=== PATIENT | female | born 1945 | race Caucasian/White ===

== ENCOUNTER → 2016-05-05 | Outpatient (CLI) | payer MEDICARE | END | disposition home or self-care (01) | LOC: LABPAT 10:41 | PROVIDERS: ATTEND Orthopaedic Surgery | DX: Z01.812 Encounter for preprocedural laboratory examination (principal) | CPT/HCPCS: 87070 ==

== ENCOUNTER → 2016-05-05 | Outpatient (CLI) | payer MEDICARE ==
--- NOTE | 2016-05-05 10:55 | XR ---
EXAMINATION TYPE: XR chest 2V DATE OF EXAM: 05/05/2016 10:37 AM COMPARISON: 03/16/2010 TECHNIQUE: PA and lateral views submitted. HISTORY: Preop FINDINGS: The lungs are clear and there is no pneumothorax, pleural effusion, or focal pneumonia. Biapical pl eural thickening. Arthropathy of the shoulders. Atherosclerotic change aorta. Degenerative change of the spine. Hyperinflation suggests COPD. IMPRESSION: 1. No acute process.
== END ==
LOC: RADXRMAIN 10:18
PROVIDERS: ATTEND Family Medicine
DX: I10 Essential (primary) hypertension (principal)
CPT/HCPCS: 71020

== ENCOUNTER → 2016-05-16 | Outpatient (CLI) | payer MEDICARE | END | disposition home or self-care (01) | LOC: LABPAT 10:55 | PROVIDERS: ATTEND Orthopaedic Surgery | DX: Z01.812 Encounter for preprocedural laboratory examination (principal) | CPT/HCPCS: 86850; 86900; 86901 ==

== ENCOUNTER → 2016-05-23 | Outpatient (CLI) | payer MEDICARE ==
[2016-05-23 15:19] LABS: Basophils % (A) 1 %; CH 32.9; CHCM 33.8; Eosinophils # (A) 0.1 k/uL (0-0.7); Eosinophils % (A) 1 %; HCT 40.5 % (34.0-46.0); HDW 2.44; HGB 13.4 gm/dL (11.4-16.0); Luc # (Auto) 0.28; Luc % (Auto) 3; Lymphocytes # (A) 3.4 k/uL (1.0-4.8); Lymphocytes % (A) 36 %; MCH 32.4 pg (25.0-35.0); MCHC 33.2 g/dL (31.0-37.0); MCV 97.7 fL (80.0-100.0); Mean Platelet Volume 7.4; Monocytes # (A) 0.4 k/uL (0-1.0); Monocytes % (A) 4 %; Neutrophils # (A) 5.2 k/uL (1.3-7.7); Neutrophils % (A) 55 %; RBC 4.14 m/uL (3.80-5.40); RDW 12.7 % (11.5-15.5); WBC 9.4 k/uL (3.8-10.6); WBC (Perox) 9.76
[2016-05-23 15:21] LABS: Partial Thromboplastin Time 27.5 sec (22.0-30.0); Prothrombin Time 9.8 sec (9.0-12.0)
[2016-05-23 15:23] LABS: ALT 27 U/L (9-52); AST 22 U/L (14-36); Alkaline Phosphatase 101 U/L (38-126); Anion Gap 12 mmol/L; Blood Urea Nitrogen 11 mg/dL (7-17); Calcium 9.8 mg/dL (8.4-10.2); Carbon Dioxide 22 mmol/L (22-30); Chloride 100 mmol/L (98-107); Glucose 88 mg/dL (74-99); Non-African American GFR(MDRD) >60 (>60 ml/min/1.73 sqM); Potassium 4.4 mmol/L (3.5-5.1); Sodium 134 mmol/L (137-145); Total Bilirubin 0.6 mg/dL (0.2-1.3); Total Protein 7.2 g/dL (6.3-8.2)
== END | disposition home or self-care (01) ==
LOC: LABWHC1 14:25
PROVIDERS: ATTEND Family Medicine
DX: Z01.818 Encounter for other preprocedural examination (principal); Z79.01 Long term (current) use of anticoagulants
CPT/HCPCS: 36415; 80053; 85025; 85610; 85730

== ENCOUNTER 2016-05-24 05:52 | Inpatient (IN) | payer MEDICARE ==
[2016-05-13 08:41] VITALS: BMI 21.4
--- NOTE | 2016-05-23 16:03 | HP ---
DATE OF ADMISSION: 05/24/2016 CHIEF COMPLAINT: Left hip pain. HISTORY OF PRESENT ILLNESS: The patient is a 70-year-old retired female who presents with progressive left hip pain secondary to osteoarthrosis despite conservative measures. She is having pain with weight-bearing activities that limits her significantly. She is also having night symptoms. She has tried multiple medications for this. Past medical history is significant for hypertension and arthritis. Past surgical history is significant for: 1. Tubal ligation. 2. Cholecystectomy. 3. Hand surgery. 4. Hysterectomy. CURRENT MEDICATIONS: 1. Amlodipine. 2. Baclofen. 3. Motrin. SHE DENIES DRUG ALLERGIES. FAMILY HISTORY: Significant for stroke. SOCIAL HISTORY: Significant for current tobacco use. Sixteen-point review of systems otherwise reviewed and is noncontributory. On examination, the patient is approximately 5 feet 7 inches, 135 pounds of mesomorphic habitus. HEENT exam is non-focal. Neck is supple. She is non-tender about the lumbar spine. Passive motion of the left hip, flexion 75 degrees, external rotation with the hip flexed 45 degrees. Internal rotation is zero degrees with pain. Clinically she has got 1 cm shortening of the left lower extremity compared to the right. Her distal neurovascular exam appears be intact in the left lower extremity. AP and lateral views of the left hip obtained in the office show severe osteoarthrosis with gieu-dw-zdom changes. IMPRESSION: Left hip severe osteoarthrosis. RECOMMENDATIONS: I talked to the patient at length regarding her treatment options. At this point she opts to proceed with surgery. We will plan to proceed with left total hip arthroplasty. Risks and benefits were discussed at length in layman's terms. We will likely institute DVT prophylaxis postoperatively. The patient underwent preoperative medical evaluation by Dr. Joshua.
[~2016-05-24 05:52] MED LIST: ACETAMINOPHEN TAB 500 MG TAB PO ONE; DEXAMETHASONE SOD PHOSPHATE 10 MG/ML 1 ML VIAL IV ONE; LIDOCAINE 1% 20 ML VIAL (10MG/ML) FOR IV START INTRADERMA PRN; MELOXICAM 7.5 MG TAB PO ONE; ONDANSETRON 4 MG/2 ML VIAL IVP ONE; TRANEXAMIC ACID 1,000 MG in SODIUM CHLORIDE 0.9% 100 ML IVPB ONE; ceFAZolin 2 GM in SODIUM CHLORIDE 0.9% 100 ML IVPB ONE; fentaNYL (PF) 50 MCG/ML 2 ML AMP IV PRN
[2016-05-24] MEDS: LACTATED RINGERS 1,000 ML IV SCH (06:46)
[2016-05-24] MEDS ORDERED: ceFAZolin 3,000 MG in SODIUM CHLORIDE 0.9% IRRIGATIO 3,000 ML IRRIGATION ONE (07:35)
[2016-05-24] MEDS ORDERED: HEPARIN SODIUM,PORCINE 10,000 UNIT/ML 1 ML VIAL ONE (07:35)
[2016-05-24] MEDS ORDERED: SODIUM CHLORIDE 0.9% IRRIG 1,000 ML BTL IRRIGATION ONE (07:35)
[2016-05-24] MEDS ORDERED: TRANEXAMIC ACID 1,000 MG/10 ML VIAL ONE (07:35)
[2016-05-24] MEDS ORDERED: PROPOFOL 10 MG/ML 20 ML VIAL IV ONE (07:35)
[2016-05-24] MEDS ORDERED: MIDAZOLAM 2 MG/2 ML VIAL ONE (07:35)
[2016-05-24] MEDS ORDERED: LIDOCAINE 1% INJ 10MG/ML (20 ML MDV) ONE (07:35)
[2016-05-24] MEDS ORDERED: PHENYLEPHRINE-0.9% NACL SYG 1 MG/10 ML SYRINGE ONE (07:35)
[2016-05-24] MEDS ORDERED: SODIUM CHLORIDE 0.9% 100 ML BAG ONE (07:35)
[2016-05-24] MEDS ORDERED: KETAMINE 10 MG/ML 20 ML VIAL ONE (07:35)
[2016-05-24] MEDS ORDERED: LACTATED RINGERS 1,000 ML IV ONE (09:16)
[2016-05-24] MEDS ORDERED: MAGNESIUM HYDROXIDE 2,400 MG/10 ML CUP PO PRN (09:42)
[2016-05-24] MEDS ORDERED: ONDANSETRON 4 MG/2 ML VIAL IVP PRN ×2 (09:42→17:47)
[2016-05-24] MEDS ORDERED: HYDROcodone/APAP 5-325MG 1 EACH TAB PO PRN (09:42)
[2016-05-24] MEDS ORDERED: traMADol 50 MG TAB PO PRN (09:42)
[2016-05-24] MEDS ORDERED: NALOXONE 0.4 MG/ML 1 ML VIAL IV PRN (09:42)
[2016-05-24] MEDS ORDERED: HYDROmorphone 1 MG/ML 1 ML SYRINGE IVP PRN (09:42)
--- NOTE | 2016-05-24 10:06 | P.OP ---
Date of Procedure: 05/24/16 Preoperative Diagnosis: Left hip severe osteoarthrosis-primary Postoperative Diagnosis: Same Procedure(s) Performed: Left total hip arthroplasty /anterior approach/press-fit Implants: Depuy Corail size 13 press-fit collared femoral stem, 32 mm +1 cobalt chrome femoral head, 52 mm Friendship acetabular shell, neutral polyethylene liner. Anesthesia: spinal Surgeon: Ruben Jefferson Block Captain #1: Zain Price Estimated Blood Loss (ml): 225 Pathology: other (Femoral head) Condition: stable Disposition: PACU Indications for Procedure: The patient's a 70-year-old female who presents with progressive left hip pain secondary to osteoarthrosis despite conservative measures. A discussion of the risks and benefits of operative intervention versus continued conservative measures was made with the patient. She opted to proceed with surgery. Operative risks to include infection, neurovascular injury, development of blood clots, possible component loosening, possible component failure, leg length discrepancy, possible dislocation and need for subsequent procedures was discussed. Informed consent was obtained. Operative Findings: As below Description of Procedure: The patient was brought to the operating room, and after induction of spinal anesthesia was positioned supine on the Kristen table. Fluoroscopy was used to check that the pelvis was level. The left lower extremity was then prepped and draped in a normal fashion. A longitudinal incision extending 12 cm was then made 3 fingerbreadths posterior and 2 from rest distal to the ASIS. The skin was incised sharply. The subcutaneous tissues were divided sharply. Electrocautery was used for hemostasis. The fascia julia was split anterior to the perforators. The interval between the sartorius and tensor fascia julia was then bluntly developed. The underlying fascia was opened. The lateral circumflex vessels were identified and coagulated prior to sectioning them. A retractor was placed over the anterior rim of the acetabulum. The rectus was elevated off the anterior capsule. Retractors were placed along the superior and inferior femoral neck. A wide capsulotomy was then performed. A femoral neck osteotomy was then performed with a sagittal saw at a 45 angle shaft proximally 1-1/2 cm above the level of the lesser trochanter. The head was extracted. Attention was then paid towards preparing the acetabular. Retractors were placed anterior and posteriorly. Residual capsular labral tissue was sharply debrided clearly defining the acetabular margins. I began reaming with a 45 mm reamer initially medializing then at 45 of abduction and 20 of anteversion. Sequential reaming is performed up to 51 mm. A trial 52 mm acetabular shell was inserted in the same orientation and was fully seated. There was good rim fit and stability. This was verified with fluoroscopy. The trial shell was removed and the final shell inserted again at 45 of abduction and 20 of anteversion. It was good overall rim fit and stability. I did place one supplemental 6.5 mm x 25 mm cancellus screw. Purchase was obtained. A neutral polyethylene liner was gently impacted. Care was taken to avoid any soft tissue interposition. Attention was then paid towards preparing the proximal femur. The left leg was externally rotated and then extended. Appropriate retractors were placed. A canal finder was used to find the femoral canal. Sequential broaching was performed up to a size 13 broach parallel to the posterior cortex. There was good rotational stability. A calcar mill was used to fashion the medial calcar. A standard neck along with the 32 mm +1 trial head was placed. The hip was gently relocated. I felt there was good yarsani of soft tissue tension. Fluoroscopy was used to check the adequacy of leg length yarsani. The hip was gently dislocated. The trial components were then removed. The final femoral stem was inserted again parallel to the posterior cortex and was fully seated. There was good rotational stability. A 32 mm +1 cobalt chrome femoral head was gently impacted. The hip was gently reduced. Again it was taken in 0 and 60 of extension with 60 of external rotation to check stability. Again there seemed to be adequate yarsani of soft tissue tension. Again this is verified with fluoroscopy. Pulsatile lavage was utilized. The fascia julia was closed with running 0 Vicryl suture. The subcutaneous tissues reapproximated interrupted 2- 0 Vicryl sutures per the skin was reapproximated with 3-0 subcuticular strata fix suture. Skin tape and adhesive was applied. The patient was awoken from sedation and transferred to the recovery room in good condition. Blood loss was estimated at 225 mL. The patient received 125 mL of Cell Saver. She also received 2 doses of IV TXA. Sponge and needle counts were correct at the end the case. No complications were incurred.
[2016-05-24 10:08] VITALS: RESP 16
--- NOTE | 2016-05-24 10:08 | FL ---
FLUOROSCOPY 44 seconds of fluoroscopy time were utilized during left anterior hip placement. 1 images document th e procedure.
[2016-05-24] MEDS ORDERED: diphenhydrAMINE 50 MG/ML 1 ML VIAL IVP ONE (10:16)
--- NOTE | 2016-05-24 10:17 | XR ---
EXAMINATION TYPE: XR Hip Limited LT DATE OF EXAM ORDERED: 05/24/2016 10:13 AM HISTORY: Left hip arthroplasty. COMPARISON: None. FINDINGS: A left arthroplasty has been performed. Prosthetic elements appear in good position. There is some subcutaneous air present. IMPRESSION: STATUS POST LEFT ARTHROPLASTY.
[2016-05-24] MEDS ORDERED: NALBUPHINE 10 MG/ML AMPUL IV PRN (13:53)
[2016-05-24] MEDS: diphenhydrAMINE 50 MG/ML 1 ML VIAL IVP PRN (14:00)
[2016-05-24] MEDS: MORPHINE SULFATE 4 MG/ML SYRINGE IVP PRN ×3 (14:00→21:51)
[2016-05-24] MEDS: ceFAZolin 2 GM in SODIUM CHLORIDE 0.9% 100 ML IVPB SCH (15:49)
--- NOTE | 2016-05-24 17:16 | CONS ---
DATE OF CONSULTATION: REASON FOR CONSULTATION: Management of hypertension. Perioperative hypertension and postoperative complications. Patient is a pleasant 70-year-old female admitted for elective knee arthroplasty. The patient successfully underwent surgery. Patient denied any fever or chills. The patient is having some pain. Patient denied any fever, chills, nausea, vomiting, abdominal pain, dysuria. REVIEW OF SYSTEMS: CONSTITUTIONAL: No fever, no malaise, no fatigue. HEENT: No recent visual problems or hearing problems. Denied any sore throat. CARDIOVASCULAR: No chest pain, orthopnea, PND, no palpitations, no syncope. PULMONARY: No shortness of breath, no cough, no hemoptysis. GASTROINTESTINAL: No diarrhea, no nausea, no vomiting, no abdominal pain. Normoactive bowel sounds. NEUROLOGICAL: No headaches, no weakness, no numbness. HEMATOLOGICAL: Denies any bleeding or petechiae. GENITOURINARY: Denies any burning micturition, frequency, or urgency. MUSCULOSKELETAL/RHEUMATOLOGICAL: Denies any joint pain, swelling, or any muscle pain. ENDOCRINE: Denies any polyuria or polydipsia. The rest of the 14 point review of systems is negative. Home medications include: 1. Amlodipine. 2. Ibuprofen. 3. Benazepril. 4. Baclofen. 5. Xarelto 10 mg oral daily. I believe this was started by orthopedic surgery as a DVT prophylaxis. PAST MEDICAL HISTORY: Significant for hypertension, osteoarthritis, cholecystectomy, tubal ligation surgery. SOCIAL HISTORY: Patient continues to smoke, the patient did not quit smoking before surgery. Continues to smoke 1 pack per day. Denied any alcohol abuse or any drug abuse. FAMILY HISTORY: Significant for cancer. PHYSICAL EXAMINATION: VITAL SIGNS: Temperature 96.8, pulse of 93, respiratory rate of 16, blood pressure is 106/66, saturating at 95% on room air. GENERAL: The patient is alert and oriented x3, not in any acute distress. Well developed, well nourished. HEENT: Pupils are round and equally reacting to light. EOMI. No scleral icterus. No conjunctival pallor. Normocephalic, atraumatic. No pharyngeal erythema. No thyromegaly. CARDIOVASCULAR: S1 and S2 present. No murmurs, rubs, or gallops. PULMONARY: Chest is clear to auscultation, no wheezing or crackles. ABDOMEN: Soft, nontender, nondistended, normoactive bowel sounds. No palpable organomegaly. MUSCULOSKELETAL: Defer to orthopedic surgery. EXTREMITIES: No cyanosis, clubbing, or pedal edema. NEUROLOGICAL: Gross neurological examination did not reveal any focal deficits. SKIN: No rashes. ASSESSMENT AND PLAN: 1. Postoperative day 0, left hip arthroplasty management as per pain management as per primary service. 2. Deep venous thrombosis prophylaxis as per primary service. 3. Hypertension. Hold off antihypertensives to prevent perioperative hypertension around the perioperative period. Patient is not on beta marti at this time. 4. Nicotine abuse, counselling was provided. We can use nicotine transdermal patch if needed. Thank you for letting me participate in this patient's care. Patient's primary care physician is Dr. Joshua.
[2016-05-24] MEDS ORDERED: SENNOSIDES-DOCUSATE SODIUM 1 EACH TAB PO SCH (21:00)
[2016-05-25] MEDS: ceFAZolin 2 GM in SODIUM CHLORIDE 0.9% 100 ML IVPB SCH (00:09)
[2016-05-25] MEDS: diphenhydrAMINE 50 MG/ML 1 ML VIAL IVP PRN (00:12)
[2016-05-25] MEDS: LACTATED RINGERS 1,000 ML IV SCH (03:20)
[2016-05-25] MEDS: HYDROcodone/APAP 5-325MG 1 EACH TAB PO PRN ×2 (05:25→10:29)
[2016-05-25 08:25] LABS: Basophils % (A) 0 %; CH 32.4; CHCM 33.5; Eosinophils % (A) 0 %; HCT 31.5 % (34.0-46.0); HDW 2.47; HGB 10.7 gm/dL (11.4-16.0); Luc % (Auto) 2; Lymphocytes % (A) 31 %; MCHC 33.9 g/dL (31.0-37.0); MCV 97.1 fL (80.0-100.0); Mean Platelet Volume 7.3; Monocytes # (A) 0.6 k/uL (0-1.0); Monocytes % (A) 6 %; Neutrophils # (A) 5.9 k/uL (1.3-7.7); Neutrophils % (A) 60 %; RBC 3.24 m/uL (3.80-5.40); RDW 12.8 % (11.5-15.5); WBC 9.8 k/uL (3.8-10.6); WBC (Perox) 10.78
[2016-05-25] MEDS ORDERED: FAMOTIDINE 20 MG TAB PO SCH (09:00)
[2016-05-25] MEDS ORDERED: RIVAROXABAN 10 MG TAB PO SCH (09:00)
[2016-05-25 09:58] VITALS: BP 112/70; PULSE 109; TEMP 98.2
--- NOTE | 2016-05-25 12:25 | P.PN ---
Subjective Principal diagnosis: Status post left total hip arthroplasty Patient seen today resting in her hospital chair, she is family at bedside. She is doing very well, she's done well with therapy. Pain is well-controlled. Denies headaches, lightheadedness, chest pain, shortness of breath. Objective - Vital Signs Vital signs: Vital Signs Temp 98.2 F 05/25/16 07:00 Pulse 109 H 05/25/16 07:00 Resp 16 05/25/16 07:00 BP 112/70 05/25/16 07:00 Pulse Ox 96 05/25/16 07:00 Intake & Output 05/24/16 05/25/16 05/25/16 18:59 06:59 18:59 Intake Total 2251 1000 350 Output Total 450 1025 1000 Balance 1801 -25 -650 Weight 62.142 kg Intake: IV 2251 400 Lactated Ringers 1,000 ml 150 400 @ 50 mls/hr IV .Q20H RENÉ Rx#:[id number] Intake, IV Titration 600 Amount Lactated Ringers 1,000 ml 400 @ 50 mls/hr IV .Q20H RENÉ Rx#:[id number] ceFAZolin 2 gm In Sodium 200 Chloride 0.9% 100 ml @ 100 mls/hr IVPB Q8HR RENÉ Rx#:[id number] Oral 350 Output: Urine 225 1025 1000 Uretheral (Giron) 1025 1000 Estimated Blood Loss 225 Other: Voiding Method Indwelling Catheter Indwelling Catheter - Exam Left lower extremity: Incision is clean, dry, and intact. Minimal soft tissue swelling present. Plantar flexion, dorsiflexion, EHL, FHL are intact. Calf is soft, no tenderness with palpation. Sensory exam to light touch set extremities intact, dorsal pedis pulses 2+. - Labs CBC & Chem 7: 05/25/16 07:39 Labs: Abnormal Lab Results - Last 24 Hours (Table) 05/25/16 Range/Units 07:39 RBC 3.24 L (3.80-5.40) m/uL Hgb 10.7 L (11.4-16.0) gm/dL Hct 31.5 L (34.0-46.0) % Assessment and Plan Plan: Assessment: 1. Postop day #1 status post left total hip arthroplasty Plan: 1. Pain control, continue supportive oral medication 2. Daily dressing changes/ice and elevate 3. Encourage incentive spirometer 4. GI and DVT prophylaxis, continue Xarelto 10 mg 5. Medical recommendations 6. Discharge planning: Patient will be discharged home today Time with Patient: Less than 30
--- NOTE | 2016-05-25 12:26 | P.DS ---
Providers Date of admission: 05/24/16 05:52 Expected date of discharge: 05/25/16 Attending physician: Ruben Jefferson Consults: 05/24/16 09:42 Consult Physician Routine Consulting Provider: Chen Jackson Consult Reason/Comments: Medical management Do you want consulting provider notified?: Yes Primary care physician: Stated None Hospital Course: Date of admission: 05/24/2016 Date of discharge: 05/25/2016 Admission diagnosis: Status post left total hip arthroplasty Discharge diagnosis: Same Attending physician: Dr. Jefferson Surgical procedures: Left total hip arthroplasty Brief history: Patient is a 70-year-old female with a history of progressive primary left hip osteoarthritis. At this point patient has failed conservative treatment measures and has opted to proceed with a elective left total hip arthroplasty. Hospital course: Details of patient's surgery can be found in operative report. Patient tolerated the procedure well and was subsequently transported to orthopedic floor. Patient's orthopeidc and medical care was provided daily. Patient had daily laboratory tests performed for evaluation of overall blood counts. Patient had daily physical therapy to include strengthening range of motion as well as education with walker ambulation. Patient was treated with Xarelto for their postoperative DVT prophylaxis during their inpatient stay. Patient was noted to have a relatively uneventful postoperative course. Patient reported satisfactory pain control with oral pain medications by postoperative day 0. Patient showed satisfactory progress with physical therapy. Patient moved steadily through the program and had no difficulty meeting the goals by postoperative day 1. Given patient's otherwise satisfactory course and having met physical therapy goals, plan is to discharge patient home on postoperative day 1. Discharge condition/disposition: Patient will be discharged home in stable condition. Discharge medications: Instructions are given on resumption of patient's normal daily medications per primary care recommendation, in addition patient will be prescribed [place] 5 mg/325 mg, Colace milligrams, Pepcid 20 mg, Xarelto 10 mg. Discharge instructions: 1. Wound care and infection precautions, keep incision dry and covered while showering, no lotions, creams, moisturizers. No soaking, tubs, pools, hottubs. Do not scrub over the incision. 2. Weight-bear as tolerated with walker / cane until follow-up. 3. Ice and elevate when necessary. Do not exceed 20 minutes per hour with ice pack. 4. Utilize compression sleeve until seen at first follow up appointment. 5. Visiting nursing care. 6. Home physical therapy. 7. Pain meds and anticoagulants per prescription. 8. Pain medication has potential to cause constipation. Increase oral fluid and fiber intake. Contact primary care provider if you have not had a bowel movement within 48 hours after discharge 9. No anti-inflammatory medication until discussed at first post operative visit, this including Motrin, Aleve, Mobic, Diclofenac. 10. Follow up in office at 2 weeks postop with Triston Price PA-C 11. Follow up with your primary care doctor 7-10 days after discharge. 12. Contact [facility] with any questions, . Procedures: Left total hip arthroplasty Patient Condition at Discharge: Good Plan - Discharge Summary New Discharge Prescriptions: Docusate [Colace] 100 mg PO DAILY #20 capsule Famotidine [Pepcid] 20 mg PO DAILY #30 tablet Hydrocodone/Acetaminophen [[place] 5-325] 1 each PO Q6HR PRN #40 tab PRN Reason: Pain Rivaroxaban [Xarelto] 10 mg PO DAILY #28 tab Discharge Medication List Baclofen [Lioresal] 10 mg PO TID 04/04/15 [History] Benazepril HCl 40 mg PO HS 04/04/15 [History] amLODIPine [Norvasc] 10 mg PO DAILY 04/04/15 [History] Acetaminophen [Tylenol Arthritis] 650 mg PO TID PRN 05/13/16 [History] Rivaroxaban [Xarelto] 10 mg PO DAILY #28 tab 05/24/16 [Rx] Docusate [Colace] 100 mg PO DAILY #20 capsule 05/25/16 [Rx] Famotidine [Pepcid] 20 mg PO DAILY #30 tablet 05/25/16 [Rx] Hydrocodone/Acetaminophen [[place] 5-325] 1 each PO Q6HR PRN #40 tab 05/25/16 [Rx] Follow up Appointment(s)/Referral(s): Zain Price PAC [PHYSICIAN ARMATURE BALANCER] - 06/08/16 3:10 pm [facility] Visiting Nurse, [NON-STAFF] - 1 Week Activity/Diet/Wound Care/Special Instructions: Orthopedic Discharge Instructions: 1. Wound care and infection precautions, keep incision dry and covered while showering, no lotions, creams, moisturizers. No soaking, pools, hot tubs. Do not scrub over incision. 2. Weight-bear as tolerated with walker / cane until follow-up. 3. Ice and elevate when necessary. Do not exceed 20 minutes per hour with ice pack. 4. Utilize compression sleeve until seen at first follow up appointment. 5. Visiting nursing care. 6. Home physical therapy. 7. Pain meds and anticoagulants per prescription. 8. Pain medication has potential to cause constipation. Increase oral fluid and fiber intake. Contact primary care provider if you have not had a bowel movement within 48 hours after discharge. 9. No anti-inflammatory medication until discussed at first post operative visit, this including Motrin, Aleve, Mobic, Diclofenac. 10. Follow up in office at 2 weeks postop with Triston Price PA-C 11. Follow up with your primary care doctor 7-10 days after discharge. 12. Contact [facility] with any questions, . Discharge Disposition: HOME WITH HOME HEALTH SERVICES
== END 2016-05-25 15:20 | disposition home health service (06) | DRG 470 ==
LOC: 2ORMAIN 05:52 → 3SUR 09:53
PROVIDERS: ADMIT Orthopaedic Surgery; ATTEND Orthopaedic Surgery
PROC: 0SRB02A Replacement of Left Hip Joint with Metal on Polyethylene Synthetic Substitute, Uncemented, Open Approach (ICD-10-PCS; principal; 2016-05-24 07:30)
DX: M16.12 Unilateral primary osteoarthritis, left hip (principal); I10 Essential (primary) hypertension; F17.210 Nicotine dependence, cigarettes, uncomplicated; Z79.899 Other long term (current) drug therapy
CPT/HCPCS: 36415; 73501; 80053; 85025; 85610; 85730; 86850; 86891; 86900; 86901; 88300

== ENCOUNTER → 2017-12-04 | Outpatient (CLI) | payer MEDICARE | END | disposition home or self-care (01) | LOC: LABWHC1 10:13 | PROVIDERS: ATTEND Orthopaedic Surgery | DX: Z01.812 Encounter for preprocedural laboratory examination (principal); M16.11 Unilateral primary osteoarthritis, right hip | CPT/HCPCS: 87070 ==

== ENCOUNTER 2017-12-12 08:00 | Inpatient (IN) | payer MEDICARE ==
[2017-12-04 15:03] VITALS: BMI 19.7
--- NOTE | 2017-12-11 09:55 | HP ---
HISTORY AND PHYSICAL CHIEF COMPLAINT: Right hip pain. HISTORY OF PRESENT ILLNESS: The patient is a 72-year-old retired female who presents with progressive right hip pain for the past several years. It has worsened recently. She notes it limits her normal function and activities. PAST MEDICAL HISTORY: Significant for hypertension and arthritis. PAST SURGICAL HISTORY: Significant for tubal ligation, cholecystectomy, hand surgery, hysterectomy and left total hip arthroplasty. CURRENT MEDICATIONS: 1. Amlodipine. 2. Benazepril. 3. Ibuprofen. ALLERGIES: She denies drug allergies. FAMILY HISTORY: Significant for stroke. SOCIAL HISTORY: Significant for current tobacco use. REVIEW OF SYSTEMS: Sixteen-point review of systems otherwise reviewed and is noncontributory. PHYSICAL EXAMINATION: On examination, the patient is approximately 5 feet, 7 inches, 130 pounds of mesomorphic habitus. HEENT exam is nonfocal. Neck is supple. Passive motion right hip, flexion 80 degrees, external rotation with the hip flexed 55 degrees, internal rotation 10 degrees with pain. Clinically, she has got mild shortening of the right lower extremity compared to the left. Her distal neurovascular exam appears intact in the right lower extremity. AP of the pelvis obtained in the office show severe right hip osteoarthrosis. IMPRESSION: Symptomatic severe right hip osteoarthrosis. RECOMMENDATIONS: I talked to the patient at length regarding her condition and treatment options. At this point she is quite symptomatic and opts to proceed with surgery. We will plan to proceed with right total hip arthroplasty utilizing an anterior approach. We will institute DVT prophylaxis postoperatively. The patient underwent preoperative medical evaluation by Dr. Joshua. MMJAYDONL / ARIANEN: [id number] /
[~2017-12-12 08:00] MED LIST changes: -DEXAMETHASONE SOD PHOSPHATE 10 MG/ML 1 ML VIAL IV ONE; -LIDOCAINE 1% 20 ML VIAL (10MG/ML) FOR IV START INTRADERMA PRN; -ONDANSETRON 4 MG/2 ML VIAL IVP ONE; -TRANEXAMIC ACID 1,000 MG in SODIUM CHLORIDE 0.9% 100 ML IVPB ONE; +TRANEXAMIC ACID 1,000 MG in SODIUM CHLORIDE 0.9% 50 ML IVPB ONE; -ceFAZolin 2 GM in SODIUM CHLORIDE 0.9% 100 ML IVPB ONE; +ceFAZolin IN SWFI 2 GM/20 ML SYRINGE IVP ONE; -fentaNYL (PF) 50 MCG/ML 2 ML AMP IV PRN
[2017-12-12] MEDS ORDERED: LIDOCAINE 1% 20 ML VIAL (10MG/ML) FOR IV START INTRADERMA ONE (10:05)
[2017-12-12] MEDS ORDERED: LACTATED RINGERS 1,000 ML IV ONE ×2 (10:05→13:44)
[2017-12-12] MEDS: ONDANSETRON 4 MG/2 ML VIAL IVP ONE ×2 (10:19→14:31)
[2017-12-12] MEDS ORDERED: DEXAMETHASONE SOD PHOS (MDV) 100 MG/10 ML VIAL IVP ONE (10:19)
[2017-12-12] MEDS ORDERED: LIDOCAINE 1% INJ 10MG/ML (20 ML MDV) ONE (11:42)
[2017-12-12] MEDS ORDERED: SODIUM CHLORIDE 0.9% 100 ML BAG ONE (11:42)
[2017-12-12] MEDS ORDERED: HEPARIN SODIUM,PORCINE 10,000 UNIT/ML 1 ML VIAL ONE (11:42)
[2017-12-12] MEDS ORDERED: PHENYLEPHRINE-0.9% NACL SYG 1 MG/10 ML SYRINGE ONE (11:42)
[2017-12-12] MEDS ORDERED: MIDAZOLAM 2 MG/2 ML VIAL ONE (11:42)
[2017-12-12] MEDS ORDERED: fentaNYL (PF) 50 MCG/ML 2 ML AMP ONE (11:42)
[2017-12-12] MEDS ORDERED: SODIUM CHLORIDE 0.9% IRRIG 1,000 ML BTL IRRIGATION ONE (11:42)
[2017-12-12] MEDS ORDERED: PROPOFOL 10 MG/ML 20 ML VIAL IV ONE (11:42)
[2017-12-12] MEDS ORDERED: TRANEXAMIC ACID 1,000 MG/10 ML VIAL ONE (11:42)
[2017-12-12] MEDS ORDERED: ROPIVACAINE 246.25 MG, EPINEPHrine 0.5 MG, KETOROLAC 30 MG, cloNIDine HCL/PF 80 MCG, WA... MISCELLANE STA ×5 (12:18)
[2017-12-12] MEDS ORDERED: ceFAZolin 3,000 MG in SODIUM CHLORIDE 0.9% IRRIGATIO 3,000 ML IRRIGATION ONE (12:27)
[2017-12-12] MEDS ORDERED: ONDANSETRON 4 MG/2 ML VIAL IVP PRN (14:12)
[2017-12-12] MEDS ORDERED: NALOXONE 0.4 MG/ML 1 ML VIAL IV PRN (14:12)
[2017-12-12] MEDS ORDERED: HYDROmorphone 0.5 MG/0.5 ML SYRINGE IVP PRN (14:12)
[2017-12-12] MEDS ORDERED: HYDROcodone/APAP 5-325MG 1 EACH TAB PO PRN (14:12)
[2017-12-12] MEDS ORDERED: hydrOXYzine PAMOATE 25 MG CAP PO PRN (14:12)
--- NOTE | 2017-12-12 14:28 | P.OP ---
Date of Procedure: 12/12/17 Preoperative Diagnosis: Right hip severe osteoarthrosis Postoperative Diagnosis: Same Procedure(s) Performed: Right total hip dhzrxdytyraw-hsrzx-bvt-anterior approach Implants: Depuy Corail size 12 standard press-fit collared femoral stem, 32 mm +1 cobalt chrome femoral head, neutral polyethylene liner, 56 mm [place] acetabular shell Anesthesia: local, spinal Surgeon: Ruben Jefferson Estimated Blood Loss (ml): 400 Pathology: other (Femoral head) Condition: stable Disposition: PACU Indications for Procedure: The patient's a 9-year-old female who presents with progressive right hip pain secondary to osteoarthrosis despite conservative measures. A discussion of the risks and benefits of operative intervention versus continued conservative measures was made with the patient. She opted to proceed with surgery. Operative risks to include infection, neurovascular injury, development of blood clots, possible component loosening, possible leg length discrepancy, possible instability and possible need for subsequent procedures was discussed. Informed consent was obtained. Operative Findings: As below Description of Procedure: The patient was brought to the operating room, and after induction of spinal anesthesia was placed supine on the Kristen table. Fluoroscopy was used to check that the pelvis was level. The right lower extremity was prepped and draped in normal fashion. A 12 cm incision was then made starting 3 finger breaths posterior and 2 fingerbreadths distal to the ASIS in line with the femoral shaft. The skin was incised sharply. Subcu tissues tissues were divided sharply. Electrocautery was used for hemostasis. The fascia was split anterior to the perforators. The interval between the tensor fascia julia and sartorius was then bluntly developed. The posterior fascia was opened. The lateral circumflex vessels were identified and cauterized prior to sectioning. A retractor was placed along the superior femoral neck. The rectus was elevated off the anterior capsule. A second retractor was placed along the anterior acetabular rim. A wide capsulotomy was performed. Another retractors placed along the inferior femoral neck. A neck cut was then made approximately 1 1/2 cm above the level of the lesser trochanter with sagittal saw at a 45 angle to the shaft. The head was easily extracted. The leg was externally rotated and anterior and posterior acetabular retractors were placed. The remaining capsular labral tissue sharply removed defining the acetabular margins. I began reaming with a 47 mm reamer taking care to initially medialize then reaming at 45 of abduction and 20 of anteversion. Sequential reaming was performed up to 53 mm. A trial 54 mm acetabular shell was inserted and initially I had good rim fit and purchase. The final 54 mm acetabular shell was inserted in the same orientation however did not obtain good purchase. I then reamed up to 55 mm and a 56 mm acetabular shell was inserted again at 45 of abduction and 20 of anteversion. There was reasonable stability. I did drill a posterior superior drill hole and a 6.5 x 25 mm cancellus screw was inserted with good purchase. I felt there was secure fixation at this point. A neutral polyethylene liner was gently impacted. Attention was then paid towards preparing the proximal femur. The hip was externally rotated to 130 then fully extended and adducted. A canal finder was used to find the femoral canal. Care was taken to lateralize proximally. The central region was cleared of soft tissue. A box chisel was used to open the metaphyseal region. Sequential broaching was performed up to size 12 broach. This was parallel to the posterior cortex and had good rotational stability. A calcar mill was used to fashion the medial calcar. A standard neck along with a 32 mm +1 head was placed. The hip was gently reduced. Fluoroscopy showed adequate placement of the implant, overall fit, and druze of leg length. The hip was gently dislocated. The trial components were then removed. The final size 12 collared standard femoral stem was again inserted parallel to the posterior cortex and was fully seated. There was good rotational stability. A 32 mm +1 cobalt chrome femoral head was gently impacted. Hip was gently reduced. Again it was felt to be stable with good druze of soft tissue tension and leg lengths were checked with fluoroscopy. Stability was checked with approximately 80 of external rotation and 50 of extension. Pulsatile lavage was utilized. The fascia was closed with running 0 Vicryl suture. There was minimal drainage therefore a deep drain was not placed. The subcutaneous tissues were reapproximated with 2-0 Vicryl sutures. The skin was reapproximated with 3-0 subcuticular strata fix suture. Skin tape and adhesive was applied. A sterile dressing was applied. The patient was awoken from sedation and transferred to recovery room in good condition. Blood loss was estimated at 400 mL. She received 2 doses of IV TXA. She also received 190 mL Cell Saver back. No complications were incurred. Sponge and needle counts were correct at the end the case.
[2017-12-12] MEDS ORDERED: HYDROmorphone 0.5 MG/0.5 ML SYRINGE IVP ONE (14:50)
--- NOTE | 2017-12-12 15:00 | XR ---
Limited right hip HISTORY: Status post right hip arthroplasty Single frontal view of the right hip Patient is status post right hip arthroplasty. There is lucency in the soft tissues compatible with p ostop state. There is anatomic alignment. Bone mineralization is reduced. IMPRESSION: Orthopedic follow-up.
--- NOTE | 2017-12-12 15:27 | FL ---
Fluoroscopy HISTORY: Hip replacement 1.2 minutes fluoroscopy time supplied to the referring clinician. 1 intraoperative C-arm images docu ment the procedure. See dictated report from orthopedic surgery.
--- NOTE | 2017-12-12 15:28 | XR ---
Limited right hip HISTORY: Anterior hip replacement Intraoperative C-arm image documents the procedure
[2017-12-12] MEDS: HYDROmorphone 1 MG/ML 1 ML SYRINGE IVP PRN ×2 (16:23→19:35)
[2017-12-12] MEDS: LACTATED RINGERS 1,000 ML IV SCH (16:55)
[2017-12-12] MEDS: HYDROcodone/APAP 5-325MG 1 EACH TAB PO PRN (18:27)
[2017-12-12] MEDS: ceFAZolin IN SWFI 2 GM/20 ML SYRINGE IVP SCH (19:35)
[2017-12-12] MEDS ORDERED: METOCLOPRAMIDE 5 MG/ML 2 ML VIAL IVP PRN (19:53)
[2017-12-12] MEDS ORDERED: LISINOPRIL 20 MG TAB PO SCH (21:00)
--- NOTE | 2017-12-13 00:01 | CONS ---
CONSULTATION DATE OF SERVICE: 12/12/2017. REASON FOR CONSULTATION: Medical management, requested by Dr. Jefferson. CONSULTATION: This is a pleasant 72-year-old patient who follows with Dr. Joshua. Chronic stable medical conditions include hypertension, osteoarthritis. The patient today has undergone right total hip arthroplasty. The patient has been having progressive pain in the joint. The pain is limited to the side. No radiation. It was worse with activity, better with rest. Having failed medical treatment, it was decided to proceed with surgery. Postprocedure no chest pain or short shortness of breath. No nausea or vomiting. Yesterday was a bit tired. Family at the bedside. The patient denies any cardiac history. REVIEW OF SYSTEMS: CONSTITUTIONAL: None. HEENT: None. RESPIRATORY: None. CARDIOVASCULAR: None. GENITOURINARY: None. MUSCULOSKELETAL: Arthritic pain in many joints. DERMATOLOGICAL, HEMATOLOGIC, LYMPHATIC: None. PSYCHIATRY: None. NEUROLOGICAL: None. PAST MEDICAL HISTORY: Hypertension, osteoarthritis, rapid heart rate. PAST SURGICAL HISTORY: Cholecystectomy, tubal ligation, vein stripping, throat surgery. PSYCH HISTORY: Anxiety. SOCIAL HISTORY: Smokes a pack a day for the last 50 years. Alcohol occasionally. FAMILY HISTORY: Cancer, type unknown. HOME MEDICATIONS: 1. Norvasc 10 mg p.o. daily. 2. Benazepril 40 mg at bedtime. 3. Tylenol Arthritis 650 mg p.o. t.i.d. ALLERGIES: CODEINE. PHYSICAL EXAMINATION: Temperature 97.7, pulse 85, respiratory rate 12, blood pressure 130/76, pulse ox 100% on room air. GENERAL APPEARANCE: Average built, sitting up, awake. EYES: Pupils equal. Conjunctivae normal. HEENT: External appearance of nose and ears normal. Oral cavity normal. NECK: JVD not raised. Mass not palpable. Respiratory effort normal. LUNGS: Fair air entry. CARDIOVASCULAR: 1st and 2nd heart sounds normal. No edema. ABDOMEN: Soft, nontender. Liver and spleen not palpable. LYMPHATICS: No lymph nodes palpable in the neck or axillae. PSYCHIATRY: Alert and oriented x3. Mood and affect normal. NEUROLOGICAL: Pupils equal. Cranial nerves grossly intact. Power and sensation grossly intact. MUSCULOSKELETAL: Evidence of osteoarthritis especially in the hands and knees. Dressing over the right hip. INVESTIGATIONS: None. ASSESSMENT: 1. Right total hip arthroplasty. 2. Primary osteoarthritis. 3. Essential hypertension. 4. Chronic nicotine dependence, patient is a cigarette smoker. PLAN: The patient's home medications will be resumed. The patient is getting Xarelto for DVT prophylaxis. Getting IV fluids. Pain is controlled. Will be given a nicotine patch. Patient should follow up with Dr. Joshua after discharge. MMODL / IJN: [id number] /
[2017-12-13] MEDS: HYDROcodone/APAP 5-325MG 1 EACH TAB PO PRN ×3 (03:23→13:53)
[2017-12-13] MEDS: ceFAZolin IN SWFI 2 GM/20 ML SYRINGE IVP SCH (03:24)
[2017-12-13] MEDS: NICOTINE 21MG/24HR PATCH TRANSDERM SCH ×2 (03:27→07:12)
[2017-12-13 07:14] VITALS: RESP 12
[2017-12-13] MEDS: LACTATED RINGERS 1,000 ML IV SCH ×2 (08:31→11:00)
[2017-12-13] MEDS ORDERED: RIVAROXABAN 10 MG TAB PO SCH (09:00)
[2017-12-13] MEDS ORDERED: amLODIPine 10 MG TAB PO SCH (09:00)
[2017-12-13 10:50] LABS: Basophils % (A) 0 %; Eosinophils % (A) 0 %; HCT 33.3 % (34.0-46.0); HGB 11.1 gm/dL (11.4-16.0); Lymphocytes # (A) 2.9 k/uL (1.0-4.8); Lymphocytes % (A) 20 %; MCH 32.9 pg (25.0-35.0); MCHC 33.2 g/dL (31.0-37.0); MCV 98.9 fL (80.0-100.0); Mean Platelet Volume 7.8; Monocytes # (A) 0.8 k/uL (0-1.0); Monocytes % (A) 6 %; Neutrophils # (A) 10.6 k/uL (1.3-7.7); Neutrophils % (A) 73 %; Platelet Count 290 k/uL (150-450); RBC 3.37 m/uL (3.80-5.40); RDW 12.7 % (11.5-15.5); WBC 14.6 k/uL (3.8-10.6)
--- NOTE | 2017-12-13 12:22 | P.PN ---
Subjective Progress Note Date: 12/13/17 Principal diagnosis: Status post right total hip arthroplasty Patient seen today resting in her hospital bed, she appears comfortable. Family is present at bedside. She's ambulated well with therapy. She denies any headaches, lightheadedness, chest pain or shortness of breath. Objective - Vital Signs Vital signs: Vital Signs Temp 98.6 F 12/13/17 07:00 Pulse 105 H 12/13/17 07:00 Resp 12 12/13/17 07:00 BP 121/74 12/13/17 07:00 Pulse Ox 94 L 12/13/17 07:00 Intake & Output 12/12/17 12/13/17 12/13/17 18:59 06:59 18:59 Intake Total 1201 1142 Output Total 400 Balance 801 1142 Weight 57.153 kg 57.153 kg Intake: IV 1201 Intake, IV Titration 800 Amount Lactated Ringers 1,000 ml 800 @ 100 mls/hr IV .Q10H RENÉ Rx#:[id number] Oral 342 Output: Estimated Blood Loss 400 Other: # Voids 2 - Exam Right lower extremity: Incision is clean, dry, and intact. The prineo tape is in good condition. There is minimal soft tissue swelling and ecchymosis surrounding the medial and lateral aspects of the incision. Calf is soft, no tenderness with palpation. Plantar flexion, dorsiflexion, EHL, FHL are intact. Sensory exam to light touch throughout the extremity is intact, dorsal pedis pulses 2+. - Labs CBC & Chem 7: 12/13/17 08:13 Labs: Abnormal Lab Results - Last 24 Hours (Table) 12/13/17 Range/Units 08:13 WBC 14.6 H (3.8-10.6) k/uL RBC 3.37 L (3.80-5.40) m/uL Hgb 11.1 L (11.4-16.0) gm/dL Hct 33.3 L (34.0-46.0) % Neutrophils # 10.6 H (1.3-7.7) k/uL Assessment and Plan Plan: Assessment: Postoperative day #1 status post right total hip arthroplasty Plan: Pain control, we'll discharge home on oral medication GI and DVT prophylaxis, Xarelto 10 mg for a month Wound care instructions discussed Home nursing and physical therapy at discharge Medical recommendations Discharge planning: Plan for discharge home today Time with Patient: Less than 30
--- NOTE | 2017-12-13 12:26 | P.DS ---
Providers Date of admission: 12/12/17 09:35 Expected date of discharge: 12/13/17 Attending physician: Ruben Jefferson Consults: 12/12/17 15:20 Consult Physician Routine Consulting Provider: Naveen Butterfield Consult Reason/Comments: medical management Do you want consulting provider notified?: Yes Primary care physician: Matthias [facility] Hospital Course: Date of admission: 12/12/2017 Date of discharge: 12/13/2017 Admission diagnosis: Status post right total hip arthroplasty Discharge diagnosis: Same Attending physician: Dr. Jefferson Surgical procedures: Right total hip arthroplasty Brief history: Patient is a 72-year-old female with a history of progressive primary right hip osteoarthritis. At this point patient has failed conservative treatment measures and has opted to proceed with a elective right total hip arthroplasty. Hospital course: Details of patient's surgery can be found in operative report. Patient tolerated the procedure well and was subsequently transported to orthopedic floor. Patient's orthopeidc and medical care was provided daily. Patient had daily laboratory tests performed for evaluation of overall blood counts. Patient had daily physical therapy to include strengthening range of motion as well as education with walker ambulation. Patient was treated with Xarelto for their postoperative DVT prophylaxis during their inpatient stay. Patient was noted to have a relatively uneventful postoperative course. Patient reported satisfactory pain control with oral pain medications by postoperative day 0. Patient showed satisfactory progress with physical therapy. Patient moved steadily through the program and had no difficulty meeting the goals by postoperative day 1. Given patient's otherwise satisfactory course and having met physical therapy goals, plan is to discharge patient home on postoperative day 1. Discharge condition/disposition: Patient will be discharged home in stable condition. Discharge medications: Instructions are given on resumption of patient's normal daily medications per primary care recommendation, in addition patient will be prescribed Artemus 5 mg/325 mg, Colace 100 mg, Xarelto 10 mg. Discharge instructions: 1. Wound care and infection precautions, keep incision dry and covered while showering, no lotions, creams, moisturizers. No soaking, tubs, pools, hottubs. Do not scrub over the incision. 2. Weight-bear as tolerated with walker / cane until follow-up. 3. Ice and elevate when necessary. Do not exceed 20 minutes per hour with ice pack. 4. Utilize compression sleeve until seen at first follow up appointment. 5. Visiting nursing care. 6. Home physical therapy. 7. Pain meds and anticoagulants per prescription. 8. Pain medication has potential to cause constipation. Increase oral fluid and fiber intake. Contact primary care provider if you have not had a bowel movement within 48 hours after discharge 9. No anti-inflammatory medication until discussed at first post operative visit, this including Motrin, Aleve, Mobic, Diclofenac. 10. Follow up in office at 2 weeks postop with Triston Price PA-C 11. Follow up with your primary care doctor 7-10 days after discharge. 12. Contact [facility] with any questions, . Procedures: Right total hip arthroplasty Patient Condition at Discharge: Good Plan - Discharge Summary Discharge Rx Participant: No New Discharge Prescriptions: No Action amLODIPine [Norvasc] 10 mg PO QAM Benazepril HCl 40 mg PO HS Acetaminophen [Tylenol Arthritis] 650 mg PO TID PRN PRN Reason: Pain Discharge Medication List Benazepril HCl 40 mg PO HS 04/04/15 [History] amLODIPine [Norvasc] 10 mg PO QAM 04/04/15 [History] Acetaminophen [Tylenol Arthritis] 650 mg PO TID PRN 05/13/16 [History] Follow up Appointment(s)/Referral(s): Matthias Joshua DO [Primary Care Provider] - 12/21/17 11:15 am Zain Price PAC [PHYSICIAN ASSET PROTECTION SPECIALIST] - 12/27/17 4:20 pm [facility] Visiting Nurse, [NON-STAFF] - Activity/Diet/Wound Care/Special Instructions: Walker - has at home Orthopedic Discharge Instructions: 1. Wound care and infection precautions, keep incision dry and covered while showering, no lotions, creams, moisturizers. No soaking, pools, hot tubs. Do not scrub over incision. 2. Weight-bear as tolerated with walker / cane until follow-up. 3. Ice and elevate when necessary. Do not exceed 20 minutes per hour with ice pack. 4. Utilize compression sleeve until seen at first follow up appointment. 5. Pain meds and anticoagulants per prescription. 6. Pain medication has potential to cause constipation. Increase oral fluid and fiber intake. Contact primary care provider if you have not had a bowel movement within 48 hours after discharge. 7. No anti-inflammatory medication until discussed at first post operative visit, this including Motrin, Aleve, Mobic, Diclofenac,. 8. Follow up in office at 2 weeks postop with Triston Price PA-C 9. Follow up with your primary care doctor 7-10 days after discharge. 10. Contact [facility] with any questions, . Discharge Disposition: HOME WITH HOME HEALTH SERVICES
[2017-12-13 14:48] VITALS: BP 94/56; PULSE 97; TEMP 98.7
--- NOTE | 2017-12-14 06:33 | PN ---
PROGRESS NOTE DATE OF SERVICE: 12/13/2017 PRESENTING COMPLAINT: Hip surgery. INTERVAL HISTORY: Patient is doing better. Some pain is present. Has slight nausea yesterday, which is improved. Did tolerate a diet. Did work with therapy. Overall feeling better. No chest pain or shortness of breath. REVIEW OF SYSTEMS: Done for constitutional, cardiovascular, GI, pulmonary; relevant findings as above. CURRENT MEDICATIONS: Current medications are reviewed. PHYSICAL EXAMINATION: On examination, temperature 98.7, pulse 97, respiration 12, blood pressure 94/56, pulse ox 94% on room air. GENERAL APPEARANCE: Sitting up, comfortable. EYES: Pupils equal. Conjunctivae normal. HENT: External appearance of nose and ears normal. Oral cavity normal. NECK: JVD not raised. Mass not palpable. RESPIRATORY: Effort normal. LUNGS: Fair entry. CARDIOVASCULAR: First and second sounds normal. No edema. ABDOMEN: Soft, nontender. Liver and spleen not palpable. PSYCHIATRY: Alert and oriented x3. Mood and affect normal. INVESTIGATIONS: White count 14.6, hemoglobin 11.1. ASSESSMENT: 1. Right total hip arthroplasty. 2. Leukocytosis likely reactive from surgery. No clinical evidence for infection. Incision healing well per Surgery. 3. Primary osteoarthritis. 4. Essential hypertension. 5. Chronic nicotine dependence. Patient is a cigarette smoker. PLAN: Patient is stable. Continue the medication and treatment plan. If discharged, should follow with her family doctor. MMODL / IJN: [id number] /
== END 2017-12-13 15:56 | disposition home health service (06) | DRG 470 ==
LOC: 2ORMAIN 09:35 → 4SSUR 14:44
PROVIDERS: ADMIT Orthopaedic Surgery; ATTEND Orthopaedic Surgery
PROC: 0SR902A Replacement of Right Hip Joint with Metal on Polyethylene Synthetic Substitute, Uncemented, Open Approach (ICD-10-PCS; principal; 2017-12-12 11:30)
DX: M16.11 Unilateral primary osteoarthritis, right hip (principal); D72.829 Elevated white blood cell count, unspecified; F17.210 Nicotine dependence, cigarettes, uncomplicated; I10 Essential (primary) hypertension; Z79.899 Other long term (current) drug therapy; Z82.3 Family history of stroke; Z90.710 Acquired absence of both cervix and uterus; F41.9 Anxiety disorder, unspecified; Z88.5 Allergy status to narcotic agent
CPT/HCPCS: 73501; 85025; 86850; 86891; 86900; 86901; 88300

== ENCOUNTER → 2018-02-14 | Outpatient (CLI) | payer MEDICARE ==
--- NOTE | 2018-02-14 11:54 | XR ---
EXAMINATION TYPE: XR chest 2V DATE OF EXAM: 02/14/2018 COMPARISON: Prior chest x-ray 12/05/2017 HISTORY: Abnormal chest x-ray TECHNIQUE: Frontal and lateral views of the chest are obtained. FINDINGS: Findings are stable. Prominent lung volumes suggest underlying COPD, biapical pleural thic kening is stable. The heart is small. The aorta is dense. No evident airspace disease, pneumothorax, or pleural effusion. Abnormality previously described on the lateral view may be due to eventration o f the hemidiaphragms. IMPRESSION: Findings are similar to prior exam as described. CT chest could be performed for increas ed sensitivity.
== END ==
LOC: RADXRMAIN 10:28
PROVIDERS: ATTEND Family Medicine
DX: R91.8 Other nonspecific abnormal finding of lung field (principal)
CPT/HCPCS: 71046

== ENCOUNTER → 2018-11-05 | Outpatient (CLI) | payer MEDICARE ==
--- NOTE | 2018-11-05 11:53 | US ---
EXAMINATION TYPE: US abdomen complete DATE OF EXAM: 11/05/2018 COMPARISON: NONE CLINICAL HISTORY: 73-year-old female R14.0 Abdominal distension (gaseous). TECHNIQUE: Multiple sonographic images of the abdomen are obtained. FINDINGS: EXAM MEASUREMENTS: Liver Length: 15.7 cm Gallbladder: Surgically absent CBD: 0.6 cm Spleen: 7.4 cm Right Kidney: 10.1 x 3.8 4.5 cm Left Kidney: 9.8 x 4.4 x 4.4 cm Pancreas: not well seen due to overlying bowel gas, prominent nodes surrounding Liver: Markedly heterogeneous secondary to innumerable masses, largest measuring 5.3 cm. Gallbladder: Surgically absent Evidence for sonographic Stanford's sign: no CBD: wnl Spleen: wnl Right Kidney: 1.4 x 0.9 x 1.2 cm exophytic lower pole mass, demonstrates some internal echoes. Left Kidney: wnl Upper IVC: wnl Abd Aorta: mostly obscured by bowel gas, portions visualized wnl IMPRESSION: 1. Multifocal HCC versus diffuse metastatic disease of the liver. Too numerous to count hepatic mass es measure up to 5.3 cm. 2. Status post cholecystectomy. 3. A 1.4 cm exophytic lesion lower pole left kidney suspected to represent a debris-filled cyst. Reas sess with a 3 month follow-up renal ultrasound.
== END | disposition home or self-care (01) ==
LOC: RADUSWWP 10:56
PROVIDERS: ATTEND Family Medicine
DX: R16.0 Hepatomegaly, not elsewhere classified (principal); Z90.49 Acquired absence of other specified parts of digestive tract
CPT/HCPCS: 76700

== ENCOUNTER → 2018-11-07 | Outpatient (CLI) | payer MEDICARE ==
[2018-11-07 13:59] LABS: African American GFR (CKD) >90 (>60 ml/min/1.73 sqM); Blood Urea Nitrogen 14 mg/dL (7-17)
--- NOTE | 2018-11-07 17:33 | CT ---
EXAMINATION TYPE: CT ChestAbdPelvis w con DATE OF EXAM: 11/07/2018 COMPARISON: Complete abdominal ultrasound 2 days ago.. HISTORY: Hepatomegaly and abnormal xray. CT DLP: 937 mGycm. Automated Exposure Control for Dose Reduction was Utilized. CONTRAST: CT scan of the thorax, abdomen and pelvis is performed with IV Contrast, patient injected with 100 mL of Isovue M300. FINDINGS: LUNGS: Background moderate underlying emphysematous change most prominent in the upper lobes with mil d to moderate apical pleural/parenchymal scarring. No suspicious nodules or masses. No pleural effusi on or pneumothorax is noted bilaterally. Tracheobronchial tree is patent. MEDIASTINUM: There are abnormal confluent heterogeneous thoracic lymph nodes. For reference there is 2.1 x 1.6 cm right paratracheal lymph node image 17. Abnormal adenopathy fills the pericarinal and th e AP window. There is abnormal 1.8 x 1.4 cm subcarinal lymph node axial image 24. No cardiomegaly or pericardial effusion is seen. OTHER: There are abnormal right supraclavicular lymph notes axial image 4 and 5 with right-sided 1.0 x 0.9 cm node seen axial image 5 LIVER/GB: Numerous heterogeneous hypodense hepatic lesions in enlarged liver. For reference medial se gment left hepatic lobe lesion measures 5.3 cm long axis axial image 58. For reference posterior righ t hepatic lobe lesion measures 6.5 cm long axis image 66. PANCREAS: No significant abnormality is seen. SPLEEN: No significant abnormality is seen. ADRENALS: Suspicious left adrenal mass measuring 1.6 x 1.0 cm axial image 60. Suspicious right adrena l 1.7 x 0.9 cm mass effect image 61. KIDNEYS: Area of wedge-shaped hypoperfusion lower pole left kidney anteriorly image 79. Symmetrical n odular uptake and excretion from both kidneys with low lying right kidney. No hydronephrosis is seen bilaterally. BOWEL: Oral contrast reaches level of the mid transverse colon. There is low lying cecum into the rig ht pelvis. Terminal ileum is thought within normal limits. There are some diverticula in the distal t ransverse colon. No suspicious small or large bowel dilatation. GENITAL ORGANS: Uterus is suspected surgically absent or atrophic. Limited in evaluation due to hip p rosthesis. LYMPH NODES: No greater than 1cm abdominal or pelvic lymph nodes are appreciated. OSSEOUS STRUCTURES: Metallic hardware from bilateral hip arthroplasties causes streak artifact limiti ng evaluation of pelvic structures. OTHER: No significant additional abnormality is seen. IMPRESSION: Confirmation of hepatomegaly with innumerable hypodense solid masses. There is abnormal thoracic adenopathy noted. Differential includes multifocal HCC versus diffuse metastatic disease. Im aging guided random biopsy of liver can be performed for tissue analysis.
== END | disposition home or self-care (01) ==
LOC: RADCTMAIN 13:16
PROVIDERS: ATTEND Family Medicine
DX: R16.0 Hepatomegaly, not elsewhere classified (principal); R59.0 Localized enlarged lymph nodes
CPT/HCPCS: 82565; 84520; 71260; 74177; 36415; Q9967 ×2

== ENCOUNTER → 2018-11-16 | Day surgery (SDC) | payer MEDICARE ==
[~2018-11-16] MED LIST changes: -ACETAMINOPHEN TAB 500 MG TAB PO ONE; +ALPRAZolam 0.25 MG TAB PO STA; +HYDROmorphone 0.5 MG/0.5 ML SYRINGE IVP STA; +MAG HYDROX/AL HYDROX/SIMETH 30 ML CUP PO ONE; -MELOXICAM 7.5 MG TAB PO ONE; -TRANEXAMIC ACID 1,000 MG in SODIUM CHLORIDE 0.9% 50 ML IVPB ONE; -ceFAZolin IN SWFI 2 GM/20 ML SYRINGE IVP ONE
[2018-11-16 09:36] LABS: Mean Platelet Volume 7.5; Platelet Count 327 k/uL (150-450)
[2018-11-16 09:40] LABS: INR 1.2 (<1.2); Prothrombin Time 12.4 sec (9.0-12.0)
[2018-11-16 09:45] VITALS: RESP 16; TEMP 97.7
--- NOTE | 2018-11-16 11:48 | US ---
EXAMINATION TYPE: US biopsy liver DATE OF EXAM: 11/16/2018 COMPARISON: NONE HISTORY: Abdominal distention The procedure was explained to the patient. The risks, complications, benefits, and alternatives wer e discussed and any questions were answered. Informed consent was obtained. Patient was placed supi ne on the ultrasound table and prepped and draped in the usual sterile fashion. All elements of maximal barrier and sterile technique utilized. Utilizing the seventh guidance, an 20 gauge core biopsy needle access into the left lobe of the live r was achieved and a two gauge samples were obtained. The patient was stable throughout the procedur e and remained stable upon discharge. IMPRESSION: 1. Successful core biopsy of the liver.
[2018-11-16 14:08] VITALS: BP 100/77; PULSE 94
== END ==
LOC: RADPROMAIN 09:01
PROVIDERS: ATTEND Family Medicine
DX: C78.7 Secondary malignant neoplasm of liver and intrahepatic bile duct (principal); R16.0 Hepatomegaly, not elsewhere classified
CPT/HCPCS: 85049; 85610; 88342; 88307; 88341; 36415; 47000; 76942; J1170

== ENCOUNTER 2018-12-09 11:51 | Emergency (ER) | payer MEDICARE ==
[2018-12-09] MEDS ORDERED: FUROSEMIDE 10 MG/ML 4 ML VIAL IV STA (12:27)
--- NOTE | 2018-12-09 12:34 | ED ---
General Adult HPI - General Chief complaint: Extremity Problem,Nontraumatic Stated complaint: BILATERAL LEG SWELLING, LEFT LEG WEEPING Time Seen by Provider: 12/09/18 12:06 Source: patient Mode of arrival: ambulatory Limitations: no limitations - History of Present Illness Initial comments: Dictation was produced using Emergency [employer] dictation software. please excuse any grammatical, word or spelling errors. Chief Complaint: 73-year-old female with recently diagnosed lung cancer with metastases. She presents today with weeping swollen lower extremities. History of Present Illness: 73-year-old female she has recently diagnosed lung cancer with metastases. She has history of hypertension and osteoarthritis. Patient's former smoker. She has been battling leg edema for the last several weeks. Patient has been prescribed 20 mg of Lasix twice a day. Patient has been running out of her Lasix and has been using him one time a day. Patient is aware of sodium diet. She did have multiple meals of high sodium foods recen tly. Patient denies any shortness of breath. Patient noted that this morning her leg started weeping. She's been also managing her lower extremity edema with compression stockings. Patient has any constitutional symptoms. Denies any orthopnea. The ROS documented in this emergency department record has been reviewed and confirmed by me. Those systems with pertinent positive or negative responses have been documented in the HPI. All other systems are other negative and/or noncontributory. PHYSICAL EXAM: General Impression: Alert and oriented x3, not in acute distress HEENT: Normocephalic atraumatic, extra-ocular movements intact, pupils equal and reactive to light bilaterally, mucous membranes moist. Cardiovascular: Heart regular rate and rhythm, S1&S2 audible, no murmurs, rubs or gallops Chest: Lungs clear to auscultation bilaterally, no rhonchi, no wheeze, no rales Abdomen: Bowel sounds present, abdomen soft, non-tender, non-distended, no organomegaly Musculoskeletal: Pulses present and equal in all extremities, 4+ pitting edema with mild weeping to the left lower extremity Motor: no focal deficits noted Neurological: CN II-XII grossly intact, no focal motor or sensory deficits noted Skin: Intact with no visualized rashes Psych: Normal affect and mood ED course: 73-year-old female presents with clinical presentation consistent with worsening the pain. Vital signs upon arrival shows heart rate 114 hours vital signs within acceptable limits. Patient's clinical presentation is consistent with dependent edema to the lower extremities. Patient has no respiratory complaints. Laboratory evaluation obtained. Sodium 130. No electrolyte abnormality. Patient given prescription for Lasix. She is told to follow-up with her primary care physician and cancer doctor for outpatient management of dependent edema. Patient given 40 mg Lasix. She is given makeshift Unna boots that can be removed over the next couple days when her symptoms are improved. Patient told that her sodium is slightly depressed. Patient is told to slightly salt or foods with table salt. She is warned of the harms of Lasix including hypo-kalemia. Told to increase potassium in her diet. Return parameters discussed. Patient clear for discharge. - Related Data Home Medications Medication Instructions Recorded Confirmed Benazepril HCl 40 mg PO HS 04/04/15 12/09/18 Furosemide [Lasix] 20 mg PO DAILY 12/09/18 12/09/18 Omeprazole 20 mg PO DAILY 12/09/18 12/09/18 amLODIPine [Norvasc] 5 mg PO DAILY 12/09/18 12/09/18 Previous Rx's Medication Instructions Recorded Furosemide [Lasix] 20 mg PO BID PRN #12 tablet 12/09/18 Allergies Allergy/AdvReac Type Severity Reaction Status Date / Time codeine AdvReac Rapid Verified 12/09/18 13:02 Heart Rate Review of Systems ROS Statement: Those systems with pertinent positive or pertinent negative responses have been documented in the HPI. ROS Other: All systems not noted in ROS Statement are negative. Past Medical History Past Medical History: Hypertension, Osteoarthritis (OA) Additional Past Medical History / Comment(s): rapid heart rate, lung CA with liver mets History of Any Multi-Drug Resistant Organisms: None Reported Past Surgical History: Appendectomy, Cholecystectomy, Orthopedic Surgery, Tubal Ligation Additional Past Surgical History / Comment(s): vein stripping, throat sx, hip replacement x 2 Past Anesthesia/Blood Transfusion Reactions: No Reported Reaction Past Psychological History: Anxiety Smoking Status: Current every day smoker Past Alcohol Use History: Occasional Past Drug Use History: None Reported - Past Family History Mother Family Medical History: Cancer Additional Family Medical History / Comment(s): Lung Cancer age 84 Father Family Medical History: CVA/TIA General Exam Limitations: no limitations Course Vital Signs 12/09/18 12/09/18 12:15 13:12 Temperature 98 F Pulse Rate 114 H Respiratory 22 16 Rate Blood Pressure 137/90 O2 Sat by Pulse 98 Oximetry Medical Decision Making - Lab Data Result diagrams: 12/09/18 12:40 Lab Results 12/09/18 Range/Units 12:40 Sodium 130 L (137-145) mmol/L Potassium 3.5 (3.5-5.1) mmol/L Chloride 98 (98-107) mmol/L Carbon Dioxide 23 (22-30) mmol/L Anion Gap 9 mmol/L BUN 24 H (7-17) mg/dL Creatinine 1.03 (0.52-1.04) mg/dL Est GFR (CKD-EPI)AfAm 63 (>60 ml/min/1.73 sqM) Est GFR (CKD-EPI)NonAf 55 (>60 ml/min/1.73 sqM) Glucose 94 (74-99) mg/dL Calcium 8.8 (8.4-10.2) mg/dL Magnesium 1.7 (1.6-2.3) mg/dL Disposition Clinical Impression: Leg edema Disposition: HOME SELF-CARE Condition: Good Instructions (If sedation given, give patient instructions): Leg Edema (ED) Prescriptions: Furosemide [Lasix] 20 mg PO BID PRN #12 tablet PRN Reason: leg edema Is patient prescribed a controlled substance at d/c from ED?: No Referrals: Matthias Joshua DO [Primary Care Provider] - 1-2 days Time of Disposition: 13:21
[2018-12-09 13:14] VITALS: RESP 16
[2018-12-09 13:17] LABS: Calcium 8.8 mg/dL (8.4-10.2); Magnesium 1.7 mg/dL (1.6-2.3); Potassium 3.5 mmol/L (3.5-5.1)
[2018-12-09 13:45] VITALS: BP 123/78; PULSE 96; TEMP 97.6
== END 2018-12-09 13:40 | disposition home or self-care (01) ==
LOC: EC 11:51
DX: R60.0 Localized edema (principal); I10 Essential (primary) hypertension; M19.90 Unspecified osteoarthritis, unspecified site; C34.90 Malignant neoplasm of unspecified part of unspecified bronchus or lung; C78.7 Secondary malignant neoplasm of liver and intrahepatic bile duct; F17.200 Nicotine dependence, unspecified, uncomplicated; Z79.899 Other long term (current) drug therapy; Z88.5 Allergy status to narcotic agent
CPT/HCPCS: 36415; 80048; 83735; 96374; 99283; J1940

== ENCOUNTER 2018-12-26 14:36 | Emergency (ER) | payer MEDICARE ==
--- NOTE | 2018-12-26 16:16 | ED ---
General Adult HPI - General Chief complaint: Recheck/Abnormal Lab/Rx Stated complaint: lab recheck Time Seen by Provider: 12/26/18 16:06 Source: patient, RN notes reviewed Mode of arrival: ambulatory Limitations: no limitations - History of Present Illness Initial comments: Patient is a pleasant 73-year-old female presenting to the emergency Department with reported low platelet count. Patient is on chemotherapy for stage IV lung cancer, adenocarcinoma. There is metastasis to the liver and adrenal glands and lymph nodes. Patient states she is somewhat fatigued. Patient did receive chemotherapy a few days ago from [facility]. Patient has chronic dyspnea, no change. Patient denies any bleeding. No black or tarry stools. No skin rash. No history of similar symptoms previously. - Related Data Home Medications Medication Instructions Recorded Confirmed Folic Acid(Unknown Dose) 1 tab PO DAILY 12/26/18 12/26/18 Potassium Chloride [K-Tab ER] 10 meq PO DAILY 12/26/18 12/26/18 Torsemide [Demadex] 20 mg PO DAILY 12/26/18 12/26/18 Allergies Allergy/AdvReac Type Severity Reaction Status Date / Time codeine AdvReac Rapid Verified 12/26/18 16:44 Heart Rate Review of Systems ROS Statement: Those systems with pertinent positive or pertinent negative responses have been documented in the HPI. ROS Other: All systems not noted in ROS Statement are negative. Constitutional: Denies: fever Eyes: Denies: eye pain ENT: Denies: ear pain Respiratory: Reports: as per HPI Cardiovascular: Denies: chest pain Endocrine: Reports: fatigue Gastrointestinal: Denies: abdominal pain, hematemesis, melena, hematochezia Genitourinary: Denies: dysuria Musculoskeletal: Denies: back pain Skin: Denies: rash Neurological: Denies: weakness Past Medical History Past Medical History: Hypertension, Osteoarthritis (OA) Additional Past Medical History / Comment(s): rapid heart rate, lung CA with liver mets History of Any Multi-Drug Resistant Organisms: None Reported Past Surgical History: Appendectomy, Cholecystectomy, Orthopedic Surgery, Tubal Ligation Additional Past Surgical History / Comment(s): vein stripping, throat sx, hip replacement x 2 Past Anesthesia/Blood Transfusion Reactions: No Reported Reaction Past Psychological History: Anxiety Smoking Status: Current every day smoker Past Alcohol Use History: Occasional Past Drug Use History: None Reported - Past Family History Mother Family Medical History: Cancer Additional Family Medical History / Comment(s): Lung Cancer age 84 Father Family Medical History: CVA/TIA General Exam Limitations: no limitations General appearance: alert, in no apparent distress Head exam: Present: normocephalic Eye exam: Present: normal appearance, PERRL ENT exam: Present: normal oropharynx Neck exam: Present: normal inspection Respiratory exam: Present: normal lung sounds bilaterally Cardiovascular Exam: Present: regular rate, normal rhythm GI/Abdominal exam: Present: soft. Absent: tenderness Extremities exam: Present: pedal edema (Plus 1 bilateral). Absent: calf tenderness Neurological exam: Present: alert Psychiatric exam: Present: normal affect, normal mood Skin exam: Present: normal color. Absent: rash, petechiae Course Vital Signs 12/26/18 12/26/18 15:01 19:05 Temperature 97.6 F 98 F Pulse Rate 114 H 112 H Respiratory 24 16 Rate Blood Pressure 147/81 134/72 O2 Sat by Pulse 100 Oximetry EKG Findings - EKG Comments: EKG Findings:: Sinus tachycardia 106. HI 124. QRS 70. QT 326. QTc 433. Normal axis. Normal QRS. No acute ST change. Medical Decision Making - Medical Decision Making Case was discussed in detail with Dr. Vance Fountain who is familiar with this patient and does recommend transfusing 1 unit of platelets secondary to drop of beta count from 140-14 in one week. He states is his chemotherapy induced and therefore patient does not need steroids. Patient will need repeat platelet count on Monday and he will arrange that. He states patient can be discharged following transfusion. - Lab Data Result diagrams: 12/26/18 16:30 12/26/18 16:30 Lab Results 12/26/18 12/26/18 12/26/18 Range/Units 16:30 16:30 16:30 WBC 2.0 L (3.8-10.6) k/uL RBC 3.57 L (3.80-5.40) m/uL Hgb 11.5 (11.4-16.0) gm/dL Hct 34.0 (34.0-46.0) % MCV 95.3 (80.0-100.0) fL MCH 32.1 (25.0-35.0) pg MCHC 33.7 (31.0-37.0) g/dL RDW 14.7 (11.5-15.5) % Plt Count 14 L* (150-450) k/uL Neutrophils % 43 % Lymphocytes % 51 % Monocytes % 1 % Eosinophils % 3 % Basophils % 1 % Neutrophils # 0.9 L (1.3-7.7) k/uL Lymphocytes # 1.0 (1.0-4.8) k/uL Monocytes # 0.0 (0-1.0) k/uL Eosinophils # 0.1 (0-0.7) k/uL Basophils # 0.0 (0-0.2) k/uL PT 11.4 (9.0-12.0) sec INR 1.1 (<1.2) APTT 29.3 (22.0-30.0) sec Sodium 131 L (137-145) mmol/L Potassium 3.7 (3.5-5.1) mmol/L Chloride 97 L (98-107) mmol/L Carbon Dioxide 29 (22-30) mmol/L Anion Gap 5 mmol/L BUN 28 H (7-17) mg/dL Creatinine 0.66 (0.52-1.04) mg/dL Est GFR (CKD-EPI)AfAm >90 (>60 ml/min/1.73 sqM) Est GFR (CKD-EPI)NonAf 89 (>60 ml/min/1.73 sqM) Glucose 122 H (74-99) mg/dL Calcium 8.2 L (8.4-10.2) mg/dL Total Bilirubin 1.2 (0.2-1.3) mg/dL AST 72 H (14-36) U/L ALT 77 H (9-52) U/L Alkaline Phosphatase 339 H (38-126) U/L Total Protein 5.9 L (6.3-8.2) g/dL Albumin 2.4 L (3.5-5.0) g/dL Urine Color Urine Appearance (Clear) Urine pH (5.0-8.0) Ur Specific [place] (1.001-1.035) Urine Protein (Negative) Urine Glucose (UA) (Negative) Urine Ketones (Negative) Urine Blood (Negative) Urine Nitrite (Negative) Urine Bilirubin (Negative) Urine Urobilinogen (<2.0) mg/dL Ur Leukocyte Esterase (Negative) Urine RBC (0-5) /hpf Urine WBC (0-5) /hpf Ur Squamous Epith Cells (0-4) /hpf Hyaline Casts (0-2) /lpf Urine Mucus (None) /hpf Blood Type Blood Type Recheck Bld Type Recheck Status Antibody Screen Transfuse Platelets Spec Expiration Date 12/26/18 12/26/18 Range/Units 17:16 17:45 WBC (3.8-10.6) k/uL RBC (3.80-5.40) m/uL Hgb (11.4-16.0) gm/dL Hct (34.0-46.0) % MCV (80.0-100.0) fL MCH (25.0-35.0) pg MCHC (31.0-37.0) g/dL RDW (11.5-15.5) % Plt Count (150-450) k/uL Neutrophils % % Lymphocytes % % Monocytes % % Eosinophils % % Basophils % % Neutrophils # (1.3-7.7) k/uL Lymphocytes # (1.0-4.8) k/uL Monocytes # (0-1.0) k/uL Eosinophils # (0-0.7) k/uL Basophils # (0-0.2) k/uL PT (9.0-12.0) sec INR (<1.2) APTT (22.0-30.0) sec Sodium (137-145) mmol/L Potassium (3.5-5.1) mmol/L Chloride (98-107) mmol/L Carbon Dioxide (22-30) mmol/L Anion Gap mmol/L BUN (7-17) mg/dL Creatinine (0.52-1.04) mg/dL Est GFR (CKD-EPI)AfAm (>60 ml/min/1.73 sqM) Est GFR (CKD-EPI)NonAf (>60 ml/min/1.73 sqM) Glucose (74-99) mg/dL Calcium (8.4-10.2) mg/dL Total Bilirubin (0.2-1.3) mg/dL AST (14-36) U/L ALT (9-52) U/L Alkaline Phosphatase (38-126) U/L Total Protein (6.3-8.2) g/dL Albumin (3.5-5.0) g/dL Urine Color Yellow Urine Appearance Clear (Clear) Urine pH 5.0 (5.0-8.0) Ur Specific [place] 1.010 (1.001-1.035) Urine Protein Negative (Negative) Urine Glucose (UA) Negative (Negative) Urine Ketones Negative (Negative) Urine Blood Small H (Negative) Urine Nitrite Negative (Negative) Urine Bilirubin Negative (Negative) Urine Urobilinogen <2.0 (<2.0) mg/dL Ur Leukocyte Esterase Moderate H (Negative) Urine RBC 1 (0-5) /hpf Urine WBC 4 (0-5) /hpf Ur Squamous Epith Cells 2 (0-4) /hpf Hyaline Casts 3 H (0-2) /lpf Urine Mucus Rare H (None) /hpf Blood Type O Negative Blood Type Recheck O Neg Bld Type Recheck Status No Antibody Screen NEGATIVE Transfuse Platelets 12/26/18 Spec Expiration Date 12/29/2018 - 2346 Disposition Clinical Impression: Thrombocytopenia Disposition: HOME SELF-CARE Condition: Stable Instructions (If sedation given, give patient instructions): Thrombocytopenia (ED) Additional Instructions: Please follow-up with your oncologist, call tomorrow. You will need repeat platelet count done on Monday. Return for any bleeding, black stools, vomiting blood or blood in bowel movements, urinary blood, worsening symptoms or other concerns. Is patient prescribed a controlled substance at d/c from ED?: No Referrals: Matthias Joshua DO [Primary Care Provider] - 1-2 days Time of Disposition: 19:49
[2018-12-26 16:51] LABS: ALT 77 U/L (9-52); AST 72 U/L (14-36); African American GFR (CKD) >90 (>60 ml/min/1.73 sqM); Albumin 2.4 g/dL (3.5-5.0); Alkaline Phosphatase 339 U/L (38-126); Anion Gap 5 mmol/L; Blood Urea Nitrogen 28 mg/dL (7-17); Calcium 8.2 mg/dL (8.4-10.2); Carbon Dioxide 29 mmol/L (22-30); Chloride 97 mmol/L (98-107); Glucose 122 mg/dL (74-99); Potassium 3.7 mmol/L (3.5-5.1); Sodium 131 mmol/L (137-145); Total Bilirubin 1.2 mg/dL (0.2-1.3); Total Protein 5.9 g/dL (6.3-8.2)
[2018-12-26 16:57] LABS: Basophils % (A) 1 %; Eosinophils # (A) 0.1 k/uL (0-0.7); Eosinophils % (A) 3 %; HGB 11.5 gm/dL (11.4-16.0); Lymphocytes % (A) 51 %; MCH 32.1 pg (25.0-35.0); MCHC 33.7 g/dL (31.0-37.0); MCV 95.3 fL (80.0-100.0); Mean Platelet Volume 8.3; Monocytes % (A) 1 %; Neutrophils # (A) 0.9 k/uL (1.3-7.7); Neutrophils % (A) 43 %; RBC 3.57 m/uL (3.80-5.40); RDW 14.7 % (11.5-15.5)
[2018-12-26 17:03] LABS: INR 1.1 (<1.2); Partial Thromboplastin Time 29.3 sec (22.0-30.0); Prothrombin Time 11.4 sec (9.0-12.0)
[2018-12-26 17:08] LABS: Platelet Count 14 k/uL (150-450)
--- NOTE | 2018-12-26 17:25 | XR ---
EXAMINATION TYPE: XR chest 2V DATE OF EXAM: 12/26/2018 COMPARISON: 02/14/2018 INDICATION: Weakness TECHNIQUE: Frontal and lateral views of the chest are obtained. FINDINGS: The heart size is normal. The pulmonary vasculature is normal. Small posterior pleural effusions appear to be present on the lateral projection. Some hyperinflation flattening the diaphragms is likely present. Lungs otherwise appear clear.. IMPRESSION: 1. Small posterior pleural effusions
[2018-12-26 17:28] LABS: Appearance,Urine Clear (Clear); Bilirubin,Urine Negative (Negative); Blood,Urine Small (Negative); Color,Urine Yellow; Glucose,Urine (UA) Negative (Negative); Hyaline Casts,Urine 3 /lpf (0-2); Ketones,Urine Negative (Negative); Leukocyte Esterase,Urine Moderate (Negative); Mucus,Urine Rare /hpf; Nitrite,Urine Negative (Negative); Protein,Urine Negative (Negative); RBC,Urine 1 /hpf (0-5); Squamous Epithelial Cell,Urine 2 /hpf (0-4); Urobilinogen,Urine <2.0 mg/dL (<2.0); WBC,Urine 4 /hpf (0-5)
[2018-12-26 19:53] VITALS: BP 136/80; PULSE 105; RESP 18; TEMP 98
== END 2018-12-26 20:15 | disposition home or self-care (01) ==
LOC: EC 14:36
DX: D69.6 Thrombocytopenia, unspecified (principal); R06.00 Dyspnea, unspecified; F17.200 Nicotine dependence, unspecified, uncomplicated; Z85.118 Personal history of other malignant neoplasm of bronchus and lung; Z85.05 Personal history of malignant neoplasm of liver; Z85.858 Personal history of malignant neoplasm of other endocrine glands; Z79.899 Other long term (current) drug therapy; Z88.5 Allergy status to narcotic agent
CPT/HCPCS: 36415; 93005; 86900; 86901; 80053; 85025; 85610; 85730; 86850; 81001; 71046; 99283; P9035; 36430

== ENCOUNTER 2018-12-28 13:10 | Emergency (ER) | payer MEDICARE ==
--- NOTE | 2018-12-28 14:21 | ED ---
Recheck HPI - General Chief Complaint: Recheck/Abnormal Lab/Rx Stated Complaint: Abn labs Time Seen by Provider: 12/28/18 13:42 Source: patient Mode of arrival: ambulatory - History of Present Illness Initial Comments: Patient is a 73-year-old female presenting to the emergency Department with reported low platelet count. Patient is currently on chemotherapy for stage IV lung cancer, adenocarcinoma. There is also metastases to the liver, adrenal glands and lymph nodes. She was in this ER 2 days ago for same complaint. Platelets 2 days ago are 14 and she was given 1 unit of platelets. Patient was then discharged. Patient had repeat labs done today and then she received a call from her oncologist office to go to the ER because her platelets are still low. Patient is also complaining of increasing shortness of breath is secondary to her medications. Her oncologist is aware of this symptom and they did discuss possible steroids to improve her symptoms. Patient would like us to ask her oncologist about this as well. Patient is also complaining of a vaginal sm ell that started 2 days ago. Patient denies any burning with urination, hematuria or vaginal itching. Patient has no other complaints at this time. Patient denies fever, nausea, vomiting. Patient denies any pain at this time. Upon arrival to the ER, patient is slightly tachycardia at 114, rest of vitals are within normal limits. - Related Data Home Medications Medication Instructions Recorded Confirmed Folic Acid(Unknown Dose) 1 tab PO DAILY 12/26/18 12/28/18 Potassium Chloride [K-Tab ER] 10 meq PO DAILY 12/26/18 12/28/18 Torsemide [Demadex] 20 mg PO DAILY 12/26/18 12/28/18 Omeprazole 20 mg PO AC-LUNCH 12/28/18 12/28/18 Previous Rx's Medication Instructions Recorded methylPREDNISolone [Medrol Dose 4 mg PO DIRECTED #1 pack 12/28/18 Pack] Allergies Allergy/AdvReac Type Severity Reaction Status Date / Time codeine AdvReac Unknown Rapid Verified 12/28/18 14:52 Heart Rate Review of Systems ROS Statement: Those systems with pertinent positive or pertinent negative responses have been documented in the HPI. ROS Other: All systems not noted in ROS Statement are negative. Past Medical History Past Medical History: Hypertension, Osteoarthritis (OA) Additional Past Medical History / Comment(s): rapid heart rate, lung CA with li antonio mets History of Any Multi-Drug Resistant Organisms: None Reported Past Surgical History: Appendectomy, Cholecystectomy, Orthopedic Surgery, Tubal Ligation Additional Past Surgical History / Comment(s): vein stripping, throat sx, hip replacement x 2 Past Anesthesia/Blood Transfusion Reactions: No Reported Reaction Past Psychological History: Anxiety Smoking Status: Current every day smoker Past Alcohol Use History: Occasional Past Drug Use History: None Reported - Past Family History Mother Family Medical History: Cancer Additional Family Medical History / Comment(s): Lung Cancer age 84 Father Family Medical History: CVA/TIA General Exam - General Exam Comments Initial Comments: GENERAL: Well-appearing, well-nourished and in no acute distress. HEAD: Atraumatic, normocephalic. EYES: Pupils equal round and reactive to light, extraocular movements intact, sclera anicteric, conjunctiva are normal. ENT: TMs normal, nares patent, oropharynx clear without exudates. Moist mucous membranes. NECK: Normal range of motion, supple without lymphadenopathy or JVD. LUNGS: Breath sounds clear to auscultation bilaterally and equal. No wheezes rales or rhonchi. HEART: Regular rate and rhythm without murmurs, rubs or gallops. ABDOMEN: Soft, nontender, normoactive bowel sounds. No guarding, no rebound. No masses appreciated. : External exam reveals a small left-sided vaginal cyst that is ruptured. There is very mild erythema surrounding the wound, no signs of infection at this time. EXTREMITIES: Normal range of motion. Bilateral lower leg pitting edema. No clubbing or cyanosis. NEUROLOGICAL: Cranial nerves II through XII grossly intact. Normal speech, normal gait. PSYCH: Normal mood, normal affect. SKIN: Warm, Dry, normal turgor, no rashes or lesions noted. Course Vital Signs 12/28/18 12/28/18 12/28/18 13:23 13:49 15:35 Temperature 97.7 F 97.6 F Pulse Rate 114 H 110 H Respiratory 20 22 18 Rate Blood Pressure 120/69 123/77 O2 Sat by Pulse 100 Oximetry 12/28/18 12/28/18 15:45 17:15 Temperature Pulse Rate 117 H 104 H Respiratory 18 20 Rate Blood Pressure 123/74 132/86 O2 Sat by Pulse 100 100 Oximetry Medical Decision Making - Medical Decision Making Patient is a 73-year-old female presenting with low platelets. Patient was in 2 days ago for same complaint. Patient is currently receiving chemo for lung cancer with metastases. Patient's platelet level dropped to 6 from 14, 2 days ago. Sodium is 130. White count is down slightly to 1.6 from 2.0. Vital signs are stable. Patient's oncologist, Dr. Vance Fountain was contacted and I spoke at length with him. Patient will be given 1 unit of platelets and will also be started on a Medrol dose pack for her shortness of breath. Patient will have labs repeated on Monday and will follow-up with her oncologist. She'll use topical antibiotics and warm compresses to minimize discomfort of left vaginal cyst. Patient is in agreement with this plan of care. She is stable for discharge at this time. Return parameters were discussed with the patient she verbalized understanding. Case discussed with Dr. Mann. - Lab Data Result diagrams: 12/28/18 14:05 Lab Results 12/28/18 12/28/18 12/28/18 Range/Units 14:05 14:05 14:05 PT 11.6 (9.0-12.0) sec INR 1.1 (<1.2) APTT 29.5 (22.0-30.0) sec Sodium 130 L (137-145) mmol/L Potassium 3.5 (3.5-5.1) mmol/L Chloride 96 L (98-107) mmol/L Carbon Dioxide 28 (22-30) mmol/L Anion Gap 6 mmol/L BUN 23 H (7-17) mg/dL Creatinine 0.68 (0.52-1.04) mg/dL Est GFR (CKD-EPI)AfAm >90 (>60 ml/min/1.73 sqM) Est GFR (CKD-EPI)NonAf 88 (>60 ml/min/1.73 sqM) Glucose 119 H (74-99) mg/dL Calcium 8.1 L (8.4-10.2) mg/dL Total Bilirubin 1.3 (0.2-1.3) mg/dL AST 46 H (14-36) U/L ALT 60 H (9-52) U/L Alkaline Phosphatase 303 H (38-126) U/L Total Protein 6.0 L (6.3-8.2) g/dL Albumin 2.4 L (3.5-5.0) g/dL Urine Color Urine Appearance (Clear) Urine pH (5.0-8.0) Ur Specific [place] (1.001-1.035) Urine Protein (Negative) Urine Glucose (UA) (Negative) Urine Ketones (Negative) Urine Blood (Negative) Urine Nitrite (Negative) Urine Bilirubin (Negative) Urine Urobilinogen (<2.0) mg/dL Ur Leukocyte Esterase (Negative) Urine RBC (0-5) /hpf Urine WBC (0-5) /hpf Ur Squamous Epith Cells (0-4) /hpf Urine Bacteria (None) /hpf Blood Type O Negative Blood Type Recheck O Neg Bld Type Recheck Status No Antibody Screen NEGATIVE Transfuse Platelets Spec Expiration Date 12/31/2018230412/28/18 12/28/18 Range/Units 15:00 16:35 PT (9.0-12.0) sec INR (<1.2) APTT (22.0-30.0) sec Sodium (137-145) mmol/L Potassium (3.5-5.1) mmol/L Chloride (98-107) mmol/L Carbon Dioxide (22-30) mmol/L Anion Gap mmol/L BUN (7-17) mg/dL Creatinine (0.52-1.04) mg/dL Est GFR (CKD-EPI)AfAm (>60 ml/min/1.73 sqM) Est GFR (CKD-EPI)NonAf (>60 ml/min/1.73 sqM) Glucose (74-99) mg/dL Calcium (8.4-10.2) mg/dL Total Bilirubin (0.2-1.3) mg/dL AST (14-36) U/L ALT (9-52) U/L Alkaline Phosphatase (38-126) U/L Total Protein (6.3-8.2) g/dL Albumin (3.5-5.0) g/dL Urine Color Yellow Urine Appearance Cloudy H (Clear) Urine pH 5.5 (5.0-8.0) Ur Specific [place] 1.009 (1.001-1.035) Urine Protein Negative (Negative) Urine Glucose (UA) Negative (Negative) Urine Ketones Negative (Negative) Urine Blood Small H (Negative) Urine Nitrite Negative (Negative) Urine Bilirubin Negative (Negative) Urine Urobilinogen 3.0 (<2.0) mg/dL Ur Leukocyte Esterase Small H (Negative) Urine RBC 3 (0-5) /hpf Urine WBC 2 (0-5) /hpf Ur Squamous Epith Cells 4 (0-4) /hpf Urine Bacteria Rare H (None) /hpf Blood Type Blood Type Recheck Bld Type Recheck Status Antibody Screen Transfuse Platelets 12/28/18 Spec Expiration Date Disposition Clinical Impression: Thrombocytopenia, Shortness of breath, Vaginal cyst Disposition: HOME SELF-CARE Condition: Stable Instructions (If sedation given, give patient instructions): Thrombocytopenia (ED) Additional Instructions: Please return to the Emergency Department if symptoms worsen or any other concerns. Repeat lab work on Monday. Follow-up with Dr. Fountain as discussed. Take steroid pack as prescribed. Use warm compresses on left vaginal cyst. Prescriptions: methylPREDNISolone [Medrol Dose Pack] 4 mg PO DIRECTED #1 pack Is patient prescribed a controlled substance at d/c from ED?: No Referrals: Matthias Joshua DO [Primary Care Provider] - 1-2 days
[2018-12-28 14:40] LABS: INR 1.1 (<1.2); Partial Thromboplastin Time 29.5 sec (22.0-30.0); Prothrombin Time 11.6 sec (9.0-12.0)
[2018-12-28 14:44] LABS: ALT 60 U/L (9-52); AST 46 U/L (14-36); African American GFR (CKD) >90 (>60 ml/min/1.73 sqM); Albumin 2.4 g/dL (3.5-5.0); Alkaline Phosphatase 303 U/L (38-126); Anion Gap 6 mmol/L; Blood Urea Nitrogen 23 mg/dL (7-17); Calcium 8.1 mg/dL (8.4-10.2); Carbon Dioxide 28 mmol/L (22-30); Chloride 96 mmol/L (98-107); Glucose 119 mg/dL (74-99); Potassium 3.5 mmol/L (3.5-5.1); Sodium 130 mmol/L (137-145); Total Bilirubin 1.3 mg/dL (0.2-1.3)
[2018-12-28 15:35] VITALS: TEMP 97.6
[2018-12-28 16:54] LABS: Appearance,Urine Cloudy (Clear); Bacteria,Urine Rare /hpf; Bilirubin,Urine Negative (Negative); Blood,Urine Small (Negative); Color,Urine Yellow; Glucose,Urine (UA) Negative (Negative); Ketones,Urine Negative (Negative); Leukocyte Esterase,Urine Small (Negative); Nitrite,Urine Negative (Negative); PH, Urine 5.5 (5.0-8.0); Protein,Urine Negative (Negative); RBC,Urine 3 /hpf (0-5); Specific Gravity,Urine 1.009 (1.001-1.035); Squamous Epithelial Cell,Urine 4 /hpf (0-4)
[2018-12-28 17:20] VITALS: BP 132/86; PULSE 104; RESP 20
== END 2018-12-28 17:15 | disposition home or self-care (01) ==
LOC: EC 13:10
DX: D69.6 Thrombocytopenia, unspecified (principal); R06.02 Shortness of breath; N90.7 Vulvar cyst; R60.0 Localized edema; C34.90 Malignant neoplasm of unspecified part of unspecified bronchus or lung; C78.7 Secondary malignant neoplasm of liver and intrahepatic bile duct; C77.9 Secondary and unspecified malignant neoplasm of lymph node, unspecified; C79.70 Secondary malignant neoplasm of unspecified adrenal gland; I10 Essential (primary) hypertension; M19.90 Unspecified osteoarthritis, unspecified site; F17.200 Nicotine dependence, unspecified, uncomplicated; Z88.5 Allergy status to narcotic agent; Z79.899 Other long term (current) drug therapy; Z92.21 Personal history of antineoplastic chemotherapy; Z96.649 Presence of unspecified artificial hip joint; Z98.51 Tubal ligation status; Z80.1 Family history of malignant neoplasm of trachea, bronchus and lung
CPT/HCPCS: 36415; 86900; 86901; 80053; 85610; 85730; 86850; 81001; 99283; P9035

== ENCOUNTER 2018-12-31 13:13 | Inpatient (IN) | payer MEDICARE ==
--- NOTE | 2018-12-31 13:53 | ED ---
General Adult HPI - General Chief complaint: Recheck/Abnormal Lab/Rx Stated complaint: low platelets Time Seen by Provider: 12/31/18 13:26 Source: patient Mode of arrival: ambulatory Limitations: no limitations - History of Present Illness Initial comments: Is a 73-year-old female history of metastatic stage IV lung cancer to liver adrenals and lymph nodes is here twice in the past week for platelet transfusion after being found have low platelets. Is soft this is secondary to the chemotherapy. The first visit the patient just had a unit of platelets given the second visit a unit of platelets plus the Medrol Dosepak. She presents today with complaints of weakness and was instructed to come here for evaluation by her oncologist. She denies any fevers chills nausea vomiting sweats chest pain no other new symptomatology. - Related Data Home Medications Medication Instructions Recorded Confirmed Folic Acid(Unknown Dose) 1 tab PO DAILY 12/26/18 12/31/18 Potassium Chloride [K-Tab ER] 10 meq PO DAILY 12/26/18 12/31/18 Torsemide [Demadex] 20 mg PO DAILY 12/26/18 12/31/18 Omeprazole 20 mg PO AC-LUNCH 12/28/18 12/31/18 methylPREDNISolone [Medrol Dose See Taper PO DIRECTED 12/31/18 12/31/18 Pack] Allergies Allergy/AdvReac Type Severity Reaction Status Date / Time codeine AdvReac Unknown Rapid Verified 12/31/18 14:08 Heart Rate Review of Systems ROS Statement: Those systems with pertinent positive or pertinent negative responses have been documented in the HPI. ROS Other: All systems not noted in ROS Statement are negative. Past Medical History Past Medical History: Cancer, Hypertension, Osteoarthritis (OA) Additional Past Medical History / Comment(s): rapid heart rate, lung CA with liver mets History of Any Multi-Drug Resistant Organisms: None Reported Past Surgical History: Appendectomy, Cholecystectomy, Orthopedic Surgery, Tubal Ligation Additional Past Surgical History / Comment(s): vein stripping, throat sx, hip replacement x 2 Past Anesthesia/Blood Transfusion Reactions: No Reported Reaction Past Psychological History: Anxiety Smoking Status: Current every day smoker Past Alcohol Use History: Occasional Past Drug Use History: None Reported - Past Family History Mother Family Medical History: Cancer Additional Family Medical History / Comment(s): Lung Cancer age 84 Father Family Medical History: CVA/TIA General Exam - General Exam Comments Initial Comments: This is a well-developed asthenic appearing female who is awake alert oriented 3 Limitations: no limitations General appearance: alert, in no apparent distress Head exam: Present: atraumatic, normocephalic, normal inspection Eye exam: Present: normal appearance, PERRL, EOMI. Absent: scleral icterus, conjunctival injection, periorbital swelling ENT exam: Present: mucous membranes dry Neck exam: Present: normal inspection. Absent: tenderness, meningismus, lymphadenopathy Respiratory exam: Present: normal lung sounds bilaterally. Absent: respiratory distress, wheezes, rales, rhonchi, stridor Cardiovascular Exam: Present: normal rhythm, tachycardia, normal heart sounds. Absent: systolic murmur, diastolic murmur, rubs, gallop, clicks GI/Abdominal exam: Present: soft, normal bowel sounds. Absent: distended, tenderness, guarding, rebound, rigid Extremities exam: Present: normal inspection, full ROM, normal capillary refill. Absent: tenderness, pedal edema, joint swelling, calf tenderness Back exam: Present: normal inspection Neurological exam: Present: alert, oriented X3, CN II-XII intact Psychiatric exam: Present: normal affect, normal mood Skin exam: Present: warm, dry, intact, normal color. Absent: rash Course Vital Signs 12/31/18 13:14 Temperature 97.9 F Pulse Rate 119 H Respiratory 22 Rate Blood Pressure 159/72 O2 Sat by Pulse 99 Oximetry Medical Decision Making - Medical Decision Making I did discuss the findings with the patient family members. The patient does have improvement in her platelet count 10,000 compared to the previous documentation from last week. Patient has had shortness of breath no chest pain she does demonstrate elevated troponin today. She will be admitted for evaluation by cardiology at did discuss this with Dr. Odonnell. - Lab Data Result diagrams: 12/31/18 13:40 12/31/18 13:40 Lab Results 12/31/18 12/31/18 12/31/18 Range/Units 13:40 13:40 13:40 WBC 3.0 L (3.8-10.6) k/uL RBC 3.27 L (3.80-5.40) m/uL Hgb 10.2 L (11.4-16.0) gm/dL Hct 30.5 L (34.0-46.0) % MCV 93.1 (80.0-100.0) fL MCH 31.2 (25.0-35.0) pg MCHC 33.5 (31.0-37.0) g/dL RDW 14.2 (11.5-15.5) % Plt Count 10 L* D (150-450) k/uL Neutrophils % (Manual) 67 % Lymphocytes % (Manual) 26 % Monocytes % (Manual) 5 % Eosinophils % (Manual) 2 % Neutrophils # (Manual) 2.01 (1.3-7.7) k/uL Lymphocytes # (Manual) 0.78 L (1.0-4.8) k/uL Monocytes # (Manual) 0.15 (0-1.0) k/uL Eosinophils # (Manual) 0.06 (0-0.7) k/uL Nucleated RBCs 0 (0-0) /100 WBC Manual Slide Review Performed Poikilocytosis (manual Present Anisocytosis (manual) Present Sodium 131 L (137-145) mmol/L Potassium 3.8 (3.5-5.1) mmol/L Chloride 96 L (98-107) mmol/L Carbon Dioxide 29 (22-30) mmol/L Anion Gap 6 mmol/L BUN 24 H (7-17) mg/dL Creatinine 0.75 (0.52-1.04) mg/dL Est GFR (CKD-EPI)AfAm >90 (>60 ml/min/1.73 sqM) Est GFR (CKD-EPI)NonAf 81 (>60 ml/min/1.73 sqM) Glucose 94 (74-99) mg/dL Calcium 8.2 L (8.4-10.2) mg/dL Magnesium 1.5 L (1.6-2.3) mg/dL Total Bilirubin 0.9 (0.2-1.3) mg/dL AST 107 H (14-36) U/L ALT 94 H (9-52) U/L Alkaline Phosphatase 333 H (38-126) U/L Creatine Kinase 21 L (30-135) U/L Troponin I 0.104 H* (0.000-0.034) ng/mL Total Protein 6.1 L (6.3-8.2) g/dL Albumin 2.5 L (3.5-5.0) g/dL Urine Color Urine Appearance (Clear) Urine pH (5.0-8.0) Ur Specific [place] (1.001-1.035) Urine Protein (Negative) Urine Glucose (UA) (Negative) Urine Ketones (Negative) Urine Blood (Negative) Urine Nitrite (Negative) Urine Bilirubin (Negative) Urine Urobilinogen (<2.0) mg/dL Ur Leukocyte Esterase (Negative) Urine RBC (0-5) /hpf Urine WBC (0-5) /hpf Ur Squamous Epith Cells (0-4) /hpf Amorphous Sediment (None) /hpf 12/31/18 Range/Units 14:24 WBC (3.8-10.6) k/uL RBC (3.80-5.40) m/uL Hgb (11.4-16.0) gm/dL Hct (34.0-46.0) % MCV (80.0-100.0) fL MCH (25.0-35.0) pg MCHC (31.0-37.0) g/dL RDW (11.5-15.5) % Plt Count (150-450) k/uL Neutrophils % (Manual) % Lymphocytes % (Manual) % Monocytes % (Manual) % Eosinophils % (Manual) % Neutrophils # (Manual) (1.3-7.7) k/uL Lymphocytes # (Manual) (1.0-4.8) k/uL Monocytes # (Manual) (0-1.0) k/uL Eosinophils # (Manual) (0-0.7) k/uL Nucleated RBCs (0-0) /100 WBC Manual Slide Review Poikilocytosis (manual Anisocytosis (manual) Sodium (137-145) mmol/L Potassium (3.5-5.1) mmol/L Chloride (98-107) mmol/L Carbon Dioxide (22-30) mmol/L Anion Gap mmol/L BUN (7-17) mg/dL Creatinine (0.52-1.04) mg/dL Est GFR (CKD-EPI)AfAm (>60 ml/min/1.73 sqM) Est GFR (CKD-EPI)NonAf (>60 ml/min/1.73 sqM) Glucose (74-99) mg/dL Calcium (8.4-10.2) mg/dL Magnesium (1.6-2.3) mg/dL Total Bilirubin (0.2-1.3) mg/dL AST (14-36) U/L ALT (9-52) U/L Alkaline Phosphatase (38-126) U/L Creatine Kinase (30-135) U/L Troponin I (0.000-0.034) ng/mL Total Protein (6.3-8.2) g/dL Albumin (3.5-5.0) g/dL Urine Color Light Yellow Urine Appearance Clear (Clear) Urine pH 6.5 (5.0-8.0) Ur Specific [place] 1.005 (1.001-1.035) Urine Protein Negative (Negative) Urine Glucose (UA) Negative (Negative) Urine Ketones Negative (Negative) Urine Blood Negative (Negative) Urine Nitrite Negative (Negative) Urine Bilirubin Negative (Negative) Urine Urobilinogen <2.0 (<2.0) mg/dL Ur Leukocyte Esterase Small H (Negative) Urine RBC 1 (0-5) /hpf Urine WBC 1 (0-5) /hpf Ur Squamous Epith Cells 1 (0-4) /hpf Amorphous Sediment Rare H (None) /hpf Disposition Clinical Impression: Elevated troponin, Thrombocytopenia, Lung cancer Disposition: ADMITTED IP TO THIS [facility] Condition: Fair Referrals: Matthias Joshua DO [Primary Care Provider] - 1-2 days
[2018-12-31 14:07] LABS: HCT 30.5 % (34.0-46.0); HGB 10.2 gm/dL (11.4-16.0); MCH 31.2 pg (25.0-35.0); MCHC 33.5 g/dL (31.0-37.0); MCV 93.1 fL (80.0-100.0); Mean Platelet Volume 11.2; RBC 3.27 m/uL (3.80-5.40); RDW 14.2 % (11.5-15.5)
[2018-12-31 14:20] LABS: ALT 94 U/L (9-52); AST 107 U/L (14-36); African American GFR (CKD) >90 (>60 ml/min/1.73 sqM); Albumin 2.5 g/dL (3.5-5.0); Alkaline Phosphatase 333 U/L (38-126); Anion Gap 6 mmol/L; Blood Urea Nitrogen 24 mg/dL (7-17); Calcium 8.2 mg/dL (8.4-10.2); Carbon Dioxide 29 mmol/L (22-30); Chloride 96 mmol/L (98-107); Creatine Kinase 21 U/L (30-135); Glucose 94 mg/dL (74-99); Magnesium 1.5 mg/dL (1.6-2.3); Non-African American GFR(CKD) 81 (>60 ml/min/1.73 sqM); Potassium 3.8 mmol/L (3.5-5.1); Sodium 131 mmol/L (137-145); Total Bilirubin 0.9 mg/dL (0.2-1.3); Total Protein 6.1 g/dL (6.3-8.2)
[2018-12-31 14:21] LABS: Platelet Count 10 k/uL (150-450)
[2018-12-31 14:37] LABS: Eosinophils # (M) 0.06 k/uL (0-0.7); Lymphocytes # (M) 0.78 k/uL (1.0-4.8); Monocytes # (M) 0.15 k/uL (0-1.0); Neutrophils # (M) 2.01 k/uL (1.3-7.7); Neutrophils % (M) 67 %; Nucleated Red Blood Cells 0 /100 WBC (0-0); Total Cells Counted 100
[2018-12-31 14:38] LABS: Anisocytosis (M) Present; Poikilocytosis (M) Present
[2018-12-31 14:43] LABS: Amorphous Sediment,Urine Rare /hpf; Appearance,Urine Clear (Clear); Bilirubin,Urine Negative (Negative); Blood,Urine Negative (Negative); Color,Urine Light Yellow; Glucose,Urine (UA) Negative (Negative); Ketones,Urine Negative (Negative); Leukocyte Esterase,Urine Small (Negative); Nitrite,Urine Negative (Negative); PH, Urine 6.5 (5.0-8.0); Protein,Urine Negative (Negative); RBC,Urine 1 /hpf (0-5); Specific Gravity,Urine 1.005 (1.001-1.035); Squamous Epithelial Cell,Urine 1 /hpf (0-4); Urobilinogen,Urine <2.0 mg/dL (<2.0); WBC,Urine 1 /hpf (0-5)
[2018-12-31] MEDS ORDERED: NITROGLYCERIN SL TABS 0.4 MG TAB SUBLINGUAL PRN (15:34)
[2018-12-31] MEDS: SODIUM CHLORIDE 0.9% 1,000 ML IV SCH (15:49)
[2018-12-31] MEDS: POTASSIUM CHLORIDE ER 10 MEQ TAB.ER.PRT PO SCH (17:25)
[2018-12-31] MEDS: TORSEMIDE 20 MG TAB PO SCH (17:25)
[2018-12-31] MEDS: FOLIC ACID 1 MG TAB PO SCH (17:25)
[2018-12-31] MEDS: PANTOPRAZOLE 40 MG TABLET PO SCH (17:26)
[2018-12-31] MEDS: methylPREDNISolone 4 MG TAB TAPER PO SCH (21:53)
[2019-01-01 01:53] LABS: Cholesterol 147 mg/dL (<200); HDL Cholesterol 28 mg/dL (40-60); LDL Cholesterol,Calculated 102 mg/dL (0-99); Triglycerides 85 mg/dL (<150)
[2019-01-01] MEDS: methylPREDNISolone 4 MG TAB TAPER PO SCH ×3 (07:07→18:01)
[2019-01-01] MEDS: TORSEMIDE 20 MG TAB PO SCH (08:06)
[2019-01-01] MEDS: POTASSIUM CHLORIDE ER 10 MEQ TAB.ER.PRT PO SCH (08:06)
[2019-01-01] MEDS: FOLIC ACID 1 MG TAB PO SCH (08:07)
[2019-01-01] MEDS ORDERED: FUROSEMIDE 10 MG/ML 4 ML VIAL IV STA (08:59)
--- NOTE | 2019-01-01 08:59 | P.CRDCN ---
History of Present Illness Consult date: 01/01/19 Requesting physician: Mitchell Odonnell Reason for Consult (text): Abnormal troponin Chief complaint: Shortness of breath and significant bilateral lower extremity swelling History of present illness: This is a pleasant 73-year-old female with history of hypertension, hyperlipidemia, intolerant to statins, history of smoking, she quit smoking approximately 5 weeks ago, patient was diagnosed with lung cancer, stage IV, approximately 3 weeks ago. According to the patient and her daughter, she also has evidence of metastases to the liver and to the chest wall as well as adrenals and lymph nodes. Patient was started on chemotherapy, she's been having significant issues with low platelet count. She was given a unit of platelets, and subsequently returned to [facility] and received a second unit of platelets as well as some steroids. Patient was having significant swelling in her lower extremities since initiating chemotherapy, and she is also been very short of breath. She states that her primary care doctor started her on a very low-dose of diuretics, these were increased at [facility], she has been taking Demadex 20 mg orally daily. Patient presents to the hospital on this occasion with significant worsening in her peripheral edema as well as weeping from the legs, she's been quite short of breath and extremely weak. A cardiology consultation was requested because of abnormal troponins. EKG on presentation here showed a sinus tachycardia with nonspecific ST-T wave changes. Blood pressure on arrival here 158/72 with a heart rate of 120, 99% on room air. She is afebrile. White blood cell count 3.0, hemoglobin 10.2, platelet count 10 sodium 131, potassium 3.8, BUN 24, creatinine 0.7, calcium 8.2, magnesium 1.5. AST 107 and ALT 94 alk phos 333 troponin 0.10, 0.10, 0.10. Cholesterol 147 and LDL 102 HDL 28 triglycerides 85. No chest x- ray was performed. At the time of my examination this morning, patient is sitting up in her recliner at bedside, she is still quite short of breath even sitting up, bilateral lower extremities are wrapped with Cristóbal, she has significant edema in bilateral lower extremities, up into her abdominal and hip region. Past Medical History Past Medical History: Cancer, Hypertension, Osteoarthritis (OA) Additional Past Medical History / Comment(s): rapid heart rate, lung CA with liver mets History of Any Multi-Drug Resistant Organisms: None Reported Past Surgical History: Appendectomy, Cholecystectomy, Orthopedic Surgery, Tubal Ligation Additional Past Surgical History / Comment(s): vein stripping, throat sx, hip replacement x 2 Past Anesthesia/Blood Transfusion Reactions: No Reported Reaction Past Psychological History: Anxiety Smoking Status: Former smoker Past Alcohol Use History: Occasional Additional Past Alcohol Use History / Comment(s): smokes 1 PPD for 50 yrs Past Drug Use History: None Reported - Past Family History Mother Family Medical History: Cancer Additional Family Medical History / Comment(s): Lung Cancer age 84 Father Family Medical History: CVA/TIA Medications and Allergies Home Medications Medication Instructions Recorded Confirmed Type Folic Acid(Unknown Dose) 1 tab PO DAILY 12/26/18 12/31/18 History Potassium Chloride [K-Tab ER] 10 meq PO DAILY 12/26/18 12/31/18 History Torsemide [Demadex] 20 mg PO DAILY 12/26/18 12/31/18 History Omeprazole 20 mg PO AC-LUNCH 12/28/18 12/31/18 History methylPREDNISolone [Medrol Dose See Taper PO DIRECTED 12/31/18 12/31/18 History Pack] Allergies Allergy/AdvReac Type Severity Reaction Status Date / Time codeine AdvReac Unknown Rapid Verified 12/31/18 14:08 Heart Rate Physical Exam Vitals: Vital Signs Temp Pulse Pulse Resp BP BP Pulse Ox 01/01/19 08:00 96.2 F L 113 H 16 102/65 98 01/01/19 04:00 98.3 F 117 H 17 129/68 95 01/01/19 00:00 119 H 18 122/74 99 12/31/18 20:00 98.2 F 114 H 18 125/75 98 12/31/18 17:10 97.7 F 111 H 16 121/77 12/31/18 15:41 112 H 16 137/81 97 12/31/18 13:14 97.9 F 119 H 22 159/72 99 Intake and Output 12/31/18 01/01/19 01/01/19 22:59 06:59 14:59 Intake Total 240 240 Balance 240 240 Intake: Oral 240 240 Other: Voiding Method Toilet # Voids 1 1 Weight 64.7 kg PHYSICAL EXAMINATION: GENERAL: 73-year-old female in no acute distress at the time of my examination HEENT: Head is atraumatic, normocephalic. Pupils equal, round. Sclera anicteric. Conjunctiva are clear. Mucous membranes of the mouth are moist. Neck is supple. There is elevated jugular venous pressure. No carotid bruit is heard. HEART EXAMINATION: Heart S1 and S2 normal, tachycardic CHEST EXAMINATION: Lungs reveal diminished air entry bilaterally to the bases ABDOMEN: Soft, positive hepatomegaly, with mild tenderness . EXTREMITIES: 2+ peripheral pulses with 2-3+ bilateral lower extremity edema, up into the lower abdominal and hip area. NEUROLOGIC patient is awake, alert and oriented X3. . Results 12/31/18 13:40 12/31/18 13:40 Cardiac Enzymes 12/31/18 12/31/18 12/31/18 Range/Units 13:40 13:40 19:53 AST 107 H (14-36) U/L Troponin I 0.104 H* 0.108 H* (0.000-0.034) ng/mL 01/01/19 Range/Units 01:22 AST (14-36) U/L Troponin I 0.109 H* (0.000-0.034) ng/mL Lipids 01/01/19 Range/Units 01:22 Triglycerides 85 (<150) mg/dL Cholesterol 147 (<200) mg/dL HDL Cholesterol 28 L (40-60) mg/dL CBC 12/31/18 Range/Units 13:40 WBC 3.0 L (3.8-10.6) k/uL RBC 3.27 L (3.80-5.40) m/uL Hgb 10.2 L (11.4-16.0) gm/dL Hct 30.5 L (34.0-46.0) % Plt Count 10 L* D (150-450) k/uL Comprehensive Metabolic Panel 12/31/18 Range/Units 13:40 Sodium 131 L (137-145) mmol/L Potassium 3.8 (3.5-5.1) mmol/L Chloride 96 L (98-107) mmol/L Carbon Dioxide 29 (22-30) mmol/L BUN 24 H (7-17) mg/dL Creatinine 0.75 (0.52-1.04) mg/dL Glucose 94 (74-99) mg/dL Calcium 8.2 L (8.4-10.2) mg/dL AST 107 H (14-36) U/L ALT 94 H (9-52) U/L Alkaline Phosphatase 333 H (38-126) U/L Total Protein 6.1 L (6.3-8.2) g/dL Albumin 2.5 L (3.5-5.0) g/dL Current Medications Generic Name Dose Route Start Last Admin Trade Name Diegoq PRN Reason Stop Dose Admin Folic Acid 1 mg 01/01/19 09:00 01/01/19 08:07 Folic Acid PO 1 mg DAILY RENÉ Administration Sodium Chloride 1,000 mls @ 20 mls/hr 12/31/18 15:45 12/31/18 15:49 Saline 0.9% IV Not Given .Q24H RENÉ Methylprednisolone 4 mg 12/31/18 22:00 01/01/19 07:07 Medrol Dose Pack PO 01/04/19 09:59 4 mg DAILY RENÉ Administration Taper Nitroglycerin 0.4 mg 12/31/18 15:34 Nitrostat SUBLINGUAL Q5M PRN Chest Pain Pantoprazole Sodium 40 mg 01/01/19 12:30 12/31/18 17:26 Protonix PO Not Given AC-LUNCH RENÉ Potassium Chloride 10 meq 01/01/19 09:00 01/01/19 08:06 K-Dur 10 PO 10 meq DAILY RENÉ Administration Torsemide 20 mg 01/01/19 09:00 01/01/19 08:06 Demadex PO 20 mg DAILY ERNÉ Administration Intake and Output 12/31/18 01/01/19 01/01/19 22:59 06:59 14:59 Intake Total 240 240 Balance 240 240 Intake: Oral 240 240 Other: Voiding Method Toilet # Voids 1 1 Weight 64.7 kg 12/31/18 13:40 12/31/18 13:40 EKG Interpretations (text) EKG shows a sinus tachycardia with nonspecific ST-T wave changes Assessment and Plan Plan: Assessment and plan #1 symptoms of shortness of breath with significant lower extremity edema, rule out congestive cardiac failure #2 extreme weakness, likely secondary to chemotherapy #3. Thrombocytopenia, platelet count 10 #4 stage IV lung cancer with metastases to the liver, adrenals, lymph nodes, and chest wall, receiving chemo therapy and treatment at [facility] #5 hypertension #6 history of hyperlipidemia, intolerant to statins #7 nicotine dependence #8 abnormal liver enzymes, likely secondary to metastases to the liver, could also be secondary to congestion #9 hypomagnesemia #10 abnormal troponins, not consistent with acute coronary syndrome with no significant rise and fall pattern #11 low white blood cell count and anemia secondary to chemotherapy Plan We will obtain a stat chest x-ray, echocardiogram with Doppler study, BNP level, d-dimer. Replace magnesium. Discontinue aspirin. We will also give the patient a dose of IV Lasix. Further recommendations will be based on these findings and the patient's clinical course. DNP note has been reviewed, I agree with a documented findings and plan of care. Patient was seen and examined.
[2019-01-01] MEDS ORDERED: ASPIRIN 325 MG TAB PO SCH (09:00)
--- NOTE | 2019-01-01 09:23 | XR ---
EXAMINATION TYPE: XR chest 2V DATE OF EXAM: 01/01/2019 COMPARISON: 12/26/2018 TECHNIQUE: PA and lateral views submitted. HISTORY: Shortness of breath FINDINGS: No pneumothorax. Hyperinflation suggests COPD there is biapical pleural thickening. There is small bi lateral pleural effusions and basilar consolidation. Mild central venous congestion in the differenti al diagnosis. IMPRESSION: 1. COPD with bilateral infiltrate and small effusion. Correlate for mild superimposed venous congesti on.
[2019-01-01] MEDS ORDERED: Potassium Replacement Protocol 1 EACH MISC MISCELLANE PRN (09:36)
[2019-01-01] MEDS ORDERED: Magnesium Replacement Protocol 1 EACH MISC MISCELLANE PRN (09:36)
--- NOTE | 2019-01-01 10:04 | P.HPIM ---
History of Present Illness This is a pleasant 73 years old female, she is stage IV lung cancer, adenocarcinoma patient on chemotherapy, with metastasis to the liver and, adrenal gland and lymph nodes. She received chemotherapy at [facility] Other medical problems including hypertension and osteoarthritis, she was in the emergency room twice over the last 7-10 days for low platelets needed platelet transfusion, the second unit of blood transfusion was given with Medrol Dosepak. This time patient presents with generalized weakness and she has been sent by her oncologist at [facility] where they checked her platelets was low So she can come to emergency room and get platelet transfusion. In the emergency room as part of the evaluation her troponin was seen to be elevated so decided to be admitted for further cardiac workup. Patient was complaining of from dyspnea for more than 2 weeks, she had mild dyspnea beginning, she got her first chemotherapy about 2 weeks ago and gradually her dyspnea was getting worse associated with bilateral lower extremity edema up to the thighs. She has some right upper quadrant discomfort but no chest pain or epigastric pain or discomfort. She has some cough with no phlegm. On admission patient was tachycardic with heart rate [id number], temperature 96.2. Labs on presentation showing platelets of 6 and 10 K, P repair this month that was ranging between 6-18, 2 months ago her platelet count was 320 7K. WBC is 3.0K, hemoglobin is 10.2. INR is 1.1, sodium 131 magnesium is 1.5, liver enzymes mildly elevated with AST 107 and ALT 94, bilirubin is within normal limits at 0.9, troponin is elevated at 0.13. Urine analysis is non-concerning for infection. Chest x-ray, showing COPD with bilateral infiltrates. EKG showing sinus tachycardia at 117 in the emergency room patient was started on some minimal Assembly Line Upholsterer evaluated the patient and they suspecting congestive heart failure, BNP is ordered and 1 dose of Lasix is a provided. Family at bedside to the daughter was asking of her oncologist at [facility] to be consulted, I explained to the patient and her family in details that are going to be consult and oncologist in this hospital and then after discharge she can follow-up with her oncologist as an outpatient, or patient can be transferred to her oncologist at [facility] if patient preferred and her oncologist and [facility] increased uptake her today. Patient stated that she is going to stay now and consult in-house [facility] oncologist Dr. Nunez and every changes her mind we will let the staff note Review of Systems CONSTITUTIONAL: No fever, no malaise, no fatigue. HEENT: No recent visual problems or hearing problems. Denied any sore throat. CARDIOVASCULAR: No orthopnea, PND, no palpitations, no syncope. PULMONARY: No shortness of breath, no cough, no hemoptysis. GASTROINTESTINAL: No diarrhea, no nausea, no vomiting, no abdominal pain. Normoactive bowel sounds. NEUROLOGICAL: No headaches, no weakness, no numbness. HEMATOLOGICAL: Denies any bleeding or petechiae. GENITOURINARY: Denies any burning micturition, frequency, or urgency. MUSCULOSKELETAL/RHEUMATOLOGICAL: Denies any joint pain, swelling, or any muscle pain. ENDOCRINE: Denies any polyuria or polydipsia. Past Medical History Past Medical History: Cancer, Hypertension, Osteoarthritis (OA) Additional Past Medical History / Comment(s): rapid heart rate, lung CA with liver mets History of Any Multi-Drug Resistant Organisms: None Reported Past Surgical History: Appendectomy, Cholecystectomy, Orthopedic Surgery, Tubal Ligation Additional Past Surgical History / Comment(s): vein stripping, throat sx, hip replacement x 2 Past Anesthesia/Blood Transfusion Reactions: No Reported Reaction Past Psychological History: Anxiety Smoking Status: Former smoker Past Alcohol Use History: Occasional Additional Past Alcohol Use History / Comment(s): smokes 1 PPD for 50 yrs Past Drug Use History: None Reported - Past Family History Mother Family Medical History: Cancer Additional Family Medical History / Comment(s): Lung Cancer age 84 Father Family Medical History: CVA/TIA Medications and Allergies Home Medications Medication Instructions Recorded Confirmed Type Folic Acid(Unknown Dose) 1 tab PO DAILY 12/26/18 12/31/18 History Potassium Chloride [K-Tab ER] 10 meq PO DAILY 12/26/18 12/31/18 History Torsemide [Demadex] 20 mg PO DAILY 12/26/18 12/31/18 History Omeprazole 20 mg PO AC-LUNCH 12/28/18 12/31/18 History methylPREDNISolone [Medrol Dose See Taper PO DIRECTED 12/31/18 12/31/18 History Pack] Allergies Allergy/AdvReac Type Severity Reaction Status Date / Time codeine AdvReac Unknown Rapid Verified 12/31/18 14:08 Heart Rate Physical Exam Vitals: Vital Signs Temp Pulse Pulse Resp BP BP Pulse Ox 01/01/19 08:00 96.2 F L 113 H 16 102/65 98 01/01/19 04:00 98.3 F 117 H 17 129/68 95 01/01/19 00:00 119 H 18 122/74 99 12/31/18 20:00 98.2 F 114 H 18 125/75 98 12/31/18 17:10 97.7 F 111 H 16 121/77 12/31/18 15:41 112 H 16 137/81 97 12/31/18 13:14 97.9 F 119 H 22 159/72 99 Intake and Output 12/31/18 01/01/19 01/01/19 22:59 06:59 14:59 Intake Total 240 240 Balance 240 240 Intake: Oral 240 240 Other: Voiding Method Toilet # Voids 1 1 Weight 64.7 kg GENERAL: The patient is alert and oriented x3, not in any acute distress. Well developed, well nourished. HEENT: Pupils are round and equally reacting to light. EOMI. No scleral icterus. No conjunctival pallor. Normocephalic, atraumatic. No pharyngeal erythema. No thyromegaly. CARDIOVASCULAR: S1 and S2 present. No murmurs, rubs, or gallops. PULMONARY: Chest is clear to auscultation, no wheezing or crackles. ABDOMEN: Soft, nontender, nondistended, normoactive bowel sounds. No palpable organomegaly. MUSCULOSKELETAL: No joint swelling or deformity. EXTREMITIES: No cyanosis, clubbing, or pedal edema. NEUROLOGICAL: Gross neurological examination did not reveal any focal deficits. SKIN: No rashes. No petechiae Results CBC & Chem 7: 12/31/18 13:40 12/31/18 13:40 Labs: Abnormal Lab Results - Last 24 Hours (Table) 12/31/18 12/31/18 12/31/18 Range/Units 13:40 13:40 13:40 WBC 3.0 L (3.8-10.6) k/uL RBC 3.27 L (3.80-5.40) m/uL Hgb 10.2 L (11.4-16.0) gm/dL Hct 30.5 L (34.0-46.0) % Plt Count 10 L* D (150-450) k/uL Lymphocytes # (Manual) 0.78 L (1.0-4.8) k/uL Sodium 131 L (137-145) mmol/L Chloride 96 L (98-107) mmol/L BUN 24 H (7-17) mg/dL Calcium 8.2 L (8.4-10.2) mg/dL Magnesium 1.5 L (1.6-2.3) mg/dL AST 107 H (14-36) U/L ALT 94 H (9-52) U/L Alkaline Phosphatase 333 H (38-126) U/L Creatine Kinase 21 L (30-135) U/L Troponin I 0.104 H* (0.000-0.034) ng/mL Total Protein 6.1 L (6.3-8.2) g/dL Albumin 2.5 L (3.5-5.0) g/dL LDL Cholesterol, Calc (0-99) mg/dL HDL Cholesterol (40-60) mg/dL Ur Leukocyte Esterase (Negative) Amorphous Sediment (None) /hpf 12/31/18 12/31/18 01/01/19 Range/Units 14:24 19:53 01:22 WBC (3.8-10.6) k/uL RBC (3.80-5.40) m/uL Hgb (11.4-16.0) gm/dL Hct (34.0-46.0) % Plt Count (150-450) k/uL Lymphocytes # (Manual) (1.0-4.8) k/uL Sodium (137-145) mmol/L Chloride (98-107) mmol/L BUN (7-17) mg/dL Calcium (8.4-10.2) mg/dL Magnesium (1.6-2.3) mg/dL AST (14-36) U/L ALT (9-52) U/L Alkaline Phosphatase (38-126) U/L Creatine Kinase (30-135) U/L Troponin I 0.108 H* 0.109 H* (0.000-0.034) ng/mL Total Protein (6.3-8.2) g/dL Albumin (3.5-5.0) g/dL LDL Cholesterol, Calc (0-99) mg/dL HDL Cholesterol (40-60) mg/dL Ur Leukocyte Esterase Small H (Negative) Amorphous Sediment Rare H (None) /hpf 01/01/19 Range/Units 01:22 WBC (3.8-10.6) k/uL RBC (3.80-5.40) m/uL Hgb (11.4-16.0) gm/dL Hct (34.0-46.0) % Plt Count (150-450) k/uL Lymphocytes # (Manual) (1.0-4.8) k/uL Sodium (137-145) mmol/L Chloride (98-107) mmol/L BUN (7-17) mg/dL Calcium (8.4-10.2) mg/dL Magnesium (1.6-2.3) mg/dL AST (14-36) U/L ALT (9-52) U/L Alkaline Phosphatase (38-126) U/L Creatine Kinase (30-135) U/L Troponin I (0.000-0.034) ng/mL Total Protein (6.3-8.2) g/dL Albumin (3.5-5.0) g/dL LDL Cholesterol, Calc 102 H (0-99) mg/dL HDL Cholesterol 28 L (40-60) mg/dL Ur Leukocyte Esterase (Negative) Amorphous Sediment (None) /hpf Assessment and Plan Assessment: acute to subacute dyspnea, possible Acute bilateral basal pneumonia Versus CHF or both Possible acute congestive heart failure Pancytopenia including Acute thrombocytopenia, mostly related to her chemotherapy Stage IV lung cancer on chemotherapy at [facility] Bilateral leg edema Mild hepatitis, mostly related to her liver metastasis Acute COPD exacerbation Plan: This is a pleasant 73 years old female who presents with bilateral basal infiltrates, pancytopenia and elevated troponin. Cardiology evaluated the patient. Follow-up BNP, d-dimer and echocardiogram. Check Doppler of the lower extremity. Agree with discontinuing aspirin in view of low platelets. We'll call pulmonary consult. Consult marine equipment design engineer/oncologist. Replace electrolytes. Labs and medication were reviewed.. Continue same treatment. Continue with symptomatic treatment. Resume home medication. Monitor lytes and vitals. DVT and GI prophylaxis. Further recommendations of the clinical course of the patient DVT prophylaxis: No heparin in view of thrombocytopenia GI Prophylaxis: Pepcid Prognosis is guarded
--- NOTE | 2019-01-01 11:03 | US ---
EXAMINATION TYPE: US venous doppler duplex LE DATE OF EXAM: 01/01/2019 10:41 AM COMPARISON: NONE CLINICAL HISTORY: Rule out DVT. Extensive edema throughout legs extending up into her back, no h/o dv t, liver CA SIDE PERFORMED: TECHNIQUE: The lower extremity deep venous system is examined utilizing real time linear array sonog jessica with graded compression, doppler sonography and color-flow sonography. VESSELS IMAGED: External Iliac Vein (EIV) Common Femoral Vein Deep Femoral Vein Greater Saphenous Vein * Femoral Vein Popliteal Vein Small Saphenous Vein * Proximal Calf Veins (* superficial vessels) *Patient has extensive edema in legs, popiteal space was very tender that I could not perform davis christina images bilaterally, good color flow with doppler was seen. Right Leg: Appears negative for DVT Left Leg: Appears negative for DVT There is normal flow, otherwise normal compressibility, vascular waveforms. Edema channels noted wi thin the soft tissues. IMPRESSION: No evident deep venous thrombosis at or above the knees. Limitations of the exam. Lower e xtremity edema. Follow-up as indicated.
--- NOTE | 2019-01-01 12:00 | P.CNPUL ---
History of Present Illness Consult date: 01/01/19 Requesting physician: Mitchell Odonnell Reason for consult: dyspnea, COPD Chief complaint: Weakness, lower extremity edema History of present illness: This is a very pleasant 73-year-old female patient who follows with Dr. Joshua as her primary care physician. She has a history of hypertension, anxiety, tachycardia, osteoarthritis. She has chronic and ongoing tobacco dependence. In October 2018 she was sized no with metastatic stage IV lung cancer with extensive liver masses and adrenal involvement. She follows with oncology at the [facility]. She has received 1 round of Alimta, carboplatin and Keytruda according to the family. No records are available at this time. She had been seen here in the ER 2 for platelet transfusions. She presented here yesterday with complaints of increasing lower extremity edema and weakness. White count 3.0. Hemoglobin 10.2. Platelet count 10,000. D-dimer 10.23. Dopplers of the lower extremities were negative. Sodium 131. Creatinine 0.75. AST 107. ALT 94. Alk phos 333. ProBNP 4810. Troponin 0.104, 0.108, 0.109. Echocardiogram is pending. Chest x-ray shows evidence of COPD with bilateral infiltrate and small effusion. Mild superimposed venous congestion. We were consulted for the same. He is seen today in consultation on the selective care unit. She is awake and alert in no acute distress. She is maintaining good O2 saturations in the mid 90s on room air. She's afebrile. Slightly tachycardic in the 1 teens. No tachypnea. Her main complaint is that of ongoing lower extremity edema. She had been on Lasix in the outpatient setting. She was then changed to torsemide at the [facility] and states her edema has been an issue for weeks now. She was given a dose of IV Lasix 40 mg times one this morning. She was continued on her torsemide 20 mg daily. Review of Systems REVIEW OF SYSTEMS: CONSTITUTIONAL: Positive for significant weight gain. EYES: Denies change in vision. EARS, NOSE, MOUTH, THROAT: Denies headaches, denies sore throat. CARDIOVASCULAR: Denies chest pain, palpitations or syncopal episodes. RESPIRATORY: Positive for shortness of breath on exertion, no cough, congestion or hemoptysis. GASTROINTESTINAL: Denies change in appetite, denies abdominal pain GENITOURINARY: Denies hematuria, denies infections. MUSKULOSKELETAL: Denies pain, positive for swelling. INTEGUMENTARY: Denies rash, denies eczema. NEUROLOGICAL: Denies recent memory loss, no recent seizure activity. PSYCHIATRIC: Denies anxiety, denies depression. HEMATOLOGIC/LYMPHATIC: Denies anemia, denies enlarged lymph nodes. Past Medical History Past Medical History: Cancer, Hypertension, Osteoarthritis (OA) Additional Past Medical History / Comment(s): rapid heart rate, lung CA with liver mets History of Any Multi-Drug Resistant Organisms: None Reported Past Surgical History: Appendectomy, Cholecystectomy, Orthopedic Surgery, Tubal Ligation Additional Past Surgical History / Comment(s): vein stripping, throat sx, hip replacement x 2 Past Anesthesia/Blood Transfusion Reactions: No Reported Reaction Past Psychological History: Anxiety Smoking Status: Former smoker Past Alcohol Use History: Occasional Additional Past Alcohol Use History / Comment(s): smokes 1 PPD for 50 yrs Past Drug Use History: None Reported - Past Family History Mother Family Medical History: Cancer Additional Family Medical History / Comment(s): Lung Cancer age 84 Father Family Medical History: CVA/TIA Medications and Allergies Home Medications Medication Instructions Recorded Confirmed Type Folic Acid(Unknown Dose) 1 tab PO DAILY 12/26/18 12/31/18 History Potassium Chloride [K-Tab ER] 10 meq PO DAILY 12/26/18 12/31/18 History Torsemide [Demadex] 20 mg PO DAILY 12/26/18 12/31/18 History Omeprazole 20 mg PO AC-LUNCH 12/28/18 12/31/18 History methylPREDNISolone [Medrol Dose See Taper PO DIRECTED 12/31/18 12/31/18 History Pack] Allergies Allergy/AdvReac Type Severity Reaction Status Date / Time codeine AdvReac Unknown Rapid Verified 12/31/18 14:08 Heart Rate Physical Exam Vitals: Vital Signs Temp Pulse Pulse Resp BP BP Pulse Ox 01/01/19 08:00 96.2 F L 113 H 16 102/65 98 01/01/19 04:00 98.3 F 117 H 17 129/68 95 01/01/19 00:00 119 H 18 122/74 99 12/31/18 20:00 98.2 F 114 H 18 125/75 98 12/31/18 17:10 97.7 F 111 H 16 121/77 12/31/18 15:41 112 H 16 137/81 97 12/31/18 13:14 97.9 F 119 H 22 159/72 99 Intake and Output 12/31/18 01/01/19 01/01/19 22:59 06:59 14:59 Intake Total 240 240 Balance 240 240 Intake: Oral 240 240 Other: Voiding Method Toilet Toilet # Voids 1 1 Weight 64.7 kg GENERAL EXAM: Alert, 73-year-old female patient, comfortable in no apparent distress. On room air. HEAD: Normocephalic. EYES: Normal reaction of pupils, equal size. NOSE: Clear with pink turbinates. THROAT: No erythema or exudates. NECK: No masses, no JVD. CHEST: No chest wall deformity. LUNGS: Equal air entry with crackles in the posterior bases, diminished. CVS: S1 and S2 normal with no audible murmur, regular rhythm. ABDOMEN: No hepatosplenomegaly, normal bowel sounds, no guarding or rigidity. SPINE: No scoliosis or deformity SKIN: No rashes CENTRAL NERVOUS SYSTEM: No focal deficits, tone is normal in all 4 extremities. EXTREMITIES: There is 1-2+ peripheral edema. No clubbing, no cyanosis. Peripheral pulses are intact. Results - Laboratory Findings CBC and BMP: 12/31/18 13:40 12/31/18 13:40 PT/INR, D-dimer D-Dimer 10.23 mg/L FEU (<0.60) H 01/01/19 09:15 Abnormal lab findings: Abnormal Labs 12/31/18 12/31/18 12/31/18 13:40 13:40 13:40 WBC 3.0 L RBC 3.27 L Hgb 10.2 L Hct 30.5 L Plt Count 10 L* D Lymphocytes # (Manual) 0.78 L D-Dimer Sodium 131 L Chloride 96 L BUN 24 H Calcium 8.2 L Magnesium 1.5 L AST 107 H ALT 94 H Alkaline Phosphatase 333 H Creatine Kinase 21 L Troponin I 0.104 H* Total Protein 6.1 L Albumin 2.5 L LDL Cholesterol, Calc HDL Cholesterol Ur Leukocyte Esterase Amorphous Sediment 12/31/18 12/31/18 01/01/19 14:24 19:53 01:22 WBC RBC Hgb Hct Plt Count Lymphocytes # (Manual) D-Dimer Sodium Chloride BUN Calcium Magnesium AST ALT Alkaline Phosphatase Creatine Kinase Troponin I 0.108 H* 0.109 H* Total Protein Albumin LDL Cholesterol, Calc HDL Cholesterol Ur Leukocyte Esterase Small H Amorphous Sediment Rare H 01/01/19 01/01/19 01:22 09:15 WBC RBC Hgb Hct Plt Count Lymphocytes # (Manual) D-Dimer 10.23 H Sodium Chloride BUN Calcium Magnesium AST ALT Alkaline Phosphatase Creatine Kinase Troponin I Total Protein Albumin LDL Cholesterol, Calc 102 H HDL Cholesterol 28 L Ur Leukocyte Esterase Amorphous Sediment - Diagnostic Findings Chest x-ray: image reviewed Assessment and Plan Assessment: Impression: #1 Dyspnea, multifactorial in a patient found to have pancytopenia secondary to chemotherapy for stage IV lung cancer, chronic tobacco dependence and suspected chronic obstructive pulmonary disease, fluid volume overload and possible congestive heart failure, echocardiogram pending, CT angiogram pending. #2 Lower extremity peripheral edema with weeping initially on Lasix 20 mg twice a day and more recently treated with torsemide 20 mg daily and Medrol Dosepak. #3 Stage IV lung cancer diagnosed here on 11/16/2018 via core needle biopsy of the liver revealing metastatic poorly differentiated pulmonary adenocarcinoma. Being treated at the [facility] and has received 1 round of chemotherapy. #4 Chronic and ongoing tobacco dependence. #5 Troponin leak. #6 Hypertension. #7 Hyperlipidemia. #8 Anxiety. #9 Osteoarthritis with previous hip replacement. Plan: The patient was seen and evaluated by Dr. Linares. Chest x-ray and labs reviewed. No significant pleural effusions. Continue with diuretics. CT angiogram pending. Echocardiogram pending. Oncology consulted regarding the pancytopenia. Obtain records from the [facility]. Patient would benefit from an outpatient workup including full pulmonary function testing to evaluate for any significant COPD and make recommendations regarding maintenance medications. We'll add bronchodilators as needed. We will continue to follow and make further recommendations based on her clinical status. I, the cosigning physician, performed a history & physical examination of the patient. Lungs sounds faint crackles in the posterior bases, diminished. Maintaining good O2 saturations in the 90s on room air. I discussed the assessment and plan of care with my nurse practitioner, Briana Larkin. I attest to the above consultation as dictated by her. Time with Patient: Greater than 30
--- NOTE | 2019-01-01 12:04 | CT ---
EXAMINATION TYPE: CT angio chest DATE OF EXAM: 01/01/2019 COMPARISON: 11/07/2018 HISTORY: Concern for PE. Shortness of breath. CT DLP: 262 mGycm. Automated Exposure Control for Dose Reduction was Utilized. CONTRAST: CTA scan of the thorax is performed with IV Contrast, patient injected with 100 mL of Isovue 370, pul monary embolism protocol. MIP Images are created on CT scanner and reviewed. FINDINGS: LUNGS: New volume overload within the lungs with scattered areas of groundglass opacities throughout, most likely from pulmonary edema, and new pleural effusions. Pleural effusions are moderate on the r ight and small to moderate on the left with associated compressive atelectasis. Interstitial edema is also seen as interlobular septal thickening. Background moderate centrilobular emphysematous change. The trachea contains curvilinear secretions or debris most conspicuous on series 401 image 51. MEDIASTINUM: There is satisfactory enhancement of the pulmonary artery and its branches, there is no CT evidence for pulmonary embolism. Given the phase of contrast on the prior CT of 11/07/2017 the nec rotic mediastinal adenopathy was better measured on the prior exam but appears overall similar such a s a subcarinal lymph node on image 66 previously measuring 1.3 x 1.9 cm and currently having the same measurements. Coronary artery calcifications are difficult to visualize given the phase of contrast. There are at least mild coronary artery calcifications There are no greater than 1 cm hilar or media stinal lymph nodes. No cardiomegaly or pericardial effusion is seen. Moderate atheromatous change o f the thoracic aorta. OTHER: There is redemonstration of the known, recently biopsied, innumerable hepatic metastases. Inte rval development of anasarca. Left adrenal gland nodule is again noted. Superhilar adenopathy is also better defined on the prior exam given the phase of contrast (current angiographic phase images poor definition). Mild multilevel degenerative changes of the thoracic spine and possible sclerotic metas tasis of T6 as well as T8. IMPRESSION: 1. No evidence of pulmonary embolus. 2. Interval development of pulmonary fluid overload with moderate right and [id number] left pl eural effusions as well as interstitial edema. Interval development of anasarca is also seen. 3. Moderate centrilobular emphysematous change. 4. Redemonstration of innumerable hepatic metastases and pathologic necrotic mediastinal/suprahilar a denopathy. 5. Possible sclerotic metastasis at T6 and T8. 4. Curvilinear debris within the trachea. This could represent aspirated debris or secretions.
[2019-01-01] MEDS: MAGNESIUM SULFATE-D5W PMX 1 GM in DEXTROSE/WATER 1 100ML.BAG IVPB SCH ×2 (12:15→16:48)
--- NOTE | 2019-01-01 15:40 | ECHOF ---
Referral Reason:abn trop MEASUREMENTS -------- HEIGHT: 170.2 cm WEIGHT: 64.4 kg BP: IVSd: 1.1 cm (0.6 - 1.1) LVIDd: 2.8 cm (3.9 - 5.3) LVPWd: 1.2 cm (0.6 - 1.1) IVSs: 1.2 cm LVIDs: 1.9 cm LVPWs: 1.7 cm RVIDd: 1.5 cm (< 3.3) LAESV Index (A-L): 15.65 ml/m Ao Diam: 3.4 cm (2.0 - 3.7) LA Diam: 2.7 cm (2.7 - 3.8) AV Cusp: 2.0 cm (1.5 - 2.6) MV E Spencer: 1.12 m/s MV DecT: 157 ms MV A Spencer: 1.45 m/s MV E/A Ratio: 0.77 RAP: 5.00 mmHg RVSP: 38.33 mmHg FINDINGS -------- Resting tachycardia (HR>100bpm). This was a technically good study. The left ventricular size is normal. There is mild concentric left ventricular hypertrophy. Overa ll left ventricular systolic function is normal with, an EF between 60 - 65 %. The right ventricle is normal in size. The left atrial size is normal. Normal LA size by volume 22+/-6 ml/m2. The right atrial size is normal. Interatrial and interventricular septum intact. Aortic valve is trileaflet and is mildly thickened. The mitral valve is normal. The mitral valve leaflets are mildly thickened. Mild mitral regurgita tion is present. Cannot exclude mitral valve prolapse. No regurgitation noted There is mild pulmonary hypertension. The right ventricular systolic press ure, as measured by Doppler, is 38.33mmHg. There is no pulmonic regurgitation present. The aortic root size is normal. IVC Not well visulized. There is no pericardial effusion. CONCLUSIONS -------- 1. Resting tachycardia (HR>100bpm). 2. This was a technically good study. 3. The left ventricular size is normal. 4. There is mild concentric left ventricular hypertrophy. 5. Overall left ventricular systolic function is normal with, an EF between 60 - 65 %. 6. The right ventricle is normal in size. 7. The left atrial size is normal. 8. Normal LA size by volume 22+/-6 ml/m2. 9. The right atrial size is normal. 10. Interatrial and interventricular septum intact. 11. Aortic valve is trileaflet and is mildly thickened. 12. The mitral valve is normal. 13. The mitral valve leaflets are mildly thickened. 14. Mild mitral regurgitation is present. 15. Cannot exclude mitral valve prolapse. 16. No regurgitation noted 17. There is mild pulmonary hypertension. 18. The right ventricular systolic pressure, as measured by Doppler, is 38.33mmHg. 19. There is no pulmonic regurgitation present. 20. The aortic root size is normal. 21. IVC Not well visulized. 22. There is no pericardial effusion. SPINNING LATHE OPERATOR: Elsa Lindsey RDCS
[2019-01-01] MEDS: FUROSEMIDE 10 MG/ML 10 ML VIAL IV SCH ×2 (16:54→22:09)
--- NOTE | 2019-01-01 17:30 | P.CONS ---
History of Present Illness - Reason for Consult Consult date: 01/01/19 pancytopenia, on chemo Requesting physician: Haja E Sheet - Chief Complaint anasarca - History of Present Illness Mrs. Valero is a very pleasant 73-year-old female patient recently diagnosed with stage IV lung cancer. Patient had her first cycle of carboplati n, Alimta and keytruda last week. Patient has a standing order here at [facility] for CBC twice a week with labs to be faxed to the [facility] for them to make recommendations regarding transfusions. Patient had been doing well, coming in for her labs, receiving platelet transfusions as needed when yesterday patient's lower extremity swelling became significantly progressive, there was weeping involved, the swelling went up into her waist and low back, she was seen and evaluated for symptoms suggestive of congestive heart failure, BMP was 4810, troponins were slightly elevated, she has had a Cardiology consult, echo showing a 60-65% LVEF, since her admission the swelling has impr jenna, patient denies any other complaints on 14 point review of systems in regards to her lung cancer or treatment. Review of Systems 14 point ROS is negative except as stated in HPI Past Medical History Past Medical History: Cancer, Hypertension, Osteoarthritis (OA) Additional Past Medical History / Comment(s): rapid heart rate, lung CA with liver mets History of Any Multi-Drug Resistant Organisms: None Reported Past Surgical History: Appendectomy, Cholecystectomy, Orthopedic Surgery, Tubal Ligation Additional Past Surgical History / Comment(s): vein stripping, throat sx, hip replacement x 2 Past Anesthesia/Blood Transfusion Reactions: No Reported Reaction Past Psychological History: Anxiety Smoking Status: Former smoker Past Alcohol Use History: Occasional Additional Past Alcohol Use History / Comment(s): smokes 1 PPD for 50 yrs Past Drug Use History: None Reported - Past Family History Mother Family Medical History: Cancer Additional Family Medical History / Comment(s): Lung Cancer age 84 Father Family Medical History: CVA/TIA Medications and Allergies Home Medications Medication Instructions Recorded Confirmed Type Folic Acid(Unknown Dose) 1 tab PO DAILY 12/26/18 12/31/18 History Potassium Chloride [K-Tab ER] 10 meq PO DAILY 12/26/18 12/31/18 History Torsemide [Demadex] 20 mg PO DAILY 12/26/18 12/31/18 History Omeprazole 20 mg PO AC-LUNCH 12/28/18 12/31/18 History methylPREDNISolone [Medrol Dose See Taper PO DIRECTED 12/31/18 12/31/18 History Pack] Allergies Allergy/AdvReac Type Severity Reaction Status Date / Time codeine AdvReac Unknown Rapid Verified 12/31/18 14:08 Heart Rate Physical Exam Vitals: Vital Signs Temp Pulse Resp BP Pulse Ox 01/01/19 15:38 16 01/01/19 12:00 116 H 16 136/64 98 01/01/19 11:47 16 01/01/19 08:00 96.2 F L 113 H 16 102/65 98 01/01/19 04:00 98.3 F 117 H 17 129/68 95 01/01/19 00:00 119 H 18 122/74 99 12/31/18 20:00 98.2 F 114 H 18 125/75 98 12/31/18 17:10 97.7 F 111 H 16 121/77 Intake and Output 01/01/19 01/01/19 01/01/19 06:59 14:59 22:59 Intake Total 480 Balance 480 Intake: Oral 480 Other: Voiding Method Toilet Toilet # Voids 1 4 Weight 64.7 kg - Constitutional General appearance: average body habitus, cooperative, no acute distress - EENT right buccal redness, 1-2 small dots of thrush Eyes: anicteric sclerae, EOMI ENT: hearing grossly normal - Neck Neck: no lymphadenopathy - Respiratory Respiratory: bilateral: CTA, diminished - Cardiovascular anasarca, pitting edema from the waist distal Rhythm: regular Heart sounds: normal: S1, S2 Abnormal Heart Sounds: no systolic murmur, no diastolic murmur, no rub, no S3 Gallop, no S4 Gallop, no click, no other leg Peripheral Edema: bilateral: 3+, Pitting - Gastrointestinal General gastrointestinal: no absent bowel sounds, no decreased bowel sounds, no distended, no hepatomegaly, no hyperactive bowel sounds, normal bowel sounds, no organomegaly, no rigid, no scaphoid, soft, no splenomegaly, no tenderness, no umbilical hernia, no ventral hernia - Integumentary Integumentary: normal - Neurologic Neurologic: CNII-XII intact - Musculoskeletal Musculoskeletal: strength equal bilaterally - Psychiatric Psychiatric: A&O x's 3, appropriate affect, intact judgment & insight Results CBC & Chem 7: 12/31/18 13:40 12/31/18 13:40 Labs: Abnormal Lab Results - Last 24 Hours (Table) 12/31/18 01/01/19 01/01/19 Range/Units 19:53 01:22 01:22 D-Dimer (<0.60) mg/L FEU Troponin I 0.108 H* 0.109 H* (0.000-0.034) ng/mL LDL Cholesterol, Calc 102 H (0-99) mg/dL HDL Cholesterol 28 L (40-60) mg/dL 01/01/19 Range/Units 09:15 D-Dimer 10.23 H (<0.60) mg/L FEU Troponin I (0.000-0.034) ng/mL LDL Cholesterol, Calc (0-99) mg/dL HDL Cholesterol (40-60) mg/dL Comments: ECHO report reviewed Chest x-ray: report reviewed CT scan - chest: report reviewed Venous US: report reviewed Assessment and Plan (1) Antineoplastic chemotherapy induced pancytopenia Narrative/Plan: Patient is standing order for lab draw to be communicated to [facility]. Labs have been ordered for the a.m. I do have the fax number and we will make sure that those get fax. No intervention for patient's WBC of 3, ANC normal at 2.01. Hemoglobin is 10.2, no need for transfusion at this time. Plan to count is 10,000 as of yesterday's lab draw. Patient states [facility] was contacted with this result and told no transfusion. CBC in the a.m. Labs and to be sent to the [facility] for further instructions. Current Visit: Yes Status: Acute Priority: High Code(s): D61.810 - ANTINEOPLASTIC CHEMOTHERAPY INDUCED PANCYTOPENIA; T45.1X5A - ADVERSE EFFECT OF ANTINEOPLASTIC AND IMMUNOSUP DRUGS, INIT SNOMED Code(s): 821099554638983 (2) Lung cancer Narrative/Plan: Did speak with patient's daughter on the phone. Did confirm that the patient received carboplatin, Alimta and every treated, first cycle last week. Patient's blood counts are reflective of the chemotherapy portion of the regimen. See above for recommendations regarding pancytopenia. Patient will return to [facility] for further treatment and follow-up. Current Visit: Yes Status: Acute Priority: High Code(s): C34.90 - MALIGNANT NEOPLASM OF UNSP PART OF UNSP BRONCHUS OR LUNG SNOMED Code(s): 521517262 (3) Anasarca Narrative/Plan: Only mildly altered renal function, cardiac workup continues, patient is on diuretic. After speaking with the patient as well as her daughter this lower extremity swelling was present prior to beginning any treatment, it just progressed over the last day or so. Current Visit: Yes Status: Acute Priority: High Code(s): R60.1 - GENERALIZED EDEMA SNOMED Code(s): 542181382 Plan: Due to cardiac symptoms and being on immunotherapy thyroid studies have been ordered. I did speak with the patient's daughter or the phone. Will report to [facility] patient's labs in the morning and discuss with them the patient's current condition.
[2019-01-01] MEDS: FAMOTIDINE 20 MG/2 ML VIAL IV SCH (22:08)
[2019-01-01] MEDS: SODIUM CHLORIDE 0.9% 1,000 ML IV SCH (22:09)
[2019-01-02] MEDS: methylPREDNISolone 4 MG TAB TAPER PO SCH ×2 (06:24→15:02)
[2019-01-02 07:29] LABS: Basophils % (A) 0 %; Eosinophils # (A) 0.1 k/uL (0-0.7); Eosinophils % (A) 1 %; HCT 28.3 % (34.0-46.0); HGB 9.7 gm/dL (11.4-16.0); Lymphocytes # (A) 1.6 k/uL (1.0-4.8); Lymphocytes % (A) 48 %; MCH 31.6 pg (25.0-35.0); MCHC 34.3 g/dL (31.0-37.0); MCV 92.1 fL (80.0-100.0); Mean Platelet Volume 11.9; Monocytes # (A) 0.3 k/uL (0-1.0); Monocytes % (A) 8 %; Neutrophils # (A) 1.3 k/uL (1.3-7.7); Neutrophils % (A) 38 %; RBC 3.07 m/uL (3.80-5.40); RDW 14.4 % (11.5-15.5); WBC 3.3 k/uL (3.8-10.6)
[2019-01-02 07:33] LABS: Platelet Count 29 k/uL (150-450)
[2019-01-02 07:36] LABS: Albumin 2.3 g/dL (3.5-5.0); Calcium 8.1 mg/dL (8.4-10.2); Magnesium 1.8 mg/dL (1.6-2.3); Potassium 3.6 mmol/L (3.5-5.1); Total Bilirubin 0.9 mg/dL (0.2-1.3); Total Protein 5.7 g/dL (6.3-8.2)
[2019-01-02] MEDS: SODIUM CHLORIDE 0.9% 1,000 ML IV SCH (08:23)
[2019-01-02] MEDS: FUROSEMIDE 10 MG/ML 10 ML VIAL IV SCH ×2 (08:41→15:01)
[2019-01-02] MEDS: FAMOTIDINE 20 MG/2 ML VIAL IV SCH (08:41)
[2019-01-02] MEDS: PANTOPRAZOLE 40 MG TABLET PO SCH (08:42)
--- NOTE | 2019-01-02 11:27 | P.PN ---
Subjective Progress Note Date: 01/02/19 Principal diagnosis: chemo induced thrombocytopenia, SOB, lower body swelling In f/u today pt states lower body swelling is better, SOB is stable, chest pain, mild weakness, no bleeding Objective - Vital Signs Vital signs: Vital Signs Temp 98.2 F 01/02/19 00:00 Pulse 111 H 01/02/19 08:53 Resp 16 01/02/19 08:53 BP 122/58 01/02/19 08:53 Pulse Ox 99 01/02/19 08:53 Intake & Output 01/01/19 01/02/19 01/02/19 18:59 06:59 18:59 Intake Total 480 120 340 Output Total 1000 1200 550 Balance -520 -1080 -210 Weight 62.1 kg Intake: Oral 480 120 340 Output: Urine 1000 1200 550 Other: Voiding Method Toilet Toilet Toilet # Voids 4 1 - Constitutional General appearance: Present: average body habitus, cooperative, no acute distress - EENT Eyes: Present: anicteric sclerae, EOMI - Respiratory Details: respirations even and unlabored - Cardiovascular Details: skin warm and dry - Peripheral edema leg Peripheral Edema Comment(s): edema in thighs and waist distal, less pitting Peripheral Edema: bilateral: 1+ - Gastrointestinal General gastrointestinal: Present: soft - Neurologic Neurologic: Present: CNII-XII intact - Musculoskeletal Musculoskeletal: Present: generalized weakness, strength equal bilaterally - Psychiatric Psychiatric: Present: A&O x's 3, appropriate affect, intact judgment & insight - Labs CBC & Chem 7: 01/02/19 06:08 01/02/19 06:08 Labs: Abnormal Lab Results - Last 24 Hours (Table) 01/01/19 01/02/19 01/02/19 Range/Units 09:15 06:08 06:08 WBC 3.3 L (3.8-10.6) k/uL RBC 3.07 L (3.80-5.40) m/uL Hgb 9.7 L (11.4-16.0) gm/dL Hct 28.3 L (34.0-46.0) % Plt Count 29 L D (150-450) k/uL D-Dimer 10.23 H (<0.60) mg/L FEU Sodium 131 L (137-145) mmol/L Chloride 96 L (98-107) mmol/L BUN 24 H (7-17) mg/dL Calcium 8.1 L (8.4-10.2) mg/dL AST 85 H (14-36) U/L ALT 106 H (9-52) U/L Alkaline Phosphatase 325 H (38-126) U/L Total Protein 5.7 L (6.3-8.2) g/dL Albumin 2.3 L (3.5-5.0) g/dL Assessment and Plan (1) Antineoplastic chemotherapy induced pancytopenia Narrative/Plan: Stable today considering she is at the end of misha for her treatment-it was 2 weeks ago on Monday No transfusions Labs faxed to [facility] Dr. Nunez reviewed possibility of pt extreme thrombocytopenia being immune therapy related, ITP has been reported with immuotherapy. Her plt are now recovering spontaneously so, her Current Visit: Yes Status: Acute Priority: High Code(s): D61.810 - ANTINEOPLASTIC CHEMOTHERAPY INDUCED PANCYTOPENIA; T45.1X5A - ADVERSE EFFECT OF ANTINEOPLASTIC AND IMMUNOSUP DRUGS, INIT SNOMED Code(s): 113156533695994 (2) Lung cancer Narrative/Plan: Call out to [facility] to report her hospitalization to them. Reports faxed to them. Further treatment plans per [facility] Current Visit: Yes Status: Acute Priority: High Code(s): C34.90 - MALIGNANT NEOPLASM OF UNSP PART OF UNSP BRONCHUS OR LUNG SNOMED Code(s): 494198883 (3) Anasarca Narrative/Plan: Dr. Nunez reviewed case. Based on overall stable LFTs, good renal function and unremarkable cardiac work up it is felt that the progressive fluid accumulation is r/t metastatic disease in the liver which was exacerbated by treatment causing treatment related inflammation and hepatic congestion with fluid leakage into 3rd space. Swelling is decreasing with notable wt decrease. Cont treatment as prescribed by Cardiology Current Visit: Yes Status: Acute Priority: High Code(s): R60.1 - G ENERALIZED EDEMA SNOMED Code(s): 540330749 Plan: Doctor attests: I performed a history and physical examination of this patient, developed impression and plan of care, discussed with dictator. I agree with dictators note, documented as a scribe.
--- NOTE | 2019-01-02 12:21 | P.PN ---
Subjective Progress Note Date: 01/02/19 This is a pleasant 73-year-old female with history of hypertension, hyperlipidemia, intolerant to statins, history of smoking, she quit smoking approximately 5 weeks ago, patient was diagnosed with lung cancer, stage IV, approximately 3 weeks ago. According to the patient and her daughter, she also has evidence of metastases to the liver and to the chest wall as well as adrenals and lymph nodes. Patient was started on chemotherapy, she's been having significant issues with low platelet count. She was given a unit of platelets, and subsequently returned to [facility] and received a second unit of platelets as well as some steroids. Patient was having significant swelling in her lower extremities since initiating chemotherapy, and she is also been very short of breath. She states that her primary care doctor started her on a very low-dose of diuretics, these were increased at [facility], she has been taking Demadex 20 mg orally daily. Patient presents to the hospital on this occasion with significant worsening in her peripheral edema as well as weeping from the legs, she's been quite short of breath and extremely weak. A cardiology consultation was requested because of abnormal troponins. EKG on presentation here showed a sinus tachycardia with nonspecific ST-T wave changes. Blood pressure on arrival here 158/72 with a heart rate of 120, 99% on room air. She is afebrile. White blood cell count 3.0, hemoglobin 10.2, platelet count 10 sodium 131, potassium 3.8, BUN 24, creatinine 0.7, calcium 8.2, magnesium 1.5. AST 107 and ALT 94 alk phos 333 troponin 0.10, 0.10, 0.10. Cholesterol 147 and LDL 102 HDL 28 triglycerides 85. No chest x-r ay was performed. At the time of my examination this morning, patient is sitting up in her recliner at bedside, she is still quite short of breath even sitting up, bilateral lower extremities are wrapped with Cristóbal, she has significant edema in bilateral lower extremities, up into her abdominal and hip region. 01/02/2019 Patient seen and examined this morning, diuresed well through the night last night, edema is improving significantly although she still has edema present. She also states that overall she feels considerably better. Echocardiogram with Doppler study revealed an ejection fraction of 60-65%. Blood pressure 114/60 with a heart rate in the low 100s, white blood cell count 3.3, hemoglobin 9.7, platelet count 29. Sodium 131, potassium 3.6, BUN 24, creatinine 0.8. AST 85 ALT 106 alk phos 325. Objective - Vital Signs Vital signs: Vital Signs Temp 97.8 F 01/02/19 11:00 Pulse 103 H 01/02/19 11:00 Resp 18 01/02/19 11:00 BP 113/63 01/02/19 11:00 Pulse Ox 97 01/02/19 11:00 Intake & Output 01/01/19 01/02/19 01/02/19 18:59 06:59 18:59 Intake Total 480 120 340 Output Total 1000 1200 550 Balance -520 -1080 -210 Weight 62.1 kg Intake: Oral 480 120 340 Output: Urine 1000 1200 550 Other: Voiding Method Toilet Toilet Toilet # Voids 4 1 - Exam PHYSICAL EXAMINATION: GENERAL: 73-year-old female in no acute distress at the time of my examination HEENT: Head is atraumatic, normocephalic. Pupils equal, round. Sclera anicteric. Conjunctiva are clear. Mucous membranes of the mouth are moist. Neck is supple. There is elevated jugular venous pressure. No carotid bruit is heard. HEART EXAMINATION: Heart S1 and S2 normal, tachycardic CHEST EXAMINATION: Lungs reveal improvement in air entry bilaterally to the bases ABDOMEN: Soft, positive hepatomegaly, with mild tenderness . EXTREMITIES: 2+ peripheral pulses with 1+ bilateral lower extremity edema, up into the lower abdominal and hip area. NEUROLOGIC patient is awake, alert and oriented X3. . - Labs CBC & Chem 7: 01/02/19 06:08 01/02/19 06:08 Labs: Abnormal Lab Results - Last 24 Hours (Table) 01/02/19 01/02/19 Range/Units 06:08 06:08 WBC 3.3 L (3.8-10.6) k/uL RBC 3.07 L (3.80-5.40) m/uL Hgb 9.7 L (11.4-16.0) gm/dL Hct 28.3 L (34.0-46.0) % Plt Count 29 L D (150-450) k/uL Sodium 131 L (137-145) mmol/L Chloride 96 L (98-107) mmol/L BUN 24 H (7-17) mg/dL Calcium 8.1 L (8.4-10.2) mg/dL AST 85 H (14-36) U/L ALT 106 H (9-52) U/L Alkaline Phosphatase 325 H (38-126) U/L Total Protein 5.7 L (6.3-8.2) g/dL Albumin 2.3 L (3.5-5.0) g/dL Assessment and Plan Plan: Assessment and plan #1 symptoms of shortness of breath with significant lower extremity edema, rule out congestive cardiac failure #2 extreme weakness, likely secondary to chemotherapy #3. Thrombocytopenia, platelet count 10 #4 stage IV lung cancer with metastases to the liver, adrenals, lymph nodes, and chest wall, receiving chemo therapy and treatment at [facility] #5 hypertension #6 history of hyperlipidemia, intolerant to statins #7 nicotine dependence #8 abnormal liver enzymes, likely secondary to metastases to the liver, could al so be secondary to congestion #9 hypomagnesemia #10 abnormal troponins, not consistent with acute coronary syndrome with no significant rise and fall pattern #11 low white blood cell count and anemia secondary to chemotherapy Plan Echocardiogram with Doppler study was performed which revealed a normal left ventricular systolic function, we'll recommend to continue current dose of IV Lasix for 24 hours, repeat the chest x-ray in the morning. DNP note has been reviewed, I agree with a documented findings and plan of care. Patient was seen and examined.
--- NOTE | 2019-01-02 13:42 | P.PN ---
Subjective Progress Note Date: 01/02/19 Principal diagnosis: Weakness, lower extremity edema This is a very pleasant 73-year-old female patient who follows with Dr. Joshua as her primary care physician. She has a history of hypertension, anxiety, tachycardia, osteoarthritis. She has chronic and ongoing tobacco dependence. In October 2018 she was sized no with metastatic stage IV lung cancer with extensive liver masses and adrenal involvement. She follows with oncology at the [facility]. She has received 1 round of Alimta, carboplatin and Keytruda according to the family. No records are available at this time. She had been seen here in the ER 2 for platelet transfusions. She presented here yesterday with complaints of increasing lower extremity edema and weakness. White count 3.0. Hemoglobin 10.2. Platelet count 10,000. D-dimer 10.23. Dopplers of the lower extremities were negative. Sodium 131. Creatinine 0.75. AST 107. ALT 94. Alk phos 333. ProBNP 4810. Troponin 0.104, 0.108, 0.109. Echocardiogram is pending. Chest x-ray shows evidence of COPD with bilateral infiltrate and small effusion. Mild superimposed venous congestion. We were consulted for the same. He is seen today in consultation on the selective care unit. She is awake and alert in no acute distress. She is maintaining good O2 saturations in the mid 90s on room air. She's afebrile. Slightly tachycardic in the 1 teens. No tachypnea. Her main complaint is that of ongoing lower extremity edema. She had been on Lasix in the outpatient setting. She was then changed to torsemide at the [facility] and states her edema has been an issue for weeks now. She was given a dose of IV Lasix 40 mg times one this morning. She was continued on her torsemide 20 mg daily. On 01/02/2019 patient seen in follow-up on selective care unit, she has diuresed significantly over the last 24 hours, lower extremity edema is much improved, her weight is down by 2.6 kg in the last 24 hours, no complaints of shortness of breath, no cough or congestion, has been up ambulating around in the hallway, elevated activity quite well, room air pulse ox is 97%, no fever or chills. Echocardiogram results have been noted going preserved LV function with EF of 60-65%, mild mitral regurgitation, cannot exclude mitral valve prolapse, mild pulmonary hypertension. The patient isFeeling much better, on today's exam, today's labs have been reviewed, showing white blood cell count of 3.3, hemoglobin 9.7, platelet count has improved to 29, sodium is 131, potassium is 3.6, chloride is 96, CO2 is 29, B1 is 24, creatinine 0.82 Objective - Vital Signs Vital signs: Vital Signs Temp 97.8 F 01/02/19 11:00 Pulse 103 H 01/02/19 11:00 Resp 18 01/02/19 11:00 BP 113/63 01/02/19 11:00 Pulse Ox 97 01/02/19 11:00 Intake & Output 01/01/19 01/02/19 01/02/19 18:59 06:59 18:59 Intake Total 480 120 340 Output Total 1000 1200 550 Balance -520 -1080 -210 Weight 62.1 kg Intake: Oral 480 120 340 Output: Urine 1000 1200 550 Other: Voiding Method Toilet Toilet Toilet # Voids 4 1 - Exam GENERAL EXAM: Alert, pleasant, 73-year-old white female on room air, comfortable in no apparent distress. HEAD: Normocephalic/atraumatic. EYES: Normal reaction of pupils, equal size. Conjunctiva pink, sclera white. NOSE: Clear with pink turbinates. THROAT: No erythema or exudates. NECK: No masses, no JVD, no thyroid enlargement, no adenopathy. CHEST: No chest wall deformity. Symmetrical expansion. LUNGS: Equal air entry with no crackles, wheeze, rhonchi or dullness. CVS: Regular rate and rhythm, normal S1 and S2, no gallops, no murmurs, no rubs ABDOMEN: Soft, nontender. No hepatosplenomegaly, normal bowel sounds, no guarding or rigidity. EXTREMITIES: No clubbing, 1+ lower extremity edema up to the waist, no cyanosis, 2+ pulses and upper and lower extremities. MUSCULOSKELETAL: Muscle strength and tone normal. SPINE: No scoliosis or deformity SKIN: No rashes CENTRAL NERVOUS SYSTEM: Alert and oriented -3. No focal deficits, tone is normal in all 4 extremities. PSYCHIATRIC: Alert and oriented -3. Appropriate affect. Intact judgment and insight. - Labs CBC & Chem 7: 01/02/19 06:08 01/02/19 06:08 Labs: Abnormal Lab Results - Last 24 Hours (Table) 01/02/19 01/02/19 Range/Units 06:08 06:08 WBC 3.3 L (3.8-10.6) k/uL RBC 3.07 L (3.80-5.40) m/uL Hgb 9.7 L (11.4-16.0) gm/dL Hct 28.3 L (34.0-46.0) % Plt Count 29 L D (150-450) k/uL Sodium 131 L (137-145) mmol/L Chloride 96 L (98-107) mmol/L BUN 24 H (7-17) mg/dL Calcium 8.1 L (8.4-10.2) mg/dL AST 85 H (14-36) U/L ALT 106 H (9-52) U/L Alkaline Phosphatase 325 H (38-126) U/L Total Protein 5.7 L (6.3-8.2) g/dL Albumin 2.3 L (3.5-5.0) g/dL Assessment and Plan Plan: #1 Dyspnea, multifactorial in a patient found to have pancytopenia secondary to chemotherapy for stage IV lung cancer, chronic tobacco dependence and suspected chronic obstructive pulmonary disease, fluid volume overload and possible congestive heart failure, echocardiogram pending, CT angiogram pending. #2 Lower extremity peripheral edema with weeping initially on Lasix 20 mg twice a day and more recently treated with torsemide 20 mg daily and Medrol Dosepak. #3 Stage IV lung cancer diagnosed here on 11/16/2018 via core needle biopsy of the liver revealing metastatic poorly differentiated pulmonary adenocarcinoma. Being treated at the [facility] and has received 1 round of chemotherapy. #4 Chronic and ongoing tobacco dependence. #5 Troponin leak. #6 Hypertension. #7 Hyperlipidemia. #8 Anxiety. #9 Osteoarthritis with previous hip replacement. Plan: Continue diuretics, patient has significantly diuresed, feeling better on today's exam, breathing has improved, she is tolerating ambulation, she is on room air, no fever or chills, lower extremity edema is improving. Echocardi ogram results have been noted, possibility of mitral valve prolapse however the patient does not want any further invasive testing or let alone surgery. She wants medical treatment only. Continue with IV diuretics, increase activity, and patient is hoping to be discharged home today or tomorrow I performed a history & physical examination of the patient and discussed their management with my nurse practitioner, Greer Rodriguez. I reviewed the nurse practitioner's note and agree with the documented findings and plan of care. Lung sounds are positive for diminished breath sounds. The findings and the impression was discussed with the patient. I attest to the documentation by the nurse practitioner. Time with Patient: Less than 30
--- NOTE | 2019-01-02 18:21 | P.PN ---
Progress Note - Text Progress Note Date: 01/02/19 Interval history: Pleasant 73-year-old patient of Dr. Cleopatra Joshua. In October 2018 she was diagnosed with metastatic stage IV lung cancer with liver masses and and return for [facility]. She follows a continuous to [place]. She has received 1 dose of chemotherapy. Presented with lower extremity edema and weakness. She had elevated proBNP. 2-D echo showed preserved LV function. She was put on IV Lasix. She said edema for some time. Today-sitting upon a chair. Cristóbal wrap on the lower extremity. Did tolerate some diet. Has been up in the hallway. Did have a bowel movement. Breathing slightly better. Review of systems: Was done for constitutional, cardiovascular, GI, pulmonary. relevant finding as above Active Medications Folic Acid (Folic Acid) 1 mg PO DAILY [facility] Last Admin: 01/01/19 08:07 Dose: 1 mg Documented by: Furosemide (Lasix) 60 mg IV 0800,1500 [facility] Last Admin: 01/02/19 15:01 Dose: 60 mg Documented by: Sodium Chloride (Saline 0.9%) 1,000 mls @ 20 mls/hr IV .Q24H [facility] Last Admin: 01/02/19 08:23 Dose: Not Given Documented by: Methylprednisolone (Medrol Dose Pack) 4 mg PO BID [facility]; Taper Stop: 01/04/19 09:59 Last Admin: 01/02/19 15:02 Dose: 4 mg Documented by: Miscellaneous Information (Magnesium Per Protocol) 1 each MISCELLANE DAILY PRN; Protocol PRN Reason: Per Protocol Miscellaneous Information (Potassium Per Protocol) 1 each MISCELLANE DAILY PRN; Protocol PRN Reason: Per Protocol Nitroglycerin (Nitrostat) 0.4 mg SUBLINGUAL Q5M PRN PRN Reason: Chest Pain Pantoprazole Sodium (Protonix) 40 mg PO AC-LUNCH [facility] Last Admin: 01/02/19 08:42 Dose: Not Given Documented by: Potassium Chloride (K-Dur 10) 10 meq PO DAILY [facility] Last Admin: 01/01/19 08:06 Dose: 10 meq Documented by: On examination: VITAL SIGNS: 97.8, 103, 18, 11 3/63, 97% room air GENERAL APPEARANCE: Average build. Sitting up in a chair, slightly short of breath. HEENT: Normal external appearance of nose and ear. Oral cavity normal EYES: Pupils equal. Conjunctiva normal. NECK: JVD unable to assess. Mass not palpable. RESPIRATORY: Respiratory effort increased. Lungs decreased breath sounds some crackles. CARDIOVASCULAR: First and second sounds normal. Edema present. ABDOMEN: Soft. Liver and spleen not palpable. No tenderness. No mass palpable. PSYCHIATRY: Alert and oriented x3. Mood and affect normal. INVESTIGATIONS, reviewed in the clinical context: White count 3.3 hemoglobin 9.7 platelets 29 Potassium 3.6 bun 24 creatinine 0.82 AST 85 ALT 106 Troponin I 0.018, 0.109, proBNP 4810 Albumin 2.3, influenza A and B- Chest CTA-no PE. Pulmonary fluid overload with moderate right and small moderate left pleural effusion. Emphysema changes many hepatic metastasis and mediastinal also prior adenopathy. Sclerotic metastasis T 6-8 Venous Doppler negative for DVT in both the legs 2-D echo-EF 60-65% Assessment: -Acute on chronic fluid overload, likely from hepatic disease causing portal hypertension and from associated hypoalbuminemia, causing generalized anasarca, slow to respond -Stage IV lung cancer with metastatic disease to the liver and to T6-T8, on chemotherapy -Hypoalbuminemia, secondary to liver disease and mild protein calorie malnutrition -Essential hypertension -Primary osteoarthritis -COPD in a X smoker -Pancytopenia from chemotherapy -Hyponatremia likely hypoosmolar -Troponin leak from hemodynamic mismatch, no clinical evidence of acute coronary syndrome Plan: Patient remains on IV Lasix. We'll also bronchodilators. Patient has been up in the hallway. We will also had Aldactone. Patient also benefit from fluid restriction. Cristóbal wrap to continue. Care was discussed at length with the patient and the .
[2019-01-02] MEDS: SPIRONOLACTONE 25 MG TAB PO SCH (18:45)
[2019-01-03] MEDS: FUROSEMIDE 10 MG/ML 10 ML VIAL IV SCH ×2 (06:32→16:09)
[2019-01-03] MEDS: methylPREDNISolone 4 MG TAB TAPER PO SCH (06:32)
[2019-01-03 06:39] LABS: HCT 26.4 % (34.0-46.0); HGB 8.7 gm/dL (11.4-16.0); MCH 30.6 pg (25.0-35.0); MCHC 33.2 g/dL (31.0-37.0); MCV 92.3 fL (80.0-100.0); Mean Platelet Volume 10.9; RBC 2.86 m/uL (3.80-5.40); RDW 14.5 % (11.5-15.5); WBC 3.5 k/uL (3.8-10.6)
[2019-01-03 06:42] LABS: Platelet Count 67 k/uL (150-450)
[2019-01-03 06:48] LABS: African American GFR (CKD) >90 (>60 ml/min/1.73 sqM); Anion Gap 5 mmol/L; Blood Urea Nitrogen 20 mg/dL (7-17); Calcium 7.8 mg/dL (8.4-10.2); Carbon Dioxide 30 mmol/L (22-30); Chloride 94 mmol/L (98-107); Glucose 89 mg/dL (74-99); Non-African American GFR(CKD) 85 (>60 ml/min/1.73 sqM); Potassium 3.2 mmol/L (3.5-5.1); Sodium 129 mmol/L (137-145)
[2019-01-03] MEDS ORDERED: Potassium Replacement Protocol 1 EACH MISC MISCELLANE PRN (07:34)
--- NOTE | 2019-01-03 08:17 | XR ---
EXAMINATION TYPE: XR chest 2V DATE OF EXAM: 01/03/2019 COMPARISON: 01/01/2019 TECHNIQUE: PA and lateral views submitted. HISTORY: Shortness of breath FINDINGS: No pneumothorax. Hyperinflation suggests COPD. There is biapical pleural thickening. There is small b ilateral pleural effusions and basilar consolidation. Mild central venous congestion in the different ial diagnosis. Degenerative changes spine. Findings suspicious for metastasis seen by recent CT scan are not as well identified within the vertebral column by standard x-ray. Mediastinal mild prominence noted. Arthropathy of the shoulders. IMPRESSION: 1. COPD with bilateral infiltrate and small effusion. Correlate for mild superimposed venous congesti on. 2. Mild mediastinal soft tissue fullness consistent with the CT described mediastinal adenopathy.
[2019-01-03] MEDS: POTASSIUM CHLORIDE ER 20 MEQ TAB.ER PO SCH ×2 (08:39→09:44)
[2019-01-03] MEDS: POTASSIUM CHLORIDE ER 10 MEQ TAB.ER.PRT PO SCH (08:39)
[2019-01-03] MEDS: FOLIC ACID 1 MG TAB PO SCH (08:40)
[2019-01-03] MEDS: SPIRONOLACTONE 25 MG TAB PO SCH (08:40)
--- NOTE | 2019-01-03 11:03 | P.PN ---
Subjective Progress Note Date: 01/03/19 Principal diagnosis: chemo induced thrombocytopenia, SOB, lower body swelling In f/u today pt states lower body swelling continues to improve, she is using O2 PRN, she does have orthopnea, no other c/o. Objective - Vital Signs Vital signs: Vital Signs Temp 97.7 F 01/03/19 08:00 Pulse 113 H 01/03/19 08:25 Resp 20 01/03/19 08:25 BP 108/58 01/03/19 08:00 Pulse Ox 96 01/03/19 08:00 Intake & Output 01/02/19 01/03/19 01/03/19 18:59 06:59 18:59 Intake Total 696 120 240 Output Total 550 1250 Balance 146 -1130 240 Weight 61.3 kg Intake: Oral 696 120 240 Output: Urine 550 1250 Other: Voiding Method Toilet Toilet Toilet # Voids 0 - Constitutional General appearance: Present: average body habitus, cooperative, no acute distress - EENT Eyes: Present: anicteric sclerae, EOMI ENT: Present: hearing grossly normal - Respiratory Details: weak inspiratory effort Respiratory: bilateral: CTA, diminished - Cardiovascular Rhythm: regular Heart sounds: normal: S1, S2 Abnormal Heart Sounds: Absent: systolic murmur, diastolic murmur, rub, S3 Gallop, S4 Gallop, click, other - Peripheral edema leg Peripheral Edema: bilateral: 2+ (scant weeping, pitting in the thighs) - Gastrointestinal General gastrointestinal: Present: normal bowel sounds, soft - Neurologic Neurologic: Present: CNII-XII intact - Musculoskeletal Musculoskeletal: Present: strength equal bilaterally - Psychiatric Psychiatric: Present: A&O x's 3, appropriate affect, intact judgment & insight - Labs CBC & Chem 7: 01/03/19 06:12 01/03/19 06:12 Labs: Abnormal Lab Results - Last 24 Hours (Table) 01/03/19 01/03/19 Range/Units 06:12 06:12 WBC 3.5 L (3.8-10.6) k/uL RBC 2.86 L (3.80-5.40) m/uL Hgb 8.7 L (11.4-16.0) gm/dL Hct 26.4 L (34.0-46.0) % Plt Count 67 L D (150-450) k/uL Sodium 129 L (137-145) mmol/L Potassium 3.2 L (3.5-5.1) mmol/L Chloride 94 L (98-107) mmol/L BUN 20 H (7-17) mg/dL Calcium 7.8 L (8.4-10.2) mg/dL - Imaging and Cardiology Chest x-ray: report reviewed Assessment and Plan (1) Antineoplastic chemotherapy induced pancytopenia Narrative/Plan: Stable today considering she is at the end of misha for her treatment-it was 2 weeks ago on Monday No transfusions Plt recovery spontaneous now Current Visit: Yes Status: Acute Priority: High Code(s): D61.810 - ANTINEOPLASTIC CHEMOTHERAPY INDUCED PANCYTOPENIA; T45.1X5A - ADVERSE EFFECT OF A NTINEOPLASTIC AND IMMUNOSUP DRUGS, INIT SNOMED Code(s): 704974116544511 (2) Lung cancer Narrative/Plan: Discussed case with Dr. Fountain at [facility] and reported pt hospital course to him. All requested lans and reports faxed. He had nothing to add, no requests. Pt will follow up with treatment plans per [facility] Current Visit: Yes Status: Acute Priority: High Code(s): C34.90 - MALIGNANT NEOPLASM OF UNSP PART OF UNSP BRONCHUS OR LUNG SNOMED Code(s): 269344840 (3) Anasarca Narrative/Plan: Swelling cont decreasing. Cont treatment as prescribed by Cardiology Current Visit: Yes Status: Acute Priority: High Code(s): R60.1 - GENERALIZED EDEMA SNOMED Code(s): 208182954
[2019-01-03] MEDS: PANTOPRAZOLE 40 MG TABLET PO SCH (12:18)
--- NOTE | 2019-01-03 14:40 | P.PN ---
Subjective Progress Note Date: 01/03/19 This is a pleasant 73-year-old female with history of hypertension, hyperlipidemia, intolerant to statins, history of smoking, she quit smoking approximately 5 weeks ago, patient was diagnosed with lung cancer, stage IV, approximately 3 weeks ago. According to the patient and her daughter, she also has evidence of metastases to the liver and to the chest wall as well as adrenals and lymph nodes. Patient was started on chemotherapy, she's been having significant issues with low platelet count. She was given a unit of platelets, and subsequently returned to [facility] and received a second unit of platelets as well as some steroids. Patient was having significant swelling in her lower extremities since initiating chemotherapy, and she is also been very short of breath. She states that her primary care doctor started her on a very low-dose of diuretics, these were increased at [facility], she has been taking Demadex 20 mg orally daily. Patient presents to the hospital on this occasion with significant worsening in her peripheral edema as well as weeping from the legs, she's been quite short of breath and extremely weak. A cardiology consultation was requested because of abnormal troponins. EKG on presentation here showed a sinus tachycardia with nonspecific ST-T wave changes. Blood pressure on arrival here 158/72 with a heart rate of 120, 99% on room air. She is afebrile. White blood cell count 3.0, hemoglobin 10.2, platelet count 10 sodium 131, potassium 3.8, BUN 24, creatinine 0.7, calcium 8.2, magnesium 1.5. AST 107 and ALT 94 alk phos 333 troponin 0.10, 0.10, 0.10. Cholesterol 147 and LDL 102 HDL 28 triglycerides 85. No chest x-r ay was performed. At the time of my examination this morning, patient is sitting up in her recliner at bedside, she is still quite short of breath even sitting up, bilateral lower extremities are wrapped with Cristóbal, she has significant edema in bilateral lower extremities, up into her abdominal and hip region. 01/02/2019 Patient seen and examined this morning, diuresed well through the night last night, edema is improving significantly although she still has edema present. She also states that overall she feels considerably better. Echocardiogram with Doppler study revealed an ejection fraction of 60-65%. Blood pressure 114/60 with a heart rate in the low 100s, white blood cell count 3.3, hemoglobin 9.7, platelet count 29. Sodium 131, potassium 3.6, BUN 24, creatinine 0.8. AST 85 ALT 106 alk phos 325. 01/03/2019 Patient continued to diurese well through the night last night, she does continue to feel short of breath today, she has been ambulating in the hallway for greater part of the day today. Blood pressure 100/70, heart rate in the 90s, 97% on room air. White blood cell count 3.5, hemoglobin 8.7, platelet count 67. Sodium 129, potassium 3.2, BUN 20 and creatinine 0.7. Objective - Vital Signs Vital signs: Vital Signs Temp 97.8 F 01/03/19 11:37 Pulse 106 H 01/03/19 11:37 Resp 20 01/03/19 11:37 BP 99/71 01/03/19 11:37 Pulse Ox 97 01/03/19 11:37 Intake & Output 01/02/19 01/03/19 01/03/19 18:59 06:59 18:59 Intake Total 696 120 240 Output Total 550 1250 1200 Balance 146 -1130 -960 Weight 61.3 kg Intake: Oral 696 120 240 Output: Urine 550 1250 1200 Other: Voiding Method Toilet Toilet Toilet # Voids 0 3 - Exam PHYSICAL EXAMINATION: GENERAL: 73-year-old female in no acute distress at the time of my examination HEENT: Head is atraumatic, normocephalic. Pupils equal, round. Sclera anicteric. Conjunctiva are clear. Mucous membranes of the mouth are moist. Neck is supple. There is elevated jugular venous pressure. No carotid bruit is heard. HEART EXAMINATION: Heart S1 and S2 normal, tachycardic CHEST EXAMINATION: Lungs reveal improvement in air entry bilaterally to the bases ABDOMEN: Soft, positive hepatomegaly, with mild tenderness . EXTREMITIES: 2+ peripheral pulses with 1+ bilateral lower extremity edema, up into the lower abdominal and hip area. NEUROLOGIC patient is awake, alert and oriented X3. . - Labs CBC & Chem 7: 01/03/19 06:12 01/03/19 06:12 Labs: Abnormal Lab Results - Last 24 Hours (Table) 01/03/19 01/03/19 Range/Units 06:12 06:12 WBC 3.5 L (3.8-10.6) k/uL RBC 2.86 L (3.80-5.40) m/uL Hgb 8.7 L (11.4-16.0) gm/dL Hct 26.4 L (34.0-46.0) % Plt Count 67 L D (150-450) k/uL Sodium 129 L (137-145) mmol/L Potassium 3.2 L (3.5-5.1) mmol/L Chloride 94 L (98-107) mmol/L BUN 20 H (7-17) mg/dL Calcium 7.8 L (8.4-10.2) mg/dL Assessment and Plan Plan: Assessment and plan #1 symptoms of shortness of breath with significant lower extremity edema, rule out congestive cardiac failure #2 extreme weakness, likely secondary to chemotherapy #3. Thrombocytopenia, platelet count 10 #4 stage IV lung cancer with metastases to the liver, adrenals, lymph nodes, and chest wall, receiving chemo therapy and treatment at [facility] #5 hypertension #6 history of hyperlipidemia, intolerant to statins #7 nicotine dependence #8 abnormal liver enzymes, likely secondary to metastases to the liver, could also be secondary to congestion #9 hypomagnesemia #10 abnormal troponins, not consistent with acute coronary syndrome with no significant rise and fall pattern #11 low white blood cell count and anemia secondary to chemotherapy Plan Echocardiogram with Doppler study was performed which revealed a normal left ventricular systolic function, we'll recommend to continue current dose of IV Lasix for 24 hours, repeat chest x-ray continued to show pleural effusion, mild improvement noted. Check labs in the morning. DNP note has been reviewed, I agree with a documented findings and plan of care. Patient was seen and examined.
[2019-01-03] MEDS: SODIUM CHLORIDE 0.9% 1,000 ML IV SCH (16:30)
--- NOTE | 2019-01-03 16:51 | P.PN ---
Progress Note - Text Progress Note Date: 01/03/19 Interval history: Pleasant 73-year-old patient of Dr. Cleopatra Joshua. In October 2018 she was diagnosed with metastatic stage IV lung cancer with liver masses and and return for [facility]. She follows a continuous to [place]. She has received 1 dose of chemotherapy. Presented with lower extremity edema and weakness. She had elevated proBNP. 2-D echo showed preserved LV function. She was put on IV Lasix. She has had edema for some time. She is felt to have fluid overload from hepatic congestion from metastatic disease, contribution from hypoalbuminemia and portal hypertension. Element of diastolic dysfunction Today-. Remains on IV Lasix. Was started on fluid restriction. Getting Aldactone. Did walk in the hallway. Does get short winded. Appetite is okay.. Review of systems: Was done for constitutional, cardiovascular, GI, pulmonary. relevant finding as above Active Medications Folic Acid (Folic Acid) 1 mg PO DAILY [facility] Last Admin: 01/03/19 08:40 Dose: 1 mg Documented by: Furosemide (Lasix) 60 mg IV 0800,1500 [facility] Last Admin: 01/03/19 16:09 Dose: 60 mg Documented by: Sodium Chloride (Saline 0.9%) 1,000 mls @ 20 mls/hr IV .Q24H [facility] Last Admin: 01/03/19 16:30 Dose: Not Given Documented by: Methylprednisolone (Medrol Dose Pack) 4 mg PO DAILY [facility]; Taper Stop: 01/04/19 09:59 Last Admin: 01/03/19 06:32 Dose: 4 mg Documented by: Miscellaneous Information (Magnesium Per Protocol) 1 each MISCELLANE DAILY PRN; Protocol PRN Reason: Per Protocol Miscellaneous Information (Potassium Per Protocol) 1 each MISCELLANE DAILY PRN; Protocol PRN Reason: Per Protocol Miscellaneous Information (Potassium Per Protocol) 1 each MISCELLANE DAILY PRN; Protocol PRN Reason: Per Protocol Nitroglycerin (Nitrostat) 0.4 mg SUBLINGUAL Q5M PRN PRN Reason: Chest Pain Pantoprazole Sodium (Protonix) 40 mg PO AC-LUNCH [facility] Last Admin: 01/03/19 12:18 Dose: Not Given Documented by: Potassium Chloride (K-Dur 10) 10 meq PO DAILY [facility] Last Admin: 01/03/19 08:39 Dose: 10 meq Documented by: Spironolactone (Aldactone) 100 mg PO DAILY [facility] Last Admin: 01/03/19 08:40 Dose: 100 mg Documented by: On examination: VITAL SIGNS: 97.8, 106, 16, but he does anyone, 97% room air GENERAL APPEARANCE: Sitting upon a chair, a bit tired HEENT: Normal external appearance of nose and ear. Oral cavity normal EYES: Pupils equal. Conjunctiva normal. NECK: JVD unable to assess. Mass not palpable. RESPIRATORY: Respiratory effort increased. Lungs decreased breath sounds CARDIOVASCULAR: First and second sounds normal. Edema present. ABDOMEN: Soft. Liver and spleen not palpable. No tenderness. No mass palpable. PSYCHIATRY: Alert and oriented x3. Mood and affect normal. INVESTIGATIONS, reviewed in the clinical context: White count 3.5 hemoglobin 8.7 platelets 67 progression 3.2 creatinine 0.7 to Previous testing White count 3.3 hemoglobin 9.7 platelets 29 Potassium 3.6 bun 24 creatinine 0.82 AST 85 ALT 106 Troponin I 0.018, 0.109, proBNP 4810 Albumin 2.3, influenza A and B- Chest CTA-no PE. Pulmonary fluid overload with moderate right and small moderate left pleural effusion. Emphysema changes many hepatic metastasis and mediastinal also prior adenopathy. Sclerotic metastasis T 6-8 Venous Doppler negative for DVT in both the legs 2-D echo-EF 60-65% Assessment: -Acute on chronic fluid overload, likely from hepatic disease causing portal hypertension and from associated hypoalbuminemia, causing generalized anasarca, slow to respond, remains on IV Lasix -Stage IV lung cancer with metastatic disease to the liver and to T6-T8, on chemotherapy -Hypoalbuminemia, secondary to liver disease and mild protein calorie malnutrition -Essential hypertension -Primary osteoarthritis -COPD in a X smoker -Pancytopenia from chemotherapy -Hyponatremia likely hypoosmolar -Troponin leak from hemodynamic mismatch, no clinical evidence of acute coronary syndrome -Acute congestive heart failure exacerbation from diastolic dysfunction EF 55- 60% Plan: Continue current medication treatment plan including fluid restriction, IV Lasix, Aldactone. Encouraged to ambulate as tolerated. Prognosis guarded.
[2019-01-04 06:49] LABS: African American GFR (CKD) >90 (>60 ml/min/1.73 sqM); Anion Gap 5 mmol/L; Blood Urea Nitrogen 16 mg/dL (7-17); Calcium 7.8 mg/dL (8.4-10.2); Carbon Dioxide 29 mmol/L (22-30); Chloride 95 mmol/L (98-107); Glucose 79 mg/dL (74-99); Non-African American GFR(CKD) 81 (>60 ml/min/1.73 sqM); Sodium 129 mmol/L (137-145)
[2019-01-04 06:55] LABS: MCH 30.9 pg (25.0-35.0); MCHC 33.2 g/dL (31.0-37.0); MCV 92.8 fL (80.0-100.0); Mean Platelet Volume 10.2; RBC 2.91 m/uL (3.80-5.40); WBC 6.1 k/uL (3.8-10.6)
[2019-01-04 07:05] LABS: Platelet Count 145 k/uL (150-450)
[2019-01-04] MEDS: FUROSEMIDE 10 MG/ML 10 ML VIAL IV SCH ×2 (07:58→12:32)
[2019-01-04] MEDS: POTASSIUM CHLORIDE ER 10 MEQ TAB.ER.PRT PO SCH (08:00)
[2019-01-04] MEDS: FOLIC ACID 1 MG TAB PO SCH (08:00)
[2019-01-04] MEDS: SPIRONOLACTONE 25 MG TAB PO SCH (08:00)
[2019-01-04 09:08] VITALS: RESP 20
[2019-01-04 11:51] VITALS: BP 106/57; PULSE 109; TEMP 98
--- NOTE | 2019-01-04 12:12 | P.PN ---
Subjective Progress Note Date: 01/04/19 This is a pleasant 73-year-old female with history of hypertension, hyperlipidemia, intolerant to statins, history of smoking, she quit smoking approximately 5 weeks ago, patient was diagnosed with lung cancer, stage IV, approximately 3 weeks ago. According to the patient and her daughter, she also has evidence of metastases to the liver and to the chest wall as well as adrenals and lymph nodes. Patient was started on chemotherapy, she's been having significant issues with low platelet count. She was given a unit of platelets, and subsequently returned to [facility] and received a second unit of platelets as well as some steroids. Patient was having significant swelling in her lower extremities since initiating chemotherapy, and she is also been very short of breath. She states that her primary care doctor started her on a very low-dose of diuretics, these were increased at [facility], she has been taking Demadex 20 mg orally daily. Patient presents to the hospital on this occasion with significant worsening in her peripheral edema as well as weeping from the legs, she's been quite short of breath and extremely weak. A cardiology consultation was requested because of abnormal troponins. EKG on presentation here showed a sinus tachycardia with nonspecific ST-T wave changes. Blood pressure on arrival here 158/72 with a heart rate of 120, 99% on room air. She is afebrile. White blood cell count 3.0, hemoglobin 10.2, platelet count 10 sodium 131, potassium 3.8, BUN 24, creatinine 0.7, calcium 8.2, magnesium 1.5. AST 107 and ALT 94 alk phos 333 troponin 0.10, 0.10, 0.10. Cholesterol 147 and LDL 102 HDL 28 triglycerides 85. No chest x-r ay was performed. At the time of my examination this morning, patient is sitting up in her recliner at bedside, she is still quite short of breath even sitting up, bilateral lower extremities are wrapped with Cristóbal, she has significant edema in bilateral lower extremities, up into her abdominal and hip region. 01/02/2019 Patient seen and examined this morning, diuresed well through the night last night, edema is improving significantly although she still has edema present. She also states that overall she feels considerably better. Echocardiogram with Doppler study revealed an ejection fraction of 60-65%. Blood pressure 114/60 with a heart rate in the low 100s, white blood cell count 3.3, hemoglobin 9.7, platelet count 29. Sodium 131, potassium 3.6, BUN 24, creatinine 0.8. AST 85 ALT 106 alk phos 325. 01/03/2019 Patient continued to diurese well through the night last night, she does continue to feel short of breath today, she has been ambulating in the hallway for greater part of the day today. Blood pressure 100/70, heart rate in the 90s, 97% on room air. White blood cell count 3.5, hemoglobin 8.7, platelet count 67. Sodium 129, potassium 3.2, BUN 20 and creatinine 0.7. 01/04/2019 Patient diuresed well again through the night last night. Her weight is down another 1 kg today. White blood cell count is normal, hemoglobin 9.0, platelet count 145. Sodium 129, potassium 4.0, BUN 16 and creatinine 0.7. Objective - Vital Signs Vital signs: Vital Signs Temp 98 F 01/04/19 11:50 Pulse 109 H 01/04/19 11:50 Resp 20 01/04/19 11:50 BP 106/57 01/04/19 11:50 Pulse Ox 98 01/04/19 11:50 Intake & Output 01/03/19 01/04/19 01/04/19 18:59 06:59 18:59 Intake Total 480 240 Output Total 2288 408 7646 Balance -720 900 -1360 Weight 60 kg Intake: Oral 480 240 Output: Urine 1200 900 900 Urine/Stool Mix 700 Other: Voiding Method Toilet Toilet # Voids 3 - Exam PHYSICAL EXAMINATION: GENERAL: 73-year-old female in no acute distress at the time of my examination HEENT: Head is atraumatic, normocephalic. Pupils equal, round. Sclera anicteric. Conjunctiva are clear. Mucous membranes of the mouth are moist. Neck is supple. There is elevated jugular venous pressure. No carotid bruit is heard. HEART EXAMINATION: Heart S1 and S2 normal, tachycardic CHEST EXAMINATION: Lungs reveal improvement in air entry bilaterally to the bases ABDOMEN: Soft, positive hepatomegaly, with mild tenderness . EXTREMITIES: 2+ peripheral pulses with trace bilateral lower extremity edema, up into the lower abdominal and hip area. NEUROLOGIC patient is awake, alert and oriented X3. . - Labs CBC & Chem 7: 01/04/19 05:59 11/15/19 05:59 Labs: Abnormal Lab Results - Last 24 Hours (Table) 01/04/19 01/04/19 Range/Units 05:59 05:59 RBC 2.91 L (3.80-5.40) m/uL Hgb 9.0 L (11.4-16.0) gm/dL Hct 27.0 L (34.0-46.0) % Plt Count 145 L D (150-450) k/uL Sodium 129 L (137-145) mmol/L Chloride 95 L (98-107) mmol/L Calcium 7.8 L (8.4-10.2) mg/dL Assessment and Plan Plan: Assessment and plan #1 symptoms of shortness of breath with significant lower extremity edema, rule out congestive cardiac failure #2 extreme weakness, likely secondary to chemotherapy #3. Thrombocytopenia, platelet count 10 #4 stage IV lung cancer with metastases to the liver, adrenals, lymph nodes, and chest wall, receiving chemo therapy and treatment at [facility] #5 hypertension #6 history of hyperlipidemia, intolerant to statins #7 nicotine dependence #8 abnormal liver enzymes, likely secondary to metastases to the liver, could also be secondary to congestion #9 hypomagnesemia #10 abnormal troponins, not consistent with acute coronary syndrome with no significant rise and fall pattern #11 low white blood cell count and anemia secondary to chemotherapy Plan From cardiology's perspective, we'll discontinue the IV Lasix today and start the patient on Lasix 60 mg one tablet by mouth twice a day. She may be able to be discharged home today from our perspective to follow-up in the office post discharge. DNP note has been reviewed, I agree with a documented findings and plan of care. Patient was seen and examined.
[2019-01-04] MEDS: PANTOPRAZOLE 40 MG TABLET PO SCH (12:32)
[2019-01-04] MEDS: methylPREDNISolone 4 MG TAB TAPER PO SCH (12:32)
--- NOTE | 2019-01-04 13:30 | P.PN ---
Subjective Progress Note Date: 01/04/19 Principal diagnosis: chemo induced thrombocytopenia, SOB, lower body swelling In f/u today pt states lower body swelling continues to improve, she is using O2 PRN, persistent orthopnea and SOB on exertion, no other c/o. Objective - Vital Signs Vital signs: Vital Signs Temp 98 F 01/04/19 11:50 Pulse 109 H 01/04/19 11:50 Resp 20 01/04/19 11:50 BP 106/57 01/04/19 11:50 Pulse Ox 98 01/04/19 11:50 Intake & Output 01/03/19 01/04/19 01/04/19 18:59 06:59 18:59 Intake Total 480 240 Output Total 8859 172 0830 Balance -720 900 -1360 Weight 60 kg Intake: Oral 480 240 Output: Urine 1200 900 900 Urine/Stool Mix 700 Other: Voiding Method Toilet Toilet # Voids 3 - Constitutional General appearance: Present: average body habitus, cooperative, no acute distress - EENT Eyes: Present: anicteric sclerae, EOMI - Respiratory Details: Respirations even and unlabored at rest - Cardiovascular Heart sounds: normal: S1, S2 - Peripheral edema leg Peripheral Edema: bilateral: 1+ - Gastrointestinal General gastrointestinal: Present: soft - Neurologic Neurologic: Present: CNII-XII intact - Musculoskeletal Musculoskeletal: Present: generalized weakness, strength equal bilaterally - Psychiatric Psychiatric: Present: A&O x's 3, appropriate affect, intact judgment & insight - Labs CBC & Chem 7: 01/04/19 05:59 01/04/19 05:59 Labs: Abnormal Lab Results - Last 24 Hours (Table) 01/04/19 01/04/19 Range/Units 05:59 05:59 RBC 2.91 L (3.80-5.40) m/uL Hgb 9.0 L (11.4-16.0) gm/dL Hct 27.0 L (34.0-46.0) % Plt Count 145 L D (150-450) k/uL Sodium 129 L (137-145) mmol/L Chloride 95 L (98-107) mmol/L Calcium 7.8 L (8.4-10.2) mg/dL Assessment and Plan (1) Antineoplastic chemotherapy induced pancytopenia Narrative/Plan: Stable today considering she is at the end of misha for her treatment-it was 2 weeks ago on Monday No transfusions Plt recovery spontaneous now. Significantly low platelet count could be a combination of chemotherapy or it could be an ITP related to immunotherapy. Her counts will be monitored in a similar fashion after next cycle. Current Visit: Yes Status: Acute Priority: High Code(s): D61.810 - ANTINEOPLASTIC CHEMOTHERAPY INDUCED PANCYTOPENIA; T45.1X5A - ADVERSE EFFECT OF ANTINEOPLASTIC AND IMMUNOSUP DRUGS, INIT SNOMED Code(s): 000735119741865 (2) Lung cancer Narrative/Plan: Patient and family have requested transfer her care to [place]. I have explained to the family that being that she is due for chemotherapy next week my recommendation would be for them to to see the primary oncologist and received that treatment at his direction and we will plan to transfer care during the period of time between cycles. They verbalized understanding. We should be able to assume the CBC monitoring for them after treatment next week. All of their questions were answered to the best of my ability. Contact information for our office was placed in the chart with instructions for CBC in 2 weeks, Our office will schedule this and get that information to the patient Current Visit: Yes Status: Acute Priority: High Code(s): C34.90 - MALIGNANT NEOPLASM OF UNSP PART OF UNSP BRONCHUS OR LUNG SNOMED Code(s): 474646287 (3) Anasarca Narrative/Plan: Swelling cont decreasing. Cont treatment as prescribed by Cardiology This was felt to be a combination of disease in the liver, treatment of disease in the liver as well as congestive heart failure. Patient is doing very well diuresing on the treatment as prescribed by Cardiology. Reinforced with the patient and family cannot be absolutely clear if this similar situation could occur with the next cycle. They verbalized understanding. Current Visit: Yes Status: Acute Priority: High Code(s): R60.1 - GENERALIZED EDEMA SNOMED Code(s): 309027975 Plan: Patient's persistent shortness of breath could very much be and immunotherapy pneumonitis versus congestive heart failure. There hasn't been a significant change since discontinuation or while on steroids. Patient will discuss this with her primary oncologist for his recommendations. Could be a possibility of a steroid taper over the next month. We will await those recommendations and follow-up with the patient.
--- NOTE | 2019-01-04 19:21 | P.DS ---
Providers Date of admission: 12/31/18 15:34 Expected date of discharge: 01/04/19 Attending physician: Naveen Butterfield Consults: 12/31/18 15:34 Consult Physician Urgent Consulting Provider: Carlos Breaux Consult Reason/Comments: Elevated troponin with dyspnea, lung cancer Do you want consulting provider notified?: Yes 01/01/19 10:02 Consult Physician Urgent Consulting Provider: Freddie Nunez Consult Reason/Comments: lung cancer with pancytopenia Do you want consulting provider notified?: Yes 01/01/19 10:03 Consult Physician Urgent Consulting Provider: Danyell Linares Consult Reason/Comments: dyspnea with abn cxr Do you want consulting provider notified?: Yes Primary care physician: Matthias Joshua [facility] Course: Interval history: Pleasant 73-year-old patient of Dr. Cleopatra Joshua. In October 2018 she was diagnosed with metastatic stage IV lung cancer with liver masses and and return for mood. She follows a continuous to [place]. She has received 1 dose of brittany motherapy. Presented with lower extremity edema and weakness. She had elevated proBNP. 2-D echo showed preserved LV function. She was put on IV Lasix. She has had edema for some time. She is felt to have fluid overload from hepatic congestion from metastatic disease, contribution from hypoalbuminemia and portal hypertension. Element of diastolic dysfunction. Doing better with diuresis. Tolerating some diet. Up and about in the hallway. Prognosis guarded. Consultation: Dr. Nunez from oncology Cardiology associates Dr. Linares from pulmonary On examination: VITAL SIGNS: 98, 109, 20, 106/57, 98% room air GENERAL APPEARANCE: Sitting upon a chair, looking better HEENT: Normal external appearance of nose and ear. Oral cavity normal EYES: Pupils equal. Conjunctiva normal. NECK: JVD unable to assess. Mass not palpable. RESPIRATORY: Respiratory effort increased. Lungs decreased breath sounds CARDIOVASCULAR: First and second sounds normal. Decreased edema. ABDOMEN: Soft. Liver and spleen not palpable. No tenderness. No mass palpable. PSYCHIATRY: Alert and oriented x3. Mood and affect normal. INVESTIGATIONS, reviewed in the clinical context: White count 6.1 hemoglobin 9 platelets 145 potassium 4 creatinine 0.75 Previous testing White count 3.3 hemoglobin 9.7 platelets 29 Potassium 3.6 bun 24 creatinine 0.82 AST 85 ALT 106 Troponin I 0.018, 0.109, proBNP 4810 Albumin 2.3, influenza A and B- Chest CTA-no PE. Pulmonary fluid overload with moderate right and small moderate left pleural effusion. Emphysema changes many hepatic metastasis and mediastinal also prior adenopathy. Sclerotic metastasis T 6-8 Venous Doppler negative for DVT in both the legs 2-D echo-EF 60-65% Assessment: -Acute on chronic fluid overload, likely from hepatic disease causing portal hyp ertension and from associated hypoalbuminemia, causing generalized anasarca, slow to respond, remains on IV Lasix -Stage IV lung cancer with metastatic disease to the liver and to T6-T8, on chemotherapy -Hypoalbuminemia, secondary to liver disease and mild protein calorie malnutrition -Essential hypertension -Primary osteoarthritis -COPD in a X smoker -Pancytopenia from chemotherapy -Hyponatremia likely hypoosmolar -Troponin leak from hemodynamic mismatch, no clinical evidence of acute coronary syndrome -Acute congestive heart failure exacerbation from diastolic dysfunction EF 55- 60% Disposition: Home Patient Condition at Discharge: Fair Plan - Discharge Summary New Discharge Prescriptions: New Spironolactone [Aldactone] 100 mg PO DAILY #30 tab Continue Potassium Chloride [K-Tab ER] 10 meq PO DAILY Folic Acid(Unknown Dose) 1 tab PO DAILY Omeprazole 20 mg PO AC-LUNCH Changed Torsemide [Demadex] 20 mg PO BID #60 tab Discontinued methylPREDNISolone [Medrol Dose Pack] See Taper PO DIRECTED Discharge Medication List Folic Acid(Unknown Dose) 1 tab PO DAILY 12/26/18 [History] Potassium Chloride [K-Tab ER] 10 meq PO DAILY 12/26/18 [History] Omeprazole 20 mg PO AC-LUNCH 12/28/18 [History] Spironolactone [Aldactone] 100 mg PO DAILY #30 tab 01/04/19 [Rx] Torsemide [Demadex] 20 mg PO BID #60 tab 01/04/19 [Rx] Follow up Appointment(s)/Referral(s): Freddie Nunez MD [STAFF PHYSICIAN] - 2 Weeks (Please call office on Monday morning and see about needing a blood draw appointment for a CBC. ) Matthias Joshua DO [Primary Care Provider] - 3 Days (Patient wishes to make her own follow up appointment when she gets home. ) Patient Instructions/Handouts: Leg Edema (ED) Activity/Diet/Wound Care/Special Instructions: Dr. Fountain stated pt DOES NOT have to continue labs drawn outpatient at this time (01/03/19, 11:14) Discharge Disposition: HOME SELF-CARE
[2019-01-05] MEDS ORDERED: FUROSEMIDE 20 MG TAB PO SCH (08:00)
== END 2019-01-04 17:12 | disposition home or self-care (01) | DRG 291 ==
LOC: EC 13:13 → 3SCARD 15:34
PROVIDERS: ADMIT Hospitalist; ATTEND Hospitalist
DX: I11.0 Hypertensive heart disease with heart failure (principal); D61.810 Antineoplastic chemotherapy induced pancytopenia; C78.7 Secondary malignant neoplasm of liver and intrahepatic bile duct; C34.90 Malignant neoplasm of unspecified part of unspecified bronchus or lung; C79.70 Secondary malignant neoplasm of unspecified adrenal gland; D69.3 Immune thrombocytopenic purpura; E44.1 Mild protein-calorie malnutrition; E87.1 Hypo-osmolality and hyponatremia; J44.1 Chronic obstructive pulmonary disease with (acute) exacerbation; K76.6 Portal hypertension; I50.33 Acute on chronic diastolic (congestive) heart failure; D69.59 Other secondary thrombocytopenia; E78.5 Hyperlipidemia, unspecified; E83.42 Hypomagnesemia; F17.200 Nicotine dependence, unspecified, uncomplicated; F41.9 Anxiety disorder, unspecified; K75.9 Inflammatory liver disease, unspecified; K76.1 Chronic passive congestion of liver; M19.91 Primary osteoarthritis, unspecified site; T45.1X5A Adverse effect of antineoplastic and immunosuppressive drugs, initial encounter; Z79.899 Other long term (current) drug therapy; Z80.1 Family history of malignant neoplasm of trachea, bronchus and lung; Z85.118 Personal history of other malignant neoplasm of bronchus and lung; Z96.649 Presence of unspecified artificial hip joint; Z90.49 Acquired absence of other specified parts of digestive tract; Z88.5 Allergy status to narcotic agent
CPT/HCPCS: 36415; 71046; 71275; 80048; 80053; 80061; 81001; 82550; 83735; 83880; 84436; 84443; 84481; 84484; 85025; 85027; 85379; 87502; 93005; 93306; 93970; 99285

== ENCOUNTER → 2019-01-21 | Outpatient (CLI) | payer MEDICARE ==
--- NOTE | 2019-01-22 08:56 | MM ---
Reason for exam: screening (asymptomatic). Last mammogram was performed 7 years ago. History: Patient is postmenopausal and history of other cancer. Took estrogen for 7 years. Physical Findings: A clinical breast exam by your physician is recommended on an annual basis and results should be correlated with mammographic findings. MG Screening Mammo w CAD Bilateral CC and MLO view(s) were taken. Prior study comparison: February 06, 2012, bilateral digital screening mammo w/CAD. August 02, 2002, bilateral screening mammogram. The breast tissue is extremely dense which could obscure a lesion on mammography. Finding: There are typically benign vascular calcifications in both breasts. There is no discrete abnormality. ASSESSMENT: Benign, BI-RAD 2 RECOMMENDATION: Routine screening mammogram of both breasts in 1 year.
== END ==
LOC: RADMAMWWP 10:45
PROVIDERS: ATTEND Family Medicine
DX: Z12.31 Encounter for screening mammogram for malignant neoplasm of breast (principal)
CPT/HCPCS: 77067

== ENCOUNTER → 2019-01-25 | Outpatient (CLI) | payer MEDICARE ==
--- NOTE | 2019-01-25 14:39 | XR ---
EXAMINATION TYPE: XR chest 2V DATE OF EXAM: 01/25/2019 COMPARISON: 01/03/2019 TECHNIQUE: PA and lateral views submitted. HISTORY: Cough FINDINGS: The lungs are clear and there is no pneumothorax, pleural effusion, or focal pneumonia. Biapical pl eural thickening. Hyperinflation suggests COPD. Atherosclerotic change aorta. Arthropathy of the shou lders. Diffuse osteopenia. No overt failure. Degenerative change of the spine. IMPRESSION: 1. No acute process. Correlate for COPD.
== END | disposition home or self-care (01) ==
LOC: RADXRMAIN 14:10
PROVIDERS: ATTEND Internal Medicine Hematology & Oncology
DX: J44.9 Chronic obstructive pulmonary disease, unspecified (principal); C34.90 Malignant neoplasm of unspecified part of unspecified bronchus or lung; I10 Essential (primary) hypertension
CPT/HCPCS: 71046

== ENCOUNTER 2019-02-18 14:43 | Emergency (ER) | payer MEDICARE ==
[2019-02-18 15:50] VITALS: TEMP 97.8
[2019-02-18] MEDS ORDERED: SODIUM CHLORIDE 0.9% 1,000 ML IV STA (16:13)
[2019-02-18] MEDS ORDERED: IPRATROPIUM-ALBUTEROL 3 ML NEB INHALATION STA (16:13)
--- NOTE | 2019-02-18 17:21 | XR ---
EXAMINATION TYPE: XR chest 2V DATE OF EXAM: 02/18/2019 COMPARISON: 01/25/2019 HISTORY: Short of breath. TECHNIQUE: 2 views FINDINGS: Heart is normal. Lungs are clear of consolidation. There is pulmonary hyperinflation. There is mild pleural scarring at the lung apices. There are no hilar masses. IMPRESSION: No active cardiopulmonary disease. COPD. No change.
[2019-02-18 17:37] LABS: Anisocytosis Slight; HCT 38.5 % (34.0-46.0); MCH 35.6 pg (25.0-35.0); MCHC 33.7 g/dL (31.0-37.0); Macrocytosis Marked; Mean Platelet Volume 10.4; RBC 3.65 m/uL (3.80-5.40); RDW 18.3 % (11.5-15.5); WBC 7.6 k/uL (3.8-10.6)
[2019-02-18 17:40] LABS: MCV 105.5 fL (80.0-100.0)
[2019-02-18 17:41] LABS: INR 1.6 (<1.2); Prothrombin Time 15.9 sec (9.0-12.0)
[2019-02-18 17:49] LABS: Platelet Count 58 k/uL (150-450)
[2019-02-18 17:51] LABS: Band Neutrophils % 6 %; Basophils # (M) 0.15 k/uL (0-0.2); Eosinophils # (M) 0.38 k/uL (0-0.7); Lymphocytes # (M) 2.66 k/uL (1.0-4.8); Monocytes # (M) 0.38 k/uL (0-1.0); Neutrophils % (M) 47 %; Nucleated Red Blood Cells 0 /100 WBC (0-0); Total Cells Counted 100
[2019-02-18 17:55] LABS: Albumin 2.4 g/dL (3.5-5.0); Calcium 8.9 mg/dL (8.4-10.2); Potassium 4.4 mmol/L (3.5-5.1); Total Bilirubin 2.4 mg/dL (0.2-1.3); Total Protein 7.1 g/dL (6.3-8.2)
[2019-02-18 18:26] VITALS: BP 94/66; PULSE 108; RESP 16
--- NOTE | 2019-02-18 19:20 | ED ---
SOB HPI - General Chief Complaint: Shortness of Breath Stated Complaint: poss pneumonia, lung ca Time Seen by Provider: 02/18/19 16:02 Source: patient Mode of arrival: wheelchair Limitations: no limitations - History of Present Illness Initial Comments: This 73-year-old white female presents with a cough and shortness of breath. She also had a hoarse voice. She has had some mild production with her cough. There is been no fever or chest pain. Family members have had similar recently as well. She has been suffering from stage IV lung cancer with multiple metastases including the liver and chest wall. She was receiving chemotherapy the last chemotherapy was approximately 3 weeks ago. She currently is on immunotherapy. She's had some mild nasal congestion as well. No other complaints or modifying factors. - Related Data Home Medications Medication Instructions Recorded Confirmed Folic Acid(Unknown Dose) 1 tab PO DAILY 12/26/18 02/18/19 Potassium Chloride [K-Tab ER] 10 meq PO DAILY 12/26/18 02/18/19 Omeprazole 20 mg PO AC-LUNCH 12/28/18 02/18/19 Torsemide [Demadex] 20 mg PO DAILY 02/18/19 02/18/19 Previous Rx's Medication Instructions Recorded Spironolactone [Aldactone] 100 mg PO DAILY #30 tab 01/04/19 Albuterol Nebulized (Conc) 2.5 mg INHALATION Q4HR PRN #50 neb 02/18/19 [Ventolin Nebulized (Conc)] Albuterol Sulfate [Proair Hfa] 1 - 2 puff INHALATION Q6HR PRN #1 02/18/19 inhaler Amoxic-Pot Clav 875-125Mg 1 each PO Q12HR #20 tablet 02/18/19 [Augmentin Xr 875-125] Allergies Allergy/AdvReac Type Severity Reaction Status Date / Time codeine AdvReac Unknown Rapid Verified 02/18/19 19:08 Heart Rate Review of Systems ROS Statement: Those systems with pertinent positive or pertinent negative responses have been documented in the HPI. ROS Other: All systems not noted in ROS Statement are negative. Past Medical History Past Medical History: Cancer, Hypertension, Osteoarthritis (OA) Additional Past Medical History / Comment(s): rapid heart rate, lung CA with liver mets History of Any Multi-Drug Resistant Organisms: None Reported Past Surgical History: Appendectomy, Cholecystectomy, Orthopedic Surgery, Tubal Ligation Additional Past Surgical History / Comment(s): vein stripping, throat sx, hip replacement x 2 Past Anesthesia/Blood Transfusion Reactions: No Reported Reaction Past Psychological History: Anxiety Smoking Status: Former smoker Past Alcohol Use History: Occasional Past Drug Use History: None Reported - Past Family History Mother Family Medical History: Cancer Additional Family Medical History / Comment(s): Lung Cancer age 84 Father Family Medical History: CVA/TIA General Exam - General Exam Comments Initial Comments: GENERAL: The patient is well nourished and well hydrated. VITAL SIGNS: Heart rate, blood pressure, respiratory rate reviewed as recorded in nurse's notes. EYES: Pupils are round and reactive. Extraocular movements are intact. No conjun ctival / lid redness or swelling. ENT: No external evidence of injury, swelling, or ecchymosis. Airway is patent. Throat is clear. Slight hoarse voice noted. NECK: Nontender. No swelling or evidence of injury. No subcutaneous emphysema. Trachea is midline. No thyroid mass. HEART: Regular rate and rhythm. Good peripheral pulses. LUNGS/CHEST: Breath sounds clear and equal bilaterally. No rales, rhonchi, or wheezes. No ecchymosis, subcutaneous emphysema, or tenderness. ABDOMEN: Abdomen soft without tenderness. No palpable masses or organomegaly. No peritoneal signs. No abdominal wall swelling or ecchymosis. EXTREMITIES: No extremity tenderness. Normal muscle tone and function. No thoracolumbar tenderness. NEUROLOGIC: Sensation is grossly intact. Cranial nerve exam reveals face is symmetrical, tongue is midline, speech is clear. SKIN: No abrasions or ecchymosis is noted. No induration or masses noted. PSYCHIATRIC: Alert and oriented. Appropriate behavior and judgment. Limitations: no limitations Course Vital Signs 02/18/19 02/18/19 02/18/19 15:44 16:36 16:47 Temperature 97.8 F Pulse Rate 82 98 101 H Respiratory 24 Rate Blood Pressure 103/64 O2 Sat by Pulse 99 Oximetry 02/18/19 02/18/19 16:49 18:25 Temperature Pulse Rate 108 H Respiratory 18 16 Rate Blood Pressure 94/66 O2 Sat by Pulse 98 Oximetry Medical Decision Making - Medical Decision Making The patient was seen and examined. All diagnostics were reviewed. The chest x- ray does not show any acute abnormalities. The laboratory does have multiple abnormalities including elevation of alkaline phosphatase which is likely due to her liver metastases. She also has some mild renal insufficiency as well as some thrombocytopenia. The influenza test is negative. Overall, it is felt as though she likely does have a degree of bronchitis, laryngitis, and sinusitis. It is felt as though she benefit from some antibiotics and breathing treatments. She took a breathing treatment here and did note some relief. A discussion was held with her and her family regarding admission versus discharge. She Really Does Not Want to Stay in the Hospital so Outpatient Treatment Will Be Attempted. Return parameters are discussed. - Lab Data Result diagrams: 02/18/19 16:59 02/18/19 16:59 Lab Results 02/18/19 02/18/19 02/18/19 Range/Units 16:59 16:59 16:59 WBC 7.6 (3.8-10.6) k/uL RBC 3.65 L (3.80-5.40) m/uL Hgb 13.0 D (11.4-16.0) gm/dL Hct 38.5 (34.0-46.0) % MCV 105.5 H D (80.0-100.0) fL MCH 35.6 H (25.0-35.0) pg MCHC 33.7 (31.0-37.0) g/dL RDW 18.3 H (11.5-15.5) % Plt Count 58 L D (150-450) k/uL Neutrophils % (Manual) 47 % Band Neutrophils % 6 % Lymphocytes % (Manual) 35 % Monocytes % (Manual) 5 % Eosinophils % (Manual) 5 % Basophils % (Manual) 2 % Neutrophils # (Manual) 4.00 (1.3-7.7) k/uL Lymphocytes # (Manual) 2.66 (1.0-4.8) k/uL Monocytes # (Manual) 0.38 (0-1.0) k/uL Eosinophils # (Manual) 0.38 (0-0.7) k/uL Basophils # (Manual) 0.15 (0-0.2) k/uL Nucleated RBCs 0 (0-0) /100 WBC Manual Slide Review Performed Anisocytosis Slight Macrocytosis Marked A PT (9.0-12.0) sec INR (<1.2) APTT (22.0-30.0) sec Sodium 126 L (137-145) mmol/L Potassium 4.4 (3.5-5.1) mmol/L Chloride 94 L (98-107) mmol/L Carbon Dioxide 23 (22-30) mmol/L Anion Gap 9 mmol/L BUN 50 H (7-17) mg/dL Creatinine 1.69 H (0.52-1.04) mg/dL Est GFR (CKD-EPI)AfAm 35 (>60 ml/min/1.73 sqM) Est GFR (CKD-EPI)NonAf 30 (>60 ml/min/1.73 sqM) Glucose 97 (74-99) mg/dL Calcium 8.9 (8.4-10.2) mg/dL Total Bilirubin 2.4 H (0.2-1.3) mg/dL AST 142 H (14-36) U/L ALT 73 H (4-34) U/L Alkaline Phosphatase 1097 H (38-126) U/L Troponin I (0.000-0.034) ng/mL NT-Pro-B Natriuret Pep 4170 pg/mL Total Protein 7.1 (6.3-8.2) g/dL Albumin 2.4 L (3.5-5.0) g/dL Influenza Type A RNA (Not Detectd) Influenza Type B (PCR) (Not Detectd) 02/18/19 02/18/19 02/18/19 Range/Units 16:59 16:59 16:59 WBC (3.8-10.6) k/uL RBC (3.80-5.40) m/uL Hgb (11.4-16.0) gm/dL Hct (34.0-46.0) % MCV (80.0-100.0) fL MCH (25.0-35.0) pg MCHC (31.0-37.0) g/dL RDW (11.5-15.5) % Plt Count (150-450) k/uL Neutrophils % (Manual) % Band Neutrophils % % Lymphocytes % (Manual) % Monocytes % (Manual) % Eosinophils % (Manual) % Basophils % (Manual) % Neutrophils # (Manual) (1.3-7.7) k/uL Lymphocytes # (Manual) (1.0-4.8) k/uL Monocytes # (Manual) (0-1.0) k/uL Eosinophils # (Manual) (0-0.7) k/uL Basophils # (Manual) (0-0.2) k/uL Nucleated RBCs (0-0) /100 WBC Manual Slide Review Anisocytosis Macrocytosis PT 15.9 H (9.0-12.0) sec INR 1.6 H (<1.2) APTT 39.0 H (22.0-30.0) sec Sodium (137-145) mmol/L Potassium (3.5-5.1) mmol/L Chloride (98-107) mmol/L Carbon Dioxide (22-30) mmol/L Anion Gap mmol/L BUN (7-17) mg/dL Creatinine (0.52-1.04) mg/dL Est GFR (CKD-EPI)AfAm (>60 ml/min/1.73 sqM) Est GFR (CKD-EPI)NonAf (>60 ml/min/1.73 sqM) Glucose (74-99) mg/dL Calcium (8.4-10.2) mg/dL Total Bilirubin (0.2-1.3) mg/dL AST (14-36) U/L ALT (4-34) U/L Alkaline Phosphatase (38-126) U/L Troponin I 0.023 (0.000-0.034) ng/mL NT-Pro-B Natriuret Pep pg/mL Total Protein (6.3-8.2) g/dL Albumin (3.5-5.0) g/dL Influenza Type A RNA Not Detected (Not Detectd) Influenza Type B (PCR) Not Detected (Not Detectd) Disposition Clinical Impression: Bronchitis, Sinusitis, Laryngitis Disposition: HOME SELF-CARE Condition: Good Prescriptions: Amoxic-Pot Clav 875-125Mg [Augmentin Xr 875-125] 1 each PO Q12HR #20 tablet Albuterol Sulfate [Proair Hfa] 1 - 2 puff INHALATION Q6HR PRN #1 inhaler PRN Reason: Shortness Of Breath Or Wheezing Albuterol Nebulized (Conc) [Ventolin Nebulized (Conc)] 2.5 mg INHALATION Q4HR PRN #50 neb PRN Reason: shortness of breath or cough Is patient prescribed a controlled substance at d/c from ED?: No Referrals: Matthias Joshua DO [Primary Care Provider] - 1-2 days Time of Disposition: 19:20
== END 2019-02-18 19:33 | disposition home or self-care (01) ==
LOC: EC 14:43
DX: J40 Bronchitis, not specified as acute or chronic (principal); J32.9 Chronic sinusitis, unspecified; J04.0 Acute laryngitis; D69.6 Thrombocytopenia, unspecified; N28.9 Disorder of kidney and ureter, unspecified; R74.8 Abnormal levels of other serum enzymes; I10 Essential (primary) hypertension; M19.90 Unspecified osteoarthritis, unspecified site; Z85.118 Personal history of other malignant neoplasm of bronchus and lung; Z85.05 Personal history of malignant neoplasm of liver; Z80.1 Family history of malignant neoplasm of trachea, bronchus and lung; Z92.21 Personal history of antineoplastic chemotherapy; Z96.649 Presence of unspecified artificial hip joint; Z87.891 Personal history of nicotine dependence; Z79.899 Other long term (current) drug therapy; Z88.5 Allergy status to narcotic agent; Z53.8 Procedure and treatment not carried out for other reasons
CPT/HCPCS: 36415; 71046; 80053; 83880; 84484; 85025; 85610; 85730; 87040; 87502; 94640; 99285

== ENCOUNTER 2019-02-24 11:47 | Inpatient (IN) | payer MEDICARE ==
--- NOTE | 2019-02-24 12:21 | ED ---
General Adult HPI - General Chief complaint: Weakness Stated complaint: Weakness Time Seen by Provider: 02/24/19 12:12 Source: patient, family Mode of arrival: wheelchair Limitations: physical limitation - History of Present Illness Initial comments: Patient presents to the ED with her and daughter for evaluation. Per daughter, the patient has been very weak today. Per Drchrystal, the patient is currently undergoing immunotherapy treatment for metastatic stage IV lung cancer with liver metastases. Patient states that she feels generally weak. Patient also admits to having epigastric abdominal pain since this morning, and she admits to feeling dyspneic as well, although she states that she is chronically dyspneic. Patient denies any other site of pain, fever, headache, focal numbness/weakness/neuro deficit, chest pain, hemoptysis, palpitations, syncope, back pain, nausea or vomiting, diarrhea or constipation, bloody or melanotic stool, dysuria or urinary symptoms, lower extremity pain, or any other symptoms or complaints. - Related Data Home Medications Medication Instructions Recorded Confirmed Potassium Chloride [K-Tab ER] 10 meq PO DAILY 12/26/18 02/24/19 Omeprazole 20 mg PO AC-LUNCH 12/28/18 02/24/19 Torsemide [Demadex] 20 mg PO DAILY 02/18/19 02/24/19 ALPRAZolam [Xanax] 0.25 mg PO BID PRN 02/24/19 02/24/19 Previous Rx's Medication Instructions Recorded Spironolactone [Aldactone] 100 mg PO DAILY #30 tab 01/04/19 Albuterol Nebulized (Conc) 2.5 mg INHALATION Q4HR PRN #50 neb 02/18/19 [Ventolin Nebulized (Conc)] Albuterol Sulfate [Proair Hfa] 1 - 2 puff INHALATION Q6HR PRN #1 02/18/19 inhaler Amoxic-Pot Clav 875-125Mg 1 each PO Q12HR #20 tablet 02/18/19 [Augmentin Xr 875-125] Allergies Allergy/AdvReac Type Severity Reaction Status Date / Time codeine AdvReac Unknown Rapid Verified 02/24/19 11:54 Heart Rate Review of Systems ROS Statement: Those systems with pertinent positive or pertinent negative responses have been documented in the HPI. ROS Other: All systems not noted in ROS Statement are negative. Past Medical History Past Medical History: Cancer, Hypertension, Osteoarthritis (OA) Additional Past Medical History / Comment(s): rapid heart rate, lung CA with liver mets History of Any Multi-Drug Resistant Organisms: None Reported Past Surgical History: Appendectomy, Cholecystectomy, Orthopedic Surgery, Tubal Ligation Additional Past Surgical History / Comment(s): vein stripping, throat sx, hip replacement x 2 Past Anesthesia/Blood Transfusion Reactions: No Reported Reaction Past Psychological History: Anxiety Smoking Status: Former smoker Past Alcohol Use History: Occasional Past Drug Use History: None Reported - Past Family History Mother Family Medical History: Cancer Additional Family Medical History / Comment(s): Lung Cancer age 84 Father Family Medical History: CVA/TIA General Exam Limitations: physical limitation General appearance: alert Head exam: Present: atraumatic, normocephalic Eye exam: Present: normal appearance, PERRL, EOMI ENT exam: Present: normal oropharynx, mucous membranes moist Neck exam: Present: other (Trachea is in midline). Absent: tenderness, meningismus Respiratory exam: Present: normal lung sounds bilaterally. Absent: respiratory distress, wheezes, rales, rhonchi Cardiovascular Exam: Present: regular rate, normal rhythm, normal heart sounds, other (Normal radial pulses bilaterally) GI/Abdominal exam: Present: soft, other (Moderate epigastric tenderness). Absent: guarding, rebound Extremities exam: Present: pedal edema, other (Negative Nikolas's sign bilaterally). Absent: tenderness, calf tenderness Neurological exam: Present: alert, oriented X3. Absent: motor sensory deficit Psychiatric exam: Present: normal affect, normal mood Skin exam: Present: warm, dry, intact, normal color Course Vital Signs 02/24/19 02/24/19 02/24/19 11:50 12:12 13:00 Temperature Pulse Rate 53 L 92 96 Respiratory 20 16 16 Rate Blood Pressure 123/70 98/69 88/66 O2 Sat by Pulse 99 98 Oximetry 02/24/19 02/24/19 02/24/19 14:02 14:54 15:00 Temperature 96.9 F L Pulse Rate 95 101 H 101 H Respiratory 16 18 Rate Blood Pressure 101/74 112/72 O2 Sat by Pulse 98 96 Oximetry 02/24/19 16:00 Temperature Pulse Rate 101 H Respiratory 18 Rate Blood Pressure 106/67 O2 Sat by Pulse 96 Oximetry - Reevaluation(s) Reevaluation #1: 02/24/19 15:34 Case, H&P, test results thus far and ED management thus far were discussed with Dr. Jackson (hospitalist). He accepts hospital admission. He recommends antibiotic treatment for possible pneumonia given the patient's reported cough and weakness. He has no further recommendations at this time. 02/24/19 17:29 The patient denies development of any new symptoms while in the ED. Patient remains alert and breathing comfortably. Patient's CBC is still pending at this time, and her blood was just redrawn by lab. Patient and family are aware of the patient's test results, and they all agree with hospital admission at this time. EKG Findings - EKG Comments: EKG Findings:: Sinus tachycardia, no ectopy, normal ID and QRS intervals, normal QT interval, left axis deviation, no ST or T-wave abnormality Medical Decision Making - Medical Decision Making I suspect that the patient's symptoms/weakness are likely secondary to her acute renal insufficiency, hyperkalemia, hyponatremia, and hypoglycemia. The etiology of these abnormalities is uncertain at this time. Patient was treated with IV fluid hydration, IV dextrose, food and hyperkalemia treatment medications. She was also given IV antibiotic treatment in the ED per Dr. Jackson's request. Patient has known stage IV metastatic lung cancer with liver metastases, which I feel is also contributing to her condition. Dr. Jackson has accepted hospital admission. Patient and family agree with hospital admission at this time. - Lab Data Result diagrams: 02/24/19 17:23 02/24/19 13:19 Lab Results 02/24/19 02/24/19 02/24/19 Range/Units 12:50 13:19 13:19 PT 20.4 H (9.0-12.0) sec INR 2.1 H (<1.2) APTT 47.0 H (22.0-30.0) sec Sodium 121 L (137-145) mmol/L Potassium 6.6 H* (3.5-5.1) mmol/L Chloride 91 L (98-107) mmol/L Carbon Dioxide 14 L (22-30) mmol/L Anion Gap 16 mmol/L BUN 69 H (7-17) mg/dL Creatinine 2.71 H (0.52-1.04) mg/dL Est GFR (CKD-EPI)AfAm 20 (>60 ml/min/1.73 sqM) Est GFR (CKD-EPI)NonAf 17 (>60 ml/min/1.73 sqM) Glucose 44 L* (74-99) mg/dL Lactic Ac Sepsis Rflx Plasma Lactic Acid Clint (0.7-2.0) mmol/L Calcium 8.7 (8.4-10.2) mg/dL Magnesium 2.2 (1.6-2.3) mg/dL Total Bilirubin 3.9 H (0.2-1.3) mg/dL AST 357 H (14-36) U/L ALT 111 H (4-34) U/L Alkaline Phosphatase 1158 H (38-126) U/L Creatine Kinase 108 (30-135) U/L Troponin I (0.000-0.034) ng/mL Total Protein 7.2 (6.3-8.2) g/dL Albumin 2.4 L (3.5-5.0) g/dL Urine Color Urine Appearance (Clear) Urine pH (5.0-8.0) Ur Specific [place] (1.001-1.035) Urine Protein (Negative) Urine Glucose (UA) (Negative) Urine Ketones (Negative) Urine Blood (Negative) Urine Nitrite (Negative) Urine Bilirubin (Negative) Urine Urobilinogen (<2.0) mg/dL Ur Leukocyte Esterase (Negative) Urine RBC (0-5) /hpf Urine WBC (0-5) /hpf Ur Squamous Epith Cells (0-4) /hpf Amorphous Sediment (None) /hpf Urine Bacteria (None) /hpf Hyaline Casts (0-2) /lpf Urine Mucus (None) /hpf Influenza Type A RNA Not Detected (Not Detectd) Influenza Type B (PCR) Not Detected (Not Detectd) 02/24/19 02/24/19 02/24/19 Range/Units 13:19 13:19 14:13 PT (9.0-12.0) sec INR (<1.2) APTT (22.0-30.0) sec Sodium (137-145) mmol/L Potassium (3.5-5.1) mmol/L Chloride (98-107) mmol/L Carbon Dioxide (22-30) mmol/L Anion Gap mmol/L BUN (7-17) mg/dL Creatinine (0.52-1.04) mg/dL Est GFR (CKD-EPI)AfAm (>60 ml/min/1.73 sqM) Est GFR (CKD-EPI)NonAf (>60 ml/min/1.73 sqM) Glucose (74-99) mg/dL Lactic Ac Sepsis Rflx Y Plasma Lactic Acid Clint 3.7 H* (0.7-2.0) mmol/L Calcium (8.4-10.2) mg/dL Magnesium (1.6-2.3) mg/dL Total Bilirubin (0.2-1.3) mg/dL AST (14-36) U/L ALT (4-34) U/L Alkaline Phosphatase (38-126) U/L Creatine Kinase (30-135) U/L Troponin I 0.029 (0.000-0.034) ng/mL Total Protein (6.3-8.2) g/dL Albumin (3.5-5.0) g/dL Urine Color Urine Appearance (Clear) Urine pH (5.0-8.0) Ur Specific [place] (1.001-1.035) Urine Protein (Negative) Urine Glucose (UA) (Negative) Urine Ketones (Negative) Urine Blood (Negative) Urine Nitrite (Negative) Urine Bilirubin (Negative) Urine Urobilinogen (<2.0) mg/dL Ur Leukocyte Esterase (Negative) Urine RBC (0-5) /hpf Urine WBC (0-5) /hpf Ur Squamous Epith Cells (0-4) /hpf Amorphous Sediment (None) /hpf Urine Bacteria (None) /hpf Hyaline Casts (0-2) /lpf Urine Mucus (None) /hpf Influenza Type A RNA (Not Detectd) Influenza Type B (PCR) (Not Detectd) 02/24/19 Range/Units 16:39 PT (9.0-12.0) sec INR (<1.2) APTT (22.0-30.0) sec Sodium (137-145) mmol/L Potassium (3.5-5.1) mmol/L Chloride (98-107) mmol/L Carbon Dioxide (22-30) mmol/L Anion Gap mmol/L BUN (7-17) mg/dL Creatinine (0.52-1.04) mg/dL Est GFR (CKD-EPI)AfAm (>60 ml/min/1.73 sqM) Est GFR (CKD-EPI)NonAf (>60 ml/min/1.73 sqM) Glucose (74-99) mg/dL Lactic Ac Sepsis Rflx Plasma Lactic Acid Clint (0.7-2.0) mmol/L Calcium (8.4-10.2) mg/dL Magnesium (1.6-2.3) mg/dL Total Bilirubin (0.2-1.3) mg/dL AST (14-36) U/L ALT (4-34) U/L Alkaline Phosphatase (38-126) U/L Creatine Kinase (30-135) U/L Troponin I (0.000-0.034) ng/mL Total Protein (6.3-8.2) g/dL Albumin (3.5-5.0) g/dL Urine Color Yellow Urine Appearance Cloudy H (Clear) Urine pH 5.0 (5.0-8.0) Ur Specific [place] 1.015 (1.001-1.035) Urine Protein Trace H (Negative) Urine Glucose (UA) Negative (Negative) Urine Ketones Trace H (Negative) Urine Blood Small H (Negative) Urine Nitrite Negative (Negative) Urine Bilirubin Negative (Negative) Urine Urobilinogen 3.0 (<2.0) mg/dL Ur Leukocyte Esterase Large H (Negative) Urine RBC 6 H (0-5) /hpf Urine WBC 9 H (0-5) /hpf Ur Squamous Epith Cells 11 H (0-4) /hpf Amorphous Sediment Rare H (None) /hpf Urine Bacteria Moderate H (None) /hpf Hyaline Casts 61 H (0-2) /lpf Urine Mucus Rare H (None) /hpf Influenza Type A RNA (Not Detectd) Influenza Type B (PCR) (Not Detectd) - Radiology Data Radiology results: report reviewed (Chest x-ray shows COPD and small pleural effusions; CT abdomen/pelvis shows multiple metastatic lesions scattered throughout the liver, which appear larger when compared to October 2018 comparison) Disposition Clinical Impression: Weakness, Respiratory infection, Acute renal insufficiency, Hyperkalemia, Metastatic lung cancer (metastasis from lung to other site), Liver metastases, Hypoglycemia, Hyponatremia Narrative: Possible UTI Disposition: ADMITTED IP TO THIS HOSP Condition: Stable Is patient prescribed a controlled substance at d/c from ED?: No Time of Disposition: 17:19
--- NOTE | 2019-02-24 13:10 | XR ---
EXAMINATION TYPE: XR chest 2V DATE OF EXAM: 02/24/2019 COMPARISON: 02/18/2019 HISTORY: 73-year-old female with weakness TECHNIQUE: AP and lateral views FINDINGS: Heart normal size. Scattered cartilage calcifications. Small effusions. Mild hyperinflation. No conso lidation or pleural effusion seen. IMPRESSION: COPD and small pleural effusions.
[2019-02-24] MEDS ORDERED: SODIUM CHLORIDE 0.9% 500 ML 500 ML IV ONE (13:52)
[2019-02-24 14:04] LABS: Albumin 2.4 g/dL (3.5-5.0); Calcium 8.7 mg/dL (8.4-10.2); Magnesium 2.2 mg/dL (1.6-2.3); Total Bilirubin 3.9 mg/dL (0.2-1.3); Total Protein 7.2 g/dL (6.3-8.2)
[2019-02-24 14:06] LABS: INR 2.1 (<1.2); Prothrombin Time 20.4 sec (9.0-12.0)
[2019-02-24 14:13] LABS: Potassium 6.6 mmol/L (3.5-5.1)
[2019-02-24] MEDS ORDERED: DEXTROSE 50% SYRINGE 50 ML IVP STA ×2 (14:15→14:31)
[2019-02-24] MEDS ORDERED: SODIUM BICARB 8.4% 50 ML SYR (1 MEQ/ML) IV STA (14:30)
[2019-02-24] MEDS ORDERED: INSULIN REGULAR 100 UNIT/ML VIAL IV ONE (14:31)
[2019-02-24] MEDS ORDERED: ALBUTEROL NEBULIZED 2.5 MG/3 ML INHALATION STA (14:32)
[2019-02-24] MEDS ORDERED: SODIUM POLYSTYRENE SULFONATE 15 GM/60 ML BOTTLE PO STA (14:32)
[2019-02-24] MEDS ORDERED: AZITHROMYCIN 500 MG in SODIUM CHLORIDE 0.9% 250 ML IVPB STA (15:40)
--- NOTE | 2019-02-24 17:09 | CT ---
EXAMINATION TYPE: CT abdomen pelvis wo con DATE OF EXAM: 02/24/2019 COMPARISON: 11/07/2018 INDICATION: abdominal pain, weakness. hx of liver ca. DLP: 525.8 mGycm, Automated exposure control for dose reduction was used. CONTRAST: 0 mL of Isovue 300. Study performed without Oral Contrast TECHNIQUE: Axial images were obtained from above the diaphragm to the pubic rami in the axial plane a t 5 mm thick sections. Reconstructed images are reviewed on the computer in the coronal plane. FINDINGS: Limited CT sections are obtained the lung bases. There is a small right pleural effusion present.. CT ABDOMEN: Liver: There are multiple large hypodensities scattered throughout the liver which can be compatible with metastatic lesions. Studies without contrast limiting direct comparison. However, these appear s uggestive for enlargement over the interval. Spleen: Normal Pancreas: This may be somewhat atrophic. Adrenal glands: Left adrenal gland is slightly prominent at 1.2 cm. Gallbladder: Gallstones are likely present. Kidneys: There is some malrotation and malpositioning of the right kidney. There is a calcification w ithin the right kidney without obstruction measuring 0.2 cm.. No hydronephrosis is present. No cyst s are present. Aorta: Vascular calcification is within the aorta. Inferior vena cava: Normal. CT PELVIS: The study is performed without oral contrast limiting bowel evaluation. Some nonspecific small bowel loops containing fluid appear to be within the pelvis. These are at the upper limits of normal for si ze. Air is within the colon. Lower pelvis is limited due to beam hardening artifact from bilateral hip prostheses. Note is made of some free fluid within the pelvis. Appendix: The appendix is not identified. Suspicious dilated tubular structure is not evident. Urinary bladder: Nondiagnostic Genitourinary structures: Uterus and ovaries are not identified. Osseous structures: No suspicious lytic or sclerotic lesions. IMPRESSIONS: 1. Multiple metastatic lesions scattered throughout the liver likely appear larger from November 09 comparison. 2. Small right pleural effusion.
[2019-02-24] MEDS ORDERED: NALOXONE 0.4 MG/ML 1 ML VIAL IV PRN (17:16)
[2019-02-24 17:20] LABS: Amorphous Sediment,Urine Rare /hpf; Appearance,Urine Cloudy (Clear); Bacteria,Urine Moderate /hpf; Bilirubin,Urine Negative (Negative); Blood,Urine Small (Negative); Color,Urine Yellow; Glucose,Urine (UA) Negative (Negative); Hyaline Casts,Urine 61 /lpf (0-2); Ketones,Urine Trace (Negative); Leukocyte Esterase,Urine Large (Negative); Mucus,Urine Rare /hpf; Nitrite,Urine Negative (Negative); Protein,Urine Trace (Negative); RBC,Urine 6 /hpf (0-5); Specific Gravity,Urine 1.015 (1.001-1.035); Squamous Epithelial Cell,Urine 11 /hpf (0-4); WBC,Urine 9 /hpf (0-5)
[2019-02-24 17:37] LABS: Anisocytosis Slight; Basophils # (A) 0.1 k/uL (0-0.2); Basophils % (A) 0 %; Eosinophils # (A) 0.2 k/uL (0-0.7); Eosinophils % (A) 1 %; HCT 37.8 % (34.0-46.0); HGB 11.7 gm/dL (11.4-16.0); Hypochromasia Slight; Lymphocytes # (A) 1.5 k/uL (1.0-4.8); Lymphocytes % (A) 7 %; MCH 34.3 pg (25.0-35.0); Macrocytosis Marked; Monocytes % (A) 5 %; Neutrophils # (A) 17.7 k/uL (1.3-7.7); Neutrophils % (A) 84 %; RBC 3.42 m/uL (3.80-5.40); RDW 17.7 % (11.5-15.5); WBC 20.9 k/uL (3.8-10.6)
[2019-02-24 17:51] LABS: Glucose,Whole Blood 67 mg/dL (75-99)
[2019-02-24 17:57] LABS: MCV 110.8 fL (80.0-100.0)
[2019-02-24 17:59] LABS: Platelet Count 30 k/uL (150-450)
[2019-02-24 18:20] LABS: Polychromasia Present; Toxic Vacuolation Present
[2019-02-24] MEDS ORDERED: DEXTROSE 10 % IN WATER 250 ML IV ONE ×2 (18:34→19:02)
[2019-02-24 18:43] LABS: Glucose,Whole Blood 56 mg/dL (75-99)
[2019-02-24 19:14] LABS: Glucose,Whole Blood 56 mg/dL (75-99)
[2019-02-24 19:16] LABS: Glucose,Whole Blood 191 mg/dL (75-99)
[2019-02-24] MEDS: SODIUM CHLORIDE 0.9% 1,000 ML IV SCH (20:00)
[2019-02-24 20:02] LABS: Glucose,Whole Blood 160 mg/dL (75-99)
[2019-02-24] MEDS ORDERED: CEFEPIME 2 GM in SODIUM CHLORIDE 0.9% 100 ML IVPB ONE (21:05)
[2019-02-24 21:36] LABS: Calcium 7.8 mg/dL (8.4-10.2); Potassium 5.6 mmol/L (3.5-5.1)
[2019-02-24] MEDS: PANTOPRAZOLE 40 MG/10 ML VIAL IVP SCH (22:29)
[2019-02-24] MEDS: HYDROmorphone 0.5 MG/0.5 ML SYRINGE IVP PRN (22:31)
[2019-02-24 22:43] LABS: Glucose,Whole Blood 84 mg/dL (75-99)
[2019-02-25 00:10] LABS: Glucose,Whole Blood 80 mg/dL (75-99)
[2019-02-25 00:51] LABS: Glucose,Whole Blood 69 mg/dL (75-99)
[2019-02-25] MEDS ORDERED: DEXTROSE 5% IN WATER 1,000 ML IV ONE (00:58)
[2019-02-25 01:06] LABS: Glucose,Whole Blood 81 mg/dL (75-99)
[2019-02-25 02:02] LABS: Glucose,Whole Blood 90 mg/dL (75-99)
[2019-02-25 03:02] LABS: Glucose,Whole Blood 88 mg/dL (75-99)
[2019-02-25 04:02] LABS: Glucose,Whole Blood 89 mg/dL (75-99)
[2019-02-25 05:12] LABS: Glucose,Whole Blood 110 mg/dL (75-99)
[2019-02-25 06:13] LABS: Glucose,Whole Blood 94 mg/dL (75-99)
[2019-02-25 06:46] LABS: Anisocytosis Slight; Basophils # (A) 0.1 k/uL (0-0.2); Basophils % (A) 1 %; Eosinophils # (A) 0.2 k/uL (0-0.7); Eosinophils % (A) 1 %; HCT 43.1 % (34.0-46.0); HGB 13.6 gm/dL (11.4-16.0); Hypochromasia Slight; Lymphocytes # (A) 1.7 k/uL (1.0-4.8); Lymphocytes % (A) 8 %; MCH 35.3 pg (25.0-35.0); MCHC 31.6 g/dL (31.0-37.0); MCV 111.6 fL (80.0-100.0); Monocytes # (A) 0.7 k/uL (0-1.0); Monocytes % (A) 3 %; Neutrophils # (A) 18.7 k/uL (1.3-7.7); Neutrophils % (A) 86 %; RBC 3.86 m/uL (3.80-5.40); RDW 17.6 % (11.5-15.5); WBC 21.8 k/uL (3.8-10.6)
[2019-02-25 06:50] LABS: Macrocytosis Marked; Platelet Count 24 k/uL (150-450)
[2019-02-25 06:53] LABS: INR 2.2 (<1.2); Prothrombin Time 21.7 sec (9.0-12.0)
--- NOTE | 2019-02-25 06:54 | HP ---
HISTORY AND PHYSICAL CHIEF COMPLAINT: Weakness and hyperkalemia. HISTORY OF PRESENT ILLNESS: This 73-year-old woman with a past medical history of multiple medical problems including history of hypertension, history of DJD, appendectomy, cholecystomy, anxiety was recently diagnosed to have lung cancer with liver mets, stage IV adenocarcinoma. The patient is receiving Keytruda immunotherapy. The patient was recently sick along with family members with cough and sputum. Today, the patient was having extreme weakness and tiredness and patient was taken to [facility] and admitted for further evaluation and treatment. The patient also had some epigastric abdominal discomfort also. The patient also had bilateral leg edema, which is thought to be multifactorial. On admission, the patient was found to have renal failure and potassium was found to be 5.6, creatinine is 2.54. Lactic acid 5.4 indicating sepsis with elevated LFTs, alkaline phosphatase 1158. The UA was also abnormal. Influenza was negative. WBC is 20.9. There is no history of fever, rigors. No history of headache, loss of consciousness, seizures at this time. PAST MEDICAL HISTORY: Recently diagnosed stage IV lung cancer with liver mets, hypertension, DJD, history of appendectomy, cholecystectomy, history of anxiety, history of nicotine dependence. MEDICATIONS: Medications are prior to admission include: 1. Xanax 0.25 b.i.d. p.r.n. 2. Demadex 20 mg p.o. daily. 3. Aldactone 100 mg p.o. daily. 4. K-Tab ER 10 mEq p.o. daily. 5. Omeprazole 20 mg p.o. a.c. lunch. 6. Augmentin 1 p.o. b.i.d. 7. ProAir HFA 1 to 2 puffs q.6 p.r.n. 8. Ventolin 2.5 q.4 p.r.n. ALLERGIES: HAY. FAMILY HISTORY: History of lung cancer in the family. SOCIAL HISTORY: Previous history of smoking. No history of current smoking or alcohol. REVIEW OF SYSTEMS: ENT: Diminished hearing and diminished vision. CARDIOVASCULAR SYSTEM: As mentioned earlier. RESPIRATORY SYSTEM: As mentioned earlier. GI: No nausea. : No dysuria. NERVOUS SYSTEM: No numbness or weakness. ALLERGY/IMMUNOLOGY: No history of asthma. MUSCULOSKELETAL: As mentioned earlier. HEMATOLOGY/ONCOLOGY: No history of anemia and mentioned earlier. ENDOCRINE: No history of diabetes or hypothyroidism. CONSTITUTIONAL: Conscious mentioned earlier. DERMATOLOGY: Negative. RHEUMATOLOGY: Negative. PSYCHIATRY: As mentioned earlier. PHYSICAL EXAMINATION: The patient is alert, oriented x3. Pulse 86, blood pressure 111/66, respiration 18, temperature normal, pulse ox 95% on 3 L. HEENT: Conjunctivae normal. NECK: No jugular venous distention. CARDIOVASCULAR: S1, S2 muffled. RESPIRATORY: Breath sounds diminished at the bases. Bilateral scattered rhonchi and crackles. ABDOMEN: Soft, nontender. Otherwise mild diffuse distention present. Otherwise, liver is palpable. LEGS: Bilateral leg edema, some weeping also present. NERVOUS SYSTEM: Higher functions as mentioned earlier. Moves all 4 limbs. No focal motor or sensory deficits. LYMPHATICS: No lymphadenopathy of the neck, axillae or groin. SKIN: No ulcer, rash or bleeding. JOINTS: No active deforming arthropathy. LABS: WBC is 20.9, hemoglobin 11.7. INR is 2.1. Sodium is 122, potassium 5.6, creatinine is 2.54. Lactic acid 5.4. ASSESSMENT: 1. Weakness, possible sepsis. 2. Increased WBC. 3. Elevated lactic acid. 4. Coagulopathy secondary to liver metastasis. 5. Hyponatremia. 6. Hyperkalemia. 7. Renal failure possible acute with acute tubular necrosis with prerenal renal failure. 8. Hypocalcemia. 9. Elevated bilirubin and elevated AST, ALT, alkaline phosphatase secondary to liver metastasis. 10.Possible urinary tract infection. 11.History of hypertension. 12.History of degenerative joint disease. 13.History of appendectomy. 14.History of cholecystectomy. 15.History of anxiety. 16.Remote history of nicotine dependence. 17.Severe protein calorie malnutrition with body mass index 18.8. 18.Bilateral leg edema, multifactorial. 19.History of fluid overload. 20.Congestive heart failure with chronic diastolic dysfunction, ejection fraction 50% to 60%. RECOMMENDATIONS AND DISCUSSION: In this 73-year-old woman who presented with multiple complex medical issues, will monitor the patient closely. Continue the current medications. Continue symptomatic treatment. Otherwise, I will consult Hematology/Oncology, antibiotics, repeat labs, repeat potassium and creatinine. Cautious IV fluids. I would also recommend to provide symptomatic treatment. Overall prognosis extremely guarded because of multiple complex medical issues. Further recommendations to follow. See orders for further details. A copy of dictation forwarded to Dr. Matthias Joshua who is the primary physician. MMODL / IJN: [id number] /
[2019-02-25 06:55] LABS: Albumin 2.1 g/dL (3.5-5.0); Calcium 8.1 mg/dL (8.4-10.2); Total Bilirubin 3.6 mg/dL (0.2-1.3); Total Protein 6.3 g/dL (6.3-8.2)
[2019-02-25 07:08] LABS: Glucose,Whole Blood 56 mg/dL (75-99)
[2019-02-25 07:21] LABS: Potassium 6.1 mmol/L (3.5-5.1)
[2019-02-25 07:31] LABS: Glucose,Whole Blood 67 mg/dL (75-99)
[2019-02-25 07:53] LABS: Glucose,Whole Blood 79 mg/dL (75-99)
[2019-02-25] MEDS: PANTOPRAZOLE 40 MG/10 ML VIAL IVP SCH (10:45)
[2019-02-25] MEDS ORDERED: SODIUM BICARB 8.4% 50 ML SYR (1 MEQ/ML) IV STA (10:55)
[2019-02-25] MEDS ORDERED: INSULIN REGULAR 100 UNIT/ML VIAL IV ONE (10:57)
[2019-02-25] MEDS ORDERED: DEXTROSE 10 % IN WATER 250 ML IV STA (10:57)
--- NOTE | 2019-02-25 11:00 | P.NPCON ---
History of Present Illness - Reason for Consult acute renal failure - History of Present Illness Reason for consultation: Acute kidney injury History of present illness: Patient is a 73-year-old female seen in renal consultation for acute kidney injury and electrolyte imbalance. Patient presented to the hospital with generalized weakness. According to the family her oral intake has been quite poor the last few days. No significant vomiting or diarrhea. According to daughter she has put on about 10 pounds in the last 1 week. Patient has history of lung cancer with liver metastasis. She has not had paracentesis in the past. Patient's sodium level is 122 this morning. Potassium level was 6.6 on admission which was medically treated. Potassium level did improve to 5.6 but is back up to 6.1 this morning. She remains severely acidotic with a bicarb level of 13 this morning. Patient is quite lethargic. She sitting up in a chair. Denies regular use of nonsteroidals. No personal or family history of kidney disease. Creatinine was 2.7 on admission and is 2.65 today. Renal function in December 2018 was normal. No history of diabetes. Patient's blood pressure has been on the lower side this admission. This morning was 93/62. Urine output has been poor. CAT scan of the abdomen and pelvis reveals no evidence of hydronephrosis. Metastatic liver lesions were noted. Small right pleural effusion was present. Vital signs are stable. General: The patient appeared well nourished and normally developed. HEENT: Head exam is unremarkable. Neck is without jugular venous distension. LUNGS: Breath sounds decreased. HEART: Rate and Rhythm are regular. First and second heart sounds normal. No murmurs, rubs or gallops. ABDOMEN: Soft. Nontender. Mild distention noted. EXTREMITITES: 1+ edema. Past Medical History Past Medical History: Cancer, Hypertension, Osteoarthritis (OA) Additional Past Medical History / Comment(s): rapid heart rate, lung CA with liver mets History of Any Multi-Drug Resistant Organisms: None Reported Past Surgical History: Appendectomy, Cholecystectomy, Orthopedic Surgery, Tubal Ligation Additional Past Surgical History / Comment(s): vein stripping, throat sx, hip replacement x 2 Past Anesthesia/Blood Transfusion Reactions: No Reported Reaction Past Psychological History: Anxiety Smoking Status: Former smoker Past Alcohol Use History: Occasional Past Drug Use History: None Reported - Past Family History Mother Family Medical History: Cancer Additional Family Medical History / Comment(s): Lung Cancer age 84 Father Family Medical History: CVA/TIA Medications and Allergies Home Medications Medication Instructions Recorded Confirmed Type Potassium Chloride [K-Tab ER] 10 meq PO DAILY 12/26/18 02/24/19 History Omeprazole 20 mg PO AC-LUNCH 12/28/18 02/24/19 History Spironolactone [Aldactone] 100 mg PO DAILY #30 tab 01/04/19 02/24/19 Rx Albuterol Nebulized (Conc) 2.5 mg INHALATION Q4HR PRN #50 neb 02/18/19 02/24/19 Rx [Ventolin Nebulized (Conc)] Albuterol Sulfate [Proair Hfa] 1 - 2 puff INHALATION Q6HR PRN #1 02/18/19 02/24/19 Rx inhaler Amoxic-Pot Clav 875-125Mg 1 each PO Q12HR #20 tablet 02/18/19 02/24/19 Rx [Augmentin Xr 875-125] Torsemide [Demadex] 20 mg PO DAILY 02/18/19 02/24/19 History ALPRAZolam [Xanax] 0.25 mg PO BID PRN 02/24/19 02/24/19 History Allergies Allergy/AdvReac Type Severity Reaction Status Date / Time hay Allergy Unknown Uncoded 02/24/19 19:17 Physical Exam Vitals: Vital Signs Temp Pulse Pulse Resp BP BP Pulse Ox 02/25/19 08:00 86 16 93/62 96 02/25/19 04:00 92 15 99/61 95 02/25/19 00:00 80 16 112/55 100 02/24/19 20:00 97.4 F L 93 16 96/56 02/24/19 18:30 86 18 111/66 95 02/24/19 16:00 101 H 18 106/67 96 02/24/19 15:00 101 H 18 112/72 96 02/24/19 14:54 101 H 02/24/19 14:02 96.9 F L 95 16 101/74 98 02/24/19 13:00 96 16 88/66 98 02/24/19 12:12 92 16 98/69 02/24/19 11:50 53 L 20 123/70 99 Intake and Output 02/24/19 02/25/19 02/25/19 22:59 06:59 14:59 Intake Total 150 Balance 150 Intake: Oral 150 Other: Voiding Method Toilet Toilet # Voids 2 # Bowel Movements 1 1 Weight 54.431 kg 57.9 kg Results - Lab Results Most recent lab results Calcium 8.1 mg/dL (8.4-10.2) L 02/25/19 06:26 Magnesium 2.2 mg/dL (1.6-2.3) 02/24/19 13:19 02/25/19 06:26 02/25/19 06:26 Assessment and Plan Plan: Assessment: 1. Acute kidney injury secondary to ATN secondary to hypotension. Creatinine 2.7 on admission and is fairly stable at 2.65 today. No hydronephrosis noted on CAT scan. 2. Hyponatremia. Patient is edematous but intravascularly depleted due to third spacing from hypo-albuminemia. 3. Hyperkalemia secondary to acute kidney injury, metabolic acidosis, use of Aldactone and potassium supplementation. 4. Metabolic acidosis secondary to acute kidney injury and lactic acidosis. 5. Lactic acidosis secondary to hypotension and metastatic liver disease. Plan: Start isotonic sodium bicarbonate drip to be run at 75 mL an hour. 25 g IV albumin 2 doses today. 10 units of IV insulin, 2 A of sodium bicarbonate IV push now. Repeat potassium level this evening. 1200 mL fluid restriction. Encouraged oral intake, particularly solute. Avoid nephrotoxins. Hold diuretics today. Follow-up cultures. Thank you for the consultation. I will continue to follow the patient with you during her hospital stay.
[2019-02-25 11:45] LABS: Glucose,Whole Blood 61 mg/dL (75-99)
[2019-02-25 12:05] LABS: Glucose,Whole Blood 42 mg/dL (75-99)
[2019-02-25] MEDS ORDERED: ALBUTEROL NEBULIZED 2.5 MG/3 ML INHALATION STA (12:19)
[2019-02-25 12:20] LABS: Glucose,Whole Blood 72 mg/dL (75-99)
[2019-02-25] MEDS ORDERED: DEXTROSE 10% IN WATER 1,000 ML with SODIUM CHLORIDE 2.5MEQ/ML VIAL 153.8 MEQ IV SCH (13:30)
--- NOTE | 2019-02-25 13:33 | P.CNPUL ---
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 The patient also was found to be in acute kidney injury and was having electrodes imbalance. Specifically, the patient was noted to have sodium level of 122 with a potassium level of 6.1. The patient's BUN was up to 70 with a creatinine of 2.6 from a normal based on January 2019. The patient was also having episodes of hypoglycemia. Her blood sugar was 72 and dropped down to the 40s and the patient was given an amp of D50 and following that she was transferred to the intensive care unit. LFTs are abnormal as the patient has hepatic metastases. Alkaline phosphatase is elevated at 894 with AST of 338 and ALT of 110. Her total serum protein was 6.3 with an albumin of 2.1. The proBNP level was 7730. Echo was elevated at 21. Hemoglobin is at 13.6 and the CAT scan of the abdomen and pelvis was done yesterday showed multiple metastatic lesions scattered throughout the liver that appeared to be larger compared to the previous CAT sca n from October 2018 for comparison. There was some free fluid within the pelvis. There was some nonspecific small bowel loops within the pelvis. In terms of lung cancer, the patient was diagnosed having metastatic stage IV lung cancer, adenocarcinoma with extensive liver metastases and adrenal involvement. The patient was seen at the oncology Department [facility]. The patient was given a combination of carboplatinum and Alimta and a dose of Keytruda . Since then, the patient got extremely sick. She has required transfusions with platelets in the emergency department. She became progressively more weak and the chain was supple and she has not received any treatment since. Says that she was also switched her care to Dr Nunez Review of Systems CONSTITUTIONAL: Positive for significant weight loss, generalized cachexia, diminished appetite and inability to meet caloric requirements EYES: Denies change in vision. EARS, NOSE, MOUTH, THROAT: Denies headaches, denies sore throat. CARDIOVASCULAR: Denies chest pain, palpitations or syncopal episodes. RESPIRATORY: Positive for shortness of breath on exertion, no cough, congestion or hemoptysis. The patient has been complaining of shortness of breath and generalized weakness and difficulty with mobility and gait GASTROINTESTINAL: change in appetite, denies abdominal pain, diminished appet ite and weight loss GENITOURINARY: Denies hematuria, denies infections. MUSKULOSKELETAL: Denies pain, positive for swelling. INTEGUMENTARY: Denies rash, denies eczema. NEUROLOGICAL: Denies recent memory loss, no recent seizure activity. PSYCHIATRIC: Denies anxiety, denies depression. HEMATOLOGIC/LYMPHATIC: Denies anemia, denies enlarged lymph nodes. Past Medical History Past Medical History: Cancer, Hypertension, Osteoarthritis (OA) Additional Past Medical History / Comment(s): Stage IV adenocarcinoma of the lungs with liver and adrenal metastases details discussed above lung CA , peripheral edema, hypertension, hyperlipidemia, chronic anxiety, osteoarthritis, COPD History of Any Multi-Drug Resistant Organisms: None Reported Past Surgical History: Appendectomy, Cholecystectomy, Orthopedic Surgery, Tubal Ligation Additional Past Surgical History / Comment(s): vein stripping, throat sx, hip replacement x 2 Past Anesthesia/Blood Transfusion Reactions: No Reported Reaction Past Psychological History: Anxiety Smoking Status: Former smoker Past Alcohol Use History: Occasional Past Drug Use History: None Reported - Past Family History Mother Family Medical History: Cancer Additional Family Medical History / Comment(s): Lung Cancer age 84 Father Family Medical History: CVA/TIA Medications and Allergies Home Medications Medication Instructions Recorded Confirmed Type Potassium Chloride [K-Tab ER] 10 meq PO DAILY 12/26/18 02/24/19 History Omeprazole 20 mg PO AC-LUNCH 12/28/18 02/24/19 History Spironolactone [Aldactone] 100 mg PO DAILY #30 tab 01/04/19 02/24/19 Rx Albuterol Nebulized (Conc) 2.5 mg INHALATION Q4HR PRN #50 neb 02/18/19 02/24/19 Rx [Ventolin Nebulized (Conc)] Albuterol Sulfate [Proair Hfa] 1 - 2 puff INHALATION Q6HR PRN #1 02/18/19 02/24/19 Rx inhaler Amoxic-Pot Clav 875-125Mg 1 each PO Q12HR #20 tablet 02/18/19 02/24/19 Rx [Augmentin Xr 875-125] Torsemide [Demadex] 20 mg PO DAILY 02/18/19 02/24/19 History ALPRAZolam [Xanax] 0.25 mg PO BID PRN 02/24/19 02/24/19 History Allergies Allergy/AdvReac Type Severity Reaction Status Date / Time hay Allergy Unknown Uncoded 02/24/19 19:17 Physical Exam Vitals: Vital Signs Temp Pulse Pulse Resp BP BP Pulse Ox 02/25/19 08:00 86 16 93/62 96 02/25/19 04:00 92 15 99/61 95 02/25/19 00:00 80 16 112/55 100 02/24/19 20:00 97.4 F L 93 16 96/56 02/24/19 18:30 86 18 111/66 95 02/24/19 16:00 101 H 18 106/67 96 02/24/19 15:00 101 H 18 112/72 96 02/24/19 14:54 101 H 02/24/19 14:02 96.9 F L 95 16 101/74 98 Intake and Output 02/24/19 02/25/19 02/25/19 22:59 06:59 14:59 Intake Total 150 Balance 150 Intake: Oral 150 Other: Voiding Method Toilet Toilet # Voids 2 # Bowel Movements 1 1 Weight 54.431 kg 57.9 kg GENERAL EXAM: Alert, 73-year-old female patient, the patient is doing poorly and she is quite uncomfortable even at rest. She is not in acute respiratory distress however she looks quite cachectic and emaciated and she has lost considerable amount of weight. HEAD: Normocephalic. EYES: Normal reaction of pupils, equal size. NOSE: Clear with pink turbinates. THROAT: No erythema or exudates. NECK: No masses, no JVD. CHEST: No chest wall deformity. LUNGS: Equal air entry with crackles in the posterior bases, diminished. CVS: S1 and S2 normal with no audible murmur, regular rhythm. ABDOMEN: No hepatosplenomegaly, normal bowel sounds, no guarding or rigidity. SPINE: No scoliosis or deformity SKIN: No rashes CENTRAL NERVOUS SYSTEM: No focal deficits, tone is normal in all 4 extremities. EXTREMITIES: There is 1-2+ peripheral edema. No clubbing, no cyanosis. Peripheral p Results - Laboratory Findings CBC and BMP: 02/25/19 06:26 02/25/19 06:26 PT/INR, D-dimer PT 21.7 sec (9.0-12.0) H 02/25/19 06:26 INR 2.2 (<1.2) H 02/25/19 06:26 Abnormal lab findings: Abnormal Labs 02/24/19 02/24/19 02/24/19 13:19 13:19 13:19 WBC RBC MCV MCH RDW Plt Count Neutrophils # Macrocytosis PT 20.4 H INR 2.1 H APTT 47.0 H Sodium 121 L Potassium 6.6 H* Chloride 91 L Carbon Dioxide 14 L BUN 69 H Creatinine 2.71 H Glucose 44 L* POC Glucose (mg/dL) Plasma Lactic Acid Clint 3.7 H* Calcium Total Bilirubin 3.9 H AST 357 H ALT 111 H Alkaline Phosphatase 1158 H Albumin 2.4 L Urine Appearance Urine Protein Urine Ketones Urine Blood Ur Leukocyte Esterase Urine RBC Urine WBC Ur Squamous Epith Cells Amorphous Sediment Urine Bacteria Hyaline Casts Urine Mucus 02/24/19 02/24/19 02/24/19 16:39 17:23 17:23 WBC 20.9 H RBC 3.42 L MCV 110.8 H D MCH RDW 17.7 H Plt Count 30 L Neutrophils # 17.7 H Macrocytosis Marked A PT INR APTT Sodium Potassium Chloride Carbon Dioxide BUN Creatinine Glucose POC Glucose (mg/dL) Plasma Lactic Acid Clint 5.4 H* Calcium Total Bilirubin AST ALT Alkaline Phosphatase Albumin Urine Appearance Cloudy H Urine Protein Trace H Urine Ketones Trace H Urine Blood Small H Ur Leukocyte Esterase Large H Urine RBC 6 H Urine WBC 9 H Ur Squamous Epith Cells 11 H Amorphous Sediment Rare H Urine Bacteria Moderate H Hyaline Casts 61 H Urine Mucus Rare H 02/24/19 02/24/19 02/24/19 17:49 18:30 18:54 WBC RBC MCV MCH RDW Plt Count Neutrophils # Macrocytosis PT INR APTT Sodium Potassium Chloride Carbon Dioxide BUN Creatinine Glucose POC Glucose (mg/dL) 67 L 56 L 56 L Plasma Lactic Acid Clint Calcium Total Bilirubin AST ALT Alkaline Phosphatase Albumin Urine Appearance Urine Protein Urine Ketones Urine Blood Ur Leukocyte Esterase Urine RBC Urine WBC Ur Squamous Epith Cells Amorphous Sediment Urine Bacteria Hyaline Casts Urine Mucus 02/24/19 02/24/19 02/24/19 19:11 20:00 21:11 WBC RBC MCV MCH RDW Plt Count Neutrophils # Macrocytosis PT INR APTT Sodium 122 L Potassium 5.6 H Chloride 94 L Carbon Dioxide 13 L BUN 67 H Creatinine 2.54 H Glucose POC Glucose (mg/dL) 191 H 160 H Plasma Lactic Acid Clint Calcium 7.8 L Total Bilirubin AST ALT Alkaline Phosphatase Albumin Urine Appearance Urine Protein Urine Ketones Urine Blood Ur Leukocyte Esterase Urine RBC Urine WBC Ur Squamous Epith Cells Amorphous Sediment Urine Bacteria Hyaline Casts Urine Mucus 02/25/19 02/25/19 02/25/19 00:50 05:00 06:26 WBC 21.8 H RBC MCV 111.6 H MCH 35.3 H RDW 17.6 H Plt Count 24 L Neutrophils # 18.7 H Macrocytosis Marked A PT INR APTT Sodium Potassium Chloride Carbon Dioxide BUN Creatinine Glucose POC Glucose (mg/dL) 69 L 110 H Plasma Lactic Acid Clint Calcium Total Bilirubin AST ALT Alkaline Phosphatase Albumin Urine Appearance Urine Protein Urine Ketones Urine Blood Ur Leukocyte Esterase Urine RBC Urine WBC Ur Squamous Epith Cells Amorphous Sediment Urine Bacteria Hyaline Casts Urine Mucus 02/25/19 02/25/19 02/25/19 06:26 06:26 06:26 WBC RBC MCV MCH RDW Plt Count Neutrophils # Macrocytosis PT 21.7 H INR 2.2 H APTT Sodium 122 L Potassium 6.1 H* Chloride 92 L Carbon Dioxide 13 L BUN 70 H Creatinine 2.65 H Glucose 117 H POC Glucose (mg/dL) Plasma Lactic Acid Clint 3.6 H* Calcium 8.1 L Total Bilirubin 3.6 H AST 330 H ALT 110 H Alkaline Phosphatase 894 H Albumin 2.1 L Urine Appearance Urine Protein Urine Ketones Urine Blood Ur Leukocyte Esterase Urine RBC Urine WBC Ur Squamous Epith Cells Amorphous Sediment Urine Bacteria Hyaline Casts Urine Mucus 02/25/19 02/25/19 02/25/19 07:07 07:29 10:34 WBC RBC MCV MCH RDW Plt Count Neutrophils # Macrocytosis PT INR APTT Sodium Potassium Chloride Carbon Dioxide BUN Creatinine Glucose POC Glucose (mg/dL) 56 L 67 L Plasma Lactic Acid Clint 4.0 H* Calcium Total Bilirubin AST ALT Alkaline Phosphatase Albumin Urine Appearance Urine Protein Urine Ketones Urine Blood Ur Leukocyte Esterase Urine RBC Urine WBC Ur Squamous Epith Cells Amorphous Sediment Urine Bacteria Hyaline Casts Urine Mucus 02/25/19 02/25/19 02/25/19 11:42 12:02 12:19 WBC RBC MCV MCH RDW Plt Count Neutrophils # Macrocytosis PT INR APTT Sodium Potassium Chloride Carbon Dioxide BUN Creatinine Glucose POC Glucose (mg/dL) 61 L 42 L 72 L Plasma Lactic Acid Clint Calcium Total Bilirubin AST ALT Alkaline Phosphatase Albumin Urine Appearance Urine Protein Urine Ketones Urine Blood Ur Leukocyte Esterase Urine RBC Urine WBC Ur Squamous Epith Cells Amorphous Sediment Urine Bacteria Hyaline Casts Urine Mucus Assessment and Plan Plan: 1 stage IV metastatic adenocarcinoma of the lung with extensive liver involvement, treated with this cycle of systemic chemotherapy and immunotherapy with subsequent failure of treatment due to side effects and worsening of the performance and functional status 2 acute hypoglycemia secondary to hepatitic failure/insufficiency due to metastatic disease 3 acute leukocytosis 4 acute kidney injury likely secondary to intravascular volume depletion/dehydration 5 acute hyperkalemia 6 chronic lower extremity edema with worsening in lower extremity swelling 7 COPD 8 hypertension 9 hyperlipidemia 10 chronic anxiety 11 osteoarthritis 12 lactic acidosis secondary to hepatitic insufficiency/liver failure Plan This is a very poor prognosis situation. The patient has extensive metastatic d isease from a lung primary adenocarcinoma and she has extensive hepatic metastases and she has signs of hepatic insufficiency/failure including lactic acidosis, hypoglycemia, abnormal LFTs in addition to anasarca and increasing edema throughout the body. The patient hasn't been able to tolerate any form of systemic treatment. For now, treat the hypoglycemia with D10 infusion. Monitor the renal function. Monitor the lactic acid level. Treat the hyperkalemia with Effusion and repeat electrolytes. Nephrology is on the case. Oncology is on the case. IV access was established. We'll continue to follow poor prognosis.
[2019-02-25 13:46] LABS: Glucose,Whole Blood 33 mg/dL (75-99)
[2019-02-25] MEDS: SODIUM CHLORIDE 0.9% 1,000 ML IV SCH (14:03)
[2019-02-25] MEDS: ALBUMIN HUMAN 25% 50 ML in EMPTY BAG 1 BAG IVPB SCH ×2 (14:04→20:49)
[2019-02-25 14:12] LABS: Glucose,Whole Blood 218 mg/dL (75-99)
[2019-02-25] MEDS: DEXTROSE 10% IN WATER 500 ML in EMPTY BAG 1 BAG IV SCH (14:28)
[2019-02-25] MEDS: DEXTROSE 5% IN WATER 1,000 ML with SODIUM BICARB (1 MEQ/ML) 150 ML IV SCH (14:30)
[2019-02-25] MEDS: ALBUTEROL NEB (CONC) 2.5 MG/0.5 ML INHALATION PRN (16:41)
[2019-02-25 18:09] LABS: Glucose,Whole Blood 63 mg/dL (75-99)
--- NOTE | 2019-02-25 18:50 | P.CONS ---
History of Present Illness - Reason for Consult Consult date: 02/25/19 metastatic NSCLC Requesting physician: Naveen Butterfield - Chief Complaint weakness - History of Present Illness Mrs. 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 Patient's initial presentation was in October, with complaints of early satiety, constipation and abdominal discomfort. 11/07/18 CT CAP showed hepatomegaly with hypodense masses, abnormal thoracic adenopathy, no clear lung nodules. 11/16/18 patient had a liver biopsy, path ology positive for adenocarcinoma, immunophenotype most consistent with lung adenocarcinoma, PDL 1 was 5%, no targetable mutations on NGS. 12/02/18 staging with an MRI of the head, curvilinear enhancement of the right frontal/parietal cortex. Carboplatinum, Alimta and keytruda ordered, renal function did not allow her to get the carboplatin, had 1st Tx December 19. She was having labs drawn 3 times a week in [place], she required mult platelet transfusions. Patient then ended up admitted to [facility] with severe anasarca/lower extremity swelling, difficulty in breathing, severe pancytopenia. She was diuresed, received transfusion PRN, cardiac workup did not show any h eart failure, she was placed on additional diuretic and, after recovery, was sent home. Patient had single agent keytruda on January 09 at [facility]. She has since had 2 keytruda infusions here as she transferred her care here. She had Tx 1/2, since then she has had progressive weakness, denied fever, chills, N,V, oral irritation, appetite is fair to poor, swelling in the legs was getting worse, she is having lower extremity cramping, weeping around her waist, she is breathing comfortably at rest, no purulent sputum or hemoptysis, chest pain, palpitations, abd pain, cramping. Review of Systems 14 point ROS is neg except as stated in HPI Past Medical History Past Medical History: Cancer, Hypertension, Osteoarthritis (OA) Additional Past Medical History / Comment(s): Stage IV adenocarcinoma of the lungs with liver and adrenal metastases details discussed above lung CA , peripheral edema, hypertension, hyperlipidemia, chronic anxiety, osteoarthritis, COPD History of Any Multi-Drug Resistant Organisms: None Reported Past Surgical History: Appendectomy, Cholecystectomy, Orthopedic Surgery, Tubal Ligation Additional Past Surgical History / Comment(s): vein stripping, throat sx, hip replacement x 2 Past Anesthesia/Blood Transfusion Reactions: No Reported Reaction Past Psychological History: Anxiety Smoking Status: Former smoker Past Alcohol Use History: Occasional Past Drug Use History: None Reported - Past Family History Mother Family Medical History: Cancer Additional Family Medical History / Comment(s): Lung Cancer age 84 Father Family Medical History: CVA/TIA Medications and Allergies Home Medications Medication Instructions Recorded Confirmed Type Potassium Chloride [K-Tab ER] 10 meq PO DAILY 12/26/18 02/24/19 History Omeprazole 20 mg PO AC-LUNCH 12/28/18 02/24/19 History Spironolactone [Aldactone] 100 mg PO DAILY #30 tab 01/04/19 02/24/19 Rx Albuterol Nebulized (Conc) 2.5 mg INHALATION Q4HR PRN #50 neb 02/18/19 02/24/19 Rx [Ventolin Nebulized (Conc)] Albuterol Sulfate [Proair Hfa] 1 - 2 puff INHALATION Q6HR PRN #1 02/18/19 02/24/19 Rx inhaler Amoxic-Pot Clav 875-125Mg 1 each PO Q12HR #20 tablet 02/18/19 02/24/19 Rx [Augmentin Xr 875-125] Torsemide [Demadex] 20 mg PO DAILY 02/18/19 02/24/19 History ALPRAZolam [Xanax] 0.25 mg PO BID PRN 02/24/19 02/24/19 History Allergies Allergy/AdvReac Type Severity Reaction Status Date / Time hay Allergy Unknown Uncoded 02/24/19 19:17 Physical Exam Vitals: Vital Signs Temp Pulse Pulse Resp BP BP Pulse Ox 02/25/19 16:52 89 02/25/19 16:41 89 02/25/19 16:20 85 18 83 L 02/25/19 16:10 15 99/66 84 L 02/25/19 16:00 83 14 86/65 92 L 02/25/19 15:50 88 18 86/65 94 L 02/25/19 15:40 84 18 86/65 82 L 02/25/19 15:30 14 86/65 72 L 02/25/19 15:20 87 10 L 86/65 95 02/25/19 15:10 21 86/65 100 02/25/19 15:00 89 10 L 102/63 93 L 02/25/19 14:50 87 11 L 102/63 98 02/25/19 14:40 90 18 102/63 66 L 02/25/19 14:30 86 11 L 102/63 88 L 02/25/19 14:20 87 13 102/63 100 02/25/19 14:10 18 86/60 96 02/25/19 14:00 19 86/60 100 02/25/19 13:50 85 15 86/60 91 L 02/25/19 13:40 11 L 86/60 90 L 02/25/19 13:30 87 22 86/60 83 L 02/25/19 13:20 14 02/25/19 13:10 85 15 86/60 02/25/19 13:00 81 9 L 86/60 91 L 02/25/19 12:50 84 15 91/54 98 02/25/19 12:42 24 02/25/19 08:00 86 16 93/62 96 02/25/19 04:00 92 15 99/61 95 02/25/19 00:00 80 16 112/55 100 02/24/19 20:00 97.4 F L 93 16 96/56 02/24/19 18:30 86 18 111/66 95 02/24/19 18:20 80/60 02/24/19 18:10 82 80/60 93 L 02/24/19 18:00 86 98/74 90 L Intake and Output 02/25/19 02/25/19 02/25/19 06:59 14:59 22:59 Intake Total 150 1234 Balance 150 1234 Intake: Intake, IV Titration 1234 Amount Albumin Human 25% 50 ml 50 In Empty Bag 1 bag @ 50 mls/hr IVPB BID RENÉ Rx#: [id number] Dextrose 10 % in Water 999 250 ml @ 999 mls/hr IV ONCE STA Rx#:[id number] Dextrose 10% in Water 500 50 ml In Empty Bag 1 bag @ 50 mls/hr IV .Q10H RENÉ Rx #:[id number] Dextrose 5% in Water 1, 60 000 ml @ 60 mls/hr IV . [id number] Rx#:[id number] Dextrose 5% in Water 1, 75 000 ml @ 75 mls/hr IV . [id number] RENÉ with Sodium Bicarb (1 Meq/ml) 150 ml Rx#:[id number] Oral 150 Other: Voiding Method Toilet # Voids 2 # Bowel Movements 1 Weight 57.9 kg 57.9 kg - Constitutional General appearance: cooperative, no acute distress, thin - EENT dry mucus membranes Eyes: anicteric sclerae, EOMI ENT: hearing grossly normal - Neck Neck: no lymphadenopathy - Respiratory Respiratory: bilateral: diminished, wheezing - Cardiovascular Heart sounds: normal: S1, S2 Abnormal Heart Sounds: no systolic murmur, no diastolic murmur, no rub, no S3 Ga llop, no S4 Gallop, no click, no other leg Peripheral Edema: bilateral: 2+ (weeping) - Gastrointestinal General gastrointestinal: no absent bowel sounds, no decreased bowel sounds, no distended, no hepatomegaly, no hyperactive bowel sounds, normal bowel sounds, no organomegaly, no rigid, no scaphoid, soft, no splenomegaly, no tenderness, no umbilical hernia, no ventral hernia - Integumentary weeping at the waist - Neurologic Neurologic: CNII-XII intact - Musculoskeletal Musculoskeletal: generalized weakness - Psychiatric Psychiatric: A&O x's 3, appropriate affect, intact judgment & insight Results CBC & Chem 7: 02/25/19 06:26 02/25/19 06:26 Labs: Abnormal Lab Results - Last 24 Hours (Table) 02/24/19 02/24/19 02/24/19 Range/Units 17:23 17:23 18:30 WBC 20.9 H (3.8-10.6) k/uL RBC 3.42 L (3.80-5.40) m/uL MCV 110.8 H D (80.0-100.0) fL MCH (25.0-35.0) pg RDW 17.7 H (11.5-15.5) % Plt Count 30 L (150-450) k/uL Neutrophils # 17.7 H (1.3-7.7) k/uL Macrocytosis Marked A PT (9.0-12.0) sec INR (<1.2) Sodium (137-145) mmol/L Potassium (3.5-5.1) mmol/L Chloride (98-107) mmol/L Carbon Dioxide (22-30) mmol/L BUN (7-17) mg/dL Creatinine (0.52-1.04) mg/dL Glucose (74-99) mg/dL POC Glucose (mg/dL) 56 L (75-99) mg/dL Plasma Lactic Acid Clint 5.4 H* (0.7-2.0) mmol/L Calcium (8.4-10.2) mg/dL Total Bilirubin (0.2-1.3) mg/dL AST (14-36) U/L ALT (4-34) U/L Alkaline Phosphatase (38-126) U/L Albumin (3.5-5.0) g/dL 02/24/19 02/24/19 02/24/19 Range/Units 18:54 19:11 20:00 WBC (3.8-10.6) k/uL RBC (3.80-5.40) m/uL MCV (80.0-100.0) fL MCH (25.0-35.0) pg RDW (11.5-15.5) % Plt Count (150-450) k/uL Neutrophils # (1.3-7.7) k/uL Macrocytosis PT (9.0-12.0) sec INR (<1.2) Sodium (137-145) mmol/L Potassium (3.5-5.1) mmol/L Chloride (98-107) mmol/L Carbon Dioxide (22-30) mmol/L BUN (7-17) mg/dL Creatinine (0.52-1.04) mg/dL Glucose (74-99) mg/dL POC Glucose (mg/dL) 56 L 191 H 160 H (75-99) mg/dL Plasma Lactic Acid Clint (0.7-2.0) mmol/L Calcium (8.4-10.2) mg/dL Total Bilirubin (0.2-1.3) mg/dL AST (14-36) U/L ALT (4-34) U/L Alkaline Phosphatase (38-126) U/L Albumin (3.5-5.0) g/dL 02/24/19 02/25/19 02/25/19 Range/Units 21:11 00:50 05:00 WBC (3.8-10.6) k/uL RBC (3.80-5.40) m/uL MCV (80.0-100.0) fL MCH (25.0-35.0) pg RDW (11.5-15.5) % Plt Count (150-450) k/uL Neutrophils # (1.3-7.7) k/uL Macrocytosis PT (9.0-12.0) sec INR (<1.2) Sodium 122 L (137-145) mmol/L Potassium 5.6 H (3.5-5.1) mmol/L Chloride 94 L (98-107) mmol/L Carbon Dioxide 13 L (22-30) mmol/L BUN 67 H (7-17) mg/dL Creatinine 2.54 H (0.52-1.04) mg/dL Glucose (74-99) mg/dL POC Glucose (mg/dL) 69 L 110 H (75-99) mg/dL Plasma Lactic Acid Clint (0.7-2.0) mmol/L Calcium 7.8 L (8.4-10.2) mg/dL Total Bilirubin (0.2-1.3) mg/dL AST (14-36) U/L ALT (4-34) U/L Alkaline Phosphatase (38-126) U/L Albumin (3.5-5.0) g/dL 02/25/19 02/25/19 02/25/19 Range/Units 06:26 06:26 06:26 WBC 21.8 H (3.8-10.6) k/uL RBC (3.80-5.40) m/uL MCV 111.6 H (80.0-100.0) fL MCH 35.3 H (25.0-35.0) pg RDW 17.6 H (11.5-15.5) % Plt Count 24 L (150-450) k/uL Neutrophils # 18.7 H (1.3-7.7) k/uL Macrocytosis Marked A PT 21.7 H (9.0-12.0) sec INR 2.2 H (<1.2) Sodium 122 L (137-145) mmol/L Potassium 6.1 H* (3.5-5.1) mmol/L Chloride 92 L (98-107) mmol/L Carbon Dioxide 13 L (22-30) mmol/L BUN 70 H (7-17) mg/dL Creatinine 2.65 H (0.52-1.04) mg/dL Glucose 117 H (74-99) mg/dL POC Glucose (mg/dL) (75-99) mg/dL Plasma Lactic Acid Clint (0.7-2.0) mmol/L Calcium 8.1 L (8.4-10.2) mg/dL Total Bilirubin 3.6 H (0.2-1.3) mg/dL AST 330 H (14-36) U/L ALT 110 H (4-34) U/L Alkaline Phosphatase 894 H (38-126) U/L Albumin 2.1 L (3.5-5.0) g/dL 02/25/19 02/25/19 02/25/19 Range/Units 06:26 07:07 07:29 WBC (3.8-10.6) k/uL RBC (3.80-5.40) m/uL MCV (80.0-100.0) fL MCH (25.0-35.0) pg RDW (11.5-15.5) % Plt Count (150-450) k/uL Neutrophils # (1.3-7.7) k/uL Macrocytosis PT (9.0-12.0) sec INR (<1.2) Sodium (137-145) mmol/L Potassium (3.5-5.1) mmol/L Chloride (98-107) mmol/L Carbon Dioxide (22-30) mmol/L BUN (7-17) mg/dL Creatinine (0.52-1.04) mg/dL Glucose (74-99) mg/dL POC Glucose (mg/dL) 56 L 67 L (75-99) mg/dL Plasma Lactic Acid Clint 3.6 H* (0.7-2.0) mmol/L Calcium (8.4-10.2) mg/dL Total Bilirubin (0.2-1.3) mg/dL AST (14-36) U/L ALT (4-34) U/L Alkaline Phosphatase (38-126) U/L Albumin (3.5-5.0) g/dL 02/25/19 02/25/19 02/25/19 Range/Units 10:34 11:42 12:02 WBC (3.8-10.6) k/uL RBC (3.80-5.40) m/uL MCV (80.0-100.0) fL MCH (25.0-35.0) pg RDW (11.5-15.5) % Plt Count (150-450) k/uL Neutrophils # (1.3-7.7) k/uL Macrocytosis PT (9.0-12.0) sec INR (<1.2) Sodium (137-145) mmol/L Potassium (3.5-5.1) mmol/L Chloride (98-107) mmol/L Carbon Dioxide (22-30) mmol/L BUN (7-17) mg/dL Creatinine (0.52-1.04) mg/dL Glucose (74-99) mg/dL POC Glucose (mg/dL) 61 L 42 L (75-99) mg/dL Plasma Lactic Acid Clint 4.0 H* (0.7-2.0) mmol/L Calcium (8.4-10.2) mg/dL Total Bilirubin (0.2-1.3) mg/dL AST (14-36) U/L ALT (4-34) U/L Alkaline Phosphatase (38-126) U/L Albumin (3.5-5.0) g/dL 02/25/19 02/25/19 02/25/19 Range/Units 12:19 13:40 14:10 WBC (3.8-10.6) k/uL RBC (3.80-5.40) m/uL MCV (80.0-100.0) fL MCH (25.0-35.0) pg RDW (11.5-15.5) % Plt Count (150-450) k/uL Neutrophils # (1.3-7.7) k/uL Macrocytosis PT (9.0-12.0) sec INR (<1.2) Sodium (137-145) mmol/L Potassium (3.5-5.1) mmol/L Chloride (98-107) mmol/L Carbon Dioxide (22-30) mmol/L BUN (7-17) mg/dL Creatinine (0.52-1.04) mg/dL Glucose (74-99) mg/dL POC Glucose (mg/dL) 72 L 33 L 218 H (75-99) mg/dL Plasma Lactic Acid Clint (0.7-2.0) mmol/L Calcium (8.4-10.2) mg/dL Total Bilirubin (0.2-1.3) mg/dL AST (14-36) U/L ALT (4-34) U/L Alkaline Phosphatase (38-126) U/L Albumin (3.5-5.0) g/dL 02/25/19 Range/Units 14:40 WBC (3.8-10.6) k/uL RBC (3.80-5.40) m/uL MCV (80.0-100.0) fL MCH (25.0-35.0) pg RDW (11.5-15.5) % Plt Count (150-450) k/uL Neutrophils # (1.3-7.7) k/uL Macrocytosis PT (9.0-12.0) sec INR (<1.2) Sodium (137-145) mmol/L Potassium (3.5-5.1) mmol/L Chloride (98-107) mmol/L Carbon Dioxide (22-30) mmol/L BUN (7-17) mg/dL Creatinine (0.52-1.04) mg/dL Glucose (74-99) mg/dL POC Glucose (mg/dL) (75-99) mg/dL Plasma Lactic Acid Clint 4.2 H* (0.7-2.0) mmol/L Calcium (8.4-10.2) mg/dL Total Bilirubin (0.2-1.3) mg/dL AST (14-36) U/L ALT (4-34) U/L Alkaline Phosphatase (38-126) U/L Albumin (3.5-5.0) g/dL Microbiology - Last 24 Hours (Table) 02/24/19 13:19 Blood Culture - Preliminary Blood No Growth after [address] scan - abdomen: report reviewed CT scan - pelvis: report reviewed Assessment and Plan (1) Weakness Narrative/Plan: Admitting diagnosis. Laboratory studies were certainly altered on admit likely contributing to condition. Corrective measures being taken. Begin PT/OT DEQUAN once pt feeling a little better Current Visit: Yes Status: Acute Priority: High Code(s): R53.1 - WEAKNESS SNOMED Code(s): 70829593 (2) Liver metastases Current Visit: Yes Status: Acute Priority: High Code(s): C78.7 - SECONDARY MALIG NEOPLASM OF LIVER AND INTRAHEPATIC BILE DUCT SNOMED Code(s): 92782746 (3) Metastatic lung cancer (metastasis from lung to other site) Current Visit: Yes Status: Acute Priority: High Code(s): C34.90 - MALIGNANT NEOPLASM OF UNSP PART OF UNSP BRONCHUS OR LUNG SNOMED Code(s): 75871585 Plan: Patient has had 3 cycles of keytruda alone, one at the [facility] and 2 here, most recent treatment was on February 21. She had one cycle of Alimta and keytruda at the [facility] but, her hematological toxicities were so severe it was decided to treat with single agent immunotherapy. 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 Aldosterone, renin and cortisol levels have been requested. Consult for Music Teacher. Prednisone initiated. CMP daily. CT of the abdomen and pelvis is being compared to one back in October. Scan was done almost 2 months before the patient began any therapy so, cannot be certain if there was progression prior to starting treatment, if she is experiencing immunotherapy related hepatitis or if this is disease progression. Steroids initiated, lab monitoring and continue supportive care as directed by Critical Care team. We will see how pt improves over the next several days. Further discussion at that time
[2019-02-25 19:09] LABS: Glucose,Whole Blood 474 mg/dL (75-99)
[2019-02-25 19:30] LABS: Calcium 7.2 mg/dL (8.4-10.2); Potassium 4.9 mmol/L (3.5-5.1)
--- NOTE | 2019-02-25 20:05 | PN ---
PROGRESS NOTE DATE OF SERVICE: 02/25/2019. REASON FOR CONSULTATION: Sepsis. HISTORY OF PRESENT ILLNESS: The patient is a 73-year-old female with a past medical history significant for metastatic lung cancer. The patient is on immunotherapy. The patient presented to the [facility] ER on 02/24/2019 for evaluation of generalized weakness. The patient also complained of some epigastric discomfort more of a dull aching pain. No significant radiation. Some nausea but no vomiting. The patient denies having any chest pain. Breathing is baseline. He did have some minimal cough but not bringing up any sputum. No nausea, vomiting or diarrhea. With these symptoms, the patient was evaluated by the ER physician. On arrival to the ER, the patient was afebrile, temperature of 96.9. The patient did have elevated white count 52090, repeat is 21.8 today. Her creatinine was elevated 2.71 and lactic acid at 3.7, highest of 5.4. Liver enzymes are elevated as well. The patient did have a positive UA and influenza serology was negative. The patient did have a CT of the abdomen and pelvis completed which shows multiple metastatic lesions scattered throughout the liver likely appeared larger from October study and small right pleural effusion. The patient was started on cefepime. Infectious disease was consulted for further recommendations regarding antibiotic therapy and concern for sepsis. The patient will be transferred to the ICU because of low blood sugar and need for D10 infusion. REVIEW OF SYSTEMS: Positive points have been mentioned in HPI. Rest of the systems are negative. PAST MEDICAL HISTORY: Her past medical history is significant for metastatic lung cancer, hypertension, osteoarthritis, anxiety. PAST SURGICAL HISTORY: Appendectomy, cholecystectomy, tubal ligation, hip replacement x2. SOCIAL HISTORY: Remote history of smoking. Occasionally drinks. No drug use. FAMILY HISTORY: Mother with history of lung cancer. Father history of CVA and TIA. ALLERGIES: No known drug allergies. MEDICATIONS: Include the patient is currently covered with albumin, Ventolin, Xanax, cefepime 1 g daily, dose has been adjusted to the kidney function, Dilaudid, Narcan, Protonix, and IV fluid. PHYSICAL EXAMINATION: Blood pressure 99/66, pulse of 85, temperature of 97.4. She is 92% on 4 L nasal cannula. General description is an elderly female, lying in bed in no distress. No tachypnea or accessory muscles of respiration use. HEENT: Examination shows no pallor or scleral icterus. Oral mucosal membranes are dry. No pharyngeal erythema or thrush. NECK: Trachea central. No thyromegaly. LUNGS unlabored breathing, decreased breath sounds at the bases. No wheeze. HEART S1, S2. Regular rate and rhythm. ABDOMEN: Soft, mildly distended. Minimally tender. No guarding. No rigidity. EXTREMITIES: Legs were opened up which were wrapped but there was no open wound or any swelling or redness or any drainage. NEUROLOGICAL: Patient is awake, alert, oriented times two. Mood and affect normal. LABS: Hemoglobin 13.1, white count 21.8 BUN of 7, creatinine 0.65. Elevated liver enzymes. Urinalysis has been positive. DIAGNOSTIC IMPRESSION AND PLAN: Patient admitted to the hospital with generalized weakness, which is likely multifactorial in this patient who did have a history of metastatic lung cancer with METS to the liver, possible component of dehydration with elevated BUN and creatinine, did have a positive underlying urinary tract infection not entirely excluded. PLAN: 1. Rocephin 1 g daily to continue. 2. Gentle IV fluid. 3. Cristóbal wrap to keep the swelling down. 4. We will follow up on clinical condition and culture to further adjust medication if needed. Thank you for this consultation, we will follow this patient along with you. MMODL / IJN: [id number] /
--- NOTE | 2019-02-25 20:36 | P.PN ---
Progress Note - Text Progress Note Date: 02/25/19 Interval history Pleasant 73-year-old patient of Dr. Cleopatra Joshua. In October 2018 she was diagnosed with metastatic stage IV lung cancer with liver masses . Patient has had 3 cycles of keytruda alone, one at the [facility] and 2 here, most recent treatment was on February 21. She had one cycle of Alimta and keytruda at the [facility] but, her hematological toxicities were so severe it was decided to treat with single agent immunotherapy. . Patient at home for last 10 days. Having a viral illness. Appetite has been going down. Has been losing weight. Getting more and more weak and tired. Today-saw the patient this morning. On the medical floor. feeling weak and tired. Remains hypoglycemic. Sugars remaining low. Hyperkalemic. Kayexalate was ordered. IV fluids ordered. Review of systems: Was done for constitutional, cardiovascular, GI, pulmonary. relevant finding as above Active Medications Albuterol Sulfate (Ventolin Nebulized (Conc)) 2.5 mg INHALATION Q4HR PRN PRN Reason: shortness of breath or cough Last Admin: 02/25/19 16:41 Dose: 2.5 mg Documented by: Alprazolam (Xanax) 0.25 mg PO BID PRN PRN Reason: Anxiety Hydromorphone HCl (Dilaudid) 0.5 mg IVP Q6HR PRN PRN Reason: Pain Last Admin: 02/24/19 22:31 Dose: 0.5 mg Documented by: Sodium Chloride (Saline 0.9%) 1,000 mls @ 60 mls/hr IV .[id number] [facility] Last Admin: 02/25/19 14:03 Dose: 60 mls/hr Documented by: Cefepime HCl 1 gm/ Sodium (Chloride) 50 mls @ 100 mls/hr IVPB Q24H RENÉ Sodium Bicarbonate 150 ml/ (Dextrose/Water) 1,150 mls @ 75 mls/hr IV .[id number] [facility] Last Admin: 02/25/19 14:30 Dose: 75 mls/hr Documented by: Albumin Human 50 ml/ IV (Solution) 50 mls @ 50 mls/hr IVPB BID [facility] Stop: 02/26/19 11:01 Last Admin: 02/25/19 14:04 Dose: 50 mls/hr Documented by: Dextrose/Water 500 ml/ IV (Solution) 500 mls @ 50 mls/hr IV .Q10H [facility] Last Admin: 02/25/19 14:28 Dose: 50 mls/hr Documented by: Naloxone HCl (Narcan) 0.2 mg IV Q2M PRN PRN Reason: Opioid Reversal Pantoprazole Sodium (Protonix) 40 mg IVP DAILY [facility] Last Admin: 02/25/19 10:45 Dose: Not Given Documented by: Prednisone () 60 mg PO DAILY [facility] On examination: VITAL SIGNS: Afebrile, 86, 16, 93/62, 96% room air GENERAL APPEARANCE: Frail weak tired sitting upon a chair HEENT: Normal external appearance of nose and ear. Oral cavity dry EYES: Pupils equal. Conjunctiva pale NECK: JVD unable to assess. Mass not palpable. RESPIRATORY: Respiratory effort increased. Lungs decreased breath sounds CARDIOVASCULAR: First and second sounds normal. edema present. ABDOMEN: Soft. Liver and spleen not palpable. No tenderness. No mass palpable. PSYCHIATRY: Alert and oriented x3. Mood and affect tired MUSCULOSKELETAL: Loss of subcutaneous fat INVESTIGATIONS, reviewed in the clinical context: White count 21.8 hemoglobin 13.6 platelets 24 potassium 6.1 bun 70 creatinine 2.65 lactic acid 3.6 sodium 117 AST 3:30 ALT 110 albumin 2.1 UA-positive Influenza a and B both negative Previous labs: Bun 16 creatinine 0.75 on 01/04/2019 Assessment: -Persistent hypoglycemia, from poor oral intake and liver disease, not improving -Stage IV lung cancer with metastatic disease to the liver and to T6-T8, on immunotherapy -Hypoalbuminemia, secondary to liver disease and protein calorie malnutrition -Severe protein calorie malnutrition from poor oral intake -Essential hypertension, history of -Primary osteoarthritis -COPD in a X smoker -Pancytopenia from chemotherapy -Severe Hyponatremia likely hypoosmolar -Medical debility -Chronic congestive heart failure exacerbation from diastolic dysfunction EF 55- 60% -Lactic acidosis type II -Acute renal failure combination of prerenal and possibly ATN -CODE STATUS DO NOT RESUSCITATE. Plan: Patient was initially getting a D5 W. Hospital pharmacy does not have a D10. IV access is been difficult. Kayexalate was ordered. Nephrology is already on the case. Oncology were consulted. Patient be moved to the ICU. On closer monitoring. Patient feeling rather tired. Getting IV fluids. Patient now doing too well. Had a very lengthy discussion with the patient's bedside with both the patient's and daughter. Prognosis is guarded. Case Loader Operator Dr. Gallo was consulted. Patient will probably need a central line. We'll keep a very close eye on patient's close electrolytes. Also discussed with the patient's nurse in the ICU nurse. Depending upon clinical input from oncology outpatient responded to treatment in the ICU will decide further care. Labs to be followed closely. Telemetry. Total time spent for critical care management was 40 minutes, this morning
[2019-02-25] MEDS: CEFEPIME 1 GM in SODIUM CHLORIDE 0.9% 50 ML IVPB SCH (20:49)
[2019-02-25] MEDS: predniSONE 20 MG TAB PO SCH (21:12)
[2019-02-25 21:23] LABS: Calcium 7.6 mg/dL (8.4-10.2); Potassium 5.3 mmol/L (3.5-5.1)
[2019-02-25] MEDS ORDERED: SODIUM CHLORIDE 3%(HYPERTONIC) 500 ML IV SCH (23:15)
[2019-02-26 00:25] LABS: Glucose,Whole Blood 107 mg/dL (75-99)
[2019-02-26] MEDS: HYDROmorphone 0.5 MG/0.5 ML SYRINGE IVP PRN ×2 (02:16→14:47)
[2019-02-26] MEDS: DEXTROSE 10% IN WATER 500 ML in EMPTY BAG 1 BAG IV SCH ×3 (02:19→23:44)
[2019-02-26] MEDS: DEXTROSE 5% IN WATER 1,000 ML with SODIUM BICARB (1 MEQ/ML) 150 ML IV SCH ×2 (05:03→15:23)
[2019-02-26 05:43] LABS: Glucose,Whole Blood 102 mg/dL (75-99)
[2019-02-26 05:58] LABS: Anisocytosis Slight; HCT 33.9 % (34.0-46.0); HGB 11.1 gm/dL (11.4-16.0); MCH 35.1 pg (25.0-35.0); MCHC 32.6 g/dL (31.0-37.0); MCV 107.7 fL (80.0-100.0); Macrocytosis Marked; Mean Platelet Volume 13.8; RBC 3.15 m/uL (3.80-5.40); RDW 17.7 % (11.5-15.5); WBC 14.3 k/uL (3.8-10.6)
[2019-02-26 06:06] LABS: Platelet Count 19 k/uL (150-450)
[2019-02-26 06:09] LABS: Calcium 7.3 mg/dL (8.4-10.2); Potassium 5.1 mmol/L (3.5-5.1); Total Bilirubin 3.6 mg/dL (0.2-1.3); Total Protein 5.4 g/dL (6.3-8.2)
[2019-02-26 06:12] LABS: INR 2.4 (<1.2); Prothrombin Time 23.2 sec (9.0-12.0)
[2019-02-26 06:36] LABS: Band Neutrophils % 2 %; Eosinophils # (M) 0.29 k/uL (0-0.7); Lymphocytes # (M) 0.72 k/uL (1.0-4.8); Monocytes # (M) 0.72 k/uL (0-1.0); Neutrophils % (M) 86 %; Nucleated Red Blood Cells 0 /100 WBC (0-0); Total Cells Counted 100
[2019-02-26] MEDS ORDERED: SODIUM CHLORIDE 3%(HYPERTONIC) 500 ML IV SCH (07:30)
--- NOTE | 2019-02-26 08:40 | XR ---
EXAMINATION TYPE: XR chest 1V portable DATE OF EXAM: 02/26/2019 COMPARISON: 02/24/2019 HISTORY: Shortness of breath TECHNIQUE: Single frontal view of the chest is obtained. FINDINGS: Heart normal size. Scattered cartilage calcifications. Small effusions. Mild hyperinflatio n. Subsegmental consolidation noted bilaterally. Atherosclerotic change aorta. Biapical pleural thick ening. IMPRESSION: 1. COPD with basilar consolidation and small effusions. Correlate for mild venous congestion. Otherwi se consider pneumonia. Findings appear to progressed from prior exam.
--- NOTE | 2019-02-26 08:42 | P.PN ---
Subjective Patient is seen in follow-up for acute kidney injury and electrolyte imbalance. Patient remains quite lethargic. Blood sugars have been low and she is maintained on D10 at 30 mL an hour. Sodium level dropped down to 117 and she did receive 3% saline for about 5 hours last night. Sodium level is 118 this morning. She is also maintained on bicarb drip at this time. Additionally she also received IV albumin yesterday. Renal function is fairly stable. Vital signs are stable. Blood pressures on the lower side. General: The patient appeared well nourished and normally developed. HEENT: Head exam is unremarkable. Neck is without jugular venous distension. LUNGS: Breath sounds decreased. HEART: Rate and Rhythm are regular. First and second heart sounds normal. No murmurs, rubs or gallops. ABDOMEN: Bowel sounds present. Soft. EXTREMITITES: 2+ edema. Objective - Vital Signs Vital signs: Vital Signs Temp 97.5 F L 02/26/19 04:00 Pulse 92 02/26/19 07:00 Resp 16 02/26/19 07:00 BP 91/55 02/26/19 07:00 Pulse Ox 90 L 02/26/19 07:00 Intake & Output 02/25/19 02/26/19 02/26/19 18:59 06:59 18:59 Intake Total 1754 2005 130 Output Total 250 220 35 Balance 1504 1785 95 Weight 57.9 kg 60.2 kg Intake: IV 1770 130 Albumin Human 25% 50 ml 50 In Empty Bag 1 bag @ 50 mls/hr IVPB BID RENÉ Rx#: [id number] Cefepime 1 gm In Sodium 50 Chloride 0.9% 50 ml @ 100 mls/hr IVPB Q24H RENÉ Rx# :[id number] Dextrose 10% in Water 500 280 30 ml In Empty Bag 1 bag @ 50 mls/hr IV .Q10H RENÉ Rx #:[id number] Dextrose 5% in Water 1, 1000 100 000 ml @ 100 mls/hr IV . [id number] RENÉ with Sodium Bicarb (1 Meq/ml) 150 ml Rx#:[id number] Sodium Chloride 0.9% 1, 240 000 ml @ 60 mls/hr IV . [id number] RENÉ Rx#:[id number] Sodium Chloride 3%( 150 Hypertonic) 500 ml @ 30 mls/hr IV .[id number] RENÉ Rx #:[id number] Intake, IV Titration 1604 235 Amount Albumin Human 25% 50 ml 50 In Empty Bag 1 bag @ 50 mls/hr IVPB BID RENÉ Rx#: [id number] Cefepime 1 gm In Sodium 50 Chloride 0.9% 50 ml @ 100 mls/hr IVPB Q24H RENÉ Rx# :[id number] Dextrose 10 % in Water 999 250 ml @ 999 mls/hr IV ONCE STA Rx#:[id number] Dextrose 10% in Water 500 150 50 ml In Empty Bag 1 bag @ 50 mls/hr IV .Q10H RENÉ Rx #:[id number] Dextrose 5% in Water 1, 225 75 000 ml @ 100 mls/hr IV . [id number] RENÉ with Sodium Bicarb (1 Meq/ml) 150 ml Rx#:[id number] Dextrose 5% in Water 1, 180 60 000 ml @ 60 mls/hr IV . [id number] ONE Rx#:[id number] Oral 150 Output: Urine 250 220 35 Other: Voiding Method Indwelling Catheter - Labs CBC & Chem 7: 02/26/19 05:35 02/26/19 05:35 Labs: Abnormal Lab Results - Last 24 Hours (Table) 02/25/19 02/25/19 02/25/19 Range/Units 10:34 11:42 12:02 WBC (3.8-10.6) k/uL RBC (3.80-5.40) m/uL Hgb (11.4-16.0) gm/dL Hct (34.0-46.0) % MCV (80.0-100.0) fL MCH (25.0-35.0) pg RDW (11.5-15.5) % Plt Count (150-450) k/uL Neutrophils # (Manual) (1.3-7.7) k/uL Lymphocytes # (Manual) (1.0-4.8) k/uL Macrocytosis PT (9.0-12.0) sec INR (<1.2) Sodium (137-145) mmol/L Potassium (3.5-5.1) mmol/L Chloride (98-107) mmol/L Carbon Dioxide (22-30) mmol/L BUN (7-17) mg/dL Creatinine (0.52-1.04) mg/dL Glucose (74-99) mg/dL POC Glucose (mg/dL) 61 L 42 L (75-99) mg/dL Plasma Lactic Acid Clint 4.0 H* (0.7-2.0) mmol/L Calcium (8.4-10.2) mg/dL Total Bilirubin (0.2-1.3) mg/dL AST (14-36) U/L ALT (4-34) U/L Alkaline Phosphatase (38-126) U/L Total Protein (6.3-8.2) g/dL Albumin (3.5-5.0) g/dL 02/25/19 02/25/19 02/25/19 Range/Units 12:19 13:40 14:10 WBC (3.8-10.6) k/uL RBC (3.80-5.40) m/uL Hgb (11.4-16.0) gm/dL Hct (34.0-46.0) % MCV (80.0-100.0) fL MCH (25.0-35.0) pg RDW (11.5-15.5) % Plt Count (150-450) k/uL Neutrophils # (Manual) (1.3-7.7) k/uL Lymphocytes # (Manual) (1.0-4.8) k/uL Macrocytosis PT (9.0-12.0) sec INR (<1.2) Sodium (137-145) mmol/L Potassium (3.5-5.1) mmol/L Chloride (98-107) mmol/L Carbon Dioxide (22-30) mmol/L BUN (7-17) mg/dL Creatinine (0.52-1.04) mg/dL Glucose (74-99) mg/dL POC Glucose (mg/dL) 72 L 33 L 218 H (75-99) mg/dL Plasma Lactic Acid Clnit (0.7-2.0) mmol/L Calcium (8.4-10.2) mg/dL Total Bilirubin (0.2-1.3) mg/dL AST (14-36) U/L ALT (4-34) U/L Alkaline Phosphatase (38-126) U/L Total Protein (6.3-8.2) g/dL Albumin (3.5-5.0) g/dL 02/25/19 02/25/19 02/25/19 Range/Units 14:40 18:07 18:50 WBC (3.8-10.6) k/uL RBC (3.80-5.40) m/uL Hgb (11.4-16.0) gm/dL Hct (34.0-46.0) % MCV (80.0-100.0) fL MCH (25.0-35.0) pg RDW (11.5-15.5) % Plt Count (150-450) k/uL Neutrophils # (Manual) (1.3-7.7) k/uL Lymphocytes # (Manual) (1.0-4.8) k/uL Macrocytosis PT (9.0-12.0) sec INR (<1.2) Sodium 117 L* (137-145) mmol/L Potassium (3.5-5.1) mmol/L Chloride 86 L (98-107) mmol/L Carbon Dioxide 18 L (22-30) mmol/L BUN 66 H (7-17) mg/dL Creatinine 2.49 H (0.52-1.04) mg/dL Glucose 193 H (74-99) mg/dL POC Glucose (mg/dL) 63 L (75-99) mg/dL Plasma Lactic Acid Clint 4.2 H* (0.7-2.0) mmol/L Calcium 7.2 L (8.4-10.2) mg/dL Total Bilirubin (0.2-1.3) mg/dL AST (14-36) U/L ALT (4-34) U/L Alkaline Phosphatase (38-126) U/L Total Protein (6.3-8.2) g/dL Albumin (3.5-5.0) g/dL 02/25/19 02/25/19 02/25/19 Range/Units 19:07 20:55 20:55 WBC (3.8-10.6) k/uL RBC (3.80-5.40) m/uL Hgb (11.4-16.0) gm/dL Hct (34.0-46.0) % MCV (80.0-100.0) fL MCH (25.0-35.0) pg RDW (11.5-15.5) % Plt Count (150-450) k/uL Neutrophils # (Manual) (1.3-7.7) k/uL Lymphocytes # (Manual) (1.0-4.8) k/uL Macrocytosis PT (9.0-12.0) sec INR (<1.2) Sodium 117 L* (137-145) mmol/L Potassium 5.3 H (3.5-5.1) mmol/L Chloride 88 L (98-107) mmol/L Carbon Dioxide 16 L (22-30) mmol/L BUN 68 H (7-17) mg/dL Creatinine 2.47 H (0.52-1.04) mg/dL Glucose 67 L (74-99) mg/dL POC Glucose (mg/dL) 474 H (75-99) mg/dL Plasma Lactic Acid Clint 5.1 H* (0.7-2.0) mmol/L Calcium 7.6 L (8.4-10.2) mg/dL Total Bilirubin (0.2-1.3) mg/dL AST (14-36) U/L ALT (4-34) U/L Alkaline Phosphatase (38-126) U/L Total Protein (6.3-8.2) g/dL Albumin (3.5-5.0) g/dL 02/26/19 02/26/19 02/26/19 Range/Units 00:23 02:05 05:35 WBC 14.3 H (3.8-10.6) k/uL RBC 3.15 L (3.80-5.40) m/uL Hgb 11.1 L (11.4-16.0) gm/dL Hct 33.9 L (34.0-46.0) % MCV 107.7 H (80.0-100.0) fL MCH 35.1 H (25.0-35.0) pg RDW 17.7 H (11.5-15.5) % Plt Count 19 L* (150-450) k/uL Neutrophils # (Manual) 12.50 H (1.3-7.7) k/uL Lymphocytes # (Manual) 0.72 L (1.0-4.8) k/uL Macrocytosis Marked A PT (9.0-12.0) sec INR (<1.2) Sodium (137-145) mmol/L Potassium (3.5-5.1) mmol/L Chloride (98-107) mmol/L Carbon Dioxide (22-30) mmol/L BUN (7-17) mg/dL Creatinine (0.52-1.04) mg/dL Glucose (74-99) mg/dL POC Glucose (mg/dL) 107 H (75-99) mg/dL Plasma Lactic Acid Clint 4.4 H* (0.7-2.0) mmol/L Calcium (8.4-10.2) mg/dL Total Bilirubin (0.2-1.3) mg/dL AST (14-36) U/L ALT (4-34) U/L Alkaline Phosphatase (38-126) U/L Total Protein (6.3-8.2) g/dL Albumin (3.5-5.0) g/dL 02/26/19 02/26/19 02/26/19 Range/Units 05:35 05:35 05:42 WBC (3.8-10.6) k/uL RBC (3.80-5.40) m/uL Hgb (11.4-16.0) gm/dL Hct (34.0-46.0) % MCV (80.0-100.0) fL MCH (25.0-35.0) pg RDW (11.5-15.5) % Plt Count (150-450) k/uL Neutrophils # (Manual) (1.3-7.7) k/uL Lymphocytes # (Manual) (1.0-4.8) k/uL Macrocytosis PT 23.2 H (9.0-12.0) sec INR 2.4 H (<1.2) Sodium 118 L* (137-145) mmol/L Potassium (3.5-5.1) mmol/L Chloride 87 L (98-107) mmol/L Carbon Dioxide 20 L (22-30) mmol/L BUN 66 H (7-17) mg/dL Creatinine 2.33 H (0.52-1.04) mg/dL Glucose (74-99) mg/dL POC Glucose (mg/dL) 102 H (75-99) mg/dL Plasma Lactic Acid Clint (0.7-2.0) mmol/L Calcium 7.3 L (8.4-10.2) mg/dL Total Bilirubin 3.6 H (0.2-1.3) mg/dL AST 229 H (14-36) U/L ALT 88 H (4-34) U/L Alkaline Phosphatase 685 H (38-126) U/L Total Protein 5.4 L (6.3-8.2) g/dL Albumin 2.0 L (3.5-5.0) g/dL Microbiology - Last 24 Hours (Table) 02/25/19 17:50 Urine Culture - Preliminary Urine,Catheterized 02/24/19 13:19 Blood Culture - Preliminary Blood No Growth after 24 hours Assessment and Plan Plan: Assessment: 1. Acute kidney injury secondary to ATN secondary to hypotension. Creatinine 2.7 on admission and is a little improved at 2.33 today. No hydronephrosis noted on CAT scan. 2. Hyponatremia. Patient is hypervolemic which is due to third spacing from hypoalbuminemia. 3. Hyperkalemia secondary to acute kidney injury, metabolic acidosis, use of Aldactone and potassium supplementation. Better. 4. Metabolic acidosis secondary to acute kidney injury and lactic acidosis. Better. 5. Lactic acidosis secondary to hypotension and metastatic liver disease. Plan: Maintain bicarb drip for now - will Hep-Lock later today. Resume 3% saline. Repeat 25 g IV albumin 2 doses today. 1200 mL fluid restriction. Encouraged oral intake, particularly solute. Avoid nephrotoxins. Continue to monitor renal function and urine output. Repeat BMP at noon. Discussed with the fiber optic assembler.
[2019-02-26] MEDS: PANTOPRAZOLE 40 MG/10 ML VIAL IVP SCH (08:52)
[2019-02-26] MEDS: predniSONE 20 MG TAB PO SCH ×2 (08:52→10:15)
--- NOTE | 2019-02-26 09:23 | P.PN ---
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 The patient also was found to be in acute kidney injury and was having electrodes imbalance. Specifically, the patient was noted to have sodium level of 122 with a potassium level of 6.1. The patient's BUN was up to 70 with a creatinine of 2.6 from a normal based on January 2019. The patient was also having episodes of hypoglycemia. Her blood sugar was 72 and dropped down to the 40s and the pa sergio was given an amp of D50 and following that she was transferred to the intensive care unit. LFTs are abnormal as the patient has hepatic metastases. Alkaline phosphatase is elevated at 894 with AST of 338 and ALT of 110. Her total serum protein was 6.3 with an albumin of 2.1. The proBNP level was 7730. Echo was elevated at 21. Hemoglobin is at 13.6 and the CAT scan of the abdomen and pelvis was done yesterday showed multiple metastatic lesions scattered throughout the liver that appeared to be larger compared to the previous CAT scan from October 2018 for comparison. There was some free fluid within the pelvis. There was some nonspecific small bowel loops within the pelvis. In terms of lung cancer, the patient was diagnosed having metastatic stage IV lung cancer, adenocarcinoma with extensive liver metastases and adrenal involvement. The patient was seen at the oncology Department [facility]. The patient was given a combination of carboplatinum and Alimta and a dose of Keytruda . Since then, the patient got extremely sick. She has required transfusions with platelets in the emergency department. She became progressively more weak and the chain was supple and she has not received any treatment since. Says that she was also switched her care to Dr Nunez On 02/26/2019 seeing the patient for a follow-up. In terms of her overall condition, the patient is down slightly better compared to yesterday. She seems to be a bit more alert. She is on a D10 infusion running at the rate of 30 mL an hour and her sugars have stabilized and her most recent blood sugar is at 98. Sodium level is at 118 and the patient is receiving hypertonic solution 3% matthew ine at the rate of 30 mL an hour. She is also on a bicarb infusion. Serum bicarb is up to 20 and the creatinine is down to 2.3. No major edema lower extremities. Nevertheless, LFTs remain abnormal, lactic acid remains elevated, she is still coagulopathic and this is upsetting related to liver in sufficiency/failure due to extensive metastatic disease involving the liver. Her serum cortisol is a 28. Family is at the bedside. Oral intake is minimal and it's mainly limited to Jell-O and liquids. Objective - Vital Signs Vital signs: Vital Signs Temp 96 F L 02/26/19 08:00 Pulse 98 02/26/19 09:00 Resp 14 02/26/19 09:00 BP 103/67 02/26/19 09:00 Pulse Ox 94 L 02/26/19 09:00 Intake & Output 02/25/19 02/26/19 02/26/19 18:59 06:59 18:59 Intake Total 1754 2005 610 Output Total 250 220 80 Balance 1504 1785 530 Weight 57.9 kg 60.2 kg Intake: IV 1770 490 Albumin Human 25% 50 ml 50 In Empty Bag 1 bag @ 50 mls/hr IVPB BID RENÉ Rx#: [id number] Cefepime 1 gm In Sodium 50 Chloride 0.9% 50 ml @ 100 mls/hr IVPB Q24H RENÉ Rx# :[id number] Dextrose 10% in Water 500 280 130 ml In Empty Bag 1 bag @ 50 mls/hr IV .Q10H RENÉ Rx #:[id number] Dextrose 5% in Water 1, 1000 300 000 ml @ 100 mls/hr IV . [id number] RENÉ with Sodium Bicarb (1 Meq/ml) 150 ml Rx#:[id number] Sodium Chloride 0.9% 1, 240 000 ml @ 60 mls/hr IV . [id number] RENÉ Rx#:[id number] Sodium Chloride 3%( 150 60 Hypertonic) 500 ml @ 30 mls/hr IV .[id number] RENÉ Rx #:[id number] Intake, IV Titration 1604 235 Amount Albumin Human 25% 50 ml 50 In Empty Bag 1 bag @ 50 mls/hr IVPB BID RENÉ Rx#: [id number] Cefepime 1 gm In Sodium 50 Chloride 0.9% 50 ml @ 100 mls/hr IVPB Q24H RENÉ Rx# :[id number] Dextrose 10 % in Water 999 250 ml @ 999 mls/hr IV ONCE STA Rx#:[id number] Dextrose 10% in Water 500 150 50 ml In Empty Bag 1 bag @ 50 mls/hr IV .Q10H RENÉ Rx #:[id number] Dextrose 5% in Water 1, 225 75 000 ml @ 100 mls/hr IV . [id number] RENÉ with Sodium Bicarb (1 Meq/ml) 150 ml Rx#:[id number] Dextrose 5% in Water 1, 180 60 000 ml @ 60 mls/hr IV . [id number] ONE Rx#:[id number] Oral 150 Tube Feeding 120 Output: Urine 250 220 80 Other: Voiding Method Indwelling Catheter - Exam GENERAL EXAM: Alert, 73-year-old female patient, the patient is doing poorly and she is quite uncomfortable even at rest. She is not in acute respiratory distress however she looks quite cachectic and emaciated and she has lost considerable amount of weight. HEAD: Normocephalic. EYES: Normal reaction of pupils, equal size. NOSE: Clear with pink turbinates. THROAT: No erythema or exudates. NECK: No masses, no JVD. CHEST: No chest wall deformity. LUNGS: Equal air entry with crackles in the posterior bases, diminished. CVS: S1 and S2 normal with no audible murmur, regular rhythm. ABDOMEN: No hepatosplenomegaly, normal bowel sounds, no guarding or rigidity. SPINE: No scoliosis or deformity SKIN: No rashes CENTRAL NERVOUS SYSTEM: No focal deficits, tone is normal in all 4 extremities. EXTREMITIES: There is 1-2+ peripheral edema. No clubbing, no cyanosis. Peripheral p - Labs CBC & Chem 7: 02/26/19 05:35 02/26/19 05:35 Labs: Abnormal Lab Results - Last 24 Hours (Table) 02/25/19 02/25/19 02/25/19 Range/Units 10:34 11:42 12:02 WBC (3.8-10.6) k/uL RBC (3.80-5.40) m/uL Hgb (11.4-16.0) gm/dL Hct (34.0-46.0) % MCV (80.0-100.0) fL MCH (25.0-35.0) pg RDW (11.5-15.5) % Plt Count (150-450) k/uL Neutrophils # (Manual) (1.3-7.7) k/uL Lymphocytes # (Manual) (1.0-4.8) k/uL Macrocytosis PT (9.0-12.0) sec INR (<1.2) Sodium (137-145) mmol/L Potassium (3.5-5.1) mmol/L Chloride (98-107) mmol/L Carbon Dioxide (22-30) mmol/L BUN (7-17) mg/dL Creatinine (0.52-1.04) mg/dL Glucose (74-99) mg/dL POC Glucose (mg/dL) 61 L 42 L (75-99) mg/dL Plasma Lactic Acid Clint 4.0 H* (0.7-2.0) mmol/L Calcium (8.4-10.2) mg/dL Total Bilirubin (0.2-1.3) mg/dL AST (14-36) U/L ALT (4-34) U/L Alkaline Phosphatase (38-126) U/L Total Protein (6.3-8.2) g/dL Albumin (3.5-5.0) g/dL 02/25/19 02/25/19 02/25/19 Range/Units 12:19 13:40 14:10 WBC (3.8-10.6) k/uL RBC (3.80-5.40) m/uL Hgb (11.4-16.0) gm/dL Hct (34.0-46.0) % MCV (80.0-100.0) fL MCH (25.0-35.0) pg RDW (11.5-15.5) % Plt Count (150-450) k/uL Neutrophils # (Manual) (1.3-7.7) k/uL Lymphocytes # (Manual) (1.0-4.8) k/uL Macrocytosis PT (9.0-12.0) sec INR (<1.2) Sodium (137-145) mmol/L Potassium (3.5-5.1) mmol/L Chloride (98-107) mmol/L Carbon Dioxide (22-30) mmol/L BUN (7-17) mg/dL Creatinine (0.52-1.04) mg/dL Glucose (74-99) mg/dL POC Glucose (mg/dL) 72 L 33 L 218 H (75-99) mg/dL Plasma Lactic Acid Clint (0.7-2.0) mmol/L Calcium (8.4-10.2) mg/dL Total Bilirubin (0.2-1.3) mg/dL AST (14-36) U/L ALT (4-34) U/L Alkaline Phosphatase (38-126) U/L Total Protein (6.3-8.2) g/dL Albumin (3.5-5.0) g/dL 02/25/19 02/25/19 02/25/19 Range/Units 14:40 18:07 18:50 WBC (3.8-10.6) k/uL RBC (3.80-5.40) m/uL Hgb (11.4-16.0) gm/dL Hct (34.0-46.0) % MCV (80.0-100.0) fL MCH (25.0-35.0) pg RDW (11.5-15.5) % Plt Count (150-450) k/uL Neutrophils # (Manual) (1.3-7.7) k/uL Lymphocytes # (Manual) (1.0-4.8) k/uL Macrocytosis PT (9.0-12.0) sec INR (<1.2) Sodium 117 L* (137-145) mmol/L Potassium (3.5-5.1) mmol/L Chloride 86 L (98-107) mmol/L Carbon Dioxide 18 L (22-30) mmol/L BUN 66 H (7-17) mg/dL Creatinine 2.49 H (0.52-1.04) mg/dL Glucose 193 H (74-99) mg/dL POC Glucose (mg/dL) 63 L (75-99) mg/dL Plasma Lactic Acid Clint 4.2 H* (0.7-2.0) mmol/L Calcium 7.2 L (8.4-10.2) mg/dL Total Bilirubin (0.2-1.3) mg/dL AST (14-36) U/L ALT (4-34) U/L Alkaline Phosphatase (38-126) U/L Total Protein (6.3-8.2) g/dL Albumin (3.5-5.0) g/dL 02/25/19 02/25/19 02/25/19 Range/Units 19:07 20:55 20:55 WBC (3.8-10.6) k/uL RBC (3.80-5.40) m/uL Hgb (11.4-16.0) gm/dL Hct (34.0-46.0) % MCV (80.0-100.0) fL MCH (25.0-35.0) pg RDW (11.5-15.5) % Plt Count (150-450) k/uL Neutrophils # (Manual) (1.3-7.7) k/uL Lymphocytes # (Manual) (1.0-4.8) k/uL Macrocytosis PT (9.0-12.0) sec INR (<1.2) Sodium 117 L* (137-145) mmol/L Potassium 5.3 H (3.5-5.1) mmol/L Chloride 88 L (98-107) mmol/L Carbon Dioxide 16 L (22-30) mmol/L BUN 68 H (7-17) mg/dL Creatinine 2.47 H (0.52-1.04) mg/dL Glucose 67 L (74-99) mg/dL POC Glucose (mg/dL) 474 H (75-99) mg/dL Plasma Lactic Acid Clint 5.1 H* (0.7-2.0) mmol/L Calcium 7.6 L (8.4-10.2) mg/dL Total Bilirubin (0.2-1.3) mg/dL AST (14-36) U/L ALT (4-34) U/L Alkaline Phosphatase (38-126) U/L Total Protein (6.3-8.2) g/dL Albumin (3.5-5.0) g/dL 02/26/19 02/26/19 02/26/19 Range/Units 00:23 02:05 05:35 WBC 14.3 H (3.8-10.6) k/uL RBC 3.15 L (3.80-5.40) m/uL Hgb 11.1 L (11.4-16.0) gm/dL Hct 33.9 L (34.0-46.0) % MCV 107.7 H (80.0-100.0) fL MCH 35.1 H (25.0-35.0) pg RDW 17.7 H (11.5-15.5) % Plt Count 19 L* (150-450) k/uL Neutrophils # (Manual) 12.50 H (1.3-7.7) k/uL Lymphocytes # (Manual) 0.72 L (1.0-4.8) k/uL Macrocytosis Marked A PT (9.0-12.0) sec INR (<1.2) Sodium (137-145) mmol/L Potassium (3.5-5.1) mmol/L Chloride (98-107) mmol/L Carbon Dioxide (22-30) mmol/L BUN (7-17) mg/dL Creatinine (0.52-1.04) mg/dL Glucose (74-99) mg/dL POC Glucose (mg/dL) 107 H (75-99) mg/dL Plasma Lactic Acid Clint 4.4 H* (0.7-2.0) mmol/L Calcium (8.4-10.2) mg/dL Total Bilirubin (0.2-1.3) mg/dL AST (14-36) U/L ALT (4-34) U/L Alkaline Phosphatase (38-126) U/L Total Protein (6.3-8.2) g/dL Albumin (3.5-5.0) g/dL 02/26/19 02/26/19 02/26/19 Range/Units 05:35 05:35 05:42 WBC (3.8-10.6) k/uL RBC (3.80-5.40) m/uL Hgb (11.4-16.0) gm/dL Hct (34.0-46.0) % MCV (80.0-100.0) fL MCH (25.0-35.0) pg RDW (11.5-15.5) % Plt Count (150-450) k/uL Neutrophils # (Manual) (1.3-7.7) k/uL Lymphocytes # (Manual) (1.0-4.8) k/uL Macrocytosis PT 23.2 H (9.0-12.0) sec INR 2.4 H (<1.2) Sodium 118 L* (137-145) mmol/L Potassium (3.5-5.1) mmol/L Chloride 87 L (98-107) mmol/L Carbon Dioxide 20 L (22-30) mmol/L BUN 66 H (7-17) mg/dL Creatinine 2.33 H (0.52-1.04) mg/dL Glucose (74-99) mg/dL POC Glucose (mg/dL) 102 H (75-99) mg/dL Plasma Lactic Acid Clint (0.7-2.0) mmol/L Calcium 7.3 L (8.4-10.2) mg/dL Total Bilirubin 3.6 H (0.2-1.3) mg/dL AST 229 H (14-36) U/L ALT 88 H (4-34) U/L Alkaline Phosphatase 685 H (38-126) U/L Total Protein 5.4 L (6.3-8.2) g/dL Albumin 2.0 L (3.5-5.0) g/dL Microbiology - Last 24 Hours (Table) 02/25/19 17:50 Urine Culture - Preliminary Urine,Catheterized 02/24/19 13:19 Blood Culture - Preliminary Blood No Growth after 24 hours Assessment and Plan Plan: 1 stage IV metastatic adenocarcinoma of the lung with extensive liver involvement, treated with this cycle of systemic chemotherapy and immunotherapy with subsequent failure of treatment due to side effects and worsening of the performance and functional status 2 acute hypoglycemia secondary to hepatitic failure/insufficiency due to metastatic disease 3 acute leukocytosis 4 acute kidney injury likely secondary to intravascular volume depletion/dehydration 5 acute hyperkalemia 6 chronic lower extremity edema with worsening in lower extremity swelling 7 COPD 8 hypertension 9 hyperlipidemia 10 chronic anxiety 11 osteoarthritis 12 lactic acidosis secondary to hepatitic insufficiency/liver failure Plan This is an extremely poor situation. The patient is an obvious liver failure. Adjustments are being made to continue her course with 3% hypertonic saline and in the 10 infusion and a bicarb infusion. Unfortunately, this will be a limited intervention. I personally do not think there is any component of immunotherapy induced hepatitis. Her liver is from April the with solid tumor/malignancy. She is awake. She is coagulopathic. She does have a mild degree of encephalopathy. Check an ammonia level on her. Check a coagulation profile on her. Given 10 of vitamin K. Prognosis poor.
[2019-02-26] MEDS ORDERED: PHYTONADIONE 10 MG in SODIUM CHLORIDE 0.9% 50 ML IVPB STA (09:24)
[2019-02-26] MEDS: ALBUMIN HUMAN 25% 50 ML in EMPTY BAG 1 BAG IVPB SCH ×3 (11:04→15:22)
[2019-02-26] MEDS ORDERED: ALBUMIN HUMAN 25% 50 ML in EMPTY BAG 1 BAG IVPB ONE (11:15)
[2019-02-26 13:11] LABS: Calcium 7.1 mg/dL (8.4-10.2); Potassium 4.8 mmol/L (3.5-5.1)
[2019-02-26 13:16] LABS: Lactic Acid, Venous 3.7 mmol/L (0.7-2.0)
--- NOTE | 2019-02-26 16:33 | P.PN ---
Subjective Progress Note Date: 02/26/19 Principal diagnosis: weakness, NSCLC, metastatic In f/u today pt denies pain, nose bleeding, LUCILA, nausea, diarrhea, her swelling is improving, she is under warming blanket, her leg cramping is less. Her family does not report any confusion Objective - Vital Signs Vital signs: Vital Signs Temp 97.5 F L 02/26/19 12:00 Pulse 101 H 02/26/19 15:00 Resp 20 02/26/19 15:00 BP 91/53 02/26/19 15:00 Pulse Ox 98 02/26/19 15:00 Intake & Output 02/25/19 02/26/19 02/26/19 18:59 06:59 18:59 Intake Total 1754 2005 1840 Output Total 250 220 235 Balance 1504 1785 1605 Weight 57.9 kg 60.2 kg Intake: IV 1770 1640 Albumin Human 25% 50 ml 50 200 In Empty Bag 1 bag @ 50 mls/hr IVPB BID RENÉ Rx#: [id number] Cefepime 1 gm In Sodium 50 Chloride 0.9% 50 ml @ 100 mls/hr IVPB Q24H RENÉ Rx# :[id number] Dextrose 10% in Water 500 280 270 ml In Empty Bag 1 bag @ 50 mls/hr IV .Q10H RENÉ Rx #:[id number] Dextrose 5% in Water 1, 1000 900 000 ml @ 100 mls/hr IV . [id number] RENÉ with Sodium Bicarb (1 Meq/ml) 150 ml Rx#:[id number] Sodium Chloride 0.9% 1, 240 000 ml @ 60 mls/hr IV . [id number] RENÉ Rx#:[id number] Sodium Chloride 3%( 150 270 Hypertonic) 500 ml @ 30 mls/hr IV .[id number] RENÉ Rx #:[id number] Intake, IV Titration 1604 235 80 Amount Albumin Human 25% 50 ml 50 In Empty Bag 1 bag @ 50 mls/hr IVPB BID RENÉ Rx#: [id number] Cefepime 1 gm In Sodium 50 Chloride 0.9% 50 ml @ 100 mls/hr IVPB Q24H RENÉ Rx# :[id number] Dextrose 10 % in Water 999 250 ml @ 999 mls/hr IV ONCE STA Rx#:[id number] Dextrose 10% in Water 500 30 ml In Empty Bag 1 bag @ 30 mls/hr IV .[id number] RENÉ Rx#:[id number] Dextrose 10% in Water 500 150 50 ml In Empty Bag 1 bag @ 50 mls/hr IV .Q10H RENÉ Rx #:[id number] Dextrose 5% in Water 1, 225 75 000 ml @ 100 mls/hr IV . [id number] RENÉ with Sodium Bicarb (1 Meq/ml) 150 ml Rx#:[id number] Dextrose 5% in Water 1, 180 60 000 ml @ 60 mls/hr IV . [id number] ONE Rx#:[id number] Phytonadione 10 mg In 50 Sodium Chloride 0.9% 50 ml @ 100 mls/hr IVPB ONCE STA Rx#:[id number] Oral 150 Tube Feeding 120 Output: Urine 250 220 235 Other: Voiding Method Indwelling Catheter Indwelling Catheter - Constitutional General appearance: Present: cooperative, no acute distress, thin - EENT Eyes: Present: anicteric sclerae, EOMI ENT: Present: hearing grossly normal - Respiratory Respiratory: bilateral: CTA, diminished - Cardiovascular Heart sounds: normal: S1, S2 Abnormal Heart Sounds: Absent: systolic murmur, diastolic murmur, rub, S3 Gallop, S4 Gallop, click, other - Peripheral edema leg Peripheral Edema: bilateral: 1+ - Gastrointestinal General gastrointestinal: Present: normal bowel sounds, soft - Neurologic Neurologic: Present: CNII-XII intact - Musculoskeletal Musculoskeletal: Present: generalized weakness - Psychiatric Psychiatric: Present: A&O x's 3, appropriate affect, intact judgment & insight - Labs CBC & Chem 7: 02/26/19 05:35 02/26/19 12:45 Labs: Abnormal Lab Results - Last 24 Hours (Table) 02/25/19 02/25/19 02/25/19 Range/Units 18:07 18:50 19:07 WBC (3.8-10.6) k/uL RBC (3.80-5.40) m/uL Hgb (11.4-16.0) gm/dL Hct (34.0-46.0) % MCV (80.0-100.0) fL MCH (25.0-35.0) pg RDW (11.5-15.5) % Plt Count (150-450) k/uL Neutrophils # (Manual) (1.3-7.7) k/uL Lymphocytes # (Manual) (1.0-4.8) k/uL Macrocytosis PT (9.0-12.0) sec INR (<1.2) Sodium 117 L* (137-145) mmol/L Potassium (3.5-5.1) mmol/L Chloride 86 L (98-107) mmol/L Carbon Dioxide 18 L (22-30) mmol/L BUN 66 H (7-17) mg/dL Creatinine 2.49 H (0.52-1.04) mg/dL Glucose 193 H (74-99) mg/dL POC Glucose (mg/dL) 63 L 474 H (75-99) mg/dL Plasma Lactic Acid Clint (0.7-2.0) mmol/L Calcium 7.2 L (8.4-10.2) mg/dL Total Bilirubin (0.2-1.3) mg/dL AST (14-36) U/L ALT (4-34) U/L Alkaline Phosphatase (38-126) U/L Total Protein (6.3-8.2) g/dL Albumin (3.5-5.0) g/dL 02/25/19 02/25/19 02/26/19 Range/Units 20:55 20:55 00:23 WBC (3.8-10.6) k/uL RBC (3.80-5.40) m/uL Hgb (11.4-16.0) gm/dL Hct (34.0-46.0) % MCV (80.0-100.0) fL MCH (25.0-35.0) pg RDW (11.5-15.5) % Plt Count (150-450) k/uL Neutrophils # (Manual) (1.3-7.7) k/uL Lymphocytes # (Manual) (1.0-4.8) k/uL Macrocytosis PT (9.0-12.0) sec INR (<1.2) Sodium 117 L* (137-145) mmol/L Potassium 5.3 H (3.5-5.1) mmol/L Chloride 88 L (98-107) mmol/L Carbon Dioxide 16 L (22-30) mmol/L BUN 68 H (7-17) mg/dL Creatinine 2.47 H (0.52-1.04) mg/dL Glucose 67 L (74-99) mg/dL POC Glucose (mg/dL) 107 H (75-99) mg/dL Plasma Lactic Acid Clint 5.1 H* (0.7-2.0) mmol/L Calcium 7.6 L (8.4-10.2) mg/dL Total Bilirubin (0.2-1.3) mg/dL AST (14-36) U/L ALT (4-34) U/L Alkaline Phosphatase (38-126) U/L Total Protein (6.3-8.2) g/dL Albumin (3.5-5.0) g/dL 02/26/19 02/26/19 02/26/19 Range/Units 02:05 05:35 05:35 WBC 14.3 H (3.8-10.6) k/uL RBC 3.15 L (3.80-5.40) m/uL Hgb 11.1 L (11.4-16.0) gm/dL Hct 33.9 L (34.0-46.0) % MCV 107.7 H (80.0-100.0) fL MCH 35.1 H (25.0-35.0) pg RDW 17.7 H (11.5-15.5) % Plt Count 19 L* (150-450) k/uL Neutrophils # (Manual) 12.50 H (1.3-7.7) k/uL Lymphocytes # (Manual) 0.72 L (1.0-4.8) k/uL Macrocytosis Marked A PT 23.2 H (9.0-12.0) sec INR 2.4 H (<1.2) Sodium (137-145) mmol/L Potassium (3.5-5.1) mmol/L Chloride (98-107) mmol/L Carbon Dioxide (22-30) mmol/L BUN (7-17) mg/dL Creatinine (0.52-1.04) mg/dL Glucose (74-99) mg/dL POC Glucose (mg/dL) (75-99) mg/dL Plasma Lactic Acid Clint 4.4 H* (0.7-2.0) mmol/L Calcium (8.4-10.2) mg/dL Total Bilirubin (0.2-1.3) mg/dL AST (14-36) U/L ALT (4-34) U/L Alkaline Phosphatase (38-126) U/L Total Protein (6.3-8.2) g/dL Albumin (3.5-5.0) g/dL 02/26/19 02/26/19 02/26/19 Range/Units 05:35 05:42 12:45 WBC (3.8-10.6) k/uL RBC (3.80-5.40) m/uL Hgb (11.4-16.0) gm/dL Hct (34.0-46.0) % MCV (80.0-100.0) fL MCH (25.0-35.0) pg RDW (11.5-15.5) % Plt Count (150-450) k/uL Neutrophils # (Manual) (1.3-7.7) k/uL Lymphocytes # (Manual) (1.0-4.8) k/uL Macrocytosis PT (9.0-12.0) sec INR (<1.2) Sodium 118 L* (137-145) mmol/L Potassium (3.5-5.1) mmol/L Chloride 87 L (98-107) mmol/L Carbon Dioxide 20 L (22-30) mmol/L BUN 66 H (7-17) mg/dL Creatinine 2.33 H (0.52-1.04) mg/dL Glucose (74-99) mg/dL POC Glucose (mg/dL) 102 H (75-99) mg/dL Plasma Lactic Acid Clint 3.7 H* (0.7-2.0) mmol/L Calcium 7.3 L (8.4-10.2) mg/dL Total Bilirubin 3.6 H (0.2-1.3) mg/dL AST 229 H (14-36) U/L ALT 88 H (4-34) U/L Alkaline Phosphatase 685 H (38-126) U/L Total Protein 5.4 L (6.3-8.2) g/dL Albumin 2.0 L (3.5-5.0) g/dL 02/26/19 Range/Units 12:45 WBC (3.8-10.6) k/uL RBC (3.80-5.40) m/uL Hgb (11.4-16.0) gm/dL Hct (34.0-46.0) % MCV (80.0-100.0) fL MCH (25.0-35.0) pg RDW (11.5-15.5) % Plt Count (150-450) k/uL Neutrophils # (Manual) (1.3-7.7) k/uL Lymphocytes # (Manual) (1.0-4.8) k/uL Macrocytosis PT (9.0-12.0) sec INR (<1.2) Sodium 120 L (137-145) mmol/L Potassium (3.5-5.1) mmol/L Chloride 87 L (98-107) mmol/L Carbon Dioxide (22-30) mmol/L BUN 65 H (7-17) mg/dL Creatinine 2.08 H (0.52-1.04) mg/dL Glucose 164 H (74-99) mg/dL POC Glucose (mg/dL) (75-99) mg/dL Plasma Lactic Acid Clint (0.7-2.0) mmol/L Calcium 7.1 L (8.4-10.2) mg/dL Total Bilirubin (0.2-1.3) mg/dL AST (14-36) U/L ALT (4-34) U/L Alkaline Phosphatase (38-126) U/L Total Protein (6.3-8.2) g/dL Albumin (3.5-5.0) g/dL Microbiology - Last 24 Hours (Table) 02/24/19 13:19 Blood Culture - Preliminary Blood No Growth after 48 hours 02/25/19 17:50 Urine Culture - Preliminary Urine,Catheterized - Imaging and Cardiology Chest x-ray: report reviewed Assessment and Plan (1) Weakness Narrative/Plan: Admitting diagnosis. Less distress today. Corrective actions continue. Begin PT/OT DEQUAN once pt feeling a little better Current Visit: Yes Status: Acute Priority: High Code(s): R53.1 - WEAKNESS SNOMED Code(s): 04180578 (2) Liver metastases Current Visit: Yes Status: Acute Priority: High Code(s): C78.7 - SECONDARY MALIG NEOPLASM OF LIVER AND INTRAHEPATIC BILE DUCT SNOMED Code(s): 47391301 (3) Metastatic lung cancer (metastasis from lung to other site) Current Visit: Yes Status: Acute Priority: High Code(s): C34.90 - MALIGNANT NEOPLASM OF UNSP PART OF UNSP BRONCHUS OR LUNG SNOMED Code(s): 88483662 (4) Coagulopathy Narrative/Plan: Secondary to liver dysfunction, lack of oral intake. Vit K was administered, there are orders for INR monitoring Current Visit: Yes Status: Acute Priority: High Code(s): D68.9 - COAGULATION DEFECT, UNSPECIFIED SNOMED Code(s): 99231768 (5) Acute renal insufficiency Narrative/Plan: Nephrology following and managing Current Visit: Yes Status: Acute Priority: High Code(s): N28.9 - DISORDER OF KIDNEY AND URETER, UNSPECIFIED SNOMED Code(s): 253649981 Plan: Patient has had 3 cycles of keytruda alone, one at the [facility] and 2 here, most recent treatment was on February 21. She had one cycle of Alimta and keytruda at the [facility] but, her hematological toxicities were so severe it was decided to treat with single agent immunotherapy. 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 Aldosterone, renin and cortisol levels have been requested. Consult for [facility] pending. Prednisone initiated (pt family refused dose last night, pt will get 1st dose today). CMP daily. CT of the abdomen and pelvis is being compared to one back in October. Scan was done almost 2 months before the patient began any therapy so, cannot be certain if there was progression prior to starting treatment, pseudoprogression, if she is experiencing immunotherapy related hepatitis or if this is disease progression. Steroids initiated, lab monitoring and continue supportive care as directed by Critical Care team. We will see how pt improves over the next several days. Pt and family verbalized understanding situation as well as what can be expected based on underlying cause of her condition. We are all in agreement that we will have further discussions based on pt progress over the next few days
[2019-02-26] MEDS: HYDROCORTISONE SUCCINATE 100 MG/2 ML VIAL IV SCH ×2 (16:39→21:14)
[2019-02-26] MEDS ORDERED: HYDROCORTISONE SUCCINATE 100 MG/2 ML VIAL IV SCH (17:00)
[2019-02-26 18:36] LABS: Calcium 7.3 mg/dL (8.4-10.2); Potassium 4.9 mmol/L (3.5-5.1)
--- NOTE | 2019-02-26 19:34 | P.PN ---
Progress Note - Text Progress Note Date: 02/26/19 Interval history Pleasant 73-year-old patient of Dr. Cleopatra Joshua. In October 2018 she was diagnosed with metastatic stage IV lung cancer with liver masses . Patient has had 3 cycles of keytruda alone, one at the [facility] and 2 here, most recent treatment was on February 21. She had one cycle of Alimta and keytruda at the [facility] but, her hematological toxicities were so severe it was decided to treat with single agent immunotherapy. . Patient at home for last 10 days. Having a viral illness. Appetite has been going down. Has been losing weight. Getting more and more weak and tired. Patient was transferred to the ICU on February 25. Today-in the ICU. Getting D10 drip, bicarbonate drip, and hypertonic saline. Patient did tolerate some liquid diet. Patient's 2 daughters and at the bedside. Tired Review of systems: Was done for constitutional, cardiovascular, GI, pulmonary. relevant finding as above Active Medications Active Medications Albuterol Sulfate (Ventolin Nebulized (Conc)) 2.5 mg INHALATION Q4HR PRN PRN Reason: shortness of breath or cough Last Admin: 02/25/19 16:41 Dose: 2.5 mg Documented by: Alprazolam (Xanax) 0.25 mg PO BID PRN PRN Reason: Anxiety Hydrocortisone Sodium Succinate (Solu-Cortef) 100 mg IV Q12HR [facility] Last Admin: 02/26/19 16:39 Dose: Not Given Documented by: Hydromorphone HCl (Dilaudid) 0.5 mg IVP Q6HR PRN PRN Reason: Pain Last Admin: 02/26/19 14:47 Dose: 0.5 mg Documented by: Cefepime HCl 1 gm/ Sodium (Chloride) 50 mls @ 100 mls/hr IVPB Q24H [facility] Last Admin: 02/25/19 20:49 Dose: 100 mls/hr Documented by: Sodium Bicarbonate 150 ml/ (Dextrose/Water) 1,150 mls @ 100 mls/hr IV .[id number] [facility] Last Admin: 02/26/19 15:23 Dose: 100 mls/hr Documented by: Dextrose/Water 500 ml/ IV (Solution) 500 mls @ 30 mls/hr IV .[id number] [facility] Last Admin: 02/26/19 07:02 Dose: 30 mls/hr Documented by: Sodium Chloride (Hypertonic) (Saline 3% (Hypertonic)) 500 mls @ 30 mls/hr IV .[id number] [facility]; Protocol Stop: 02/27/19 07:31 Last Admin: 02/26/19 08:52 Dose: 30 mls/hr Documented by: Naloxone HCl (Narcan) 0.2 mg IV Q2M PRN PRN Reason: Opioid Reversal Pantoprazole Sodium (Protonix) 40 mg IVP DAILY [facility] Last Admin: 02/26/19 08:52 Dose: 40 mg Documented by: On examination: VITAL SIGNS: 97.5, 100, 16, 72/47, 100% room air GENERAL APPEARANCE: Frail weak tired, laying bed HEENT: Normal external appearance of nose and ear. Oral cavity dry EYES: Pupils equal. Conjunctiva pale NECK: JVD unable to assess. Mass not palpable. RESPIRATORY: Respiratory effort increased. Lungs decreased breath sounds CARDIOVASCULAR: First and second sounds normal. edema present. ABDOMEN: Soft. Liver and spleen not palpable. No tenderness. No mass palpable. PSYCHIATRY: Alert and oriented x3. Mood and affect tired MUSCULOSKELETAL: Loss of subcutaneous fat DERMATOLOGICAL: Some bruising INVESTIGATIONS, reviewed in the clinical context: White count 14.3 hemoglobin 11.1 platelets 19 sodium 118 potassium 5.1 bun 66 creatinine 2.33 Previous testing White count 21.8 hemoglobin 13.6 platelets 24 potassium 6.1 bun 70 creatinine 2.65 lactic acid 3.6 sodium 117 AST 3:30 ALT 110 albumin 2.1 UA-positive Influenza a and B both negative Previous labs: Bun 16 creatinine 0.75 on 01/04/2019 Assessment: -Persistent hypoglycemia, from poor oral intake and liver disease, responding to D10 drip -Stage IV lung cancer with metastatic disease to the liver and to T6-T8, on immunotherapy -Hypoalbuminemia, secondary to liver disease and protein calorie malnutrition -Severe protein calorie malnutrition from poor oral intake -Essential hypertension, history of -Primary osteoarthritis -COPD in a X smoker -Pancytopenia from chemotherapy -Severe Hyponatremia likely hypoosmolar, slow to respond, getting hypertonic saline -Medical debility -Chronic congestive heart failure exacerbation from diastolic dysfunction EF 55- 60% -Lactic acidosis type II -Acute renal failure combination of prerenal and possibly ATN -Metabolic acidosis multifactorial -CODE STATUS DO NOT RESUSCITATE. Plan: Remains in the ICU. Drips include hypertonic saline, bicarbonate drip, D10. Talked to the patient's family the bedside. Prognosis guarded. Other medications are noted. Endocrinology Dr. Child was consulted. She is put the patient on hydrocortisone. Try to improve oral intake
[2019-02-26] MEDS: CEFEPIME 1 GM in SODIUM CHLORIDE 0.9% 50 ML IVPB SCH (21:14)
--- NOTE | 2019-02-26 23:00 | PN ---
PROGRESS NOTE DATE OF SERVICE: 02/26/2019 REASON FOR FOLLOWUP: Urinary tract infection. INTERVAL HISTORY: The patient is currently afebrile. The patient is a hemodynamically stable, not on any pressor support. FiO2 is currently stable. She is breathing comfortably. Denies having any chest pain. No shortness of breath or cough. Some nausea but no vomiting. Denies any abdominal pain. No diarrhea. PHYSICAL EXAMINATION: Blood pressure is 99/61 with a pulse of 109, temperature 97.3. She is 94% on room air. General description: Elderly female, lying in bed in no distress. Respiratory system: Unlabored breathing. Clear to auscultation anteriorly. Heart S1, S2. Regular rate and rhythm. Abdomen soft, mildly distention. No guarding. No rigidity. LABS: Hemoglobin 11.1, white count 14.3 with a BUN of 64, creatinine is 2.10. Urine culture currently pending. Blood culture so far negative. DIAGNOSTIC IMPRESSION AND PLAN: Patient with metastatic lung cancer admitted to the hospital with mental status changes in this patient who did have a positive UA and elevated white count urinary tract infection. The patient is currently covered with Cefepime to continue while waiting for the culture to finalize. Family at the bedside, questions were answered. MMODL / IJN: [id number] /
[2019-02-27 00:31] LABS: Glucose,Whole Blood 128 mg/dL (75-99)
--- NOTE | 2019-02-27 00:35 | PCN ---
PROCEDURE NOTE TRIPLE LUMEN CATHETER PLACEMENT: Indication: Hemodynamic monitoring/Intravenous access. A time-out was completed verifying correct patient, procedure, site, positioning, and implant(s) or special equipment if applicable. The patient was placed in a dependent position appropriate for triple lumen catheter placement based on the vein to be cannulated. The patient's right groin was prepped and draped in sterile fashion. 1% Lidocaine was used to anesthetize the surrounding skin area. A triple lumen 9F Cordis catheter was introduced into the right common femoral vein using Seldinger technique. The catheter was threaded smoothly over the guide wire and appropriate blood return was obtained. Each lumen of the catheter was evacuated of air and flushed with sterile saline. The catheter was then sutured in place to the skin and a sterile dressing applied. Perfusion to the extremity distal to the point of catheter insertion was checked and found to be adequate. PREOP DIAGNOSIS: Hypotension. POSTOP DIAGNOSIS: Hypotension. PROCEDURE PERFORMED: Insertion of triple-lumen catheter. SITE OF INSERTION: Right femoral vein. No complications. MMODL / IJN: [id number] /
[2019-02-27] MEDS: HYDROmorphone 0.5 MG/0.5 ML SYRINGE IVP PRN ×3 (00:45→21:00)
[2019-02-27 04:53] LABS: Anisocytosis Slight; Basophils % (A) 0 %; Eosinophils % (A) 0 %; HCT 33.1 % (34.0-46.0); HGB 10.9 gm/dL (11.4-16.0); Lymphocytes % (A) 12 %; MCH 35.3 pg (25.0-35.0); MCHC 32.9 g/dL (31.0-37.0); MCV 107.1 fL (80.0-100.0); Macrocytosis Marked; Mean Platelet Volume 12.8; Monocytes # (A) 0.7 k/uL (0-1.0); Monocytes % (A) 8 %; Neutrophils # (A) 6.5 k/uL (1.3-7.7); Neutrophils % (A) 75 %; RBC 3.09 m/uL (3.80-5.40); RDW 17.8 % (11.5-15.5); WBC 8.6 k/uL (3.8-10.6)
[2019-02-27 04:54] LABS: INR 2.1 (<1.2); Prothrombin Time 20.6 sec (9.0-12.0)
[2019-02-27 05:06] LABS: Albumin 2.6 g/dL (3.5-5.0); Calcium 7.6 mg/dL (8.4-10.2); Potassium 4.8 mmol/L (3.5-5.1); Total Bilirubin 4.5 mg/dL (0.2-1.3); Total Protein 5.8 g/dL (6.3-8.2)
[2019-02-27 05:29] LABS: Platelet Count 19 k/uL (150-450)
[2019-02-27 06:14] LABS: Glucose,Whole Blood 136 mg/dL (75-99)
[2019-02-27] MEDS: DEXTROSE 5% IN WATER 1,000 ML with SODIUM BICARB (1 MEQ/ML) 150 ML IV SCH (07:08)
[2019-02-27] MEDS ORDERED: FUROSEMIDE 10 MG/ML 10 ML VIAL IV PRN (08:07)
[2019-02-27] MEDS: PANTOPRAZOLE 40 MG/10 ML VIAL IVP SCH (08:16)
[2019-02-27] MEDS: HYDROCORTISONE SUCCINATE 100 MG/2 ML VIAL IV SCH ×2 (08:16→20:06)
[2019-02-27] MEDS ORDERED: PHYTONADIONE 5 MG in SODIUM CHLORIDE 0.9% 50 ML IVPB STA (09:03)
--- NOTE | 2019-02-27 09:11 | XR ---
EXAMINATION TYPE: XR chest 1V portable DATE OF EXAM: 02/27/2019 COMPARISON: 02/26/2019 HISTORY: Shortness of breath TECHNIQUE: Single frontal view of the chest is obtained. FINDINGS: Heart normal size. Scattered cartilage calcifications. Small effusions. Mild hyperinflatio n. Subsegmental consolidation noted bilaterally. Atherosclerotic change aorta. Biapical pleural thick ening. IMPRESSION: Stable x-ray correlate for COPD with superimposed CHF. Otherwise consider pneumonia.
--- NOTE | 2019-02-27 09:21 | P.PN ---
Subjective Patient is seen in follow-up for acute kidney injury and electrolyte imbalance. Patient remains quite lethargic. Sodium level is stable at 122. 3% saline has been discontinued. Renal function is fairly stable. Vital signs are stable. Blood pressures on the lower side. General: The patient appeared well nourished and normally developed. HEENT: Head exam is unremarkable. Neck is without jugular venous distension. LUNGS: Breath sounds decreased. HEART: Rate and Rhythm are regular. First and second heart sounds normal. No murmurs, rubs or gallops. ABDOMEN: Bowel sounds present. Soft. EXTREMITITES: 2+ edema. Objective - Vital Signs Vital signs: Vital Signs Temp 96.4 F L 02/27/19 08:00 Pulse 117 H 02/27/19 08:00 Resp 25 H 02/27/19 08:00 BP 114/68 02/27/19 08:00 Pulse Ox 94 L 02/27/19 08:00 Intake & Output 02/26/19 02/27/19 02/27/19 18:59 06:59 18:59 Intake Total 2320 1160 100 Output Total 355 420 30 Balance 1965 740 70 Weight 67 kg Intake: IV 2029 830 70 Albumin Human 25% 50 ml 200 In Empty Bag 1 bag @ 50 mls/hr IVPB BID RENÉ Rx#: [id number] Dextrose 10% in Water 500 270 ml In Empty Bag 1 bag @ 50 mls/hr IV .Q10H RENÉ Rx #:[id number] Dextrose 5% in Water 1, 1200 800 70 000 ml @ 70 mls/hr IV . [id number] RENÉ with Sodium Bicarb (1 Meq/ml) 150 ml Rx#:[id number] Sodium Chloride 3%( 360 30 Hypertonic) 500 ml @ 30 mls/hr IV .[id number] RENÉ Rx #:[id number] Intake, IV Titration 170 330 30 Amount Dextrose 10% in Water 500 120 330 30 ml In Empty Bag 1 bag @ 30 mls/hr IV .[id number] RENÉ Rx#:[id number] Phytonadione 10 mg In 50 Sodium Chloride 0.9% 50 ml @ 100 mls/hr IVPB ONCE STA Rx#:[id number] Tube Feeding 120 Output: Urine 355 420 30 Other: Voiding Method Indwelling Catheter Indwelling Catheter - Labs CBC & Chem 7: 02/27/19 04:21 02/27/19 04:21 Labs: Abnormal Lab Results - Last 24 Hours (Table) 02/26/19 02/26/19 02/26/19 Range/Units 12:45 12:45 17:00 RBC (3.80-5.40) m/uL Hgb (11.4-16.0) gm/dL Hct (34.0-46.0) % MCV (80.0-100.0) fL MCH (25.0-35.0) pg RDW (11.5-15.5) % Plt Count (150-450) k/uL Macrocytosis PT (9.0-12.0) sec INR (<1.2) Sodium 120 L (137-145) mmol/L Chloride 87 L (98-107) mmol/L BUN 65 H (7-17) mg/dL Creatinine 2.08 H (0.52-1.04) mg/dL Glucose 164 H (74-99) mg/dL POC Glucose (mg/dL) (75-99) mg/dL Plasma Lactic Acid Clint 3.7 H* 3.5 H* (0.7-2.0) mmol/L Calcium 7.1 L (8.4-10.2) mg/dL Total Bilirubin (0.2-1.3) mg/dL AST (14-36) U/L ALT (4-34) U/L Alkaline Phosphatase (38-126) U/L Total Protein (6.3-8.2) g/dL Albumin (3.5-5.0) g/dL 02/26/19 02/27/19 02/27/19 Range/Units 17:00 00:27 00:29 RBC (3.80-5.40) m/uL Hgb (11.4-16.0) gm/dL Hct (34.0-46.0) % MCV (80.0-100.0) fL MCH (25.0-35.0) pg RDW (11.5-15.5) % Plt Count (150-450) k/uL Macrocytosis PT (9.0-12.0) sec INR (<1.2) Sodium 122 L (137-145) mmol/L Chloride 86 L (98-107) mmol/L BUN 64 H (7-17) mg/dL Creatinine 2.10 H (0.52-1.04) mg/dL Glucose 141 H (74-99) mg/dL POC Glucose (mg/dL) 128 H (75-99) mg/dL Plasma Lactic Acid Clint 4.2 H* (0.7-2.0) mmol/L Calcium 7.3 L (8.4-10.2) mg/dL Total Bilirubin (0.2-1.3) mg/dL AST (14-36) U/L ALT (4-34) U/L Alkaline Phosphatase (38-126) U/L Total Protein (6.3-8.2) g/dL Albumin (3.5-5.0) g/dL 02/27/19 02/27/19 02/27/19 Range/Units 04:21 04:21 04:21 RBC 3.09 L (3.80-5.40) m/uL Hgb 10.9 L (11.4-16.0) gm/dL Hct 33.1 L (34.0-46.0) % MCV 107.1 H (80.0-100.0) fL MCH 35.3 H (25.0-35.0) pg RDW 17.8 H (11.5-15.5) % Plt Count 19 L* (150-450) k/uL Macrocytosis Marked A PT 20.6 H (9.0-12.0) sec INR 2.1 H (<1.2) Sodium 122 L (137-145) mmol/L Chloride 85 L (98-107) mmol/L BUN 61 H (7-17) mg/dL Creatinine 1.99 H (0.52-1.04) mg/dL Glucose 116 H (74-99) mg/dL POC Glucose (mg/dL) (75-99) mg/dL Plasma Lactic Acid Clint (0.7-2.0) mmol/L Calcium 7.6 L (8.4-10.2) mg/dL Total Bilirubin 4.5 H (0.2-1.3) mg/dL AST 142 H (14-36) U/L ALT 59 H (4-34) U/L Alkaline Phosphatase 524 H (38-126) U/L Total Protein 5.8 L (6.3-8.2) g/dL Albumin 2.6 L (3.5-5.0) g/dL 02/27/19 02/27/19 Range/Units 04:21 06:12 RBC (3.80-5.40) m/uL Hgb (11.4-16.0) gm/dL Hct (34.0-46.0) % MCV (80.0-100.0) fL MCH (25.0-35.0) pg RDW (11.5-15.5) % Plt Count (150-450) k/uL Macrocytosis PT (9.0-12.0) sec INR (<1.2) Sodium (137-145) mmol/L Chloride (98-107) mmol/L BUN (7-17) mg/dL Creatinine (0.52-1.04) mg/dL Glucose (74-99) mg/dL POC Glucose (mg/dL) 136 H (75-99) mg/dL Plasma Lactic Acid Clint 3.9 H* (0.7-2.0) mmol/L Calcium (8.4-10.2) mg/dL Total Bilirubin (0.2-1.3) mg/dL AST (14-36) U/L ALT (4-34) U/L Alkaline Phosphatase (38-126) U/L Total Protein (6.3-8.2) g/dL Albumin (3.5-5.0) g/dL Microbiology - Last 24 Hours (Table) 02/25/19 17:50 Urine Culture - Final Urine,Catheterized 02/24/19 13:19 Blood Culture - Preliminary Blood No Growth after 48 hours Assessment and Plan Plan: Assessment: 1. Acute kidney injury secondary to ATN secondary to hypotension. Creatinine 2.7 on admission and is 1.99 today. No hydronephrosis noted on CAT scan. 2. Hyponatremia. Patient is hypervolemic which is due to third spacing from hypoalbuminemia. Stable. 3. Hyperkalemia secondary to acute kidney injury, metabolic acidosis, use of Aldactone and potassium supplementation. Better. 4. Metabolic acidosis secondary to acute kidney injury and lactic acidosis. Better. 5. Lactic acidosis secondary to hypotension and metastatic liver disease. 6. Volume overload. Plan: Discontinue bicarb drip. 25 g IV albumin now. Lasix 60 mg IV once 1 hour after albumin infusion. Repeat BMP this evening. Avoid nephrotoxins. Continue to monitor renal function and urine output.
[2019-02-27] MEDS: ALBUMIN HUMAN 25% 50 ML in EMPTY BAG 1 BAG IVPB SCH ×2 (09:22→10:37)
--- NOTE | 2019-02-27 09:55 | P.PN ---
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 The patient also was found to be in acute kidney injury and was having electrodes imbalance. Specifically, the patient was noted to have sodium level of 122 with a potassium level of 6.1. The patient's BUN was up to 70 with a creatinine of 2.6 from a normal based on January 2019. The patient was also having episodes of hypoglycemia. Her blood sugar was 72 and dropped down to the 40s and the pa sergio was given an amp of D50 and following that she was transferred to the intensive care unit. LFTs are abnormal as the patient has hepatic metastases. Alkaline phosphatase is elevated at 894 with AST of 338 and ALT of 110. Her total serum protein was 6.3 with an albumin of 2.1. The proBNP level was 7730. Echo was elevated at 21. Hemoglobin is at 13.6 and the CAT scan of the abdomen and pelvis was done yesterday showed multiple metastatic lesions scattered throughout the liver that appeared to be larger compared to the previous CAT scan from October 2018 for comparison. There was some free fluid within the pelvis. There was some nonspecific small bowel loops within the pelvis. In terms of lung cancer, the patient was diagnosed having metastatic stage IV lung cancer, adenocarcinoma with extensive liver metastases and adrenal involvement. The patient was seen at the oncology Department [facility]. The patient was given a combination of carboplatinum and Alimta and a dose of Keytruda . Since then, the patient got extremely sick. She has required transfusions with platelets in the emergency department. She became progressively more weak and the chain was supple and she has not received any treatment since. Says that she was also switched her care to Dr Nunez On 02/26/2019 seeing the patient for a follow-up. In terms of her overall condition, the patient is down slightly better compared to yesterday. She seems to be a bit more alert. She is on a D10 infusion running at the rate of 30 mL an hour and her sugars have stabilized and her most recent blood sugar is at 98. Sodium level is at 118 and the patient is receiving hypertonic solution 3% matthew ine at the rate of 30 mL an hour. She is also on a bicarb infusion. Serum bicarb is up to 20 and the creatinine is down to 2.3. No major edema lower extremities. Nevertheless, LFTs remain abnormal, lactic acid remains elevated, she is still coagulopathic and this is upsetting related to liver in sufficiency/failure due to extensive metastatic disease involving the liver. Her serum cortisol is a 28. Family is at the bedside. Oral intake is minimal and it's mainly limited to Jell-O and liquids. On today's evaluation of 02/27/2019 patient's condition essentially the same. The patient is still lethargic and sleepy. She is on oxygen at 2 L. Her chest x-ray showed development of lateral pleural effusions. Meanwhile, she developed increased edema in lower extremities and diffuse anasarca. The patient is on the 10 infusion running at 30 mL an hour. No hypoglycemic events. Hypertonic saline was felt that the patient's sodium level came up to 122. The serum bicarb infusion was also stop and the serum bicarb is also improved. She was given a dose of IV albumin 5% followed by Lasix 60 mg IV push. Her ammonia level is low at this point in time. An ocular phosphatase lower compared to yesterday. The platelet count is at 19,000. No bleeding complications at this point in time. Her white cell count is at 8.6. Creatinine is also improving and is down to 1.9 and her potassium level is at 4.8 with a sodium level of 122. Oral intake is still minimally the patient is very much debilitated from her metastatic lung cancer with extensive hepatic involvement. No signs of any adrenal insufficiency. Objective - Vital Signs Vital signs: Vital Signs Temp 96.4 F L 02/27/19 08:00 Pulse 104 H 02/27/19 09:00 Resp 14 02/27/19 09:00 BP 112/68 02/27/19 09:00 Pulse Ox 98 02/27/19 09:00 Intake & Output 02/26/19 02/27/19 02/27/19 18:59 06:59 18:59 Intake Total 2320 1160 330 Output Total 355 420 85 Balance 1965 740 245 Weight 67 kg Intake: IV 2029 830 190 .9 50 50 Albumin Human 25% 50 ml 200 In Empty Bag 1 bag @ 50 mls/hr IVPB BID [facility] Rx#: [id number] Dextrose 10% in Water 500 270 ml In Empty Bag 1 bag @ 50 mls/hr IV .Q10H RENÉ Rx #:[id number] Dextrose 5% in Water 1, 1200 800 140 000 ml @ 70 mls/hr IV . [id number] RENÉ with Sodium Bicarb (1 Meq/ml) 150 ml Rx#:[id number] Sodium Chloride 3%( 360 30 Hypertonic) 500 ml @ 30 mls/hr IV .[id number] RENÉ Rx #:[id number] Intake, IV Titration 170 330 140 Amount Albumin Human 25% 50 ml 50 In Empty Bag 1 bag @ 50 mls/hr IVPB Q1H RENÉ Rx#: [id number] Dextrose 10% in Water 500 120 330 90 ml In Empty Bag 1 bag @ 30 mls/hr IV .[id number] RENÉ Rx#:[id number] Phytonadione 10 mg In 50 Sodium Chloride 0.9% 50 ml @ 100 mls/hr IVPB ONCE STA Rx#:[id number] Tube Feeding 120 Output: Urine 355 420 85 Other: Voiding Method Indwelling Catheter Indwelling Catheter - Exam GENERAL EXAM: Alert, 73-year-old female patient, the patient is doing poorly and she is quite uncomfortable even at rest. She is not in acute respiratory distress however she looks quite cachectic and emaciated and she has lost considerable amount of weight. HEAD: Normocephalic. EYES: Normal reaction of pupils, equal size. NOSE: Clear with pink turbinates. THROAT: No erythema or exudates. NECK: No masses, no JVD. CHEST: No chest wall deformity. LUNGS: Equal air entry with crackles in the posterior bases, diminished. CVS: S1 and S2 normal with no audible murmur, regular rhythm. ABDOMEN: No hepatosplenomegaly, normal bowel sounds, no guarding or rigidity. SPINE: No scoliosis or deformity SKIN: No rashes CENTRAL NERVOUS SYSTEM: No focal deficits, tone is normal in all 4 extremities. EXTREMITIES: There is 1-2+ peripheral edema. No clubbing, no cyanosis. Peripheral p - Labs CBC & Chem 7: 02/27/19 04:21 02/27/19 04:21 Labs: Abnormal Lab Results - Last 24 Hours (Table) 02/26/19 02/26/19 02/26/19 Range/Units 12:45 12:45 17:00 RBC (3.80-5.40) m/uL Hgb (11.4-16.0) gm/dL Hct (34.0-46.0) % MCV (80.0-100.0) fL MCH (25.0-35.0) pg RDW (11.5-15.5) % Plt Count (150-450) k/uL Macrocytosis PT (9.0-12.0) sec INR (<1.2) Sodium 120 L (137-145) mmol/L Chloride 87 L (98-107) mmol/L BUN 65 H (7-17) mg/dL Creatinine 2.08 H (0.52-1.04) mg/dL Glucose 164 H (74-99) mg/dL POC Glucose (mg/dL) (75-99) mg/dL Plasma Lactic Acid Clint 3.7 H* 3.5 H* (0.7-2.0) mmol/L Calcium 7.1 L (8.4-10.2) mg/dL Total Bilirubin (0.2-1.3) mg/dL AST (14-36) U/L ALT (4-34) U/L Alkaline Phosphatase (38-126) U/L Total Protein (6.3-8.2) g/dL Albumin (3.5-5.0) g/dL 02/26/19 02/27/19 02/27/19 Range/Units 17:00 00:27 00:29 RBC (3.80-5.40) m/uL Hgb (11.4-16.0) gm/dL Hct (34.0-46.0) % MCV (80.0-100.0) fL MCH (25.0-35.0) pg RDW (11.5-15.5) % Plt Count (150-450) k/uL Macrocytosis PT (9.0-12.0) sec INR (<1.2) Sodium 122 L (137-145) mmol/L Chloride 86 L (98-107) mmol/L BUN 64 H (7-17) mg/dL Creatinine 2.10 H (0.52-1.04) mg/dL Glucose 141 H (74-99) mg/dL POC Glucose (mg/dL) 128 H (75-99) mg/dL Plasma Lactic Acid Clint 4.2 H* (0.7-2.0) mmol/L Calcium 7.3 L (8.4-10.2) mg/dL Total Bilirubin (0.2-1.3) mg/dL AST (14-36) U/L ALT (4-34) U/L Alkaline Phosphatase (38-126) U/L Total Protein (6.3-8.2) g/dL Albumin (3.5-5.0) g/dL 02/27/19 02/27/19 02/27/19 Range/Units 04:21 04:21 04:21 RBC 3.09 L (3.80-5.40) m/uL Hgb 10.9 L (11.4-16.0) gm/dL Hct 33.1 L (34.0-46.0) % MCV 107.1 H (80.0-100.0) fL MCH 35.3 H (25.0-35.0) pg RDW 17.8 H (11.5-15.5) % Plt Count 19 L* (150-450) k/uL Macrocytosis Marked A PT 20.6 H (9.0-12.0) sec INR 2.1 H (<1.2) Sodium 122 L (137-145) mmol/L Chloride 85 L (98-107) mmol/L BUN 61 H (7-17) mg/dL Creatinine 1.99 H (0.52-1.04) mg/dL Glucose 116 H (74-99) mg/dL POC Glucose (mg/dL) (75-99) mg/dL Plasma Lactic Acid Clint (0.7-2.0) mmol/L Calcium 7.6 L (8.4-10.2) mg/dL Total Bilirubin 4.5 H (0.2-1.3) mg/dL AST 142 H (14-36) U/L ALT 59 H (4-34) U/L Alkaline Phosphatase 524 H (38-126) U/L Total Protein 5.8 L (6.3-8.2) g/dL Albumin 2.6 L (3.5-5.0) g/dL 02/27/19 02/27/19 Range/Units 04:21 06:12 RBC (3.80-5.40) m/uL Hgb (11.4-16.0) gm/dL Hct (34.0-46.0) % MCV (80.0-100.0) fL MCH (25.0-35.0) pg RDW (11.5-15.5) % Plt Count (150-450) k/uL Macrocytosis PT (9.0-12.0) sec INR (<1.2) Sodium (137-145) mmol/L Chloride (98-107) mmol/L BUN (7-17) mg/dL Creatinine (0.52-1.04) mg/dL Glucose (74-99) mg/dL POC Glucose (mg/dL) 136 H (75-99) mg/dL Plasma Lactic Acid Clint 3.9 H* (0.7-2.0) mmol/L Calcium (8.4-10.2) mg/dL Total Bilirubin (0.2-1.3) mg/dL AST (14-36) U/L ALT (4-34) U/L Alkaline Phosphatase (38-126) U/L Total Protein (6.3-8.2) g/dL Albumin (3.5-5.0) g/dL Microbiology - Last 24 Hours (Table) 02/25/19 17:50 Urine Culture - Final Urine,Catheterized 02/24/19 13:19 Blood Culture - Preliminary Blood No Growth after 48 hours Assessment and Plan Plan: 1 stage IV metastatic adenocarcinoma of the lung with extensive liver involvement, treated with this cycle of systemic chemotherapy and immunotherapy with subsequent failure of treatment due to side effects and worsening of the performance and functional status 2 acute hypoglycemia secondary to hepatitic failure/insufficiency due to metastatic disease, currently she is on D10 infusion at the rate of 30 mL an hour without any further episodes of hypoglycemia. 3 acute leukocytosis, improving 4 acute kidney injury likely secondary to intravascular volume depletion/dehydration, improving the creatinine is down to 1.9 5 acute hyperkalemia, recovered 6 chronic lower extremity edema with worsening in lower extremity swelling 7 COPD 8 hypertension 9 hyperlipidemia 10 chronic anxiety 11 osteoarthritis 12 lactic acidosis secondary to hepatitic insufficiency/liver failure, still abnormal lactic acid level of 3.9 although improved 13 diffuse anasarca 14 hyponatremia improving and the sodium level is up to 03/11/2019 patient is off hypertonic solution for now. Plan This is an extremely poor situation. The patient is an obvious liver failure. Continue the D10 infusion. Discontinue the hypertonic saline. Discontinue the bicarb drip. Give IV albumin. Lasix per nephrology. Renal function is improving. Sodium level is up to 122. Ammonia level is low. Vitamin K was given. Prognosis remains extremely poor. Oral intake is marked diminished in the baseline performance and functional status is extremely poor.
[2019-02-27 10:22] LABS: Large Platelets Present
[2019-02-27 10:23] LABS: Poikilocytosis (M) Present; Target Cells Present
[2019-02-27 11:35] LABS: Glucose,Whole Blood 112 mg/dL (75-99)
[2019-02-27] MEDS: DEXTROSE 10% IN WATER 500 ML in EMPTY BAG 1 BAG IV SCH (15:50)
--- NOTE | 2019-02-27 16:16 | PN ---
PROGRESS NOTE DATE OF SERVICE: 02/27/2019 REASON FOR FOLLOWUP: UTI and a question of pneumonia. INTERVAL HISTORY: The patient is currently afebrile. The patient is breathing comfortably. The patient denies having any chest pain. She did have some shortness of breath and cough but was not bringing up any sputum. No nausea, vomiting, abdominal pain or diarrhea reported. PHYSICAL EXAMINATION: Blood pressure 116/64 with a pulse of 109, temperature 97.7. She is 94% on room air. General description is an elderly female lying in bed in no distress. RESPIRATORY SYSTEM: Unlabored breathing with decreased breath sounds at the base. No wheeze. HEART: S1, S2. Regular rate and rhythm. ABDOMEN: Soft. mass felt in the right upper quadrant. EXTREMITIES: No edema of the feet. LABS: Hemoglobin is 10.9, white count 8.6, BUN of 61, creatinine 1.99. DIAGNOSTIC IMPRESSION AND PLAN: Patient admitted to hospital with mental status changes, likely multifactorial in this patient with concern for possible urinary tract infection. Urine culture has been negative. X-ray with a question of CHF versus pneumonia. The patient is currently covered with cefepime; to continue and monitor clinical course closely. Continue with supportive care. MMODL / IJN: [id number] /
[2019-02-27 17:37] LABS: Calcium 7.8 mg/dL (8.4-10.2); Potassium 4.1 mmol/L (3.5-5.1)
[2019-02-27 17:37] LABS: Glucose,Whole Blood 140 mg/dL (75-99)
[2019-02-27] MEDS: CEFEPIME 1 GM in SODIUM CHLORIDE 0.9% 50 ML IVPB SCH (20:05)
[2019-02-27] MEDS: ALPRAZolam 0.25 MG TAB PO PRN (22:13)
--- NOTE | 2019-02-27 23:57 | P.PN ---
Progress Note - Text Progress Note Date: 02/27/19 Interval history Pleasant 73-year-old patient of Dr. Cleopatra Joshua. In October 2018 she was diagnosed with metastatic stage IV lung cancer with liver masses . Patient has had 3 cycles of keytruda alone, one at the [facility] and 2 here, most recent treatment was on February 21. She had one cycle of Alimta and keytruda at the [facility] but, her hematological toxicities were so severe it was decided to treat with single agent immunotherapy. . Patient at home for last 10 days. Having a viral illness. Appetite has been going down. Has been losing weight. Getting more and more weak and tired. Patient was transferred to the ICU on February 25. Patient received D10 drip, bicarbonate drip, hypertonic saline. Today-in the ICU. Patient was taken off the bicarbonate drip. Did eat some Jell-O. And small bites of food. Awake. 2 tired. Received albumin 25 g orally with Lasix 60 mg. Did put out about 200 mL of urine. and daughter the bedside. Weak tired rundown. Review of systems: Was done for constitutional, cardiovascular, GI, pulmonary. relevant finding as above Active Medications Albuterol Sulfate (Ventolin Nebulized (Conc)) 2.5 mg INHALATION Q4HR PRN PRN Reason: shortness of breath or cough Last Admin: 02/25/19 16:41 Dose: 2.5 mg Documented by: Alprazolam (Xanax) 0.25 mg PO BID PRN PRN Reason: Anxiety Last Admin: 02/27/19 22:13 Dose: 0.25 mg Documented by: Furosemide (Lasix) 60 mg IV ONCE PRN PRN Reason: Edema Last Admin: 02/27/19 11:52 Dose: 60 mg Documented by: Hydrocortisone Sodium Succinate (Solu-Cortef) 100 mg IV Q12HR RENÉ Last Admin: 02/27/19 20:06 Dose: 100 mg Documented by: Hydromorphone HCl (Dilaudid) 0.5 mg IVP Q6HR PRN PRN Reason: Pain Last Admin: 02/27/19 21:00 Dose: 0.5 mg Documented by: Cefepime HCl 1 gm/ Sodium (Chloride) 50 mls @ 100 mls/hr IVPB Q24H RENÉ Last Admin: 02/27/19 20:05 Dose: 100 mls/hr Documented by: Dextrose/Water 500 ml/ IV (Solution) 500 mls @ 30 mls/hr IV .[id number] [facility] Last Admin: 02/27/19 15:50 Dose: 30 mls/hr Documented by: Naloxone HCl (Narcan) 0.2 mg IV Q2M PRN PRN Reason: Opioid Reversal Pantoprazole Sodium (Protonix) 40 mg IVP DAILY [facility] Last Admin: 02/27/19 08:16 Dose: 40 mg Documented by: On examination: VITAL SIGNS: 96.4, 117, 25, 11 4/68, 94% on 3 L GENERAL APPEARANCE: Frail weak tired, laying bed, tired EYES: Pupils equal. Conjunctiva pale NECK: JVD unable to assess. Mass not palpable. RESPIRATORY: Respiratory effort increased. Lungs decreased breath sounds CARDIOVASCULAR: First and second sounds normal. edema present. ABDOMEN: Soft. Liver and spleen not palpable. No tenderness. No mass palpable. PSYCHIATRY: Alert and oriented x3. Mood and affect tired MUSCULOSKELETAL: Loss of subcutaneous fat DERMATOLOGICAL: Some bruising INVESTIGATIONS, reviewed in the clinical context: White count 8.6 hemoglobin 10.9 platelets 19 sodium 122 bun 61 creatinine 1.99 Previous testing White count 21.8 hemoglobin 13.6 platelets 24 potassium 6.1 bun 70 creatinine 2.65 lactic acid 3.6 sodium 117 AST 3:30 ALT 110 albumin 2.1 UA-positive Influenza a and B both negative Previous labs: Bun 16 creatinine 0.75 on 01/04/2019 Assessment: -Persistent hypoglycemia, from poor oral intake and liver disease, responding to D10 drip -Stage IV lung cancer with metastatic disease to the liver and to T6-T8, on immunotherapy -Hypoalbuminemia, secondary to liver disease and protein calorie malnutrition -Severe protein calorie malnutrition from poor oral intake -Essential hypertension, history of -Primary osteoarthritis -COPD in a X smoker -Pancytopenia from chemotherapy -Severe Hyponatremia likely hypoosmolar, slow to respond, getting hypertonic saline -Medical debility -Chronic congestive heart failure exacerbation from diastolic dysfunction EF 55- 60% -Lactic acidosis type II -Acute renal failure combination of prerenal and possibly ATN, slow improvement -Metabolic acidosis multifactorial -Bicytopenia likely from immunotherapy -CODE STATUS DO NOT RESUSCITATE. Plan: Prognosis: Not good. Functional status is poor. Continue with supportive care. Discussed with Dr. Gallo. Discussed with the daughter and at the bedside. Continue with current treatment plan. Encourage oral intake. Patient can be moved out of the ICU.
[2019-02-28 00:19] LABS: Glucose,Whole Blood 157 mg/dL (75-99)
[2019-02-28 05:43] LABS: Anisocytosis Slight; HCT 34.2 % (34.0-46.0); HGB 11.4 gm/dL (11.4-16.0); MCH 35.7 pg (25.0-35.0); MCHC 33.5 g/dL (31.0-37.0); MCV 106.6 fL (80.0-100.0); Macrocytosis Marked; Mean Platelet Volume 13.6; RBC 3.21 m/uL (3.80-5.40); RDW 17.4 % (11.5-15.5); WBC 6.2 k/uL (3.8-10.6)
[2019-02-28 05:45] LABS: Platelet Count 18 k/uL (150-450)
[2019-02-28 05:53] LABS: Calcium 7.8 mg/dL (8.4-10.2)
[2019-02-28 05:55] LABS: Potassium 4.5 mmol/L (3.5-5.1)
[2019-02-28 06:24] LABS: Glucose,Whole Blood 121 mg/dL (75-99)
[2019-02-28] MEDS: PANTOPRAZOLE 40 MG/10 ML VIAL IVP SCH (08:12)
[2019-02-28] MEDS: DEXTROSE 10% IN WATER 500 ML in EMPTY BAG 1 BAG IV SCH (08:12)
[2019-02-28] MEDS: HYDROCORTISONE SUCCINATE 100 MG/2 ML VIAL IV SCH ×2 (08:12→22:15)
--- NOTE | 2019-02-28 08:15 | XR ---
EXAMINATION TYPE: XR chest 1V portable DATE OF EXAM: 02/28/2019 COMPARISON: 02/27/2019 HISTORY: Shortness of breath TECHNIQUE: Single frontal view of the chest is obtained. FINDINGS: Heart normal size. Scattered cartilage calcifications. Small effusions. Mild hyperinflatio n. Subsegmental consolidation noted bilaterally. Atherosclerotic change aorta. Biapical pleural thick ening. Air along the lateral margin below the left hemidiaphragm. Related air within colon on recent CT scan. If there are abdominal symptoms correlate with abdominal x-ray IMPRESSION: 1. Pleural-parenchymal changes most typical of CHF superimposed on a background of COPD. Underlying p neumonia not excluded.
[2019-02-28] MEDS ORDERED: FUROSEMIDE 10 MG/ML 10 ML VIAL IV STA (08:48)
--- NOTE | 2019-02-28 08:49 | P.PN ---
Subjective Patient is seen in follow-up for acute kidney injury and electrolyte imbalance. Patient is more awake and alert today. Oral intake is also improved. Sodium level dropped to 120. Renal function continues to improve. Vital signs are stable. Blood pressures on the lower side. General: The patient appeared well nourished and normally developed. HEENT: Head exam is unremarkable. Neck is without jugular venous distension. LUNGS: Breath sounds decreased. HEART: Rate and Rhythm are regular. First and second heart sounds normal. No murmurs, rubs or gallops. ABDOMEN: Bowel sounds present. Soft. EXTREMITITES: 2+ edema. Objective - Vital Signs Vital signs: Vital Signs Temp 97.5 F L 02/28/19 08:00 Pulse 102 H 02/28/19 08:00 Resp 13 02/28/19 08:00 BP 116/71 02/28/19 08:00 Pulse Ox 97 02/28/19 08:00 Intake & Output 02/27/19 02/28/19 02/28/19 18:59 06:59 18:59 Intake Total 1050 1140 Output Total 750 655 Balance 300 485 Weight 65.4 kg Intake: IV 640 1110 .9 50 500 50 Cefepime 1 gm In Sodium 100 Chloride 0.9% 50 ml @ 100 mls/hr IVPB Q24H RENÉ Rx# :[id number] Dextrose 10% in Water 500 360 ml In Empty Bag 1 bag @ 30 mls/hr IV .[id number] RENÉ Rx#:[id number] Dextrose 5% in Water 1, 140 000 ml @ 70 mls/hr IV . [id number] RENÉ with Sodium Bicarb (1 Meq/ml) 150 ml Rx#:[id number] normal saline 600 Intake, IV Titration 410 30 Amount Albumin Human 25% 50 ml 50 In Empty Bag 1 bag @ 50 mls/hr IVPB Q1H RENÉ Rx#: [id number] Dextrose 10% in Water 500 360 30 ml In Empty Bag 1 bag @ 30 mls/hr IV .[id number] RENÉ Rx#:[id number] Output: Urine 750 655 Other: Voiding Method Indwelling Catheter Indwelling Catheter - Labs CBC & Chem 7: 02/28/19 05:30 02/28/19 05:30 Labs: Abnormal Lab Results - Last 24 Hours (Table) 02/25/19 02/27/19 02/27/19 Range/Units 17:50 04:21 11:34 RBC 3.09 L (3.80-5.40) m/uL Hgb 10.9 L (11.4-16.0) gm/dL Hct 33.1 L (34.0-46.0) % MCV 107.1 H (80.0-100.0) fL MCH 35.3 H (25.0-35.0) pg RDW 17.8 H (11.5-15.5) % Plt Count 19 L* (150-450) k/uL Macrocytosis Marked A Sodium (137-145) mmol/L Chloride (98-107) mmol/L Carbon Dioxide (22-30) mmol/L BUN (7-17) mg/dL Creatinine (0.52-1.04) mg/dL Glucose (74-99) mg/dL POC Glucose (mg/dL) 112 H (75-99) mg/dL Calcium (8.4-10.2) mg/dL Renin Direct 417.0 H (3.1 - 57.1) pg/mL 02/27/19 02/27/19 02/28/19 Range/Units 17:07 17:36 00:18 RBC (3.80-5.40) m/uL Hgb (11.4-16.0) gm/dL Hct (34.0-46.0) % MCV (80.0-100.0) fL MCH (25.0-35.0) pg RDW (11.5-15.5) % Plt Count (150-450) k/uL Macrocytosis Sodium 122 L (137-145) mmol/L Chloride 85 L (98-107) mmol/L Carbon Dioxide (22-30) mmol/L BUN 59 H (7-17) mg/dL Creatinine 2.02 H (0.52-1.04) mg/dL Glucose 125 H (74-99) mg/dL POC Glucose (mg/dL) 140 H 157 H (75-99) mg/dL Calcium 7.8 L (8.4-10.2) mg/dL Renin Direct (3.1 - 57.1) pg/mL 02/28/19 02/28/19 02/28/19 Range/Units 05:30 05:30 06:22 RBC 3.21 L (3.80-5.40) m/uL Hgb (11.4-16.0) gm/dL Hct (34.0-46.0) % MCV 106.6 H (80.0-100.0) fL MCH 35.7 H (25.0-35.0) pg RDW 17.4 H (11.5-15.5) % Plt Count 18 L* (150-450) k/uL Macrocytosis Marked A Sodium 120 L (137-145) mmol/L Chloride 89 L (98-107) mmol/L Carbon Dioxide 16 L (22-30) mmol/L BUN 57 H (7-17) mg/dL Creatinine 1.63 H (0.52-1.04) mg/dL Glucose 120 H (74-99) mg/dL POC Glucose (mg/dL) 121 H (75-99) mg/dL Calcium 7.8 L (8.4-10.2) mg/dL Renin Direct (3.1 - 57.1) pg/mL Microbiology - Last 24 Hours (Table) 02/24/19 13:19 Blood Culture - Preliminary Blood No Growth after 72 hours Assessment and Plan Plan: Assessment: 1. Acute kidney injury secondary to ATN secondary to hypotension. Creatinine 2.7 on admission and is 1.63 today. No hydronephrosis noted on CAT scan. 2. Hyponatremia. Patient is hypervolemic which is due to third spacing from hypoalbuminemia. 3. Hyperkalemia secondary to acute kidney injury, metabolic acidosis, use of Aldactone and potassium supplementation. Better. 4. Metabolic acidosis secondary to acute kidney injury and lactic acidosis. 5. Lactic acidosis secondary to hypotension and metastatic liver disease. 6. Volume overload. Plan: Lasix 60 mg IV once now. Samsca 15 mg once today. Add oral sodium bicarbonate. Repeat BMP at 5 PM today. Avoid nephrotoxins. Continue to monitor renal function and urine output.
[2019-02-28] MEDS ORDERED: TOLVAPTAN 15 MG 1/2 TABLET PO ONE (09:00)
[2019-02-28 09:51] LABS: Total Bilirubin 5.2 mg/dL (0.2-1.3); Total Protein 6.3 g/dL (6.3-8.2)
--- NOTE | 2019-02-28 10:05 | P.PN ---
<Chaya,Briana - Last Filed: 02/28/19 09:57> Subjective Progress Note Date: 02/28/19 Principal diagnosis: Stage IV metastatic adenocarcinoma of the lung with extensive liver involvement. 73-year-old female patient with metastatic adenocarcinoma of the lung with extensive liver metastases, came into the hospital because of progressive worsening in her condition, generalized weakness, anasarca, increase in lower extremity edema, decreased oral intake, in addition to ongoing weight loss. The patient also was found to be in acute kidney injury and was having electrodes imbalance. Specifically, the patient was noted to have sodium level of 122 with a potassium level of 6.1. The patient's BUN was up to 70 with a creatinine of 2.6 from a normal based on January 2019. The patient was also having episodes of hypoglycemia. Her blood sugar was 72 and dropped down to the 40s and the patient was given an amp of D50 and following that she was transferred to the intensive care unit. LFTs are abnormal as the patient has hepatic metastases. Alkaline phosphatase is elevated at 894 with AST of 338 and ALT of 110. Her total serum protein was 6.3 with an albumin of 2.1. The proBNP level was 7730. Echo was elevated at 21. Hemoglobin is at 13.6 and the CAT scan of the abdomen and pelvis was done yesterday showed multiple metastatic lesions scattered throughout the liver that appeared to be larger compared to the previous CAT scan from October 2018 for comparison. There was some free fluid within the pelvis. There was some nonspecific small bowel loops within the pelvis. In te kike of lung cancer, the patient was diagnosed having metastatic stage IV lung cancer, adenocarcinoma with extensive liver metastases and adrenal involvement. The patient was seen at the oncology Department [facility]. The patient was given a combination of carboplatinum and Alimta and a dose of Keytruda . Since then, the patient got extremely sick. She has required transfusions with platelets in the emergency department. She became progressively more weak and the chain was supple and she has not received any treatment since. Says that she was also switched her care to Dr Nunez On 02/26/2019 seeing the patient for a follow-up. In terms of her overall condition, the patient is down slightly better compared to yesterday. She seems to be a bit more alert. She is on a D10 infusion running at the rate of 30 mL an hour and her sugars have stabilized and her most recent blood sugar is at 98. Sodium level is at 118 and the patient is receiving hypertonic solution 3% saline at the rate of 30 mL an hour. She is also on a bicarb infusion. Serum bicarb is up to 20 and the creatinine is down to 2.3. No major edema lower extremities. Nevertheless, LFTs remain abnormal, lactic acid remains elevated, she is still coagulopathic and this is upsetting related to liver insuff iciency/failure due to extensive metastatic disease involving the liver. Her serum cortisol is a 28. Family is at the bedside. Oral intake is minimal and it's mainly limited to Jell-O and liquids. On today's evaluation of 02/27/2019 patient's condition essentially the same. The patient is still lethargic and sleepy. She is on oxygen at 2 L. Her chest x-ray showed development of lateral pleural effusions. Meanwhile, she developed increased edema in lower extremities and diffuse anasarca. The patient is on the 10 infusion running at 30 mL an hour. No hypoglycemic events. Hypertonic saline was felt that the patient's sodium level came up to 122. The serum bicarb infusion was also stop and the serum bicarb is also improved. She was given a dose of IV albumin 5% followed by Lasix 60 mg IV push. Her ammonia level is low at this point in time. An ocular phosphatase lower compared to yesterday. The platelet count is at 19,000. No bleeding complications at this point in time. Her white cell count is at 8.6. Creatinine is also improving and is down to 1.9 and her potassium level is at 4.8 with a sodium level of 122. Oral intake is still minimally the patient is very much debilitated from her metastatic lung cancer with extensive hepatic involvement. No signs of any adr enal insufficiency. The patient is seen today 02/28/2019 in follow-up in the intensive care unit. She is currently awake and alert in no acute distress. She denies any significant discomfort at this time. She is currently on 2 L nasal cannula and maintaining good O2 saturation in the mid 90s. She's afebrile. Slightly tachycardic. Blood pressure stable. Blood culture reveals no growth. Urine culture reveals no growth. White count 6.2. Hemoglobin 11.4. MCV 106.6. Platelets 18,000. Sodium 120. Chloride 89. Bicarb 16. Creatinine 1.63. AST 139. ALT 60. Alk phos 6:15. Albumin 3.0. She remains on sodium bicarb. IV Protonix. Solu-Cortef. Cefepime. Receiving bronchodilators. Objective - Vital Signs Vital signs: Vital Signs Temp 97.5 F L 02/28/19 08:00 Pulse 102 H 02/28/19 08:00 Resp 13 02/28/19 08:00 BP 116/71 02/28/19 08:00 Pulse Ox 97 02/28/19 08:00 Intake & Output 02/27/19 02/28/19 02/28/19 18:59 06:59 18:59 Intake Total 1050 1140 240 Output Total 750 655 150 Balance 300 485 90 Weight 65.4 kg Intake: IV 640 1110 240 .9 50 500 50 Cefepime 1 gm In Sodium 100 Chloride 0.9% 50 ml @ 100 mls/hr IVPB Q24H RENÉ Rx# :[id number] Dextrose 10% in Water 500 360 90 ml In Empty Bag 1 bag @ 30 mls/hr IV .[id number] RENÉ Rx#:[id number] Dextrose 5% in Water 1, 140 000 ml @ 70 mls/hr IV . [id number] RENÉ with Sodium Bicarb (1 Meq/ml) 150 ml Rx#:[id number] normal saline 600 150 Intake, IV Titration 410 30 Amount Albumin Human 25% 50 ml 50 In Empty Bag 1 bag @ 50 mls/hr IVPB Q1H RENÉ Rx#: [id number] Dextrose 10% in Water 500 360 30 ml In Empty Bag 1 bag @ 30 mls/hr IV .[id number] RENÉ Rx#:[id number] Output: Urine 750 655 150 Other: Voiding Method Indwelling Catheter Indwelling Catheter - Exam GENERAL EXAM: Alert, 73-year-old female patient, a little more comfortable this morning. On 2 L nasal cannula. She is not in acute respiratory distress however she looks quite cachectic and emaciated and she has lost considerable amount of weight. HEAD: Normocephalic. EYES: Normal reaction of pupils, equal size. NOSE: Clear with pink turbinates. THROAT: No erythema or exudates. NECK: No masses, no JVD. CHEST: No chest wall deformity. LUNGS: Equal air entry with crackles in the posterior bases, diminished. CVS: S1 and S2 normal with no audible murmur, regular rhythm. ABDOMEN: No hepatosplenomegaly, normal bowel sounds, no guarding or rigidity. SPINE: No scoliosis or deformity SKIN: No rashes CENTRAL NERVOUS SYSTEM: No focal deficits, tone is normal in all 4 extremities. EXTREMITIES: There is 1-2+ peripheral edema. No clubbing, no cyanosis. Peripheral pulses intact - Labs CBC & Chem 7: 02/28/19 05:30 02/28/19 05:30 Labs: Abnormal Lab Results - Last 24 Hours (Table) 02/25/19 02/27/19 02/27/19 Range/Units 17:50 04:21 11:34 RBC 3.09 L (3.80-5.40) m/uL Hgb 10.9 L (11.4-16.0) gm/dL Hct 33.1 L (34.0-46.0) % MCV 107.1 H (80.0-100.0) fL MCH 35.3 H (25.0-35.0) pg RDW 17.8 H (11.5-15.5) % Plt Count 19 L* (150-450) k/uL Macrocytosis Marked A Sodium (137-145) mmol/L Chloride (98-107) mmol/L Carbon Dioxide (22-30) mmol/L BUN (7-17) mg/dL Creatinine (0.52-1.04) mg/dL Glucose (74-99) mg/dL POC Glucose (mg/dL) 112 H (75-99) mg/dL Calcium (8.4-10.2) mg/dL Total Bilirubin (0.2-1.3) mg/dL AST (14-36) U/L ALT (4-34) U/L Alkaline Phosphatase (38-126) U/L Albumin (3.5-5.0) g/dL Renin Direct 417.0 H (3.1 - 57.1) pg/mL 02/27/19 02/27/19 02/28/19 Range/Units 17:07 17:36 00:18 RBC (3.80-5.40) m/uL Hgb (11.4-16.0) gm/dL Hct (34.0-46.0) % MCV (80.0-100.0) fL MCH (25.0-35.0) pg RDW (11.5-15.5) % Plt Count (150-450) k/uL Macrocytosis Sodium 122 L (137-145) mmol/L Chloride 85 L (98-107) mmol/L Carbon Dioxide (22-30) mmol/L BUN 59 H (7-17) mg/dL Creatinine 2.02 H (0.52-1.04) mg/dL Glucose 125 H (74-99) mg/dL POC Glucose (mg/dL) 140 H 157 H (75-99) mg/dL Calcium 7.8 L (8.4-10.2) mg/dL Total Bilirubin (0.2-1.3) mg/dL AST (14-36) U/L ALT (4-34) U/L Alkaline Phosphatase (38-126) U/L Albumin (3.5-5.0) g/dL Renin Direct (3.1 - 57.1) pg/mL 02/28/19 02/28/19 02/28/19 Range/Units 05:30 05:30 06:22 RBC 3.21 L (3.80-5.40) m/uL Hgb (11.4-16.0) gm/dL Hct (34.0-46.0) % MCV 106.6 H (80.0-100.0) fL MCH 35.7 H (25.0-35.0) pg RDW 17.4 H (11.5-15.5) % Plt Count 18 L* (150-450) k/uL Macrocytosis Marked A Sodium 120 L (137-145) mmol/L Chloride 89 L (98-107) mmol/L Carbon Dioxide 16 L (22-30) mmol/L BUN 57 H (7-17) mg/dL Creatinine 1.63 H (0.52-1.04) mg/dL Glucose 120 H (74-99) mg/dL POC Glucose (mg/dL) 121 H (75-99) mg/dL Calcium 7.8 L (8.4-10.2) mg/dL Total Bilirubin 5.2 H (0.2-1.3) mg/dL AST 139 H (14-36) U/L ALT 60 H (4-34) U/L Alkaline Phosphatase 615 H (38-126) U/L Albumin 3.0 L (3.5-5.0) g/dL Renin Direct (3.1 - 57.1) pg/mL Microbiology - Last 24 Hours (Table) 02/24/19 13:19 Blood Culture - Preliminary Blood No Growth after 72 hours Assessment and Plan Assessment: 1 stage IV metastatic adenocarcinoma of the lung with extensive liver involvement, treated with this cycle of systemic chemotherapy and immunotherapy with subsequent failure of treatment due to side effects and worsening of the performance and functional status 2 acute hypoglycemia secondary to hepatitic failure/insufficiency due to metastatic disease, currently she is on D10 infusion at the rate of 30 mL an hour without any further episodes of hypoglycemia. 3 acute leukocytosis, improving 4 acute kidney injury likely secondary to intravascular volume depletion/dehydration, improving the creatinine is down to 1.63 5 acute hyperkalemia, recovered 6 chronic lower extremity edema with worsening in lower extremity swelling 7 COPD 8 hypertension 9 hyperlipidemia 10 chronic anxiety 11 osteoarthritis 12 lactic acidosis secondary to hepatitic insufficiency/liver failure, still abnormal lactic acid level of 3.9 although improved 13 diffuse anasarca 14 hyponatremia improving and the sodium level is at 120 patient is off hypertonic solution for now. Plan The patient was seen and evaluated by Dr. Gallo. Chest x-ray and labs reviewed. She remains on cefepime. Received Lasix 60 mg IVP 1 today. She is a little more comfortable today. Numbers about the same. Platelet count 18,000. Sodium 120. Creatinine 1.63. Stable from the pulmonary standpoint on 2 L nasal cannula. Overall prognosis is quite guarded and poor. We'll continue to follow. I, the cosigning physician, performed a history & physical examination of the patient. Lungs sounds with crackles in the bases. Maintaining good O2 saturations in the 90s on 2 L/m per nasal cannula. I discussed the assessment and plan of care with my nurse practitioner, Briana Larkin. I attest to the above note as dictated by her. <Fatou Gallo - Last Filed: 02/28/19 10:47> Objective - Vital Signs Vital signs: Vital Signs Temp 97.5 F L 02/28/19 08:00 Pulse 110 H 02/28/19 10:00 Resp 18 02/28/19 10:00 BP 98/64 02/28/19 10:00 Pulse Ox 94 L 02/28/19 10:00 Intake & Output 02/27/19 02/28/19 02/28/19 18:59 06:59 18:59 Intake Total 1050 1140 240 Output Total 750 655 150 Balance 300 485 90 Weight 65.4 kg 65.4 kg Intake: IV 640 1110 240 .9 50 500 50 Cefepime 1 gm In Sodium 100 Chloride 0.9% 50 ml @ 100 mls/hr IVPB Q24H RENÉ Rx# :[id number] Dextrose 10% in Water 500 360 90 ml In Empty Bag 1 bag @ 30 mls/hr IV .[id number] RENÉ Rx#:[id number] Dextrose 5% in Water 1, 140 000 ml @ 70 mls/hr IV . [id number] RENÉ with Sodium Bicarb (1 Meq/ml) 150 ml Rx#:[id number] normal saline 600 150 Intake, IV Titration 410 30 Amount Albumin Human 25% 50 ml 50 In Empty Bag 1 bag @ 50 mls/hr IVPB Q1H RENÉ Rx#: [id number] Dextrose 10% in Water 500 360 30 ml In Empty Bag 1 bag @ 30 mls/hr IV .[id number] RENÉ Rx#:[id number] Output: Urine 750 655 150 Other: Voiding Method Indwelling Catheter Indwelling Catheter - Labs CBC & Chem 7: 02/28/19 05:30 02/28/19 05:30 Labs: Abnormal Lab Results - Last 24 Hours (Table) 02/25/19 02/27/19 02/27/19 Range/Units 17:50 11:34 17:07 RBC (3.80-5.40) m/uL MCV (80.0-100.0) fL MCH (25.0-35.0) pg RDW (11.5-15.5) % Plt Count (150-450) k/uL Macrocytosis Sodium 122 L (137-145) mmol/L Chloride 85 L (98-107) mmol/L Carbon Dioxide (22-30) mmol/L BUN 59 H (7-17) mg/dL Creatinine 2.02 H (0.52-1.04) mg/dL Glucose 125 H (74-99) mg/dL POC Glucose (mg/dL) 112 H (75-99) mg/dL Calcium 7.8 L (8.4-10.2) mg/dL Total Bilirubin (0.2-1.3) mg/dL AST (14-36) U/L ALT (4-34) U/L Alkaline Phosphatase (38-126) U/L Albumin (3.5-5.0) g/dL Renin Direct 417.0 H (3.1 - 57.1) pg/mL 02/27/19 02/28/19 02/28/19 Range/Units 17:36 00:18 05:30 RBC 3.21 L (3.80-5.40) m/uL MCV 106.6 H (80.0-100.0) fL MCH 35.7 H (25.0-35.0) pg RDW 17.4 H (11.5-15.5) % Plt Count 18 L* (150-450) k/uL Macrocytosis Marked A Sodium (137-145) mmol/L Chloride (98-107) mmol/L Carbon Dioxide (22-30) mmol/L BUN (7-17) mg/dL Creatinine (0.52-1.04) mg/dL Glucose (74-99) mg/dL POC Glucose (mg/dL) 140 H 157 H (75-99) mg/dL Calcium (8.4-10.2) mg/dL Total Bilirubin (0.2-1.3) mg/dL AST (14-36) U/L ALT (4-34) U/L Alkaline Phosphatase (38-126) U/L Albumin (3.5-5.0) g/dL Renin Direct (3.1 - 57.1) pg/mL 02/28/19 02/28/19 Range/Units 05:30 06:22 RBC (3.80-5.40) m/uL MCV (80.0-100.0) fL MCH (25.0-35.0) pg RDW (11.5-15.5) % Plt Count (150-450) k/uL Macrocytosis Sodium 120 L (137-145) mmol/L Chloride 89 L (98-107) mmol/L Carbon Dioxide 16 L (22-30) mmol/L BUN 57 H (7-17) mg/dL Creatinine 1.63 H (0.52-1.04) mg/dL Glucose 120 H (74-99) mg/dL POC Glucose (mg/dL) 121 H (75-99) mg/dL Calcium 7.8 L (8.4-10.2) mg/dL Total Bilirubin 5.2 H (0.2-1.3) mg/dL AST 139 H (14-36) U/L ALT 60 H (4-34) U/L Alkaline Phosphatase 615 H (38-126) U/L Albumin 3.0 L (3.5-5.0) g/dL Renin Direct (3.1 - 57.1) pg/mL Microbiology - Last 24 Hours (Table) 02/24/19 13:19 Blood Culture - Preliminary Blood No Growth after 72 hours Assessment and Plan Assessment: Agree on the above-mentioned documentation. The prognosis remains extremely poor. She received another dose of Lasix. Her renal function is improving. Creatinine is down to 1.6. Her white cell count is improving. She remains on broad-spectrum antibiotics. Overall picture does not look progress. Her oral intake is minimal. She remains quite debilitated related to her underlying stage IV metastatic cancer with extensive liver involvement.
[2019-02-28] MEDS: SODIUM BICARBONATE TAB 650 MG TAB PO SCH ×2 (10:17→22:24)
[2019-02-28 10:39] VITALS: BMI 22.6
[2019-02-28] MEDS ORDERED: BENZOCAINE/MENTHOL LOZENG 1 EACH LOZENGE MUCOUS MEM PRN (10:52)
[2019-02-28 11:36] LABS: Glucose,Whole Blood 153 mg/dL (75-99)
[2019-02-28 17:27] LABS: Calcium 7.7 mg/dL (8.4-10.2); Potassium 3.2 mmol/L (3.5-5.1)
[2019-02-28 18:31] LABS: Glucose,Whole Blood 148 mg/dL (75-99)
--- NOTE | 2019-02-28 20:07 | P.PN ---
Subjective Progress Note Date: 02/28/19 Principal diagnosis: weakness, NSCLC, metastatic In f/u today pt siting up in bed, no c/o other then terrible taste inher mouth and sore throat. Breathing is improved, denies pain, nausea, swelling is stable. Objective - Vital Signs Vital signs: Vital Signs Temp 94.6 F L 02/28/19 17:15 Pulse 102 H 02/28/19 17:15 Resp 13 02/28/19 15:00 BP 94/58 02/28/19 17:15 Pulse Ox 96 02/28/19 17:15 Intake & Output 02/28/19 02/28/19 03/01/19 06:59 18:59 06:59 Intake Total 1140 590 Output Total 655 945 Balance 485 -355 Weight 65.4 kg 65.4 kg Intake: IV 1110 590 .9 50 50 Cefepime 1 gm In Sodium 100 Chloride 0.9% 50 ml @ 100 mls/hr IVPB Q24H RENÉ Rx# :[id number] Dextrose 10% in Water 500 360 190 ml In Empty Bag 1 bag @ 30 mls/hr IV .[id number] RENÉ Rx#:[id number] normal saline 600 400 Intake, IV Titration 30 Amount Dextrose 10% in Water 500 30 ml In Empty Bag 1 bag @ 30 mls/hr IV .[id number] RENÉ Rx#:[id number] Output: Urine 655 945 Other: Voiding Method Indwelling Catheter Indwelling Catheter # Bowel Movements 1 - Constitutional General appearance: Present: average body habitus, no acute distress, thin - EENT EENT Comment(s): oral mucosa is red, tongue is glossy, dentures in place Eyes: Present: anicteric sclerae, EOMI ENT: Present: hearing grossly normal - Respiratory Details: resp even and unlabored - Gastrointestinal General gastrointestinal: Present: soft - Neurologic Neurologic: Present: CNII-XII intact - Musculoskeletal Musculoskeletal: Present: generalized weakness, strength equal bilaterally - Psychiatric Psychiatric: Present: A&O x's 3, appropriate affect, intact judgment & insight - Labs CBC & Chem 7: 02/28/19 05:30 02/28/19 17:02 Labs: Abnormal Lab Results - Last 24 Hours (Table) 02/28/19 02/28/19 02/28/19 Range/Units 00:18 05:30 05:30 RBC 3.21 L (3.80-5.40) m/uL MCV 106.6 H (80.0-100.0) fL MCH 35.7 H (25.0-35.0) pg RDW 17.4 H (11.5-15.5) % Plt Count 18 L* (150-450) k/uL Macrocytosis Marked A Sodium 120 L (137-145) mmol/L Potassium (3.5-5.1) mmol/L Chloride 89 L (98-107) mmol/L Carbon Dioxide 16 L (22-30) mmol/L BUN 57 H (7-17) mg/dL Creatinine 1.63 H (0.52-1.04) mg/dL Glucose 120 H (74-99) mg/dL POC Glucose (mg/dL) 157 H (75-99) mg/dL Calcium 7.8 L (8.4-10.2) mg/dL Total Bilirubin 5.2 H (0.2-1.3) mg/dL AST 139 H (14-36) U/L ALT 60 H (4-34) U/L Alkaline Phosphatase 615 H (38-126) U/L Albumin 3.0 L (3.5-5.0) g/dL 02/28/19 02/28/19 02/28/19 Range/Units 06:22 11:34 17:02 RBC (3.80-5.40) m/uL MCV (80.0-100.0) fL MCH (25.0-35.0) pg RDW (11.5-15.5) % Plt Count (150-450) k/uL Macrocytosis Sodium 122 L (137-145) mmol/L Potassium 3.2 L (3.5-5.1) mmol/L Chloride 87 L (98-107) mmol/L Carbon Dioxide 21 L (22-30) mmol/L BUN 57 H (7-17) mg/dL Creatinine 1.58 H (0.52-1.04) mg/dL Glucose 174 H (74-99) mg/dL POC Glucose (mg/dL) 121 H 153 H (75-99) mg/dL Calcium 7.7 L (8.4-10.2) mg/dL Total Bilirubin (0.2-1.3) mg/dL AST (14-36) U/L ALT (4-34) U/L Alkaline Phosphatase (38-126) U/L Albumin (3.5-5.0) g/dL 02/28/19 Range/Units 18:29 RBC (3.80-5.40) m/uL MCV (80.0-100.0) fL MCH (25.0-35.0) pg RDW (11.5-15.5) % Plt Count (150-450) k/uL Macrocytosis Sodium (137-145) mmol/L Potassium (3.5-5.1) mmol/L Chloride (98-107) mmol/L Carbon Dioxide (22-30) mmol/L BUN (7-17) mg/dL Creatinine (0.52-1.04) mg/dL Glucose (74-99) mg/dL POC Glucose (mg/dL) 148 H (75-99) mg/dL Calcium (8.4-10.2) mg/dL Total Bilirubin (0.2-1.3) mg/dL AST (14-36) U/L ALT (4-34) U/L Alkaline Phosphatase (38-126) U/L Albumin (3.5-5.0) g/dL Microbiology - Last 24 Hours (Table) 02/24/19 13:19 Blood Culture - Preliminary Blood No Growth after 96 hours - Imaging and Cardiology CT scan - abdomen: report reviewed, image reviewed (image reviewed with Critical Care Physician ) Assessment and Plan (1) Weakness Narrative/Plan: Admitting diagnosis. Ongoing but, a little less today. Current Visit: Yes Status: Acute Priority: High Code(s): R53.1 - WEAKNESS SNOMED Code(s): 86464911 (2) Liver metastases Current Visit: Yes Status: Acute Priority: High Code(s): C78.7 - SECONDARY MALIG NEOPLASM OF LIVER AND INTRAHEPATIC BILE DUCT SNOMED Code(s): 19656590 (3) Metastatic lung cancer (metastasis from lung to other site) Current Visit: Yes Status: Acute Priority: High Code(s): C34.90 - MALIGNANT NEOPLASM OF UNSP PART OF UNSP BRONCHUS OR LUNG SNOMED Code(s): 86526071 (4) Coagulopathy Narrative/Plan: Secondary to liver dysfunction, lack of oral intake. Vit K was administered, there are orders for INR monitoring Current Visit: Yes Status: Acute Priority: High Code(s): D68.9 - COAGULATION DEFECT, UNSPECIFIED SNOMED Code(s): 99691062 (5) Acute renal insufficiency Narrative/Plan: Nephrology following and managing Current Visit: Yes Status: Acute Priority: High Code(s): N28.9 - DISORDER OF KIDNEY AND URETER, UNSPECIFIED SNOMED Code(s): 363014669 Plan: Patient has had 3 cycles of keytruda alone, one at [facility] and 2 here, most recent treatment was on February 21. She had one cycle of Alimta and keytruda at the [facility] but, her hematological toxicities were so severe it was decided to treat with single agent immunotherapy. We had discussed the possible causes of pt condition on admit (immune therapy SE, pseudoprogression or disease progression) We discussed this evening that the clinical picture is looking more like disease progression. If continual decline, as what is being seen currently, pt and family do und erstand that there are no other options for treatment. I explained that life expectancy would not be measured in months and would be hard pressed to measure in weeks as liver failure can progress rapidly and there can be other complications. Pt and family verbalized understanding situation. Family meeting tomorrow Time with Patient: Greater than 30 (>50% time counseling and coordinating care)
[2019-02-28 21:04] LABS: Glucose,Whole Blood 162 mg/dL (75-99)
[2019-02-28 21:28] LABS: Anisocytosis Slight; HCT 29.1 % (34.0-46.0); MCH 35.3 pg (25.0-35.0); MCV 107.1 fL (80.0-100.0); Macrocytosis Marked; Mean Platelet Volume 13.8; RBC 2.72 m/uL (3.80-5.40); RDW 17.6 % (11.5-15.5); WBC 5.5 k/uL (3.8-10.6)
[2019-02-28 21:29] LABS: HGB 9.6 gm/dL (11.4-16.0); Platelet Count 18 k/uL (150-450)
[2019-02-28] MEDS ORDERED: Magnesium Replacement Protocol 1 EACH MISC MISCELLANE PRN (21:35)
[2019-02-28] MEDS ORDERED: Potassium Replacement Protocol 1 EACH MISC MISCELLANE PRN ×2 (21:35→23:50)
[2019-02-28 21:36] LABS: Calcium 7.5 mg/dL (8.4-10.2); Magnesium 1.4 mg/dL (1.6-2.3); Phosphorus 3.8 mg/dL (2.5-4.5); Potassium 2.9 mmol/L (3.5-5.1); Total Bilirubin 5.3 mg/dL (0.2-1.3); Total Protein 4.8 g/dL (6.3-8.2)
[2019-02-28 21:42] LABS: INR 1.8 (<1.2); Partial Thromboplastin Time 49.6 sec (22.0-30.0); Prothrombin Time 17.8 sec (9.0-12.0)
[2019-02-28] MEDS: DILTIAZEM 125 MG in SODIUM CHLORIDE 0.9% 100 ML IV SCH (21:46)
[2019-02-28] MEDS: SALT AND SODA MOUTHWASH 1,000 ML PO SCH ×2 (21:55→23:57)
[2019-02-28] MEDS ORDERED: NYSTATIN 100,000 UNIT/ML SUSP 500,000 UNIT/5 ML CUP PO SCH (22:00)
[2019-02-28] MEDS: MAG HYDROX/AL HYDROX/SIMETH 30 ML, LIDOCAINE VISCOUS 30 ML, diphenhydrAMINE ELIXIR 75 M... PO SCH ×4 (22:13)
[2019-02-28] MEDS: CEFEPIME 1 GM in SODIUM CHLORIDE 0.9% 50 ML IVPB SCH (22:49)
[2019-02-28] MEDS: ALPRAZolam 0.25 MG TAB PO PRN (23:16)
--- NOTE | 2019-02-28 23:16 | P.PN ---
Progress Note - Text Progress Note Date: 02/28/19 Interval history Pleasant 73-year-old patient of Dr. Cleopatra Joshua. In October 2018 she was diagnosed with metastatic stage IV lung cancer with liver masses . Patient has had 3 cycles of keytruda alone, one at the [facility] and 2 here, most recent treatment was on February 21. She had one cycle of Alimta and keytruda at the [facility] but, her hematological toxicities were so severe it was decided to treat with single agent immunotherapy. . Patient at home for last 10 days. Having a viral illness. Appetite has been going down. Has been losing weight. Getting more and more weak and tired. Patient was transferred to the ICU on February 25. Patient received D10 drip, bicarbonate drip, hypertonic saline. Today-in the ICU. Seen by me this afternoon. Eating small amounts. Tired. On D10 drip. Being greatly decreased. and daughter the bedside. Review of systems: Was done for constitutional, cardiovascular, GI, pulmonary. relevant finding as above Active Medications Albuterol Sulfate (Ventolin Nebulized (Conc)) 2.5 mg INHALATION Q4HR PRN PRN Reason: shortness of breath or cough Last Admin: 02/25/19 16:41 Dose: 2.5 mg Documented by: Alprazolam (Xanax) 0.25 mg PO BID PRN PRN Reason: Anxiety Last Admin: 02/27/19 22:13 Dose: 0.25 mg Documented by: Benzocaine/Menthol (Cepacol Lozenge) 1 each MUCOUS MEM Q4HR PRN PRN Reason: Sore Throat Last Admin: 02/28/19 14:43 Dose: 1 each Documented by: Al Hydroxide/Mg Hydroxide 30 ml/ Lidocaine HCl 30 ml/Diphenhydramine HCl 75 mg/Nystatin 3,000,000 unit 0 ml PO QID RENÉ Last Admin: 02/28/19 22:13 Dose: 5 ml Documented by: Hydrocortisone Sodium Succinate (Solu-Cortef) 100 mg IV Q12HR RENÉ Last Admin: 02/28/19 22:15 Dose: 100 mg Documented by: Hydromorphone HCl (Dilaudid) 0.5 mg IVP Q6HR PRN PRN Reason: Pain Last Admin: 02/27/19 21:00 Dose: 0.5 mg Documented by: Cefepime HCl 1 gm/ Sodium (Chloride) 50 mls @ 100 mls/hr IVPB Q24H [facility] Last Admin: 02/28/19 22:49 Dose: 100 mls/hr Documented by: Dextrose/Water 500 ml/ IV (Solution) 500 mls @ 30 mls/hr IV .[id number] [facility] Last Admin: 02/28/19 08:12 Dose: 30 mls/hr Documented by: Diltiazem HCl 125 mg/ Sodium (Chloride) 125 mls @ 5 mls/hr IV .Q24H [facility] Last Admin: 02/28/19 21:46 Dose: 5 mg/hr, 5 mls/hr Documented by: Miscellaneous Information (Potassium Per Protocol) 1 each MISCELLANE DAILY PRN; Protocol PRN Reason: Per Protocol Miscellaneous Information (Magnesium Per Protocol) 1 each MISCELLANE DAILY PRN; Protocol PRN Reason: Per Protocol Naloxone HCl (Narcan) 0.2 mg IV Q2M PRN PRN Reason: Opioid Reversal Pantoprazole Sodium (Protonix) 40 mg IVP DAILY [facility] Last Admin: 02/28/19 08:12 Dose: 40 mg Documented by: Sodium Bicarbonate (Sodium Bicarbonate Tab) 650 mg PO BID [facility] Last Admin: 02/28/19 22:24 Dose: 650 mg Documented by: Sodium Bicarbonate () 5 ml PO 5XD [facility] Last Admin: 02/28/19 21:55 Dose: Not Given Documented by: On examination: VITAL SIGNS: 97.5, 1 or 2, 14, 1160 71, 97% on 2 L GENERAL APPEARANCE: Frail weak tired, propped up in bed awake EYES: Pupils equal. Conjunctiva pale NECK: JVD unable to assess. Mass not palpable. RESPIRATORY: Respiratory effort increased. Lungs decreased breath sounds CARDIOVASCULAR: First and second sounds normal. edema present. ABDOMEN: Soft. Liver and spleen not palpable. No tenderness. No mass palpable. PSYCHIATRY: Alert and oriented x3. Mood and affect tired MUSCULOSKELETAL: Loss of subcutaneous fat DERMATOLOGICAL: Some bruising INVESTIGATIONS, reviewed in the clinical context: White count 6.2 hemoglobin 11.4 sodium 120 potassium 4.5 bun 57 creatinine 1.63 albumin 3.0 platelet 18 Previous testing White count 21.8 hemoglobin 13.6 platelets 24 potassium 6.1 bun 70 creatinine 2.65 lactic acid 3.6 sodium 117 AST 3:30 ALT 110 albumin 2.1 UA-positive Influenza a and B both negative Previous labs: Bun 16 creatinine 0.75 on 01/04/2019 Assessment: -Persistent hypoglycemia, from poor oral intake and liver disease, responding to D10 drip, slowly being weaned off -Stage IV lung cancer with metastatic disease to the liver and to T6-T8, on immunotherapy -Hypoalbuminemia, secondary to liver disease and protein calorie malnutrition -Severe protein calorie malnutrition from poor oral intake -Essential hypertension, history of -Primary osteoarthritis -COPD in a X smoker -Pancytopenia from chemotherapy -Severe Hyponatremia likely hypoosmolar, slow to respond, -Medical debility -Chronic congestive heart failure exacerbation from diastolic dysfunction EF 55- 60% -Lactic acidosis type II -Acute renal failure combination of prerenal and possibly ATN, improving slowly -Metabolic acidosis multifactorial -Bicytopenia likely from immunotherapy -CODE STATUS DO NOT RESUSCITATE. Plan: Patient be moved out of the ICU to the telemetry floor. Prognosis still remains not good. Oral intake is limited. Discussed with the daughter and at the bedside. Other medication treatment plan is to continue.
[2019-02-28 23:29] LABS: Glucose,Whole Blood 139 mg/dL (75-99)
[2019-03-01] MEDS: POTASSIUM BICARBONATE/CIT AC 20 MEQ TABLET.EFF NG-TUBE SCH ×2 (00:06→00:13)
[2019-03-01] MEDS: MAGNESIUM SULFATE-D5W PMX 1 GM in DEXTROSE/WATER 1 100ML.BAG IVPB SCH ×3 (00:06→02:35)
[2019-03-01] MEDS: POTASSIUM CHLORIDE ER 20 MEQ TAB.ER PO SCH ×5 (00:33→11:29)
--- NOTE | 2019-03-01 00:43 | P.PN ---
Subjective Progress Note Date: 02/27/19 The patient remains jaundiced. She also remains generally weak, and complains of some shortness of breath, somewhat improved with sitting up. No obvious bleeding. Denied any coughing or hemoptysis. No diarrhea noted Objective - Vital Signs Vital signs: Vital Signs Temp 95.4 F L 02/28/19 23:19 Pulse 141 H 02/28/19 23:19 Resp 18 02/28/19 23:19 BP 72/54 02/28/19 23:19 Pulse Ox 97 02/28/19 23:19 Intake & Output 02/28/19 02/28/19 03/01/19 06:59 18:59 06:59 Intake Total 1140 590 Output Total 655 945 Balance 485 -355 Weight 65.4 kg 65.4 kg Intake: IV 1110 590 .9 50 50 Cefepime 1 gm In Sodium 100 Chloride 0.9% 50 ml @ 100 mls/hr IVPB Q24H RENÉ Rx# :[id number] Dextrose 10% in Water 500 360 190 ml In Empty Bag 1 bag @ 30 mls/hr IV .[id number] RENÉ Rx#:[id number] normal saline 600 400 Intake, IV Titration 30 Amount Dextrose 10% in Water 500 30 ml In Empty Bag 1 bag @ 30 mls/hr IV .[id number] RENÉ Rx#:[id number] Output: Urine 655 945 Other: Voiding Method Indwelling Catheter Indwelling Catheter Indwelling Catheter # Bowel Movements 1 2 - Constitutional General appearance: Present: mild distress - EENT Eyes: Present: EOMI ENT: Present: hearing grossly normal, normal oropharynx - Respiratory Respiratory: bilateral: CTA, prolonged expiration - Cardiovascular Rhythm: regular Heart sounds: normal: S1, S2 - Gastrointestinal General gastrointestinal: Present: normal bowel sounds, soft - Integumentary Integumentary: Present: jaundiced - Neurologic Neurologic: Present: CNII-XII intact - Musculoskeletal Musculoskeletal: Present: generalized weakness, strength equal bilaterally - Psychiatric Psychiatric: Present: A&O x's 3 - Labs CBC & Chem 7: 02/28/19 21:13 02/28/19 21:22 Labs: Abnormal Lab Results - Last 24 Hours (Table) 02/28/19 02/28/19 02/28/19 Range/Units 00:18 05:30 05:30 RBC 3.21 L (3.80-5.40) m/uL Hgb (11.4-16.0) gm/dL Hct (34.0-46.0) % MCV 106.6 H (80.0-100.0) fL MCH 35.7 H (25.0-35.0) pg RDW 17.4 H (11.5-15.5) % Plt Count 18 L* (150-450) k/uL Macrocytosis Marked A PT (9.0-12.0) sec INR (<1.2) APTT (22.0-30.0) sec Sodium 120 L (137-145) mmol/L Potassium (3.5-5.1) mmol/L Chloride 89 L (98-107) mmol/L Carbon Dioxide 16 L (22-30) mmol/L BUN 57 H (7-17) mg/dL Creatinine 1.63 H (0.52-1.04) mg/dL Glucose 120 H (74-99) mg/dL POC Glucose (mg/dL) 157 H (75-99) mg/dL Plasma Lactic Acid Clint (0.7-2.0) mmol/L Calcium 7.8 L (8.4-10.2) mg/dL Magnesium (1.6-2.3) mg/dL Total Bilirubin 5.2 H (0.2-1.3) mg/dL AST 139 H (14-36) U/L ALT 60 H (4-34) U/L Alkaline Phosphatase 615 H (38-126) U/L Albumin 3.0 L (3.5-5.0) g/dL Total Protein (6.3-8.2) g/dL 02/28/19 02/28/19 02/28/19 Range/Units 06:22 11:34 17:02 RBC (3.80-5.40) m/uL Hgb (11.4-16.0) gm/dL Hct (34.0-46.0) % MCV (80.0-100.0) fL MCH (25.0-35.0) pg RDW (11.5-15.5) % Plt Count (150-450) k/uL Macrocytosis PT (9.0-12.0) sec INR (<1.2) APTT (22.0-30.0) sec Sodium 122 L (137-145) mmol/L Potassium 3.2 L (3.5-5.1) mmol/L Chloride 87 L (98-107) mmol/L Carbon Dioxide 21 L (22-30) mmol/L BUN 57 H (7-17) mg/dL Creatinine 1.58 H (0.52-1.04) mg/dL Glucose 174 H (74-99) mg/dL POC Glucose (mg/dL) 121 H 153 H (75-99) mg/dL Plasma Lactic Acid Clint (0.7-2.0) mmol/L Calcium 7.7 L (8.4-10.2) mg/dL Magnesium (1.6-2.3) mg/dL Total Bilirubin (0.2-1.3) mg/dL AST (14-36) U/L ALT (4-34) U/L Alkaline Phosphatase (38-126) U/L Albumin (3.5-5.0) g/dL Total Protein (6.3-8.2) g/dL 02/28/19 02/28/19 02/28/19 Range/Units 18:29 21:02 21:13 RBC 2.72 L (3.80-5.40) m/uL Hgb 9.6 L D (11.4-16.0) gm/dL Hct 29.1 L (34.0-46.0) % MCV 107.1 H (80.0-100.0) fL MCH 35.3 H (25.0-35.0) pg RDW 17.6 H (11.5-15.5) % Plt Count 18 L* (150-450) k/uL Macrocytosis Marked A PT (9.0-12.0) sec INR (<1.2) APTT (22.0-30.0) sec Sodium (137-145) mmol/L Potassium (3.5-5.1) mmol/L Chloride (98-107) mmol/L Carbon Dioxide (22-30) mmol/L BUN (7-17) mg/dL Creatinine (0.52-1.04) mg/dL Glucose (74-99) mg/dL POC Glucose (mg/dL) 148 H 162 H (75-99) mg/dL Plasma Lactic Acid Clint (0.7-2.0) mmol/L Calcium (8.4-10.2) mg/dL Magnesium (1.6-2.3) mg/dL Total Bilirubin (0.2-1.3) mg/dL AST (14-36) U/L ALT (4-34) U/L Alkaline Phosphatase (38-126) U/L Albumin (3.5-5.0) g/dL Total Protein (6.3-8.2) g/dL 02/28/19 02/28/19 02/28/19 Range/Units 21:13 21:13 21:22 RBC (3.80-5.40) m/uL Hgb (11.4-16.0) gm/dL Hct (34.0-46.0) % MCV (80.0-100.0) fL MCH (25.0-35.0) pg RDW (11.5-15.5) % Plt Count (150-450) k/uL Macrocytosis PT 17.8 H (9.0-12.0) sec INR 1.8 H (<1.2) APTT 49.6 H (22.0-30.0) sec Sodium 122 L (137-145) mmol/L Potassium 2.9 L (3.5-5.1) mmol/L Chloride 90 L (98-107) mmol/L Carbon Dioxide 20 L (22-30) mmol/L BUN 54 H (7-17) mg/dL Creatinine 1.56 H (0.52-1.04) mg/dL Glucose 138 H (74-99) mg/dL POC Glucose (mg/dL) (75-99) mg/dL Plasma Lactic Acid Clint 5.2 H* (0.7-2.0) mmol/L Calcium 7.5 L (8.4-10.2) mg/dL Magnesium 1.4 L (1.6-2.3) mg/dL Total Bilirubin 5.3 H (0.2-1.3) mg/dL AST 105 H (14-36) U/L ALT 51 H (4-34) U/L Alkaline Phosphatase 605 H (38-126) U/L Albumin 2.0 L (3.5-5.0) g/dL Total Protein 4.8 L (6.3-8.2) g/dL 02/28/19 Range/Units 23:18 RBC (3.80-5.40) m/uL Hgb (11.4-16.0) gm/dL Hct (34.0-46.0) % MCV (80.0-100.0) fL MCH (25.0-35.0) pg RDW (11.5-15.5) % Plt Count (150-450) k/uL Macrocytosis PT (9.0-12.0) sec INR (<1.2) APTT (22.0-30.0) sec Sodium (137-145) mmol/L Potassium (3.5-5.1) mmol/L Chloride (98-107) mmol/L Carbon Dioxide (22-30) mmol/L BUN (7-17) mg/dL Creatinine (0.52-1.04) mg/dL Glucose (74-99) mg/dL POC Glucose (mg/dL) 139 H (75-99) mg/dL Plasma Lactic Acid Clint (0.7-2.0) mmol/L Calcium (8.4-10.2) mg/dL Magnesium (1.6-2.3) mg/dL Total Bilirubin (0.2-1.3) mg/dL AST (14-36) U/L ALT (4-34) U/L Alkaline Phosphatase (38-126) U/L Albumin (3.5-5.0) g/dL Total Protein (6.3-8.2) g/dL Microbiology - Last 24 Hours (Table) 02/24/19 13:19 Blood Culture - Preliminary Blood No Growth after 96 hours Assessment and Plan (1) Hyponatremia Narrative/Plan: Given the patient's clinical situation, and 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 The patient had previously been started on prednisone, endocrinology were consulted. They have recommended that the patient be changed to stress doses of steroids with IV hydrocortisone and orders for the same have been written. Follow clinically to assess for response. Potassium, as well as hemodynamics are improved. Endocrinology following. Case discussed with endocrinology The patient has had prior hyponatremia though not to this degree. 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 This situation was discussed in detail with the patient and her family. The patient has known liver metastases, that appear larger on CT scan . At this time it is not definite, if the patient has progressive metastatic disease, or autoimmune inflammation (which can also make the malignant lesions appear larger). If the patient has rapidly progressive liver metastasis not responsive to treatment, then her prognosis would be considered quite poor. She is being treated for autoimmune inflammation with high-dose steroids. At this point we will continue to follow closely with ongoing steroid therapy. If the patient has progressive worsening of liver function, whether it is from progressive liver metastasis, or autoimmune inflammation or responses to high- dose steroids, prognosis would be considered quite poor in either case. In that case we will reevaluate goals of care. case discussed in detail with patient and family. All their questions answered . they expressed understanding of the medical situation Current Visit: Yes Status: Acute Priority: High Code(s): C78.7 - SECONDARY MALIG NEOPLASM OF LIVER AND INTRAHEPATIC BILE DUCT SNOMED Code(s): 35672033 (3) Metastatic lung cancer (metastasis from lung to other site) Narrative/Plan: Diagnostic and therapeutic circumstances as detailed previously. The patient was unable to tolerate her initial line of therapy. Therefore if she has progressive disease on her current therapy, and/or intractable adverse events from current therapy, prognosis would be very poor as noted above. However the patient does improve with holding the immunotherapy, and aggressi ve steroid treatment, then we do have other options for treatment Current Visit: Yes Status: Acute Priority: High Code(s): C34.90 - MALIGNANT NEOPLASM OF UNSP PART OF UNSP BRONCHUS OR LUNG SNOMED Code(s): 33329494 Plan: Continue aggressive supportive care, per [facility], the admitting service and other consultants
[2019-03-01 03:32] LABS: Glucose,Whole Blood 145 mg/dL (75-99)
--- NOTE | 2019-03-01 05:49 | PN ---
PROGRESS NOTE DATE OF SERVICE: 02/28/2019 REASON FOR FOLLOWUP: Urinary tract infection and question of pneumonia. INTERVAL HISTORY: The patient is currently afebrile. The patient is breathing comfortably. The patient is hemodynamically stable, more awake and alert. She denies any chest pain, shortness of breath. She did have some congested cough, not bringing up any sputum. No nausea. No vomiting. No diarrhea. PHYSICAL EXAMINATION: Blood pressure 98/57 with pulse of 101, temperature of 96.3. She is 96% on room air. General description is an elderly female, up in the chair, in no distress. RESPIRATORY SYSTEM: Unlabored breathing, clear to auscultation. HEART: S1, S2. Regular rate and rhythm. ABDOMEN: Soft. No tenderness. LABS: Hemoglobin 11.4, white count 6.8, BUN of 57, creatinine of 1.63. DIAGNOSTIC IMPRESSION AND PLAN: Patient admitted to hospital with mental status changes, multifactorial in this patient who did have possible concern initially for urinary tract infection. Urine culture subsequently came back negative. Patient at this time to continue cefepime to which the patient clinically has responded. Will monitor her clinical course slowly. Family at the bedside. Their questions were answered. MMODL / IJN: [id number] /
[2019-03-01 06:17] LABS: Anisocytosis Slight; HCT 31.2 % (34.0-46.0); HGB 10.2 gm/dL (11.4-16.0); MCH 35.1 pg (25.0-35.0); MCHC 32.8 g/dL (31.0-37.0); MCV 106.7 fL (80.0-100.0); Macrocytosis Marked; Mean Platelet Volume 14.6; RBC 2.92 m/uL (3.80-5.40); RDW 17.6 % (11.5-15.5); WBC 7.8 k/uL (3.8-10.6)
[2019-03-01] MEDS: SALT AND SODA MOUTHWASH 1,000 ML PO SCH ×5 (06:24→23:40)
[2019-03-01] MEDS: DEXTROSE 10% IN WATER 500 ML in EMPTY BAG 1 BAG IV SCH ×2 (06:24→22:37)
[2019-03-01 06:33] LABS: Glucose,Whole Blood 98 mg/dL (75-99)
[2019-03-01 06:48] LABS: Albumin 2.2 g/dL (3.5-5.0); Magnesium 2.2 mg/dL (1.6-2.3); Platelet Count 24 k/uL (150-450); Potassium 3.5 mmol/L (3.5-5.1); Total Bilirubin 5.5 mg/dL (0.2-1.3); Total Protein 5.2 g/dL (6.3-8.2)
[2019-03-01] MEDS: PANTOPRAZOLE 40 MG/10 ML VIAL IVP SCH (08:44)
[2019-03-01] MEDS: SODIUM BICARBONATE TAB 650 MG TAB PO SCH ×2 (08:44→22:37)
[2019-03-01] MEDS: HYDROCORTISONE SUCCINATE 100 MG/2 ML VIAL IV SCH ×2 (08:44→22:37)
[2019-03-01] MEDS: ALPRAZolam 0.25 MG TAB PO PRN ×2 (08:45→22:39)
[2019-03-01] MEDS: MAG HYDROX/AL HYDROX/SIMETH 30 ML, LIDOCAINE VISCOUS 30 ML, diphenhydrAMINE ELIXIR 75 M... PO SCH ×16 (08:45→23:40)
[2019-03-01 08:47] LABS: Metamyelocytes # (M) 0.08 k/uL (0); Metamyelocytes % 1 %; Nucleated Red Blood Cells 0 /100 WBC (0-0)
[2019-03-01 08:58] LABS: Band Neutrophils % 10 %; Lymphocytes # (M) 1.17 k/uL (1.0-4.8); Monocytes # (M) 1.87 k/uL (0-1.0); Neutrophils % (M) 52 %; Total Cells Counted 200
[2019-03-01 08:59] LABS: Poikilocytosis (M) Present
[2019-03-01 09:00] LABS: Large Platelets Present
--- NOTE | 2019-03-01 10:20 | P.PN ---
Subjective Progress Note Date: 03/01/19 Principal diagnosis: Stage IV metastatic adenocarcinoma of the lung with extensive liver involvement. 73-year-old female patient with metastatic adenocarcinoma of the lung with ex tensive liver metastases, came into the hospital because of progressive worsening in her condition, generalized weakness, anasarca, increase in lower extremity edema, decreased oral intake, in addition to ongoing weight loss. The patient also was found to be in acute kidney injury and was having electrodes imbalance. Specifically, the patient was noted to have sodium level of 122 with a potassium level of 6.1. The patient's BUN was up to 70 with a creatinine of 2.6 from a normal based on January 2019. The patient was also having episodes of hypoglycemia. Her blood sugar was 72 and dropped down to the 40s and the patient was given an amp of D50 and following that she was transferred to the intensive care unit. LFTs are abnormal as the patient has hepatic metastases. Alkaline phosphatase is elevated at 894 with AST of 338 and ALT of 110. Her total serum protein was 6.3 with an albumin of 2.1. The proBNP level was 7730. Echo was elevated at 21. Hemoglobin is at 13.6 and the CAT scan of the abdomen and pelvis was done yesterday showed multiple metastatic lesions scattered thr oughout the liver that appeared to be larger compared to the previous CAT scan from October 2018 for comparison. There was some free fluid within the pelvis. There was some nonspecific small bowel loops within the pelvis. In terms of lung cancer, the patient was diagnosed having metastatic stage IV lung cancer, adenocarcinoma with extensive liver metastases and adrenal involvement. The patient was seen at the oncology Department [facility]. The patient was given a combination of carboplatinum and Alimta and a dose of Keytruda . Since then, the patient got extremely sick. She has required transfusions with platelets in the emergency department. She became progressively more weak and the chain was supple and she has not received any treatment since. Says that she was also switched her care to Dr Nunez On 02/26/2019 seeing the patient for a follow-up. In terms of her overall condition, the patient is down slightly better compared to yesterday. She seems to be a bit more alert. She is on a D10 infusion running at the rate of 30 mL an hour and her sugars have stabilized and her most recent blood sugar is at 98. Sodium level is at 118 and the patient is receiving hypertonic solution 3% saline at the rate of 30 mL an hour. She is also on a bicarb infusion. Serum bicarb is up to 20 and the creatinine is down to 2.3. No major edema lower extremities. Nevertheless, LFTs remain abnormal, lactic acid remains elevated, she is still coagulopathic and this is upsetting related to liver insufficiency/failure due to extensive metastatic disease involving the liver. Her serum cortisol is a 28. Family is at the bedside. Oral intake is minimal and it's mainly limited to Jell-O and liquids. On today's evaluation of 02/27/2019 patient's condition essentially the same. The patient is still lethargic and sleepy. She is on oxygen at 2 L. Her chest x-ray showed development of lateral pleural effusions. Meanwhile, she developed increased edema in lower extremities and diffuse anasarca. The patient is on the 10 infusion running at 30 mL an hour. No hypoglycemic events. Hypertonic saline was felt that the patient's sodium level came up to 122. The serum bicarb infusion was also stop and the serum bicarb is also improved. She was given a dose of IV albumin 5% followed by Lasix 60 mg IV push. Her ammonia level is low at this point in time. An ocular phosphatase lower compared to yesterday. The platelet count is at 19,000. No bleeding complications at this point in time. Her white cell count is at 8.6. Creatinine is also improving and is down to 1.9 and her potassium level is at 4.8 with a sodium level of 122. Oral intake is still minimally the patient is very much debilitated from her metastatic lung cancer with extensive hepatic involvement. No signs of any adrenal insufficiency. The patient is seen today 02/28/2019 in follow-up in the intensive care unit. She is currently awake and alert in no acute distress. She denies any significant discomfort at this time. She is currently on 2 L nasal cannula and maintaining good O2 saturation in the mid 90s. She's afebrile. Slightly tachycardic. Blood pressure stable. Blood culture reveals no growth. Urine culture reveals no growth. White count 6.2. Hemoglobin 11.4. MCV 106.6. Platelets 18,000. Sodium 120. Chloride 89. Bicarb 16. Creatinine 1.63. AST 139. ALT 60. Alk phos 6:15. Albumin 3.0. She remains on sodium bicarb. IV Protonix. Solu-Cortef. Cefepime. Receiving bronchodilators. The patient is seen today 03/01/2019 in follow-up in the intensive care unit. She is currently sitting up in a chair at the bedside. Awake and alert in no acute distress. She is maintaining O2 saturations in the mid 90s on 2 L/m per nasal cannula. She's been afebrile. Mean arterial pressures greater than 65. Blood cultures reveal no growth. Urine culture reveals no growth. White count 7.8. Hemoglobin 10.2. Platelet counts 24,000. Sodium 123. Creatinine 1.48. Calcium 3.4. AST 98. ALTs 57. Alk phos 742. Albumin 2.2. She is currently on a Cardizem drip at 5 mg per hour. Empirically on cefepime. Remains in site [facility] on sodium bicarb. Oncology is on the case. Objective - Vital Signs Vital signs: Vital Signs Temp 97.6 F 03/01/19 04:00 Pulse 89 03/01/19 07:00 Resp 15 03/01/19 07:00 BP 96/56 03/01/19 07:00 Pulse Ox 95 03/01/19 07:00 Intake & Output 02/28/19 03/01/19 03/01/19 18:59 06:59 18:59 Intake Total 590 380 30 Output Total 945 535 40 Balance -355 -155 -10 Weight 65.4 kg Intake: IV 590 180 30 Dextrose 10% in Water 500 190 180 30 ml In Empty Bag 1 bag @ 30 mls/hr IV .[id number] RENÉ Rx#:[id number] normal saline 400 Intake, IV Titration 200 Amount Magnesium Sulfate-D5w Pmx 200 1 gm In Dextrose/Water 1 100ml.bag @ 100 mls/hr IVPB Q1H RENÉ Rx#: [id number] Output: Urine 945 535 40 Other: Voiding Method Indwelling Catheter Indwelling Catheter # Bowel Movements 1 2 - Exam GENERAL EXAM: Alert, nondistended 73-year-old female patient, a little more comfortable this morning. On 2 L nasal cannula. She is not in acute respiratory distress however she looks quite cachectic and emaciated and she has lost considerable amount of weight. HEAD: Normocephalic. EYES: Normal reaction of pupils, equal size. NOSE: Clear with pink turbinates. THROAT: No erythema or exudates. NECK: No masses, no JVD. CHEST: No chest wall deformity. LUNGS: Equal air entry with crackles in the posterior bases, diminished. CVS: S1 and S2 normal with no audible murmur, regular rhythm. ABDOMEN: No hepatosplenomegaly, normal bowel sounds, no guarding or rigidity. SPINE: No scoliosis or deformity SKIN: No rashes CENTRAL NERVOUS SYSTEM: No focal deficits, tone is normal in all 4 extremities. EXTREMITIES: There is 1-2+ peripheral edema. No clubbing, no cyanosis. Peripheral pulses intact - Labs CBC & Chem 7: 03/01/19 06:00 03/01/19 06:00 Labs: Abnormal Lab Results - Last 24 Hours (Table) 02/28/19 02/28/19 02/28/19 Range/Units 11:34 17:02 18:29 RBC (3.80-5.40) m/uL Hgb (11.4-16.0) gm/dL Hct (34.0-46.0) % MCV (80.0-100.0) fL MCH (25.0-35.0) pg RDW (11.5-15.5) % Plt Count (150-450) k/uL Monocytes # (Manual) (0-1.0) k/uL Metamyelocytes # (Man) (0) k/uL Macrocytosis PT (9.0-12.0) sec INR (<1.2) APTT (22.0-30.0) sec Sodium 122 L (137-145) mmol/L Potassium 3.2 L (3.5-5.1) mmol/L Chloride 87 L (98-107) mmol/L Carbon Dioxide 21 L (22-30) mmol/L BUN 57 H (7-17) mg/dL Creatinine 1.58 H (0.52-1.04) mg/dL Glucose 174 H (74-99) mg/dL POC Glucose (mg/dL) 153 H 148 H (75-99) mg/dL Plasma Lactic Acid Clint (0.7-2.0) mmol/L Calcium 7.7 L (8.4-10.2) mg/dL Magnesium (1.6-2.3) mg/dL Total Bilirubin (0.2-1.3) mg/dL AST (14-36) U/L ALT (4-34) U/L Alkaline Phosphatase (38-126) U/L Total Protein (6.3-8.2) g/dL Albumin (3.5-5.0) g/dL 02/28/19 02/28/19 02/28/19 Range/Units 21:02 21:13 21:13 RBC 2.72 L (3.80-5.40) m/uL Hgb 9.6 L D (11.4-16.0) gm/dL Hct 29.1 L (34.0-46.0) % MCV 107.1 H (80.0-100.0) fL MCH 35.3 H (25.0-35.0) pg RDW 17.6 H (11.5-15.5) % Plt Count 18 L* (150-450) k/uL Monocytes # (Manual) (0-1.0) k/uL Metamyelocytes # (Man) (0) k/uL Macrocytosis Marked A PT (9.0-12.0) sec INR (<1.2) APTT (22.0-30.0) sec Sodium (137-145) mmol/L Potassium (3.5-5.1) mmol/L Chloride (98-107) mmol/L Carbon Dioxide (22-30) mmol/L BUN (7-17) mg/dL Creatinine (0.52-1.04) mg/dL Glucose (74-99) mg/dL POC Glucose (mg/dL) 162 H (75-99) mg/dL Plasma Lactic Acid Clint 5.2 H* (0.7-2.0) mmol/L Calcium (8.4-10.2) mg/dL Magnesium (1.6-2.3) mg/dL Total Bilirubin (0.2-1.3) mg/dL AST (14-36) U/L ALT (4-34) U/L Alkaline Phosphatase (38-126) U/L Total Protein (6.3-8.2) g/dL Albumin (3.5-5.0) g/dL 02/28/19 02/28/19 02/28/19 Range/Units 21:13 21:22 23:18 RBC (3.80-5.40) m/uL Hgb (11.4-16.0) gm/dL Hct (34.0-46.0) % MCV (80.0-100.0) fL MCH (25.0-35.0) pg RDW (11.5-15.5) % Plt Count (150-450) k/uL Monocytes # (Manual) (0-1.0) k/uL Metamyelocytes # (Man) (0) k/uL Macrocytosis PT 17.8 H (9.0-12.0) sec INR 1.8 H (<1.2) APTT 49.6 H (22.0-30.0) sec Sodium 122 L (137-145) mmol/L Potassium 2.9 L (3.5-5.1) mmol/L Chloride 90 L (98-107) mmol/L Carbon Dioxide 20 L (22-30) mmol/L BUN 54 H (7-17) mg/dL Creatinine 1.56 H (0.52-1.04) mg/dL Glucose 138 H (74-99) mg/dL POC Glucose (mg/dL) 139 H (75-99) mg/dL Plasma Lactic Acid Clint (0.7-2.0) mmol/L Calcium 7.5 L (8.4-10.2) mg/dL Magnesium 1.4 L (1.6-2.3) mg/dL Total Bilirubin 5.3 H (0.2-1.3) mg/dL AST 105 H (14-36) U/L ALT 51 H (4-34) U/L Alkaline Phosphatase 605 H (38-126) U/L Total Protein 4.8 L (6.3-8.2) g/dL Albumin 2.0 L (3.5-5.0) g/dL 03/01/19 03/01/19 03/01/19 Range/Units 03:21 06:00 06:00 RBC (3.80-5.40) m/uL Hgb (11.4-16.0) gm/dL Hct (34.0-46.0) % MCV (80.0-100.0) fL MCH (25.0-35.0) pg RDW (11.5-15.5) % Plt Count (150-450) k/uL Monocytes # (Manual) (0-1.0) k/uL Metamyelocytes # (Man) (0) k/uL Macrocytosis PT (9.0-12.0) sec INR (<1.2) APTT (22.0-30.0) sec Sodium 123 L (137-145) mmol/L Potassium (3.5-5.1) mmol/L Chloride 88 L (98-107) mmol/L Carbon Dioxide (22-30) mmol/L BUN 57 H (7-17) mg/dL Creatinine 1.48 H (0.52-1.04) mg/dL Glucose 106 H (74-99) mg/dL POC Glucose (mg/dL) 145 H (75-99) mg/dL Plasma Lactic Acid Clint 3.4 H* (0.7-2.0) mmol/L Calcium 8.0 L (8.4-10.2) mg/dL Magnesium (1.6-2.3) mg/dL Total Bilirubin 5.5 H (0.2-1.3) mg/dL AST 98 H (14-36) U/L ALT 57 H (4-34) U/L Alkaline Phosphatase 742 H (38-126) U/L Total Protein 5.2 L (6.3-8.2) g/dL Albumin 2.2 L (3.5-5.0) g/dL 03/01/19 Range/Units 06:00 RBC 2.92 L (3.80-5.40) m/uL Hgb 10.2 L (11.4-16.0) gm/dL Hct 31.2 L (34.0-46.0) % MCV 106.7 H (80.0-100.0) fL MCH 35.1 H (25.0-35.0) pg RDW 17.6 H (11.5-15.5) % Plt Count 24 L (150-450) k/uL Monocytes # (Manual) 1.87 H (0-1.0) k/uL Metamyelocytes # (Man) 0.08 H (0) k/uL Macrocytosis Marked A PT (9.0-12.0) sec INR (<1.2) APTT (22.0-30.0) sec Sodium (137-145) mmol/L Potassium (3.5-5.1) mmol/L Chloride (98-107) mmol/L Carbon Dioxide (22-30) mmol/L BUN (7-17) mg/dL Creatinine (0.52-1.04) mg/dL Glucose (74-99) mg/dL POC Glucose (mg/dL) (75-99) mg/dL Plasma Lactic Acid Clint (0.7-2.0) mmol/L Calcium (8.4-10.2) mg/dL Magnesium (1.6-2.3) mg/dL Total Bilirubin (0.2-1.3) mg/dL AST (14-36) U/L ALT (4-34) U/L Alkaline Phosphatase (38-126) U/L Total Protein (6.3-8.2) g/dL Albumin (3.5-5.0) g/dL Microbiology - Last 24 Hours (Table) 02/24/19 13:19 Blood Culture - Preliminary Blood No Growth after 96 hours Assessment and Plan Assessment: 1 stage IV metastatic adenocarcinoma of the lung with extensive liver involvement, treated with this cycle of systemic chemotherapy and immunotherapy with subsequent failure of treatment due to side effects and worsening of the performance and functional status 2 acute hypoglycemia secondary to hepatitic failure/insufficiency due to metastatic disease, currently she is on D10 infusion at the rate of 30 mL an hour without any further episodes of hypoglycemia. 3 acute leukocytosis, improving 4 acute kidney injury likely secondary to intravascular volume depletion/dehydration, improving the creatinine is down to 1.48 5 acute hyperkalemia, recovered 6 chronic lower extremity edema with worsening in lower extremity swelling 7 COPD 8 hypertension 9 hyperlipidemia 10 chronic anxiety 11 osteoarthritis 12 lactic acidosis secondary to hepatitic insufficiency/liver failure, still abnormal lactic acid level of 3.9 although improved 13 diffuse anasarca 14 hyponatremia improving and the sodium level is at 120 patient is off hypertonic solution for now. Plan The patient was seen and evaluated by Dr. Gallo. She remains on cefepime. She is a little more comfortable and stronger today. Numbers about the same. Overall prognosis is quite guarded and poor. We'll continue to follow. I, the cosigning physician, performed a history & physical examination of the patient. Lungs sounds with crackles in the bases. Maintaining good O2 saturations in the 90s on 2 L/m per nasal cannula. I discussed the assessment and plan of care with my nurse practitioner, Briana Larkin. I attest to the above note as dictated by her.
[2019-03-01] MEDS ORDERED: FUROSEMIDE 10 MG/ML 10 ML VIAL IV STA (10:25)
--- NOTE | 2019-03-01 10:26 | P.PN ---
Subjective Patient is seen in follow-up for acute kidney injury and electrolyte imbalance. Patient went A. fib with RVR last night and is currently maintained on Cardizem drip. She remains lethargic. Sodium level 123. Renal function continues to improve. Vital signs are stable. Blood pressures on the lower side. General: The patient appeared well nourished and normally developed. HEENT: Head exam is unremarkable. Neck is without jugular venous distension. LUNGS: Breath sounds decreased. HEART: Rate and Rhythm are regular. First and second heart sounds normal. No murmurs, rubs or gallops. ABDOMEN: Bowel sounds present. Soft. EXTREMITITES: 2+ edema. Objective - Vital Signs Vital signs: Vital Signs Temp 97.6 F 03/01/19 04:00 Pulse 89 03/01/19 07:00 Resp 15 03/01/19 07:00 BP 96/56 03/01/19 07:00 Pulse Ox 95 03/01/19 07:00 Intake & Output 02/28/19 03/01/19 03/01/19 18:59 06:59 18:59 Intake Total 590 380 30 Output Total 945 535 40 Balance -355 -155 -10 Weight 65.4 kg Intake: IV 590 180 30 Dextrose 10% in Water 500 190 180 30 ml In Empty Bag 1 bag @ 30 mls/hr IV .[id number] RENÉ Rx#:[id number] normal saline 400 Intake, IV Titration 200 Amount Magnesium Sulfate-D5w Pmx 200 1 gm In Dextrose/Water 1 100ml.bag @ 100 mls/hr IVPB Q1H RENÉ Rx#: [id number] Output: Urine 945 535 40 Other: Voiding Method Indwelling Catheter Indwelling Catheter # Bowel Movements 1 2 - Labs CBC & Chem 7: 03/01/19 06:00 03/01/19 06:00 Labs: Abnormal Lab Results - Last 24 Hours (Table) 02/28/19 02/28/19 02/28/19 Range/Units 11:34 17:02 18:29 RBC (3.80-5.40) m/uL Hgb (11.4-16.0) gm/dL Hct (34.0-46.0) % MCV (80.0-100.0) fL MCH (25.0-35.0) pg RDW (11.5-15.5) % Plt Count (150-450) k/uL Monocytes # (Manual) (0-1.0) k/uL Metamyelocytes # (Man) (0) k/uL Macrocytosis PT (9.0-12.0) sec INR (<1.2) APTT (22.0-30.0) sec Sodium 122 L (137-145) mmol/L Potassium 3.2 L (3.5-5.1) mmol/L Chloride 87 L (98-107) mmol/L Carbon Dioxide 21 L (22-30) mmol/L BUN 57 H (7-17) mg/dL Creatinine 1.58 H (0.52-1.04) mg/dL Glucose 174 H (74-99) mg/dL POC Glucose (mg/dL) 153 H 148 H (75-99) mg/dL Plasma Lactic Acid Clint (0.7-2.0) mmol/L Calcium 7.7 L (8.4-10.2) mg/dL Magnesium (1.6-2.3) mg/dL Total Bilirubin (0.2-1.3) mg/dL AST (14-36) U/L ALT (4-34) U/L Alkaline Phosphatase (38-126) U/L Total Protein (6.3-8.2) g/dL Albumin (3.5-5.0) g/dL 02/28/19 02/28/19 02/28/19 Range/Units 21:02 21:13 21:13 RBC 2.72 L (3.80-5.40) m/uL Hgb 9.6 L D (11.4-16.0) gm/dL Hct 29.1 L (34.0-46.0) % MCV 107.1 H (80.0-100.0) fL MCH 35.3 H (25.0-35.0) pg RDW 17.6 H (11.5-15.5) % Plt Count 18 L* (150-450) k/uL Monocytes # (Manual) (0-1.0) k/uL Metamyelocytes # (Man) (0) k/uL Macrocytosis Marked A PT (9.0-12.0) sec INR (<1.2) APTT (22.0-30.0) sec Sodium (137-145) mmol/L Potassium (3.5-5.1) mmol/L Chloride (98-107) mmol/L Carbon Dioxide (22-30) mmol/L BUN (7-17) mg/dL Creatinine (0.52-1.04) mg/dL Glucose (74-99) mg/dL POC Glucose (mg/dL) 162 H (75-99) mg/dL Plasma Lactic Acid Clint 5.2 H* (0.7-2.0) mmol/L Calcium (8.4-10.2) mg/dL Magnesium (1.6-2.3) mg/dL Total Bilirubin (0.2-1.3) mg/dL AST (14-36) U/L ALT (4-34) U/L Alkaline Phosphatase (38-126) U/L Total Protein (6.3-8.2) g/dL Albumin (3.5-5.0) g/dL 02/28/19 02/28/19 02/28/19 Range/Units 21:13 21:22 23:18 RBC (3.80-5.40) m/uL Hgb (11.4-16.0) gm/dL Hct (34.0-46.0) % MCV (80.0-100.0) fL MCH (25.0-35.0) pg RDW (11.5-15.5) % Plt Count (150-450) k/uL Monocytes # (Manual) (0-1.0) k/uL Metamyelocytes # (Man) (0) k/uL Macrocytosis PT 17.8 H (9.0-12.0) sec INR 1.8 H (<1.2) APTT 49.6 H (22.0-30.0) sec Sodium 122 L (137-145) mmol/L Potassium 2.9 L (3.5-5.1) mmol/L Chloride 90 L (98-107) mmol/L Carbon Dioxide 20 L (22-30) mmol/L BUN 54 H (7-17) mg/dL Creatinine 1.56 H (0.52-1.04) mg/dL Glucose 138 H (74-99) mg/dL POC Glucose (mg/dL) 139 H (75-99) mg/dL Plasma Lactic Acid Clint (0.7-2.0) mmol/L Calcium 7.5 L (8.4-10.2) mg/dL Magnesium 1.4 L (1.6-2.3) mg/dL Total Bilirubin 5.3 H (0.2-1.3) mg/dL AST 105 H (14-36) U/L ALT 51 H (4-34) U/L Alkaline Phosphatase 605 H (38-126) U/L Total Protein 4.8 L (6.3-8.2) g/dL Albumin 2.0 L (3.5-5.0) g/dL 03/01/19 03/01/19 03/01/19 Range/Units 03:21 06:00 06:00 RBC (3.80-5.40) m/uL Hgb (11.4-16.0) gm/dL Hct (34.0-46.0) % MCV (80.0-100.0) fL MCH (25.0-35.0) pg RDW (11.5-15.5) % Plt Count (150-450) k/uL Monocytes # (Manual) (0-1.0) k/uL Metamyelocytes # (Man) (0) k/uL Macrocytosis PT (9.0-12.0) sec INR (<1.2) APTT (22.0-30.0) sec Sodium 123 L (137-145) mmol/L Potassium (3.5-5.1) mmol/L Chloride 88 L (98-107) mmol/L Carbon Dioxide (22-30) mmol/L BUN 57 H (7-17) mg/dL Creatinine 1.48 H (0.52-1.04) mg/dL Glucose 106 H (74-99) mg/dL POC Glucose (mg/dL) 145 H (75-99) mg/dL Plasma Lactic Acid Clint 3.4 H* (0.7-2.0) mmol/L Calcium 8.0 L (8.4-10.2) mg/dL Magnesium (1.6-2.3) mg/dL Total Bilirubin 5.5 H (0.2-1.3) mg/dL AST 98 H (14-36) U/L ALT 57 H (4-34) U/L Alkaline Phosphatase 742 H (38-126) U/L Total Protein 5.2 L (6.3-8.2) g/dL Albumin 2.2 L (3.5-5.0) g/dL 03/01/19 Range/Units 06:00 RBC 2.92 L (3.80-5.40) m/uL Hgb 10.2 L (11.4-16.0) gm/dL Hct 31.2 L (34.0-46.0) % MCV 106.7 H (80.0-100.0) fL MCH 35.1 H (25.0-35.0) pg RDW 17.6 H (11.5-15.5) % Plt Count 24 L (150-450) k/uL Monocytes # (Manual) 1.87 H (0-1.0) k/uL Metamyelocytes # (Man) 0.08 H (0) k/uL Macrocytosis Marked A PT (9.0-12.0) sec INR (<1.2) APTT (22.0-30.0) sec Sodium (137-145) mmol/L Potassium (3.5-5.1) mmol/L Chloride (98-107) mmol/L Carbon Dioxide (22-30) mmol/L BUN (7-17) mg/dL Creatinine (0.52-1.04) mg/dL Glucose (74-99) mg/dL POC Glucose (mg/dL) (75-99) mg/dL Plasma Lactic Acid Clint (0.7-2.0) mmol/L Calcium (8.4-10.2) mg/dL Magnesium (1.6-2.3) mg/dL Total Bilirubin (0.2-1.3) mg/dL AST (14-36) U/L ALT (4-34) U/L Alkaline Phosphatase (38-126) U/L Total Protein (6.3-8.2) g/dL Albumin (3.5-5.0) g/dL Microbiology - Last 24 Hours (Table) 02/24/19 13:19 Blood Culture - Preliminary Blood No Growth after 96 hours Assessment and Plan Plan: Assessment: 1. Acute kidney injury secondary to ATN secondary to hypotension. Creatinine 2.7 on admission and is 1.48 today. No hydronephrosis noted on CAT scan. 2. Hyponatremia. Patient is hypervolemic which is due to third spacing from hypoalbuminemia. 3. Hypokalemia secondary to diuresis. 4. Metabolic acidosis secondary to acute kidney injury and lactic acidosis. 5. Lactic acidosis secondary to hypotension and metastatic liver disease. 6. Volume overload. 7. A. fib with RVR maintain on Cardizem drip. Plan: 25 g IV albumin now. Lasix 60 mg IV once 1 hour after albumin infusion. Samsca 15 mg this afternoon. Maintain oral sodium bicarbonate. Avoid nephrotoxins. Continue to monitor renal function and urine output. Potassium being replaced.
[2019-03-01] MEDS: ALBUMIN HUMAN 25% 50 ML in EMPTY BAG 1 BAG IVPB SCH ×2 (11:03→12:22)
[2019-03-01] MEDS: DILTIAZEM 125 MG in SODIUM CHLORIDE 0.9% 100 ML IV SCH (11:36)
[2019-03-01 13:22] LABS: Glucose,Whole Blood 145 mg/dL (75-99)
[2019-03-01] MEDS ORDERED: TOLVAPTAN 15 MG 1/2 TABLET PO ONE (16:00)
--- NOTE | 2019-03-01 16:37 | P.PN ---
Subjective Progress Note Date: 03/01/19 Principal diagnosis: weakness, NSCLC, metastatic In f/u today pt sitting in chair, no c/o, SOB stable at rest, no pain, nausea. Objective - Vital Signs Vital signs: Vital Signs Temp 98.7 F 03/01/19 12:00 Pulse 77 03/01/19 15:00 Resp 22 03/01/19 15:00 BP 112/63 03/01/19 15:00 Pulse Ox 96 03/01/19 15:00 Intake & Output 02/28/19 03/01/19 03/01/19 18:59 06:59 18:59 Intake Total 590 380 799.167 Output Total 945 535 340 Balance -355 -155 459.167 Weight 65.4 kg 65.4 kg Intake: IV 590 180 270 Dextrose 10% in Water 500 190 180 270 ml In Empty Bag 1 bag @ 30 mls/hr IV .[id number] RENÉ Rx#:[id number] normal saline 400 Intake, IV Titration 200 169.167 Amount Albumin Human 25% 50 ml 100 In Empty Bag 1 bag @ 50 mls/hr IVPB Q1H RENÉ Rx#: [id number] Diltiazem 125 mg In 69.167 Sodium Chloride 0.9% 100 ml @ 5 MG/HR 5 mls/hr IV .Q24H RENÉ Rx#:[id number] Magnesium Sulfate-D5w Pmx 200 1 gm In Dextrose/Water 1 100ml.bag @ 100 mls/hr IVPB Q1H RENÉ Rx#: [id number] Oral 360 Output: Urine 945 535 340 Other: Voiding Method Indwelling Catheter Indwelling Catheter Indwelling Catheter # Bowel Movements 1 2 - Constitutional Constitutional Comment(s): WD, thin, frail, NAD, A&Ox4, 3-4 word sentences before SOB noted, able to drink on her own - Labs CBC & Chem 7: 03/01/19 06:00 03/01/19 06:00 Labs: Abnormal Lab Results - Last 24 Hours (Table) 02/28/19 02/28/19 02/28/19 Range/Units 17:02 18:29 21:02 RBC (3.80-5.40) m/uL Hgb (11.4-16.0) gm/dL Hct (34.0-46.0) % MCV (80.0-100.0) fL MCH (25.0-35.0) pg RDW (11.5-15.5) % Plt Count (150-450) k/uL Monocytes # (Manual) (0-1.0) k/uL Metamyelocytes # (Man) (0) k/uL Macrocytosis PT (9.0-12.0) sec INR (<1.2) APTT (22.0-30.0) sec Sodium 122 L (137-145) mmol/L Potassium 3.2 L (3.5-5.1) mmol/L Chloride 87 L (98-107) mmol/L Carbon Dioxide 21 L (22-30) mmol/L BUN 57 H (7-17) mg/dL Creatinine 1.58 H (0.52-1.04) mg/dL Glucose 174 H (74-99) mg/dL POC Glucose (mg/dL) 148 H 162 H (75-99) mg/dL Plasma Lactic Acid Clint (0.7-2.0) mmol/L Calcium 7.7 L (8.4-10.2) mg/dL Magnesium (1.6-2.3) mg/dL Total Bilirubin (0.2-1.3) mg/dL AST (14-36) U/L ALT (4-34) U/L Alkaline Phosphatase (38-126) U/L Total Protein (6.3-8.2) g/dL Albumin (3.5-5.0) g/dL 02/28/19 02/28/19 02/28/19 Range/Units 21:13 21:13 21:13 RBC 2.72 L (3.80-5.40) m/uL Hgb 9.6 L D (11.4-16.0) gm/dL Hct 29.1 L (34.0-46.0) % MCV 107.1 H (80.0-100.0) fL MCH 35.3 H (25.0-35.0) pg RDW 17.6 H (11.5-15.5) % Plt Count 18 L* (150-450) k/uL Monocytes # (Manual) (0-1.0) k/uL Metamyelocytes # (Man) (0) k/uL Macrocytosis Marked A PT 17.8 H (9.0-12.0) sec INR 1.8 H (<1.2) APTT 49.6 H (22.0-30.0) sec Sodium (137-145) mmol/L Potassium (3.5-5.1) mmol/L Chloride (98-107) mmol/L Carbon Dioxide (22-30) mmol/L BUN (7-17) mg/dL Creatinine (0.52-1.04) mg/dL Glucose (74-99) mg/dL POC Glucose (mg/dL) (75-99) mg/dL Plasma Lactic Acid Clint 5.2 H* (0.7-2.0) mmol/L Calcium (8.4-10.2) mg/dL Magnesium (1.6-2.3) mg/dL Total Bilirubin (0.2-1.3) mg/dL AST (14-36) U/L ALT (4-34) U/L Alkaline Phosphatase (38-126) U/L Total Protein (6.3-8.2) g/dL Albumin (3.5-5.0) g/dL 02/28/19 02/28/19 03/01/19 Range/Units 21:22 23:18 03:21 RBC (3.80-5.40) m/uL Hgb (11.4-16.0) gm/dL Hct (34.0-46.0) % MCV (80.0-100.0) fL MCH (25.0-35.0) pg RDW (11.5-15.5) % Plt Count (150-450) k/uL Monocytes # (Manual) (0-1.0) k/uL Metamyelocytes # (Man) (0) k/uL Macrocytosis PT (9.0-12.0) sec INR (<1.2) APTT (22.0-30.0) sec Sodium 122 L (137-145) mmol/L Potassium 2.9 L (3.5-5.1) mmol/L Chloride 90 L (98-107) mmol/L Carbon Dioxide 20 L (22-30) mmol/L BUN 54 H (7-17) mg/dL Creatinine 1.56 H (0.52-1.04) mg/dL Glucose 138 H (74-99) mg/dL POC Glucose (mg/dL) 139 H 145 H (75-99) mg/dL Plasma Lactic Acid Clint (0.7-2.0) mmol/L Calcium 7.5 L (8.4-10.2) mg/dL Magnesium 1.4 L (1.6-2.3) mg/dL Total Bilirubin 5.3 H (0.2-1.3) mg/dL AST 105 H (14-36) U/L ALT 51 H (4-34) U/L Alkaline Phosphatase 605 H (38-126) U/L Total Protein 4.8 L (6.3-8.2) g/dL Albumin 2.0 L (3.5-5.0) g/dL 03/01/19 03/01/19 03/01/19 Range/Units 06:00 06:00 06:00 RBC 2.92 L (3.80-5.40) m/uL Hgb 10.2 L (11.4-16.0) gm/dL Hct 31.2 L (34.0-46.0) % MCV 106.7 H (80.0-100.0) fL MCH 35.1 H (25.0-35.0) pg RDW 17.6 H (11.5-15.5) % Plt Count 24 L (150-450) k/uL Monocytes # (Manual) 1.87 H (0-1.0) k/uL Metamyelocytes # (Man) 0.08 H (0) k/uL Macrocytosis Marked A PT (9.0-12.0) sec INR (<1.2) APTT (22.0-30.0) sec Sodium 123 L (137-145) mmol/L Potassium (3.5-5.1) mmol/L Chloride 88 L (98-107) mmol/L Carbon Dioxide (22-30) mmol/L BUN 57 H (7-17) mg/dL Creatinine 1.48 H (0.52-1.04) mg/dL Glucose 106 H (74-99) mg/dL POC Glucose (mg/dL) (75-99) mg/dL Plasma Lactic Acid Clint 3.4 H* (0.7-2.0) mmol/L Calcium 8.0 L (8.4-10.2) mg/dL Magnesium (1.6-2.3) mg/dL Total Bilirubin 5.5 H (0.2-1.3) mg/dL AST 98 H (14-36) U/L ALT 57 H (4-34) U/L Alkaline Phosphatase 742 H (38-126) U/L Total Protein 5.2 L (6.3-8.2) g/dL Albumin 2.2 L (3.5-5.0) g/dL 03/01/19 Range/Units 13:10 RBC (3.80-5.40) m/uL Hgb (11.4-16.0) gm/dL Hct (34.0-46.0) % MCV (80.0-100.0) fL MCH (25.0-35.0) pg RDW (11.5-15.5) % Plt Count (150-450) k/uL Monocytes # (Manual) (0-1.0) k/uL Metamyelocytes # (Man) (0) k/uL Macrocytosis PT (9.0-12.0) sec INR (<1.2) APTT (22.0-30.0) sec Sodium (137-145) mmol/L Potassium (3.5-5.1) mmol/L Chloride (98-107) mmol/L Carbon Dioxide (22-30) mmol/L BUN (7-17) mg/dL Creatinine (0.52-1.04) mg/dL Glucose (74-99) mg/dL POC Glucose (mg/dL) 145 H (75-99) mg/dL Plasma Lactic Acid Clint (0.7-2.0) mmol/L Calcium (8.4-10.2) mg/dL Magnesium (1.6-2.3) mg/dL Total Bilirubin (0.2-1.3) mg/dL AST (14-36) U/L ALT (4-34) U/L Alkaline Phosphatase (38-126) U/L Total Protein (6.3-8.2) g/dL Albumin (3.5-5.0) g/dL Microbiology - Last 24 Hours (Table) 02/24/19 13:19 Blood Culture - Preliminary Blood No Growth after 120 hours Assessment and Plan (1) Weakness Current Visit: Yes Status: Acute Priority: High Code(s): R53.1 - WEAKNESS SNOMED Code(s): 47291100 (2) Liver metastases Current Visit: Yes Status: Acute Priority: High Code(s): C78.7 - SECONDARY MALIG NEOPLASM OF LIVER AND INTRAHEPATIC BILE DUCT SNOMED Code(s): 01566617 (3) Metastatic lung cancer (metastasis from lung to other site) Current Visit: Yes Status: Acute Priority: High Code(s): C34.90 - MALIGNANT NEOPLASM OF UNSP PART OF UNSP BRONCHUS OR LUNG SNOMED Code(s): 71917431 (4) Coagulopathy Current Visit: Yes Status: Acute Priority: High Code(s): D68.9 - COAGULATION DEFECT, UNSPECIFIED SNOMED Code(s): 10321096 (5) Acute renal insufficiency Current Visit: Yes Status: Acute Priority: High Code(s): N28.9 - DISORDER OF KIDNEY AND URETER, UNSPECIFIED SNOMED Code(s): 289368259 Plan: Patient has had 3 cycles of keytruda alone, one at the [facility] and 2 here, most recent treatment was on February 21. She had one cycle of Alimta and keytruda at the [facility] but, her hematological toxicities were so severe it was decided to treat with single agent immunotherapy. Family meeting: We summarized pt hospital course, what we were monitoring and correcting and what has corrected, what has not and what is thought to be happening. Clinical picture is looking more like disease progression as the liver is not recovering despite supportive care and treatment as though it were immunotherapy side effects. Pt and family do understand that there are no other options for treatment of cancer and that Oncology recommendations are for hospice. Life expectancy would not be measured in months and would be hard pressed to measure in weeks as liver failure can progress rapidly and there can be other complications. All of Pt and family questions answered, they verbalized understanding situation and recommendations. Dr. Nunez, Internal Medicine and Pulmonary had all also spoke with pt and family with same recommendations. Family very satisfied with communication and continuity of care Doctor attests: I performed a history and physical examination of this patient, developed impression and plan of care, discussed with dictator. I agree with dictators note, documented as a scribe. Time with Patient: Less than 30 (45 min spent counseling and coordinating end of life care)
[2019-03-01] MEDS: ALBUTEROL NEB (CONC) 2.5 MG/0.5 ML INHALATION PRN (17:49)
--- NOTE | 2019-03-01 18:03 | PN ---
PROGRESS NOTE DATE OF SERVICE: 03/01/2019 REASON FOR FOLLOWUP: UTI, question of pneumonia. INTERVAL HISTORY: The patient was seen on rounds this afternoon. The patient has been afebrile. She has been breathing comfortably. Denies having any chest pain. Occasional cough. No nausea, vomiting. Denies abdominal pain. No diarrhea. PHYSICAL EXAMINATION: Blood pressure 97/64 with a pulse of 84, temperature 98.7. She is 95% on 2.5 L nasal cannula. General description is an elderly female up in the chair in no distress. LABS: Hemoglobin is 10.2, white count 7.8. BUN of 10, creatinine 1.48. Lipase 3.4. DIAGNOSTIC IMPRESSION AND PLAN: Patient admitted to the hospital with mental status changes likely this patient who did have metastatic lung cancer with METS to the liver with initial concern for urinary tract infection, urine has been negative, pneumonia is questionable. The patient is covered with cefepime. However in view of the poor prognosis, hospice care may be considered. Infectious Disease will sign off at this time. Please call back pain if any questions or concerns, Infectious Disease cleared. Daughter was at the bedside. Questions and concerns were answered. MMODL / IJN: [id number] /
--- NOTE | 2019-03-01 20:48 | P.PN ---
Progress Note - Text Progress Note Date: 03/01/19 Interval history Pleasant 73-year-old patient of Dr. Cleopatra Joshua. In October 2018 she was diagnosed with metastatic stage IV lung cancer with liver masses . Patient has had 3 cycles of keytruda alone, one at the [facility] and 2 here, most recent treatment was on February 21. She had one cycle of Alimta and keytruda at the [facility] but, her hematological toxicities were so severe it was decided to treat with single agent immunotherapy. . Patient at home for last 10 days. Having a viral illness. Appetite has been going down. Has been losing weight. Getting more and more weak and tired. Patient was transferred to the ICU on February 25. Patient received D10 drip, bicarbonate drip, hypertonic saline. Today-yesterday evening he shouldn't went into A. fib with rapid ventricular rate. Did drop her blood pressure. Patient was moved to the ICU. Went back into sinus rhythm. Cardizem drip was taken off. Patient feels weak tired rundown. Oral intake limited. Daughter at the bedside Review of systems: Was done for constitutional, cardiovascular, GI, pulmonary. relevant finding as above Active Medications Albuterol Sulfate (Ventolin Nebulized (Conc)) 2.5 mg INHALATION Q4HR PRN PRN Reason: shortness of breath or cough Last Admin: 03/01/19 17:49 Dose: 2.5 mg Documented by: Alprazolam (Xanax) 0.25 mg PO BID PRN PRN Reason: Anxiety Last Admin: 03/01/19 08:45 Dose: 0.25 mg Documented by: Benzocaine/Menthol (Cepacol Lozenge) 1 each MUCOUS MEM Q4HR PRN PRN Reason: Sore Throat Last Admin: 02/28/19 14:43 Dose: 1 each Documented by: Al Hydroxide/Mg Hydroxide 30 ml/ Lidocaine HCl 30 ml/Diphenhydramine HCl 75 mg/Nystatin 3,000,000 unit 0 ml PO QID RENÉ Last Admin: 03/01/19 18:09 Dose: 5 ml Documented by: Hydrocortisone Sodium Succinate (Solu-Cortef) 100 mg IV Q12HR RENÉ Last Admin: 03/01/19 08:44 Dose: 100 mg Documented by: Hydromorphone HCl (Dilaudid) 0.5 mg IVP Q6HR PRN PRN Reason: Pain Last Admin: 02/27/19 21:00 Dose: 0.5 mg Documented by: Cefepime HCl 1 gm/ Sodium (Chloride) 50 mls @ 100 mls/hr IVPB Q24H [facility] Last Admin: 02/28/19 22:49 Dose: 100 mls/hr Documented by: Dextrose/Water 500 ml/ IV (Solution) 500 mls @ 30 mls/hr IV .[id number] [facility] Last Admin: 03/01/19 06:24 Dose: 30 mls/hr Documented by: Diltiazem HCl 125 mg/ Sodium (Chloride) 125 mls @ 5 mls/hr IV .Q24H [facility] Last Admin: 03/01/19 11:36 Dose: 5 mg/hr, 5 mls/hr Documented by: Miscellaneous Information (Potassium Per Protocol) 1 each MISCELLANE DAILY PRN; Protocol PRN Reason: Per Protocol Miscellaneous Information (Magnesium Per Protocol) 1 each MISCELLANE DAILY PRN; Protocol PRN Reason: Per Protocol Miscellaneous Information (Potassium Per Protocol) 1 each MISCELLANE DAILY PRN; Protocol PRN Reason: Per Protocol Naloxone HCl (Narcan) 0.2 mg IV Q2M PRN PRN Reason: Opioid Reversal Sodium Bicarbonate (Sodium Bicarbonate Tab) 650 mg PO BID [facility] Last Admin: 03/01/19 08:44 Dose: 650 mg Documented by: Sodium Bicarbonate () 5 ml PO 5XD [facility] Last Admin: 03/01/19 17:16 Dose: 5 ml Documented by: On examination: VITAL SIGNS: 98.7, 69, 18, 99/57, 97% on nasal cannula GENERAL APPEARANCE: Frail weak tired, propped up in bed awake EYES: Pupils equal. Conjunctiva pale NECK: JVD unable to assess. Mass not palpable. RESPIRATORY: Respiratory effort increased. Lungs decreased breath sounds CARDIOVASCULAR: First and second sounds normal. edema present. ABDOMEN: Soft. Liver and spleen not palpable. No tenderness. No mass palpable. PSYCHIATRY: Alert and oriented x3. Mood and affect tired MUSCULOSKELETAL: Loss of subcutaneous fat DERMATOLOGICAL: Some bruising INVESTIGATIONS, reviewed in the clinical context: White count 7.8 hemoglobin 10.2 platelets 24 potassium 3.5 bun 57 creatinine 1.48 sodium 123 albumin 2.2 Previous testing White count 21.8 hemoglobin 13.6 platelets 24 potassium 6.1 bun 70 creatinine 2.65 lactic acid 3.6 sodium 117 AST 3:30 ALT 110 albumin 2.1 UA-positive Influenza a and B both negative Previous labs: Bun 16 creatinine 0.75 on 01/04/2019 Assessment: -Paroxysmal atrial fibrillation rapid ventricular rate, requiring Cardizem drip, now back to sinus rhythm -Persistent hypoglycemia, from poor oral intake and liver disease, responding to D10 drip, slowly being weaned off -Stage IV lung cancer with metastatic disease to the liver and to T6-T8, on immunotherapy -Hypoalbuminemia, secondary to liver disease and protein calorie malnutrition -Severe protein calorie malnutrition from poor oral intake -Essential hypertension, history of -Primary osteoarthritis -COPD in a X smoker -Pancytopenia from chemotherapy -Severe Hyponatremia likely hypoosmolar, slow to respond, -Medical debility -Chronic congestive heart failure exacerbation from diastolic dysfunction EF 55- 60% -Lactic acidosis type II -Acute renal failure combination of prerenal and possibly ATN, improving slowly -Metabolic acidosis multifactorial -Bicytopenia likely from immunotherapy -CODE STATUS DO NOT RESUSCITATE. Plan: Continue current medication treatment plan. Prognosis is not good. Patient weak and tired. Significant edema is present. Third spacing and closing from lower extremity. Weak tired rundown lethargic. Advanced care planning: Care was discussed with the patient's and daughter and the patient. They understand patient's overall poor prognosis. Function status is really poor. Barely eating. Albumin is down to 2.2. Patient's third spacing. Oral intake remains poor. Platelets remained to be off. Continues to hepatic congestion. Patient and family understand guarded prognosis. Have decided to proceed with hospice. [facility]. That included a bit better at home. Medications were discussed. Other questions were answered. Plan is to get the patient home tomorrow. This is being conveyed to Dr. Gallo and Dr. Nunez. About 25 minutes was spent on this.
[2019-03-01] MEDS: CEFEPIME 1 GM in SODIUM CHLORIDE 0.9% 50 ML IVPB SCH (22:42)
[2019-03-02 05:47] LABS: Anisocytosis Slight; HCT 28.3 % (34.0-46.0); HGB 9.3 gm/dL (11.4-16.0); MCH 35.8 pg (25.0-35.0); MCHC 32.9 g/dL (31.0-37.0); MCV 108.7 fL (80.0-100.0); Macrocytosis Marked; Mean Platelet Volume 15.8; RDW 17.6 % (11.5-15.5); WBC 14.2 k/uL (3.8-10.6)
[2019-03-02 06:04] LABS: Albumin 2.4 g/dL (3.5-5.0); Calcium 8.8 mg/dL (8.4-10.2); Magnesium 1.9 mg/dL (1.6-2.3); Potassium 4.2 mmol/L (3.5-5.1); Total Bilirubin 5.4 mg/dL (0.2-1.3); Total Protein 5.3 g/dL (6.3-8.2)
[2019-03-02 06:17] LABS: Platelet Count 23 k/uL (150-450)
[2019-03-02] MEDS: SALT AND SODA MOUTHWASH 1,000 ML PO SCH ×2 (07:09→14:00)
[2019-03-02] MEDS ORDERED: FUROSEMIDE 10 MG/ML 10 ML VIAL IV STA (09:06)
[2019-03-02] MEDS ORDERED: TOLVAPTAN 15 MG 1/2 TABLET PO ONE (09:15)
[2019-03-02] MEDS: HYDROCORTISONE SUCCINATE 100 MG/2 ML VIAL IV SCH (09:15)
[2019-03-02] MEDS: MAG HYDROX/AL HYDROX/SIMETH 30 ML, LIDOCAINE VISCOUS 30 ML, diphenhydrAMINE ELIXIR 75 M... PO SCH ×4 (09:16)
--- NOTE | 2019-03-02 09:32 | P.PN ---
Subjective Progress Note Date: 03/02/19 Principal diagnosis: Stage IV metastatic adenocarcinoma of the lung with extensive liver involvement. 73-year-old female patient with metastatic adenocarcinoma of the lung with ex tensive liver metastases, came into the hospital because of progressive worsening in her condition, generalized weakness, anasarca, increase in lower extremity edema, decreased oral intake, in addition to ongoing weight loss. The patient also was found to be in acute kidney injury and was having electrodes imbalance. Specifically, the patient was noted to have sodium level of 122 with a potassium level of 6.1. The patient's BUN was up to 70 with a creatinine of 2.6 from a normal based on January 2019. The patient was also having episodes of hypoglycemia. Her blood sugar was 72 and dropped down to the 40s and the patient was given an amp of D50 and following that she was transferred to the intensive care unit. LFTs are abnormal as the patient has hepatic metastases. Alkaline phosphatase is elevated at 894 with AST of 338 and ALT of 110. Her total serum protein was 6.3 with an albumin of 2.1. The proBNP level was 7730. Echo was elevated at 21. Hemoglobin is at 13.6 and the CAT scan of the abdomen and pelvis was done yesterday showed multiple metastatic lesions scattered thr oughout the liver that appeared to be larger compared to the previous CAT scan from October 2018 for comparison. There was some free fluid within the pelvis. There was some nonspecific small bowel loops within the pelvis. In terms of lung cancer, the patient was diagnosed having metastatic stage IV lung cancer, adenocarcinoma with extensive liver metastases and adrenal involvement. The patient was [facility] at the [facility]. The patient was given a combination of carboplatinum and Alimta and a dose of Keytruda . Since then, the patient got extremely sick. She has required transfusions with platelets in the emergency department. She became progressively more weak and the chain was supple and she has not received any treatment since. Says that she was also switched her care to Dr Nunez On 02/26/2019 seeing the patient for a follow-up. In terms of her overall condition, the patient is down slightly better compared to yesterday. She seems to be a bit more alert. She is on a D10 infusion running at the rate of 30 mL an hour and her sugars have stabilized and her most recent blood sugar is at 98. Sodium level is at 118 and the patient is receiving hypertonic solution 3% saline at the rate of 30 mL an hour. She is also on a bicarb infusion. Serum bicarb is up to 20 and the creatinine is down to 2.3. No major edema lower extremities. Nevertheless, LFTs remain abnormal, lactic acid remains elevated, she is still coagulopathic and this is upsetting related to liver insufficiency/failure due to extensive metastatic disease involving the liver. Her serum cortisol is a 28. Family is at the bedside. Oral intake is minimal and it's mainly limited to Jell-O and liquids. On today's evaluation of 02/27/2019 patient's condition essentially the same. The patient is still lethargic and sleepy. She is on oxygen at 2 L. Her chest x-ray showed development of lateral pleural effusions. Meanwhile, she developed increased edema in lower extremities and diffuse anasarca. The patient is on the 10 infusion running at 30 mL an hour. No hypoglycemic events. Hypertonic saline was felt that the patient's sodium level came up to 122. The serum bicarb infusion was also stop and the serum bicarb is also improved. She was given a dose of IV albumin 5% followed by Lasix 60 mg IV push. Her ammonia level is low at this point in time. An ocular phosphatase lower compared to yesterday. The platelet count is at 19,000. No bleeding complications at this point in time. Her white cell count is at 8.6. Creatinine is also improving and is down to 1.9 and her potassium level is at 4.8 with a sodium level of 122. Oral intake is still minimally the patient is very much debilitated from her metastatic lung cancer with extensive hepatic involvement. No signs of any adrenal insufficiency. The patient is seen today 02/28/2019 in follow-up in the intensive care unit. She is currently awake and alert in no acute distress. She denies any significant discomfort at this time. She is currently on 2 L nasal cannula and maintaining good O2 saturation in the mid 90s. She's afebrile. Slightly tachycardic. Blood pressure stable. Blood culture reveals no growth. Urine culture reveals no growth. White count 6.2. Hemoglobin 11.4. MCV 106.6. Platelets 18,000. Sodium 120. Chloride 89. Bicarb 16. Creatinine 1.63. AST 139. ALT 60. Alk phos 6:15. Albumin 3.0. She remains on sodium bicarb. IV Protonix. Solu-Cortef. Cefepime. Receiving bronchodilators. The patient is seen today 03/01/2019 in follow-up in the intensive care unit. She is currently sitting up in a chair at the bedside. Awake and alert in no acute distress. She is maintaining O2 saturations in the mid 90s on 2 L/m per nasal cannula. She's been afebrile. Mean arterial pressures greater than 65. Blood cultures reveal no growth. Urine culture reveals no growth. White count 7.8. Hemoglobin 10.2. Platelet counts 24,000. Sodium 123. Creatinine 1.48. Calcium 3.4. AST 98. ALTs 57. Alk phos 742. Albumin 2.2. She is currently on a Cardizem drip at 5 mg per hour. Empirically on cefepime. Remains in site [facility]. [facility] on sodium bicarb. Oncology is on the case. The patient is seen today 03/02/2019 in follow-up in the intensive care unit. She did have a better night last night. No hypotensive episodes. She is resting comfortably in bed. She is maintaining O2 saturations in the 90s on 3 L/m per nasal cannula. Afebrile. Mean arterial pressure greater than 65. The plan is for potentially home with hospice today. Objective - Vital Signs Vital signs: Vital Signs Temp 97.5 F L 03/02/19 08:00 Pulse 90 03/02/19 09:00 Resp 18 03/02/19 09:00 BP 100/58 03/02/19 09:00 Pulse Ox 93 L 03/02/19 09:00 Intake & Output 03/01/19 03/02/19 03/02/19 18:59 06:59 18:59 Intake Total 1009.167 580 100 Output Total 495 330 360 Balance 514.167 250 -260 Weight 65.4 kg Intake: IV 360 580 100 Cefepime 1 gm In Sodium 100 Chloride 0.9% 50 ml @ 100 mls/hr IVPB Q24H RENÉ Rx# :[id number] Dextrose 10% in Water 500 360 360 90 ml In Empty Bag 1 bag @ 30 mls/hr IV .[id number] RENÉ Rx#:[id number] normal saline 120 10 Intake, IV Titration 169.167 Amount Albumin Human 25% 50 ml 100 In Empty Bag 1 bag @ 50 mls/hr IVPB Q1H RENÉ Rx#: [id number] Diltiazem 125 mg In 69.167 Sodium Chloride 0.9% 100 ml @ 5 MG/HR 5 mls/hr IV .Q24H RENÉ Rx#:[id number] Oral 480 Output: Urine 495 330 360 Other: Voiding Method Indwelling Catheter Indwelling Catheter - Exam GENERAL EXAM: Alert, pleasant 73-year-old female patient, a little more comfortable this morning. On 3 L nasal cannula. She is not in acute respiratory distress however she looks quite cachectic and emaciated and she has lost considerable amount of weight. HEAD: Normocephalic. EYES: Normal reaction of pupils, equal size. NOSE: Clear with pink turbinates. THROAT: No erythema or exudates. NECK: No masses, no JVD. CHEST: No chest wall deformity. LUNGS: Equal air entry with crackles in the posterior bases, diminished. CVS: S1 and S2 normal with no audible murmur, regular rhythm. ABDOMEN: No hepatosplenomegaly, normal bowel sounds, no guarding or rigidity. SPINE: No scoliosis or deformity SKIN: No rashes CENTRAL NERVOUS SYSTEM: No focal deficits, tone is normal in all 4 extremities. EXTREMITIES: There is 1-2+ peripheral edema. No clubbing, no cyanosis. Peripheral pulses intact - Labs CBC & Chem 7: 03/02/19 05:02 03/02/19 05:02 Labs: Abnormal Lab Results - Last 24 Hours (Table) 03/01/19 03/02/19 03/02/19 Range/Units 13:10 05:02 05:02 WBC 14.2 H (3.8-10.6) k/uL RBC 2.60 L (3.80-5.40) m/uL Hgb 9.3 L (11.4-16.0) gm/dL Hct 28.3 L (34.0-46.0) % MCV 108.7 H (80.0-100.0) fL MCH 35.8 H (25.0-35.0) pg RDW 17.6 H (11.5-15.5) % Plt Count 23 L (150-450) k/uL Macrocytosis Marked A Sodium 121 L (137-145) mmol/L Chloride 89 L (98-107) mmol/L Carbon Dioxide 19 L (22-30) mmol/L BUN 58 H (7-17) mg/dL Creatinine 1.43 H (0.52-1.04) mg/dL Glucose 123 H (74-99) mg/dL POC Glucose (mg/dL) 145 H (75-99) mg/dL Total Bilirubin 5.4 H (0.2-1.3) mg/dL AST 72 H (14-36) U/L ALT 55 H (4-34) U/L Alkaline Phosphatase 659 H (38-126) U/L Total Protein 5.3 L (6.3-8.2) g/dL Albumin 2.4 L (3.5-5.0) g/dL Microbiology - Last 24 Hours (Table) 02/24/19 13:19 Blood Culture - Preliminary Blood No Growth after 120 hours Assessment and Plan Assessment: 1 stage IV metastatic adenocarcinoma of the lung with extensive liver involvement, treated with this cycle of systemic chemotherapy and immunotherapy with subsequent failure of treatment due to side effects and worsening of the performance and functional status 2 acute hypoglycemia secondary to hepatitic failure/insufficiency due to meta static disease 3 acute leukocytosis, improving 4 acute kidney injury likely secondary to intravascular volume depletion/dehydration, improving the creatinine is down to 1.43 5 acute hyperkalemia, recovered 6 chronic lower extremity edema with worsening in lower extremity swelling 7 COPD 8 hypertension 9 hyperlipidemia 10 chronic anxiety 11 osteoarthritis 12 lactic acidosis secondary to hepatitic insufficiency/liver failure 13 diffuse anasarca 14 hyponatremia improving and the sodium level is at 120 patient is off hypertonic solution for now. Plan The patient was seen and evaluated by Dr. Gallo. The family and the patient had met with hospice yesterday. They're hoping to take her home today. We will see him on as-needed basis I, the cosigning physician, performed a history & physical examination of the patient. Lungs sounds with crackles in the bases. Maintaining good O2 saturations in the 90s on 3 L/m per nasal cannula. I discussed the assessment and plan of care with my nurse practitioner, Briana Larkin. I attest to the above note as dictated by her.
[2019-03-02 09:33] LABS: Band Neutrophils % 11 %; Large Platelets Present; Metamyelocytes # (M) 0.14 k/uL (0); Metamyelocytes % 1 %; Monocytes # (M) 1.99 k/uL (0-1.0); Neutrophils % (M) 63 %; Nucleated Red Blood Cells 0 /100 WBC (0-0); Target Cells Present; Total Cells Counted 200
--- NOTE | 2019-03-02 09:42 | P.PN ---
Subjective Patient is seen in follow-up for acute kidney injury and electrolyte imbalance. Remains on Cardizem drip for A. fib. She remains lethargic. Sodium level 121. Refused Samsca yesterday. Renal function stable. Vital signs are stable. Blood pressures on the lower side. General: The patient appeared well nourished and normally developed. HEENT: Head exam is unremarkable. Neck is without jugular venous distension. LUNGS: Breath sounds decreased. HEART: Rate and Rhythm are regular. First and second heart sounds normal. No murmurs, rubs or gallops. ABDOMEN: Bowel sounds present. Soft. EXTREMITITES: 2+ edema. Objective - Vital Signs Vital signs: Vital Signs Temp 97.5 F L 03/02/19 08:00 Pulse 90 03/02/19 09:00 Resp 18 03/02/19 09:00 BP 100/58 03/02/19 09:00 Pulse Ox 93 L 03/02/19 09:00 Intake & Output 03/01/19 03/02/19 03/02/19 18:59 06:59 18:59 Intake Total 1009.167 580 100 Output Total 495 330 360 Balance 514.167 250 -260 Weight 65.4 kg Intake: IV 360 580 100 Cefepime 1 gm In Sodium 100 Chloride 0.9% 50 ml @ 100 mls/hr IVPB Q24H RENÉ Rx# :[id number] Dextrose 10% in Water 500 360 360 90 ml In Empty Bag 1 bag @ 30 mls/hr IV .[id number] RENÉ Rx#:[id number] normal saline 120 10 Intake, IV Titration 169.167 Amount Albumin Human 25% 50 ml 100 In Empty Bag 1 bag @ 50 mls/hr IVPB Q1H RENÉ Rx#: [id number] Diltiazem 125 mg In 69.167 Sodium Chloride 0.9% 100 ml @ 5 MG/HR 5 mls/hr IV .Q24H RENÉ Rx#:[id number] Oral 480 Output: Urine 495 330 360 Other: Voiding Method Indwelling Catheter Indwelling Catheter Indwelling Catheter - Labs CBC & Chem 7: 03/02/19 05:02 03/02/19 05:02 Labs: Abnormal Lab Results - Last 24 Hours (Table) 03/01/19 03/02/19 03/02/19 Range/Units 13:10 05:02 05:02 WBC 14.2 H (3.8-10.6) k/uL RBC 2.60 L (3.80-5.40) m/uL Hgb 9.3 L (11.4-16.0) gm/dL Hct 28.3 L (34.0-46.0) % MCV 108.7 H (80.0-100.0) fL MCH 35.8 H (25.0-35.0) pg RDW 17.6 H (11.5-15.5) % Plt Count 23 L (150-450) k/uL Neutrophils # (Manual) 10.50 H (1.3-7.7) k/uL Monocytes # (Manual) 1.99 H (0-1.0) k/uL Metamyelocytes # (Man) 0.14 H (0) k/uL Macrocytosis Marked A Sodium 121 L (137-145) mmol/L Chloride 89 L (98-107) mmol/L Carbon Dioxide 19 L (22-30) mmol/L BUN 58 H (7-17) mg/dL Creatinine 1.43 H (0.52-1.04) mg/dL Glucose 123 H (74-99) mg/dL POC Glucose (mg/dL) 145 H (75-99) mg/dL Total Bilirubin 5.4 H (0.2-1.3) mg/dL AST 72 H (14-36) U/L ALT 55 H (4-34) U/L Alkaline Phosphatase 659 H (38-126) U/L Total Protein 5.3 L (6.3-8.2) g/dL Albumin 2.4 L (3.5-5.0) g/dL Microbiology - Last 24 Hours (Table) 02/24/19 13:19 Blood Culture - Preliminary Blood No Growth after 120 hours Assessment and Plan Plan: Assessment: 1. Acute kidney injury secondary to ATN secondary to hypotension. Creatinine 2.7 on admission and is 1.43 today. No hydronephrosis noted on CAT scan. 2. Hyponatremia. Patient is hypervolemic which is due to third spacing from hypoalbuminemia. 3. Hypokalemia secondary to diuresis. Improved. 4. Metabolic acidosis secondary to acute kidney injury and lactic acidosis. 5. Lactic acidosis secondary to hypotension and metastatic liver disease. 6. Volume overload. 7. A. fib with RVR maintained on Cardizem drip. Plan: Lasix 60 mg IV once now. Samsca 15 mg once today. Patient going home with hospice today. She will be maintained on torsemide 40 mg once daily along with Aldactone for comfort measures.
[2019-03-02] MEDS: DILTIAZEM 125 MG in SODIUM CHLORIDE 0.9% 100 ML IV SCH (09:51)
[2019-03-02] MEDS: SODIUM BICARBONATE TAB 650 MG TAB PO SCH (09:51)
[2019-03-02] MEDS: ALPRAZolam 0.25 MG TAB PO PRN (12:56)
[2019-03-02] MEDS: DEXTROSE 10% IN WATER 500 ML in EMPTY BAG 1 BAG IV SCH (14:00)
[2019-03-02 14:01] VITALS: BP 94/63; PULSE 86; RESP 24; TEMP 97.7
--- NOTE | 2019-03-02 23:53 | P.DS ---
Providers Date of admission: 02/24/19 17:19 Expected date of discharge: 03/02/19 Attending physician: Naveen Butterfield Consults: 02/24/19 21:07 Consult Physician Routine Consulting Provider: Miranda Pretty Consult Reason/Comments: sepsis Do you want consulting provider notified?: Yes 02/24/19 21:08 Consult Physician Routine Consulting Provider: Dez Jc Consult Reason/Comments: Pneumonia Do you want consulting provider notified?: Yes, Notify in am 02/24/19 21:14 Consult Physician Routine Consulting Provider: Yary Alonso Consult Reason/Comments: Increased potassium Do you want consulting provider notified?: Yes 02/25/19 12:45 Consult Physician Routine Consulting Provider: Freddie Nunez Consult Reason/Comments: metastatic cancer Do you want consulting provider notified?: Yes 02/25/19 18:38 Consult Physician Routine Consulting Provider: Nilda Child Consult Reason/Comments: adrenal insufficiency Do you want consulting provider notified?: Yes, Notify in am Primary care physician: Matthias Joshua [facility] Course: Hospital course: Pleasant 73-year-old patient of Dr. Cleopatra Joshua. In October 2018 she was diagnosed with metastatic stage IV lung cancer with liver masses . Patient has had 3 cycles of keytruda alone, one at the [facility] and 2 here, most recent treatment was on February 21. She had one cycle of Alimta and keytruda at the [facility] but, her hematological toxicities were so severe it was decided to treat with single agent immunotherapy. . Patient at home for last 10 days. Having a viral illness. Appetite has been going down. Has been losing weight. Getting more and more weak and tired. Patient was transferred to the ICU on February 25. Patient received D10 drip, bicarbonate drip, hypertonic saline.patient was slow to improve. Did go into atrial fibrillation. Had to be moved back to the ICU. Discussion was held with the patient and the family. Due to poor prognosis decided to proceed with hospice. Today-family present. talk to the patientt. Oral intake remains poor.tired discharge paperwork was done. Care was discussed with the patient and the family. Discussion and discharge planning more than 35 minutes Consultation: -Dr. Nunez from oncology Dr. Gallo from critical care On examination: VITAL SIGNS: 97.7, 22, 105/58, 95% on 3 L GENERAL APPEARANCE: Frail weak tired, sitting up in a chair EYES: Pupils equal. Conjunctiva pale NECK: JVD unable to assess. Mass not palpable. RESPIRATORY: Respiratory effort increased. Lungs decreased breath sounds CARDIOVASCULAR: First and second sounds normal. edema present. ABDOMEN: Soft. Liver and spleen not palpable. No tenderness. No mass palpable. PSYCHIATRY: Alert and oriented x3. Mood and affect tired MUSCULOSKELETAL: Loss of subcutaneous fat DERMATOLOGICAL: Some bruising INVESTIGATIONS, reviewed in the clinical context: white count 14.2 hemoglobin 9.3 sodium 141 bun 58 creatine 1.43 Previous testing White count 21.8 hemoglobin 13.6 platelets 24 potassium 6.1 bun 70 creatinine 2.65 lactic acid 3.6 sodium 117 AST 3:30 ALT 110 albumin 2.1 UA-positive Influenza a and B both negative Previous labs: Bun 16 creatinine 0.75 on 01/04/2019 Assessment: -Paroxysmal atrial fibrillation rapid ventricular rate, requiring Cardizem drip, now back to sinus rhythm -Persistent hypoglycemia, from poor oral intake and liver disease, responding to D10 drip, slowly being weaned off -Stage IV lung cancer with metastatic disease to the liver and to T6-T8, on immunotherapy -Hypoalbuminemia, secondary to liver disease and protein calorie malnutrition -Severe protein calorie malnutrition from poor oral intake -Essential hypertension, history of -Primary osteoarthritis -COPD in a X smoker -Pancytopenia from chemotherapy -Severe Hyponatremia likely hypoosmolar, slow to respond, -Medical debility -Chronic congestive heart failure exacerbation from diastolic dysfunction EF 55- 60% -Lactic acidosis type II -Acute renal failure combination of prerenal and possibly ATN, improving slowly -Metabolic acidosis multifactorial -Bicytopenia likely from immunotherapy -CODE STATUS DO NOT RESUSCITATE. disposition: Home with hospice Patient Condition at Discharge: Poor Plan - Discharge Summary Discharge Rx Participant: No New Discharge Prescriptions: New LORazepam [Ativan] 1 mg PO Q4H PRN #18 tablet PRN Reason: Anxiety MORPHINE ORAL RITA CONC 20mg/mL [Roxanol Oral Soln Conc 20Mg/ml] 5 mg PO Q4H PRN #30 ml PRN Reason: Pain Control Scopolamine 1.5MG/72Hr Patch [TransDerm Scop] 1 patch TRANSDERM Q72H #3 patch Continue Omeprazole 20 mg PO AC-LUNCH Spironolactone [Aldactone] 100 mg PO DAILY #30 tab Albuterol Sulfate [Proair Hfa] 1 - 2 puff INHALATION Q6HR PRN #1 inhaler PRN Reason: Shortness Of Breath Or Wheezing Albuterol Nebulized (Conc) [Ventolin Nebulized (Conc)] 2.5 mg INHALATION Q4HR PRN #50 neb PRN Reason: shortness of breath or cough Discontinued Potassium Chloride [K-Tab ER] 10 meq PO DAILY Torsemide [Demadex] 20 mg PO DAILY Amoxic-Pot Clav 875-125Mg [Augmentin Xr 875-125] 1 each PO Q12HR #20 tablet ALPRAZolam [Xanax] 0.25 mg PO BID PRN PRN Reason: Anxiety Discharge Medication List Omeprazole 20 mg PO AC-LUNCH 12/28/18 [History] Spironolactone [Aldactone] 100 mg PO DAILY #30 tab 01/04/19 [Rx] Albuterol Nebulized (Conc) [Ventolin Nebulized (Conc)] 2.5 mg INHALATION Q4HR PRN #50 neb 02/18/19 [Rx] Albuterol Sulfate [Proair Hfa] 1 - 2 puff INHALATION Q6HR PRN #1 inhaler 02/18/19 [Rx] LORazepam [Ativan] 1 mg PO Q4H PRN #18 tablet 03/02/19 [Rx] MORPHINE ORAL RITA CONC 20mg/mL [Roxanol Oral Soln Conc 20Mg/ml] 5 mg PO Q4H PRN #30 ml 03/02/19 [Rx] Scopolamine 1.5MG/72Hr Patch [TransDerm Scop] 1 patch TRANSDERM Q72H #3 patch 03/02/19 [Rx] Follow up Appointment(s)/Referral(s): Matthias Joshua DO [Primary Care Provider] - As Needed Patient Instructions/Handouts: Comfort Measures (GEN) Discharge Disposition: HOME WITH HOSPICE
--- NOTE | 2019-03-05 11:19 | CDI ---
Documentation Clarification Form Date: 03/05/19 From: Iris Nayak Phone: If you have a question about this query, please contact Mariana Joe, [employer] Operator at [phone] between 8am and 5pm. Admit Date: 02/24/19 Discharge Date: 03/02/19 Patient Name: Delisa Valero Visit Number: [id number] ATTENTION: The Clinical Documentation Specialists (CDI) and [facility] Coding Staff appreciate your assistance in clarifying documentation. Please respond to the clarification below the line at the bottom and electronically sign. The CDI & [facility] Coding staff will review the response and follow-up if needed. Please note: Queries are made part of the Legal Health Record. If you have any questions, please contact the author of this message via ITS. Dear Dr. Naveen Butterfield, The diagnosis sepsis was documented in the ED Note, H&P & , 02/25 Dr Sukhwinder TANG but is not noted in subsequent documentation. History/Risk Factors: hypotension, ATN, severe PCM, Ac on chr diastolic CHF w HTN, lung ca w mets to liver, adrenal and T6-T8, UTI, possible pneumonia Clinical Indicators: WBC-20.9, neutrophils-17.7, lactic acid 3.7/5.4, Total bilirubin-3.9; BC no growth Treatment: IV fluids, sodium bicarb, IN Azithromycin, IV Rocephin, Please clarify if the sepsis was Present/active/treated this admission Sepsis ruled out Other, please specify Clinically unable to determine Possible sepsis MTDD
--- NOTE | 2019-03-05 11:30 | CDI ---
Documentation Clarification Form Date: 03/05/19 From: Iris Nayak Phone: If you have a question about this query, please contact Mariana Joe, Finished Cigar Maker at [phone] between 8am and 5pm. Admit Date: 02/24/19 Discharge Date: 03/02/19 Patient Name: Delisa Valero Visit Number: [id number] ATTENTION: The Clinical Documentation Specialists (CDI) and [facility] Coding Staff appreciate your assistance in clarifying documentation. Please respond to the clarification below the line at the bottom and electronically sign. The CDI & [facility] Coding staff will review the response and follow-up if needed. Please note: Queries are made part of the Legal Health Record. If you have any questions, please contact the author of this message via ITS. Dear Dr. Naveen Butterfield,Geovani The diagnosis possible pneumonia was documented in the ED Note, 02/24 & 03/[address] Pretty but is not noted in subsequent documentation. History/Risk Factors: hypotension, ATN, severe PCM, Ac on chr diastolic CHF w HTN, lung ca w mets to liver, adrenal and T6-T8, UTI, possible sepsis Clinical Indicators: WBC-20.9, neutrophils-17.7, lactic acid 3.7/5.4, Total bilirubin-3.9; BC no growth Treatment: IV fluids, IV Azithromycin, IV Rocephin, Please clarify if the pneumonia was: Present/active/treated this admission Pneumonia ruled out Other, please specify Clinically unable to determine Pneumonia, ruled out MTDD
== END 2019-03-02 15:19 | disposition hospice, inpatient (51) | DRG 871 ==
LOC: EC 11:47 → 3SCARD 17:19 → 2SICU 02-25 12:28 → 3SCARD 02-28 16:53 → 2SICU 02-28 23:03
PROVIDERS: ADMIT Hospitalist; ATTEND Hospitalist
PROC: 06HM33Z Insertion of Infusion Device into Right Femoral Vein, Percutaneous Approach (ICD-10-PCS; principal; 2019-02-27)
DX: A41.9 Sepsis, unspecified organism (principal); N17.0 Acute kidney failure with tubular necrosis; E43 Unspecified severe protein-calorie malnutrition; I50.33 Acute on chronic diastolic (congestive) heart failure; D61.810 Antineoplastic chemotherapy induced pancytopenia; C78.7 Secondary malignant neoplasm of liver and intrahepatic bile duct; R64 Cachexia; C79.70 Secondary malignant neoplasm of unspecified adrenal gland; C79.51 Secondary malignant neoplasm of bone; D68.4 Acquired coagulation factor deficiency; E87.2 Acidosis; E27.40 Unspecified adrenocortical insufficiency; E87.1 Hypo-osmolality and hyponatremia; C34.90 Malignant neoplasm of unspecified part of unspecified bronchus or lung; N39.0 Urinary tract infection, site not specified; Z66 Do not resuscitate; Z51.5 Encounter for palliative care; K72.90 Hepatic failure, unspecified without coma; E83.51 Hypocalcemia; E86.0 Dehydration; I11.0 Hypertensive heart disease with heart failure; E87.5 Hyperkalemia; E16.2 Hypoglycemia, unspecified; I48.0 Paroxysmal atrial fibrillation; E87.6 Hypokalemia; J44.9 Chronic obstructive pulmonary disease, unspecified; M19.91 Primary osteoarthritis, unspecified site; E78.5 Hyperlipidemia, unspecified; F41.9 Anxiety disorder, unspecified; T45.1X5A Adverse effect of antineoplastic and immunosuppressive drugs, initial encounter; T50.2X5A Adverse effect of carbonic-anhydrase inhibitors, benzothiadiazides and other diuretics, initial encounter; H91.90 Unspecified hearing loss, unspecified ear; Z68.20 Body mass index [BMI] 20.0-20.9, adult; Z79.899 Other long term (current) drug therapy; Z88.5 Allergy status to narcotic agent; Z90.49 Acquired absence of other specified parts of digestive tract; Z92.25 Personal history of immunosuppression therapy; Z87.891 Personal history of nicotine dependence; Z96.649 Presence of unspecified artificial hip joint; Z92.21 Personal history of antineoplastic chemotherapy; Z98.890 Other specified postprocedural states; Z98.51 Tubal ligation status; Z91.048 Other nonmedicinal substance allergy status; Z80.1 Family history of malignant neoplasm of trachea, bronchus and lung; Z82.3 Family history of stroke
CPT/HCPCS: 36415; 71045; 71046; 74176; 80048; 80053; 81001; 82088; 82140; 82533; 82550; 83605; 83735; 83880; 84100; 84244; 84484; 85025; 85027; 85610; 85730; 87040; 87086; 87502; 93005; 94640; 96365; 96367; 96375; 96376; 99285